=== PATIENT | female | born 1940 | race Caucasian/White ===

== ENCOUNTER → 2018-04-19 12:40 | Outpatient (CLI) | payer MEDICARE, OTHER, SELFPAY ==
--- NOTE | 2018-04-19 12:47 | BI_ITS ---
MAMMOGRAPHY - BILATERAL SCREENING REASON FOR EXAM: Female, 77 years old. Routine annual screening examination. PERTINENT HISTORY: Aunt with breast cancer. TECHNIQUE: Digital bilateral breast maicol (3D mammographic acquisition) in the CC and MLO projections. 2-D mediolateral oblique (MLO) and craniocaudad (CC) views of both breasts were obtained. CAD: Full Field Digital Mammography with Computer Added Detection was performed. COMPARISON: Comparison is made with prior study dated March 12, 2017 and January 10, 2016. FINDINGS: Breast Composition: There are scattered areas of fibroglandular density. There are no dominant masses or suspicious calcifications. A pacemaker battery pack is seen in the left axillary region. Stable 6.2 mm well-defined nodule in the axillary region of the right breast. This suggests a small lymph node. No other significant abnormalities are identified. There has been no significant change since the prior study. BI/SCREENING MAMM (CAD), BILAT IMPRESSION: Stable bilateral screening mammogram. Yearly follow-up mammogram recommended. (A) ASSESSMENT CATEGORY: BIRADS Category 2: Benign. A letter regarding these results will be sent to the patient by the facility within 30 days. Approximately 10% of breast cancers are not detected by mammography. A normal mammogram should not delay biopsy of a clinically suspicious abnormality. [id number] Electronically Signed: Deni Mancia MD at 15:02 EST Tel [phone], Service support ,
== END ==
PROVIDERS: Family Provider Internal Medicine; PCP Internal Medicine; Referring Provider Internal Medicine; Visit Provider Internal Medicine
DX: Z12.31 Encounter for screening mammogram for malignant neoplasm of breast (principal)
CPT/HCPCS: 77063; 77067

== ENCOUNTER → 2019-05-01 11:17 | Outpatient (CLI) | payer MEDICARE, OTHER, SELFPAY ==
--- NOTE | 2019-05-01 11:26 | BI_ITS ---
MAMMOGRAPHY - BILATERAL SCREENING REASON FOR EXAM: Female, 78 years old. Routine annual screening examination. PERTINENT HISTORY: Aunts with breast cancer. TECHNIQUE: Digital bilateral breast mukul (3D mammographic acquisition) in the CC and MLO projections. 2-D mediolateral oblique (MLO) and craniocaudad (CC) views of both breasts were obtained. CAD: Full Field Digital Mammography with Computer Added Detection was performed. COMPARISON: Comparison is made with prior study dated April 19, 2018 and March 12, 2017. FINDINGS: Breast Composition: There are scattered areas of fibroglandular density. There are no dominant masses or suspicious calcifications. A battery pack from a pacemaker device is seen in the left axillary region. Stable 6.2 mm well-defined nodule in the axillary region of the right breast suggestive of a small lymph node. No other significant abnormalities are identified. There has been no significant change since the prior study. BI/SCREEN MAMM (CAD) W/MUKUL BILAT IMPRESSION: Stable bilateral screening mammogram. Yearly follow-up mammogram recommended. (A) ASSESSMENT CATEGORY: BIRADS Category 2: Benign. A letter regarding these results will be sent to the patient by the facility within 30 days. Approximately 10% of breast cancers are not detected by mammography. A normal mammogram should not delay biopsy of a clinically suspicious abnormality. [id number] Electronically Signed: Deni Mancia, at 13:37 EST , Service support ,
== END ==
PROVIDERS: Family Provider Internal Medicine; PCP Internal Medicine; Referring Provider Obstetrics & Gynecology; Visit Provider Obstetrics & Gynecology
DX: Z12.31 Encounter for screening mammogram for malignant neoplasm of breast (principal)
CPT/HCPCS: 77063; 77067

== ENCOUNTER 2020-07-02 10:30 | Outpatient (RCR) | payer MEDICARE, OTHER, SELFPAY | END 2020-07-02 23:59 | LOC: IMMUN 10:30 | PROVIDERS: PCP Internal Medicine; Referring Provider Family Medicine; Visit Provider Family Medicine | DX: Z23 Encounter for immunization (principal) | CPT/HCPCS: 0011A; 0012A ==

== ENCOUNTER → 2021-03-24 15:27 | Outpatient (CLI) | payer MEDICARE, OTHER, SELFPAY ==
--- NOTE | 2021-03-24 15:31 | BI_ITS ---
MAMMOGRAPHY - BILATERAL SCREENING REASON FOR EXAM: Female, 80 years old. Routine annual screening examination. PERTINENT HISTORY: Aunts with breast cancer. TECHNIQUE: Digital bilateral breast mukul (3D mammographic acquisition) in the CC and MLO projections. 2-D mediolateral oblique (MLO) and craniocaudad (CC) views of both breasts were obtained. CAD: Full Field Digital Mammography with Computer Added Detection was performed. COMPARISON: Comparison is made with prior study dated 05/01/2019 and 04/19/2018. FINDINGS: Breast Composition: There are scattered areas of fibroglandular density. There are no dominant masses or suspicious calcifications. Stable 6.2 mm well-defined nodule in the axillary region of the right breast suggestive of a small lymph node. The battery pack of the pacemaker is seen in the left axillary region No other significant abnormalities are identified. There has been no significant change since the prior study. BI/SCRN MAMM (CAD)W/MUKUL BILAT IMPRESSION: Stable bilateral screening mammogram. Yearly follow-up mammogram recommended. (A) ASSESSMENT CATEGORY: BIRADS Category 2: Benign. A letter regarding these results will be sent to the patient by the facility within 30 days. Approximately 10% of breast cancers are not detected by mammography. A normal mammogram should not delay biopsy of a clinically suspicious abnormality. [id number] Electronically Signed: Deni Mancia MD at 8:15 EDT , Service support ,
== END ==
PROVIDERS: PCP Internal Medicine; Visit Provider Internal Medicine
DX: Z12.31 Encounter for screening mammogram for malignant neoplasm of breast (principal)
CPT/HCPCS: 77063; 77067

== ENCOUNTER → 2023-04-10 | Outpatient (CLI) | payer MEDICARE, OTHER, SELFPAY ==
--- NOTE | 2023-04-10 15:32 | BI_ITS ---
MAMMOGRAPHY - BILATERAL SCREENING REASON FOR EXAM: Female, 82 years old. Routine annual screening examination. PERTINENT HISTORY: Aunts with breast cancer. TECHNIQUE: Digital bilateral breast mukul (3D mammographic acquisition) in the CC and MLO projections. 2-D mediolateral oblique (MLO) and craniocaudad (CC) views of both breasts were obtained. CAD: Full Field Digital Mammography with Computer Added Detection was performed. COMPARISON: Comparison is made with prior study dated March 24, 2021 and May 01, 2019. FINDINGS: Breast Composition: There are scattered areas of fibroglandular density. There are no dominant masses or suspicious calcifications. Stable 6.2 mm well-defined nodule in the axillary region of the right breast suggestive of a small lymph node. Once again, the battery pack of a left-sided pacemaker is seen in the left axillary region. No other significant abnormalities are identified. There has been no significant change since the prior study. BI/SCRN MAMM (CAD)W/MUKUL BILAT IMPRESSION: Stable bilateral screening mammogram. Yearly follow-up mammogram recommended. (A) ASSESSMENT CATEGORY: BIRADS Category 2: Benign. A letter regarding these results will be sent to the patient by the facility within 30 days. Approximately 10% of breast cancers are not detected by mammography. A normal mammogram should not delay biopsy of a clinically suspicious abnormality. [id number] Electronically Signed: Deni Mancia MD at 14:03 EST ,
== END | disposition home or self-care (01) ==
LOC: OPBI 15:30
PROVIDERS: PCP Internal Medicine; Referring Provider Internal Medicine; Visit Provider Internal Medicine
DX: Z12.31 Encounter for screening mammogram for malignant neoplasm of breast (principal)
CPT/HCPCS: 77063; 77067

== ENCOUNTER 2025-02-05 14:43 | Inpatient (IN) | payer MEDICARE, OTHER, SELFPAY ==
[2025-02-05] VITALS (10 sets, daily range): BP systolic 81–146; BP diastolic 60–97; PULSE 74–94; RESP 16–18; TEMP 35.9–37.2; O2SAT 90–96; BMI 31.6; BMI 31.1
--- NOTE | 2025-02-05 15:24 | EKG12_ITS ---
Test Reason : SOB Blood Pressure : */* mmHG Vent. Rate : 92 BPM Atrial Rate : * BPM P-R Int : * ms QRS Dur : 90 ms QT Int : 388 ms P-R-T Axes : * 74 28 degrees QTcB Int : 479 ms Atrial fibrillation with occasional ventricular-paced complexes Nonspecific ST and T wave abnormality Abnormal ECG Confirmed by MANE MONTILLA, RAND ([id number]), deputy editor in chief RACHAEL GÓMEZ ([id number]) on 02/06/2025 10:46:57 AM Referred By: BRYCE Confirmed By: RAND GILLIAM MD
--- NOTE | 2025-02-05 15:27 | ED.VIS.DYS ---
HPI History of Present Illness Chief Complaint: Shortness of Breath Detail of Chief Complaint: Dyspnea with activity, orthopnea, swelling, and chest discomfort when supin Informant: patient Onset/Context/Timing Onset: Days (Approximately 2 to 3 days ago) Context: sudden and activity on onset Timing: Intermittent Quality: Positive for Dyspnea on exertion and Orthopnea (Patient had to raise her bed past 45 degrees last evening.); Negative for PND or Wheezing Current Severity: Gone Maximum Severity: Severe Worsened by: Exertion (Patient states she cannot go up entire flight of steps without having some mild chest discomfort and shortness of breath) and Lying flat; Not Worsened By Coughing (Patient reports a cough that is nonproductive.) Relieved by: Rest Associated Symptoms cough; Negative for rhinorrhea, post nasal drip, ear pain, fever, sore throat, subjective, chills, sweats, clear sputum, white sputum, yellow sputum or green sputum Chest Pain: Positive for Tightness Narrative Narrative: Patient is a pleasant 84-year-old female with history of atrial fibrillation on Eliquis, hypertension and high cholesterol. She is on no medication for her cholesterol. She was seen at [facility] urgent care and diagnosed with congestive heart failure. She was instructed to go to the emergency room yesterday. She presents today because of dyspnea, dyspnea with activity, orthopnea and swelling of her legs. The swelling started approximately 3 to 4 days ago. . Patient denies fever, chills night sweats. Patient denies upper respiratory tract infectious symptoms. Patient denies black or maroon-colored stool. Patient denies urologic symptoms. PE Risk Factors: Negative for Cancer, OCP + Smoking + > 35, Prior DVT or PE, Recent immobilization, Recent surgery or Recent travel Prior similar symptoms: No Recent Illness/Hospitalization: No [facility] Medical History (Updated 02/05/25 @ 17:[address] Mark Romano MD) CHF (congestive heart failure) Pacemaker Anticoagulant long-term use Atrial fibrillation Hypercholesterolemia Home Medications ?Medication ?Instructions ?Recorded ?Last Taken ?Type amlodipine 2.5 mg tablet 5 mg PO DAILY 11/25/13 11/25/13 History nebivolol 2.5 mg tablet (Bystolic) mg PO DAILY 11/25/13 Unknown History levetiracetam 250 mg tablet 250 mg PO BID #60 tabs 11/26/13 Unknown Rx Allergy/AdvReac Type Severity Reaction Status Date / Time No Known Allergies Allergy Verified 02/05/25 14:48 Social History Smoking Status: Never smoker ROS ROS ED Constitutional Constitutional ED: Denies chills, fever(s), sweats or weight loss Eyes Eyes: Denies blurry vision or change in vision ENT ENT ED: Denies ear pain or rhinorrhea Cardiovascular Cardiovascular: Reports chest pain and orthopnea; Denies palpitations, paroxysmal nocturnal dyspnea or racing heartbeat Respiratory/Chest Respiratory/Chest: Reports cough, dyspnea, dyspnea on exertion and orthopnea; Denies paroxysmal nocturnal dyspnea or sputum Gastrointestinal Gastrointestinal: Denies abdominal pain, diarrhea, nausea or vomiting Genitourinary Genitourinary ED: Denies dysuria, hematuria or urinary frequency Musculoskeletal Musculoskeletal: Denies arthralgias or myalgias Integumentary Denies rash Neurologic Neurologic: Denies weakness Endocrine Endocrinology: Denies cold intolerance or heat intolerance Hematologic/Lymphatic Hematologic/Lymphatic: Denies easy bleeding or easy bruising EXAM Physical Exam Const Vital Signs: 02/05/25 14:44 02/05/25 15:37 02/05/25 16:00 Temperature 97.8 F Temperature Source Oral Pulse Rate 80 88 79 Respiratory Rate 16 18 18 Blood Pressure 91/67 95/77 81/60 L Blood Pressure Mean 75 83 67 Pulse Ox 94 90 92 Oxygen Delivery Method Room Air Room Air Room Air 02/05/25 16:47 Temperature Temperature Source Pulse Rate 74 Respiratory Rate Blood Pressure 101/64 Blood Pressure Mean 76 Pulse Ox Oxygen Delivery Method Positive well nourished and well developed Constitutional Narrative: Patient is hypotensive. She does not have a history of hypotension. General Appearance ED: well developed, NAD and pallor HEENT Reports moist mucous membranes and dry mucous membranes atraumatic Mouth ED: Yes dry mucous membranes Mouth: dry mucous membranes Eyes PERRL and EOMs intact bilaterally General Eye ED: Negative for pale conjunctiva or scleral icterus Neck no lymphadenopathy, supple, no meningeal signs and no JVD Resp normal respiratory effort and No clear to auscultation bilaterally Auscultation: rales right and bilateral (More noticeable on the left.) base Cardio regular rhythm, S1 normal heart sound and S2 normal heart sound Rhythm: abnormal rhythm irregularly irregular GI non-tender, non-distended and no masses Auscultation: normoactive bowel sounds Back/Spine normal to inspection Extremity Negative for normal to inspection General Extremety ED: Yes edema General Extremity: edema Neuro oriented x3, CN's II-XII intact bilaterally and no sensory deficits noted Sensorium / Orientation: alert Speech: speech normal Psych mental status grossly normal Skin no wounds and skin turgor normal General Skin Exam: pallor; Negative for jaundice Lesions: no lesions Rashes: no rashes MDM MDM MDM Narrative Medical decision making narrative: Patient with dyspnea, dyspnea exertion orthopnea rales pedal edema concern she has new onset congestive heart failure. This may be due to longstanding history of hypertension x 40 years. This also be due to cardiac ischemia as she is reporting some discomfort when she was up a flight of stairs and the fact she cannot make it up the entire flight of stairs. Will obtain EKG serial troponins BNP. Chest x-ray to confirm suspicion that she is in heart failure. Electrolyte panel to assess renal function and specifically sodium potassium. History & Record Review Additional record(s) reviewed:: Prior inpatient record (Last available record at [facility] was November 2013. She was admitted for hypertension at that time.) Lab Data Attestation: I reviewed the patient's lab results. Lab results narrative: CBC is unremarkable. Basic metabolic panel is remarkable for CO2 of 18 with a normal anion gap. BUN and creatinine are 28 and 1.01. Estimated GFR 55. Glucose is slightly elevated 145. Lactate was normal. BNP was normal. First troponin is normal. Labs: Laboratory Results - last 24 hr 02/05/25 15:35 WBC 8.5 RBC 4.29 Hgb 12.2 Hct 38.1 MCV 88.8 MCH 28.4 MCHC 32.0 RDW Std Deviation 44.3 H RDW Coeff of William 13.6 Plt Count 276 MPV 9.7 Immature Gran % (Auto) 0.500 Neut % (Auto) 71.3 H Lymph % (Auto) 19.4 [place] % (Auto) 6.3 Eos % (Auto) 1.8 Baso % (Auto) 0.7 Absolute Neuts (auto) 6.0 Absolute Lymphs (auto) 1.64 Nucleated RBC % 0 Sodium 138 Potassium 4.4 Chloride 105 Carbon Dioxide 18.4 L Anion Gap 15 BUN 28 H Creatinine 1.02 Estim Creat Clear Calc 49.37 L Est GFR (MDRD) Non-Af 55 L BUN/Creatinine Ratio 27.4 H Glucose 145 H Lactic Acid 1.6 Calcium 9.4 Total Bilirubin 0.82 AST 43 H ALT 31 Alkaline Phosphatase 70 Troponin T High Sens 11 NT pro BNP II 1402 Total Protein 6.8 Albumin 4.1 Globulin 2.6 Albumin/Globulin Ratio 1.6 Radiography Diagnostic Testing: Clinical Impression(s) from Imaging Studies Chest X-Ray 02/05/25 15:50 IMPRESSION: Small right pleural effusion. Bilateral pulmonary vascular congestion Reading Location: [facility] EKG Initial EKG: Attestation: I personally reviewed and interpreted this EKG as follows: Interpretation: Atrial Fibrillation (Rate is 92. QRS duration 90 ms. QT duration 388 ms. Computer is detecting occasional paced beat. This was noted on the V1 rhythm strip. There is only 2 paced beats the rest of the beats were intrinsic beats. She states her battery was last replaced 7 years ago. The pacemaker was placed 15 yea) Management Discussion w/another healthcare provider: Hospitalist (Spoke with Dr. Chelsey Rich. Full admit PCU for new onset CHF and hypotension) Treatment and Re-Evaluation :: Patient did receive IV Lasix and she is fluid overloaded. With new onset CHF hypotension hospitalist has been paged for admission and further workup as an inpatient. Discharge Plan Dx/Rx/DC Orders Clinical Impression: New onset of congestive heart failure, Acute hypotension, Atrial fibrillation, Hypercholesterolemia, Pacemaker, Anticoagulant long-term use Disposition Disposition: Acute Care Hospital [facility]
--- NOTE | 2025-02-05 15:50 | RAD_ITS ---
PROCEDURE: CHEST PA AND LATERAL 02/05/2025 REASON FOR EXAM: BIBASILAR RALES, ORTHOPNEA, PEDAL EDEMA TECHNIQUE: Procedure Code: RADCXR Modality: DX Procedure: CHEST PA AND LATERAL COMPARISON: None FINDINGS: Hardware: Pacemaker overlying left chest wall with leads in appropriate position. Heart: Cardiomegaly Mediastinum: The mediastinal contour is unremarkable. Lungs bibasilar atelectasis:. Mild bilateral pulmonary vascular congestion. Small right pleural effusion. Bones: Degenerative changes of visualized spine. RAD/Chest PA and Lateral IMPRESSION: Small right pleural effusion. Bilateral pulmonary vascular congestion Reading Location: [id number]
[2025-02-05 16:05] LABS: Hematocrit 38.1 % (37-47); Hemoglobin 12.2 g/dL (12.0-15.0); Immature Granulocytes Count 0.040 X10^3/uL (0.0-0.0); Mean Corp Hgb Conc 32.0 g/dL (32-36); Mean Corpuscular Volume 88.8 fL (81-99); Mean Platelet Vol. 9.7 fl (6.2-12.0); NRBC Flagged by Analyzer 0 % (0-5); Platelet Count 276 K/mm3 (150-450); RBC Distribution Width CV 13.6 % (11.6-14.6); RBC Distribution Width SD 44.3 fl (35.1-43.9); Red Blood Count 4.29 M/mm3 (4.2-5.4); White Blood Count 8.5 K/mm3 (4.4-11.0)
[2025-02-05 16:14] LABS: AST(SGOT) 43 U/L (<=31); Alanine Aminotransfer ALT/SGPT 31 U/L (<=34); Albumin, Serum 4.1 g/dL (3.4-4.8); Alkaline Phosphatase 70 U/L (35-104); Anion Gap 15 (5-15); BUN 28 mg/dL (4-19); BUN/Creat Ratio 27.4 RATIO (10-20); Calcium,Total 9.4 mg/dL (7.6-11.0); Carbon Dioxide 18.4 mmol/L (21.0-32.0); Chloride 105 mmol/L (98-108); Estimated Creatinine Clearance 49.37 ml/min (50-250); Globulin 2.6 g/dL (2.2-4.2); Glucose 145 mg/dL (70-99); Potassium 4.4 mmol/L (3.3-5.1); Pro- Brain NATRIURETIC PEPTIDE 1402 pg/mL (<=1800); Troponin T High Sensitivity 11 ng/L (<=14)
[2025-02-05] MEDS: Furosemide 20 MG/2 ML VIAL IV (17:21)
[2025-02-05 17:55] LABS: Troponin T High Sens 2 HR 10 ng/L (<=14)
--- NOTE | 2025-02-05 18:24 | PCM.HP.STD ---
HPI - General General Date of Admission: 02/05/25 Date of Service: 02/05/25 Chief Complaint: SOB and leg swelling HPI Narrative CHRISTOPHER JAVIER, is a 84-year-old female history of A-fib on Eliquis, hypertension, pacemaker, asthma presented to [facility] ED 02/05/2025 due to concerns for congestive heart failure. Today she presented to the ED due to dyspnea, orthopnea, swelling of her legs for the past 3 to 4 days. In the ED temp 97.8, heart rate of 88, blood pressure 91/67, respirate 16 pulse ox 94% on room air. CBC with white count of 18.5 and hemoglobin 12.2, lactic normal, troponin 11, proBNP 1400 but chest x-ray did show small right pleural effusion and bilateral pulmonary vascular congestion. CMP with BUN of 28 and a creatinine of 1.02 and glucose of 145. Patient given a dose of Lasix and hospitalist contacted for admission for new onset heart failure. Patient evaluated with son-in-law at bedside. Patient reports over the past couple of months she has had increased shortness of breath, she was transition from amiodarone till diltiazem a couple of days ago due to concerns that amiodarone was causing her respiratory symptoms, since the switch patient has had further worsening of her breathing with orthopnea and increased swelling in lower extremities over the past 1 to 2 days and also has been coughing pretty consistently over the past few days without any production. No chest pain, no fevers, no bowel or bladder changes. Of note patient used to not have frequent A-fib however now has been in A-fib most of the time over the past 6 weeks which is not normal for her, she cannot tell when she is in A-fib however she has a pacemaker and that is how it was noted. [facility] Medical History (Updated 02/05/25 @ 20:[address] Chelsey Rich MD) Anticoagulant long-term use Atrial fibrillation CHF (congestive heart failure) Hypercholesterolemia Pacemaker Home Medications ?Medication ?Instructions ?Recorded ?Last Taken ?Type amlodipine 2.5 mg tablet 5 mg PO DAILY blood pressure 11/25/13 11/25/13 History levetiracetam 250 mg tablet 250 mg PO BID siezure #60 tabs 11/26/13 Unknown Rx apixaban 5 mg tablet (Eliquis) 5 mg PO BID afib 02/05/25 02/05/25 08:00 History 5 mg carvedilol 3.125 mg tablet 3.125 mg PO BID blood pressure 02/05/25 02/05/25 08:00 History 3.125 mg diltiazem HCl 240 mg 240 mg PO DAILY heart rate 02/05/25 02/05/25 08:00 History capsule,extended release 24 hr 240 mg fluticasone furoate 100 1 inh inhalation DAILY asthma 02/05/25 02/05/25 08:00 History mcg/actuation blister powder for 1 inh inhalation (Arnuity Ellipta) Allergy/AdvReac Type Severity Reaction Status Date / Time No Known Allergies Allergy Verified 02/05/25 14:48 Social History Smoking Status: Never smoker ROS ROS Narrative General: Denies fever/chills HENT: Denies headache, denies stuffy nose, denies sore throat EYES: Denies changes in vision Resp: Increased shortness of breath over the past couple of months, subacute worsening over the past few days, cough more persistent over the past couple of days Cardiac: Denies chest pain GI: Denies abdominal pain, denies changes in bowel, denies nausea/vomiting : Denies changes in urination Extremity: Increased swelling in lower extremities mostly over the last 1 to 2 days MSK: Denies weakness Neuro: Denies any numbness/tingling Heme: Denies any bleeding or bruising Skin: Denies rashes Psychiatric: No complaints voiced Vital Signs Vital Signs Vital Signs: 02/05/25 14:44 02/05/25 15:37 02/05/25 16:00 Temperature 97.8 F Temperature Source Oral Pulse Rate 80 88 79 Respiratory Rate 16 18 18 Respiratory Effort Respiratory Depth Respiratory Pattern Blood Pressure 91/67 95/77 81/60 L Blood Pressure Mean 75 83 67 Pulse Ox 94 90 92 Oxygen Delivery Method Room Air Room Air Room Air 02/05/25 16:47 02/05/25 17:43 02/05/25 17:44 Temperature 97.8 F Temperature Source Pulse Rate 74 79 Respiratory Rate 18 Respiratory Effort Short of Breath Respiratory Depth Normal Respiratory Pattern Normal Blood Pressure 101/64 109/82 H Blood Pressure Mean 76 91 Pulse Ox 94 Oxygen Delivery Method Room Air 02/05/25 18:00 Temperature Temperature Source Pulse Rate 88 Respiratory Rate 18 Respiratory Effort Respiratory Depth Respiratory Pattern Blood Pressure 117/78 Blood Pressure Mean 91 Pulse Ox 91 Oxygen Delivery Method Room Air Weight Weight: 91.444 kg Body Mass Index (BMI) 31.6 Physical Exam Narrative General: Alert, oriented, no apparent distress HEENT: Atraumatic, normocephalic Eyes: Anicteric, normal conjunctiva, extraocular movements grossly intact Neck: Supple Respiratory: Slightly diminished at the bases without any overt wheezes, rhonchi, crackles, normal respiratory effort Cardiovascular: Irregularly irregular GI: Soft, nontender, nondistended Extremities: 1+ bilateral lower extremity pitting edema Musculoskeletal: Moving all extremities Neuro: No overt focal neurological deficits Skin: No rashes appreciated Psych: Cooperative Results Lab / Micro Data 02/05/25 15:35 02/05/25 15:35 Labs: Laboratory Results - last 24 hr 02/05/25 15:35: WBC 8.5, RBC 4.29, Hgb 12.2, Hct 38.1, MCV 88.8, MCH 28.4, MCHC 32.0, RDW Std Deviation 44.3 H, RDW Coeff of William 13.6, Plt Count 276, MPV 9.7, Immature Gran % (Auto) 0.500, Neut % (Auto) 71.3 H, Lymph % (Auto) 19.4, [place] % (Auto) 6.3, Eos % (Auto) 1.8, Baso % (Auto) 0.7, Absolute Neuts (auto) 6.0, Absolute Lymphs (auto) 1.64, Nucleated RBC % 0, Sodium 138, Potassium 4.4, Chloride 105, Carbon Dioxide 18.4 L, Anion Gap 15, BUN 28 H, Creatinine 1.02, Estim Creat Clear Calc 49.37 L, Est GFR (MDRD) Non-Af 55 L, BUN/Creatinine Ratio 27.4 H, Glucose 145 H, Lactic Acid 1.6, Calcium 9.4, Total Bilirubin 0.82, AST 43 H, ALT 31, Alkaline Phosphatase 70, Troponin T High Sens 11, NT pro BNP II 1402, Total Protein 6.8, Albumin 4.1, Globulin 2.6, Albumin/Globulin Ratio 1.6 02/05/25 17:27: Troponin T Hi Sens 2 Hr 10 Imaging Radiology Impression Chest X-Ray 02/05/25 15:50 IMPRESSION: Small right pleural effusion. Bilateral pulmonary vascular congestion Reading Location: [id number] Assessment & Plan Assessment/Plan (1) New onset of congestive heart failure: PLAN: Plan # Suspect acute exacerbation heart failure new onset -Admit to telemetry -proBNP only 1400 however patient's symptoms and edema and chest x-ray are consistent with heart failure -CXR small right pleural effusion and bilateral pulmonary vascular congestion -Continue IV lasix - Echo ordered -Daily weights, I's and O's -Fluid restriction, heart healthy diet -Check TSH and mag # History of asthma -Continue home inhalers -I/S #Paroxysmal Atrial Fibrillation and history of pacemaker -Rate control: Coreg -Anticoagulation: Eliquis #Hypertension - Patient initially had low blood pressure on presentation, improved with systolic in 117 on my evaluation, hold home diltiazem, continue home Coreg with holding parameters #DVT ppx: Patient on full dose anticoagulation Chelsey Rich MD Charges/Coding Visit Charges Inpatient E&M: 72011 Init Hosp L2
--- OUTSIDE RECORDS SUMMARY | 2025-02-05 18:55 | XMS RPT_ITS | CCD ---
Author Organization [facility] CliniSyri Care Team Providers Care Sound Effects Technician Name Role Phone YASIR FOSTER Unavailable Unavailable TALAMPAS, SAGRARIO D Unavailable Unavailable YASIR FOSTER Unavailable Unavailable TALAMPAS, SAGRARIO Unavailable Unavailable TALAMPAS, SAGRARIO Unavailable Unavailable FLORENCE FOSTERNETH Unavailable Unavailable YASIR FOSTER Unavailable Unavailable TALAMPAS, SAGRARIO Unavailable Unavailable Sagrario Fong MD Primary Care Provider Fer Cabrales MD Unavailable Sagrario Fong MD Primary Care Provider Fer Cabrales MD Unavailable Sagrario Fong MD Primary Care Provider Fer Cabrales MD Unavailable Fer Cabrales MD Unavailable Sagrario Fong MD Primary Care Provider Deng OFFICE RECEPTIONIST.BILINGUAL LEGAL ASSISTANT, Vince Unavailable John OFFICE RECEPTIONIST.INGREDIENT HANDLER, Leslie Unavailable Deng WORKERS' COMPENSATION MEDIATOR, Vince Referring Unavailable Vince Vilchis NP Attending Unavailable Talampas, Sagrario D Primary Care Unavailable Vilchis OFFICE RECEPTIONIST.BILINGUAL LEGAL ASSISTANT, Vince Unavailable TALAMPAS, SAGRARIO D Primary Care Unavailable TALAMPAS, SAGRARIO D Primary Care Unavailable VAN HUERTAS Attending Unavailable TALAMPAS, SAGRARIO D Primary Care Unavailable TALAMPAS, SAGRARIO D Attending Unavailable TALAMPAS, SAGRARIO D Primary Care Unavailable WENDY LEMUS Attending Unavailable TALAMPAS, SAGRARIO D Primary Care Unavailable VINCE VILCHIS Referring Unavailable SEVEN BAUTISTA Attending Unavailable SEVEN BAUTISTA Referring Unavailable TALAMPAS, SAGRARIO D Primary Care Unavailable TALAMPAS, SAGRARIO D Primary Care Unavailable VAN HUERTAS Referring Unavailable WENDY LEMUS Attending Unavailable TALAMPAS, SAGRARIO D Primary Care Unavailable SELF Referring Unavailable TALAMPAS, SAGRARIO D Primary Care Unavailable DENG VINCE Attending Unavailable TALAMPAS, SAGRARIO D Referring Unavailable TALAMPAS, SAGRARIO D Primary Care Unavailable Allergies Allergy Classification Reported Allergen(s) Allergy Type Date of Onset Reaction(s) Facility (20 sources) Adhesive agent; Translations: [ADHESIVE] Propensity to adverse reactions to drug (disorder) 1 Rash [facility] Repository (20 sources) amLODIPine; Translations: [AMLODIPINE] Drug Allergy 7 Swelling [facility] Repository (20 sources) Latex; Translations: [LATEX] Propensity to adverse reactions to drug (disorder) 8 Rash [facility] Repository (20 sources) Seasonal allergy; Translations: [SEASONAL ALLERGIES] Propensity to adverse reactions (disorder) 1 Cough [facility] Repository (20 sources) Atenolol; Translations: [ATENOLOL] Drug Allergy 9 Other: See Comments, Intolerance [facility] Work Phone: (20 sources) atorvastatin; Translations: [ATORVASTATIN] Drug Allergy 9 Myalgia [facility] Work Phone: (20 sources) rosuvastatin; Translations: [ROSUVASTATIN] Drug Allergy 9 Myalgia [facility] Work Phone: Medications Current Medications Medication Drug Class(es) Dates Sig (Normalized) Sig (Original) amLODIPine 2.5 mg oral tablet (1 source) Dihydropyridine Calcium Channel Pradip Start: 4 take 5 mg by mouth once daily Amlodipine Active 5 MG PO DAILY November 24, 2013 11:00pm apixaban 5 mg oral tablet (15 sources) Factor Xa Inhibitor Start: 5 End: 5 take 1 tablet by mouth twice daily apixaban (ELIQUIS) 5 mg tab(s) Take 1 tablet by mouth two times a day. 60 tablet 11 12/10/2024 Active calcium carbonate 1250 mg oral tablet (20 sources) Start: 0 calcium carbonate(CALCIUM 500 500 MG (1,250 MG) TAB) Takes 3641-5878 mg once daily. 0 05/31/2009 Active Comment on above: Takes 3420-4523 mg o nce daily. carvedilol 3.125 mg oral tablet (20 sources) alpha-Adrenergic Pradip, beta-Adrenergic Pradip Start: 2 End: 4 take 1 tablet by mouth twice daily carvedilol (COREG) 3.125 mg tablet Indications: Essential hypertension , PSVT (paroxysmal supraventricular tachycardia) ([facility]) Take 1 tablet by mouth two times a day. 180 tablet 3 03/24/2024 Active Comment on above: Take 1 tablet by agustina th twice daily. Take 1 tablet by agustina th two times a day. cholecalciferol 0.025 mg oral capsule (20 sources) Vitamin D Start: 0 take 1 tablet by mouth once daily Cholecalciferol, Vitamin D3, 1,000 unit ORAL Cap Take one(1) tablet two(2) times daily. 02/21/2010 Active Comment on above: Take one(1) tablet t wo(2) times daily. 24 hr dilTIAZem hydrochloride 240 mg extended release oral capsule (1 source) Calcium Channel Pradip Start: 5 take 1 capsule by mouth once daily dilTIAZem CD (CARTIA XT) 240 mg 24 hr capsule Take 1 capsule by mouth once daily. 90 capsule 3 02/03/2025 Active erythromycin 0.005 mg/mg ophthalmic ointment (20 sources) Macrolide, Macrolide Antimicrobial Start: 4 erythromycin (ROMYCIN) 5 mg/gram (0.5 %) ophthalmic ointment Use in both eyes. 1 x daily 07/02/2023 Active Comment on above: Use in both eyes. 1 x daily FLAXSEED OIL (OMEGA 3 ORAL) (20 sources) FLAXSEED OIL (OM EGA 3 ORAL) Take by mouth once daily. Active FLAXSEED OIL (OM EGA 3 ORAL) Take by mouth once daily. 0 Active Comment on above: Take by mouth once d aily. 14 actuat fluticasone furoate 0.1 mg/actuat dry powder inhaler (20 sources) Corticosteroid Start: 03-20-20 End: 09-24-19 take 1 puff(s) by inhalation once daily fluticasone furoate (ARNUITY ELLIPTA) 100 mcg/actuation inhaler Indications: Mild persistent asthma without complication (HCC) , Chronic cough Inhale 1 puff as instructed once daily. 3 each 2 09/23/2024 Active Start: 09-14-2022 End: 03-23-2023 take 1 spray(s) nasal route once daily fluticasone (FLONASE ALLERGY RELIEF) 50 mcg/actuation nasal spray Indications: Post-nasal drip , Acute rhinitis Use 1 Wallace in each nostril once daily. 3 Each 3 03/23/2023 Active Comment on above: Use 1 Wallace in each nostril once daily. hydroCHLOROthiazide 12.5 mg oral capsule (20 sources) Thiazide Diuretic Start: 2020 End: 2021 take 1 capsule by mouth once daily as needed hydroCHLOROthiazide (HYDRODIURIL, ESIDRIX) 12.5 mg capsule Indications: Essential hypertension Take 1 capsule by mouth once daily as needed. 90 capsule 1 03/07/2022 Active Comment on above: Take 1 capsule by mo [facility] once daily as needed. lamoTRIgine 100 mg oral tablet (20 sources) Mood Stabilizer, Anti-epileptic Agent Start: 2020 End: 2023 take 1 tablet by mouth twice daily lamoTRIgine (LAMICTAL) 100 mg tablet Indications: Nonintractable epilepsy without status epilepticus, unspecified epilepsy type (HCC) Take 1 tablet by mouth two times a day. 180 tablet 3 03/24/2024 Active Comment on above: Take 1 tablet by agustina th twice daily. Take 1 tablet by agustina th two times a day. levETIRAcetam 250 mg oral tablet (1 source) Start: 2013 take 250 mg by mouth twice daily Levetiracetam Active 250 MG PO TWICE A DAY 60 November 25, 2013 11:00pm nebivolol 2.5 mg oral tablet (1 source) Start: 2013 take 1 mg by mouth once daily Nebivolol (Bystolic) 2.5 MG tablet Active MG PO DAILY November 24, 2013 11:00pm perflutren lipid microspheres 1.3 mL in NaCl (PF) 0.9% 10 mL injection (DEFINITY) (20 sources) Start: 2022 End: 2023 perflutren lipid microspheres 1.3 mL in NaCl (PF) 0.9% 10 mL injection (DEFINITY) rosuvastatin calcium 5 mg oral tablet (18 sources) HMG-CoA Reductase Inhibitor Start: 2023 End: 2024 take 1 tablet by mouth once daily at bedtime rosuvastatin (CRESTOR) 5 mg tablet Indications: Pure hypercholesterolemia Take 1 tablet by mouth daily at bedtime. As directed. Currently taking MWF. 30 tablet 09/23/2024 Active 125 ml sodium chloride 9 mg/ml prefilled syringe (20 sources) Start: 2022 End: 2023 sodium chloride 0.9 % (flush) 10 mL (BD POSIFLUSH) Completed/Discontinued Medications Medication Drug Class(es) Dates Sig (Normalized) Sig (Original) [id number] 200 actuat albuterol 0.09 mg/actuat metered dose inhaler (20 sources) beta2-Adrenergic Agonist Start: 04-04-2021 End: 02-18-2024 take 2 puff(s) by inhalation every four hours as needed for wheezing albuterol HFA (VENTOLIN HFA) 90 mcg/actuation inhaler Indications: Mild persistent asthma without complication Inhale 2 Puffs as instructed every 4 hours as needed for wheezing/shortnes s of breath. 24 g 3 07/27/2022 02/18/2024 Discontinued (Course of therapy completed) Comment on above: Inhale 2 Puffs as in structed every 4 hours as needed for wheezing/shortness of breath. amiodarone hydrochloride 200 mg oral tablet (2 sources) Antiarrhythmic Start: 01-22-2025 End: 01-17-2026 take 1 tablet by mouth once daily amiodarone (PACERONE) 200 mg tablet Indications: AF (paroxysmal atrial fibrillation) (HCC) Take 1 tablet by mouth once daily. 90 tablet 3 01/22/2025 02/03/2025 Discontinued aspirin 81 mg delayed release oral tablet (20 sources) Platelet Aggregation Inhibitor, Nonsteroidal Anti-inflammatory Drug Start: 09-05-2010 End: 09-01-2024 take 2 tablets by mouth once daily in the evening aspirin, enteric coated (ASPIRIN, ENTERIC COATED) 81 mg EC tablet Take by mouth as directed. Take two tablets once daily in the evening. 0 09/05/2010 09/01/2024 Discontinued Comment on above: Take by mouth as dir ected. Take two tablets once daily in the evening. Blood-Glucose Meter monitoring kit (20 sources) Start: 02-26-2017 End: 12-11-2022 Blood-Glucose Meter monitoring kit Indications: Prediabetes Glucose Meter of Choice - Kit - Dx: Test blood sugar(s) 1 to 2 time daily. Dx: R73.03 Insulin: No 1 Each 0 02/26/2017 12/11/2022 Discontinued (Course of therapy completed) Start: 02-26-2017 Blood-Glucose Meter monitoring kit Indications: Prediabetes Glucose Meter of Choice - Kit - Dx: Test blood sugar(s) 1 to 2 time daily. Dx: R73.03 Insulin: No 1 Each 0 02/26/2017 Active Comment on above: Glucose Meter of Cho ice - Kit - Dx: Test blood sugar(s) 1 to 2 time daily. Dx: R73.03 Insulin: No 14 actuat fluticasone furoate 0.1 mg/actuat / vilanterol 0.025 mg/actuat dry powder inhaler (20 sources) Corticosteroid, beta2-Adrenergic Agonist Start: 023 End: 024 fluticasone-vilanterol (BREO ELLIPTA) 100-25 mcg/dose inhaler Inhale 1 Inhalation as instructed once daily. 3 Each 2 09/06/2023 03/20/2024 Discontinued Comment on above: Inhale 1 Inhalation as instructed once daily. 120 actuat formoterol fumarate 0.005 mg/actuat / mometasone furoate 0.05 mg/actuat metered dose inhaler (14 sources) Corticosteroid, beta2-Adrenergic Agonist Start: 021 End: 023 take 2 puff(s) by inhalation twice daily as needed mometasone-formoterol (DULERA) 50-5 mcg/actuation HFA aerosol inhaler Indications: Mild persistent asthma without complication Inhale 2 Puffs as instructed twice daily as needed. 1 Each 3 07/27/2022 Active Comment on above: Inhale 2 Puffs as in structed twice daily as needed. lansoprazole 15 mg delayed release oral capsule (1 source) Proton Pump Inhibitor End: take 1 capsule by mouth once daily lansoprazole (PREVACID) 15 mg capsule Take 15 mg by mouth once daily. 0 08/30/2021 Discontinued (Other) Comment on above: Take 15 mg by mouth once daily. lifitegrast 50 mg/ml ophthalmic solution (3 sources) Lymphocyte Function-Associated Antigen-1 Antagonist Start: End: take 1 drop(s) into the eye(s) twice daily XIIDRA 5 % ophthalmic drops Use 1 Drop in both eyes two times a day. 07/02/2023 02/18/2024 Discontinued (Course of therapy completed) Comment on above: Use 1 Drop in both e yes two times a day. mometasone furoate 0.05 mg/actuat metered dose nasal spray (1 source) Corticosteroid Start: End: take 2 spray(s) by mouth once daily mometasone (NASONEX) 50 mcg/actuation nasal spray Use 2 Sprays in the nose once daily. Rinse mouth after use. For nasal draiange 17 g 5 09/05/2022 09/14/2022 Discontinued (Discontinued by Patient) Comment on above: Use 2 Sprays in the nose once daily. Rinse mouth after use. For nasal draiange montelukast 10 mg oral tablet (11 sources) Leukotriene Receptor Antagonist Start: End: take 1 tablet by mouth once daily at bedtime montelukast (SINGULAIR) 10 mg tablet Indications: Mild persistent asthma without complication , Post-nasal drainage Take 1 tablet by mouth daily at bedtime. 90 tablet 3 03/07/2022 06/29/2022 Discontinued (Side Effects) Comment on above: Take 1 tablet by agustina th daily at bedtime. ofloxacin 3 mg/ml ophthalmic solution (3 sources) Quinolone Antimicrobial Start: End: ofloxacin (OCUFLOX) 0.3 % ophthalmic solution Use in both eyes two times a day. 05/17/2023 02/18/2024 Discontinued (Course of therapy completed) Comment on above: Use in both eyes two times a day. oseltamivir 75 mg oral capsule (1 source) Neuraminidase Inhibitor Start: End: take 1 capsule by mouth twice daily oseltamivir (TAMIFLU) 75 mg capsule Take 1 capsule by mouth twice daily for 5 days. 10 capsule 0 05/16/2022 05/21/2022 Comment on above: Take 1 capsule by mo uth twice daily for 5 days. pantoprazole 40 mg delayed release oral tablet (20 sources) Proton Pump Inhibitor Start: End: 024 take 1 tablet by mouth twice daily pantoprazole DR (PROTONIX) 40 mg tablet Indications: Gastroesophageal reflux disease, unspecified whether esophagitis present Take 1 tablet by mouth two times a day. 180 tablet 1 09/24/2023 02/18/2024 Discontinued (Course of therapy completed) Start: 08-30-2021 End: 03-07-2022 take 1 tablet by mouth once daily pantoprazole DR (PROTONIX) 40 mg tablet Take 1 tablet by mouth once daily. 90 tablet 3 08/30/2021 03/07/2022 Discontinued Comment on above: Take 1 tablet by agustina th once daily. Take 40 mg by mouth once daily. Take 1 tablet by agustina th twice daily. pravastatin sodium 10 mg oral tablet (20 sources) HMG-CoA Reductase Inhibitor Start: 03-07-20 End: 02-18-20 24 take 1 tablet by mouth once daily at bedtime pravastatin (PRAVACHOL) 10 mg tablet Indications: Pure hypercholesterolemia Take 1 tablet by mouth daily at bedtime. 90 tablet 3 03/07/2022 02/18/2024 Discontinued (Course of therapy completed) Start: 08-16-2020 End: 03-07-2022 take 2 tablets by mouth once daily at bedtime pravastatin (PRAVACHOL) 10 mg tablet Indications: Pure hypercholesterolemia Take 2 tablets by mouth daily at bedtime. 90 tablet 3 08/16/2020 03/07/2022 Discontinued Comment on above: Take 2 tablets by mo uth daily at bedtime. Take 1 tablet by agustina th daily at bedtime. Problems Active Problems Problem Classification Problem Date Documented Date Episodic/Chronic Asthma (20 sources) Uncomplicated mild persistent asthma; Translations: [Mild persistent asthma, uncomplicated] Onset: 11-01-2020 11-01-2020 Chronic Cardiac dysrhythmias (20 sources) Sick sinus syndrome; Translations: [Sick sinus syndrome] Onset: 07-27-2014 07-27-2014 Chronic Conduction disorders (20 sources) Cardiac pacemaker in situ; Translations: [Presence of cardiac pacemaker] Onset: 03-05-2008 03-05-2008 Chronic Disorders of lipid metabolism (6 sources) Pure hypercholesterolemia; Translations: [Pure hypercholesterolemia, unspecified] Onset: 02-19-2024 Chronic Epilepsy; convulsions (20 sources) Epilepsy; Translations: [Epilepsy, unspecified, not intractable, without status epilepticus] Onset: 06-30-2018 06-30-2018 Chronic Esophageal disorders (20 sources) Gastroesophageal reflux disease; Translations: [Gastro-esophageal reflux disease without esophagitis] Onset: 12-02-2020 12-02-2020 Chronic Essential hypertension (20 sources) Essential (primary) hypertension; Translations: [Essential hypertension] Onset: 12-15-2014 12-15-2014 Chronic Immunizations and screening for infectious disease (10 sources) Patient encounter status; Translations: [Encounter for immunization] Episodic Nutritional deficiencies (2 sources) Vitamin D deficiency; Translations: [Vitamin D deficiency, unspecified] Onset: 09-23-2024 09-23-2024 Chronic Other lower respiratory disease (3 sources) Cough; Translations: [Cough] Episodic Other lower respiratory disease (4 sources) Dyspnea; Translations: [Shortness of breath] Episodic Other nutritional; endocrine; and metabolic disorders (20 sources) Obese class I; Translations: [Obesity, unspecified] Onset: 01-11-2017 01-11-2017 Chronic Other upper respiratory disease (5 sources) Allergic rhinitis; Translations: [Allergic rhinitis, unspecified] Chronic Other upper respiratory disease (2 sources) Hoarse; Translations: [Dysphonia] Episodic Other upper respiratory infections (7 sources) Nasal discharge; Translations: [Postnasal drip] Episodic Spondylosis; intervertebral disc disorders; other back problems (20 sources) Lumbar post-laminectomy syndrome; Translations: [Postlaminectomy syndrome, not elsewhere classified] Onset: 07-14-2004 03-30-2010 Chronic Unclassified (1 source) Unknown / UNK(Unknown) Onset: 07-16-2017 Unclassified (1 source) Other persistent atrial fibrillation; Translations: [Atrial fibrillation, persistent (HCC)] Onset: 01-20-2025 Unclassified (1 source) Chronic atrial fibrillation, unspecified; Translations: [Chronic atrial fibrillation (HCC)] Onset: 09-29-2024 Unclassified (1 source) PSVT (paroxysmal supraventricular tachycardia) (HCC); Translations: [PSVT (paroxysmal supraventricular tachycardia) (HCC)] Onset: 07-27-2014 Unclassified (1 source) Autogenerated Problem Onset: 01-27-2025 01-27-2025 Past or Other Problems Problem Classification Problem Date Documented Date Episodic/Chronic Diabetes mellitus without complication (7 sources) Prediabetes; Translations: [Prediabetes] Onset: 02-19-2024 Episodic Epilepsy; convulsions (20 sources) Seizure; Translations: [Unspecified convulsions] Onset: 02-18-2009 Resolved: 02-26-2017 11-25-2013 Episodic Other aftercare (1 source) Other jail (current) drug therapy; Translations: [Encounter for long-term current use of medication] Onset: 02-19-2024 Episodic Other diseases of veins and lymphatics (20 sources) Peripheral venous insufficiency; Translations: [Venous insufficiency (chronic) (peripheral)] Onset: 12-15-2014 12-15-2014 Episodic Other lower respiratory disease (3 sources) Chronic cough; Translations: [Chronic cough] Onset: 09-23-2024 03-24-2024 Episodic Other lower respiratory disease (1 source) Shortness of breath; Translations: [SOB (shortness of breath)] Onset: 09-29-2024 Episodic Other non-traumatic joint disorders (20 sources) Hip pain; Translations: [Pain in left hip] Onset: 10-03-2010 10-03-2010 Episodic Other non-traumatic joint disorders (20 sources) Pain in unspecified knee; Translations: [Pain in joint, lower leg] Onset: 05-11-2011 05-11-2011 Episodic Other screening for suspected conditions (not mental disorders or infectious disease) (4 sources) Blood chemistry abnormal; Translations: [Abnormal finding of blood chemistry, unspecified] Onset: 09-23-2024 09-23-2024 Episodic Screening and history of mental health and substance abuse codes (2 sources) Encounter for screening for depression; Translations: [Encounter for screening examination for other mental health and behavioral disorders] Onset: 09-23-2024 Episodic Spondylosis; intervertebral disc disorders; other back problems (20 sources) Spinal stenosis of lumbar region; Translations: [Spinal stenosis, lumbar region without neurogenic claudication] Onset: 02-25-2008 02-25-2008 Episodic Syncope (20 sources) Syncope; Translations: [Syncope and collapse] Onset: 01-02-2014 01-02-2014 Episodic Unclassified (1 source) Patient encounter status 09-23-2024 Results Test Name Value Interpretation Reference Range Facility [facility] BETZY CRUZ ([id number]) 1940 F Date Time Provider Department 01/22/25 VAN HUERTAS [facility] During your visit today, we recorded the following information about you: Laina Cantor RN 01/22/2025 1:02 PM Signed ----- Message from Arden Santiago RN sent at 01/22/2025 10:43 AM EDT ----- Regarding: DCC Please schedule patient for DCC. Timeframe: in the next few weeks, just starting amiodarone Date of last HANDP: September 2024 Three weeks uninterrupted anticoagulation: Yes, on eliquis KHARI needed: No Special instructions: None Arden Wilson RN January 22, 2025 10:44 AM Laina Cantor RN 01/22/2025 1:07 PM Signed Please call patient to schedule EKG and OPD within the next few weeks due to just starting Amiodarone so we can schedule the DCC to follow on the same day. DIMA Desai Jennifer, RN 01/26/2025 3:55 PM Signed Patient noted to be scheduled for OPD on 02/20/25. DCC scheduled to follow. Patient aware and all questions answered. Patient denies missing any doses of Eliquis in last 3 weeks. States stopped Amio today due to side effects. States she has informed Dr. Huertas's office Ivanna Banda RN Allergies As of Date: 01/22/2025 Noted Allergy Reaction LATEX 02/28/2008 2 - Rash Comments: itches CRESTOR (ROSUVASTATIN) 12/20/2018 17 - Myalgia Comments: severe muscles aches LIPITOR (ATORVASTATIN) 12/20/2018 17 - Myalgia Comments: severe muscle aches ADHESIVE 10/11/2010 2 - Rash Comments: redness AMLODIPINE 08/22/2016 7 - Swelling Comments: leg swelling ATENOLOL 06/11/2018 5 - Intolerance Comments: gained a lot of weight SEASONAL ALLERGIES 10/11/2010 3 - Cough Date Reviewed: 09/29/2024 Reviewed by: Wendy Lemus MD - Fully Assessed Reason for Visit: Schedule Surgery [1330] Cmt: [facility] Prescriptions as of 01/26/2025 - amiodarone (PACERONE) 200 mg tablet Take 1 tablet by mouth once daily. - apixaban (ELIQUIS) 5 mg tab(s) Take 1 tablet by mouth two times a day. - rosuvastatin (CRESTOR) 5 mg tablet Take 1 tablet by mouth daily at bedtime. As directed. Currently taking MWF. - fluticasone furoate (ARNUITY ELLIPTA) 100 mcg/actuation inhaler Inhale 1 puff as instructed once daily. - carvedilol (COREG) 3.125 mg tablet Take 1 tablet by mouth two times a day. - lamoTRIgine (LAMICTAL) 100 mg tablet Take 1 tablet by mouth two times a day. - erythromycin (ROMYCIN) 5 mg/gram (0.5 %) ophthalmic ointment Use in both eyes. 1 x daily - fluticasone (FLONASE ALLERGY RELIEF) 50 mcg/actuation nasal spray Use 1 Wallace in each nostril once daily. - hydroCHLOROthiazide (HYDRODIURIL, ESIDRIX) 12.5 mg capsule Take 1 capsule by mouth once daily as needed. - FLAXSEED OIL (OMEGA 3 ORAL) Take by mouth once daily. - Cholecalciferol, Vitamin D3, 1,000 unit ORAL Cap Take one(1) tablet two(2) times daily. - calcium carbonate(CALCIUM 500 500 MG (1,250 MG) TAB) Takes 4738-8116 mg once daily. Problem List As Of Date 01/22/2025 Noted Resolved POSTLAMINECT SYND-LUMBAR [M96.1] 07/14/2004 SPINAL STENOSIS-LUMBAR [M48.061] 02/25/2008 CARDIAC PACEMAKER IN SITU [Z95.0] 03/05/2008 Seizure (HCC) [R56.9] 02/18/2009 02/26/2017 Left hip pain [M25.552] 10/03/2010 Knee pain [M25.569] 05/11/2011 Syncope [R55] 01/02/2014 PSVT (paroxysmal supraventricular tachycardia) *07/27/2014 Chronic venous insufficiency [I87.2] 12/15/2014 Essential hypertension [I10] 12/15/2014 Obesity (BMI 30.0-34.9) [E66.811] 01/11/2017 Pacemaker [Z95.0] 11/29/2017 Epilepsy (HCC) [G40.909] Mild persistent asthma without complication [J4*11/01/2020 GERD (gastroesophageal reflux disease) [K21.9] 12/02/2020 Sick sinus syndrome (HCC) [I49.5] 12/11/2022 Encounter Status:Closed by IV[facility] Nurse Visit (FAMPWS) BETZY CRUZ ([id number]) 1940 F Date Time Provider Department 01/20/25 8:[address] NURSE VINNYWS During your visit today, we recorded the following information about you: RADHA ROGERS 01/20/2025 8:17 AM Signed Patient presents for EKG per Dr Huertas. Reporting increased HR and Shortness of Breath. Tolerated procedure well. Radha Rogers LPN Referring Provider: VAN HUERTAS [[id number]] Allergies As of Date: 01/20/2025 Noted Allergy Reaction LATEX 02/28/2008 2 - Rash Comments: itches CRESTOR (ROSUVASTATIN) 12/20/2018 17 - Myalgia Comments: severe muscles aches LIPITOR (ATORVASTATIN) 12/20/2018 17 - Myalgia Comments: severe muscle aches ADHESIVE 10/11/2010 2 - Rash Comments: redness AMLODIPINE 08/22/2016 7 - Swelling Comments: leg swelling ATENOLOL 06/11/2018 5 - Intolerance Comments: gained a lot of weight SEASONAL ALLERGIES 10/11/2010 3 - Cough Date Reviewed: 09/29/2024 Reviewed by: Wendy Lemus MD - Fully Assessed Reason for Visit: EKG [793] Visit Diagnosis:Atrial fibrillation, persistent (HCC) [I48.19] Order(s):ECG COMPLETE [ECG01] Order #: [id number] Prescriptions as of 01/20/2025 - apixaban (ELIQUIS) 5 mg tab(s) Take 1 tablet by mouth two times a day. - rosuvastatin (CRESTOR) 5 mg tablet Take 1 tablet by mouth daily at bedtime. As directed. Currently taking MWF. - fluticasone furoate (ARNUITY ELLIPTA) 100 mcg/actuation inhaler Inhale 1 puff as instructed once daily. - carvedilol (COREG) 3.125 mg tablet Take 1 tablet by mouth two times a day. - lamoTRIgine (LAMICTAL) 100 mg tablet Take 1 tablet by mouth two times a day. - erythromycin (ROMYCIN) 5 mg/gram (0.5 %) ophthalmic ointment Use in both eyes. 1 x daily - fluticasone (FLONASE ALLERGY RELIEF) 50 mcg/actuation nasal spray Use 1 Wallace in each nostril once daily. - hydroCHLOROthiazide (HYDRODIURIL, ESIDRIX) 12.5 mg capsule Take 1 capsule by mouth once daily as needed. - FLAXSEED OIL (OMEGA 3 ORAL) Take by mouth once daily. - Cholecalciferol, Vitamin D3, 1,000 unit ORAL Cap Take one(1) tablet two(2) times daily. - calcium carbonate(CALCIUM 500 500 MG (1,250 MG) TAB) Takes 7066-6081 mg once daily. 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.1] 07/14/2004 SPINAL STENOSIS-LUMBAR [M48.061] 02/25/2008 CARDIAC PACEMAKER IN SITU [Z95.0] 03/05/2008 Seizure (HCC) [R56.9] 02/18/2009 02/26/2017 Left hip pain [M25.552] 10/03/2010 Knee pain [M25.569] 05/11/2011 Syncope [R55] 01/02/2014 PSVT (paroxysmal supraventricular tachycardia) *07/27/2014 Chronic venous insufficiency [I87.2] 12/15/2014 Essential hypertension [I10] 12/15/2014 Obesity (BMI 30.0-34.9) [E66.811] 01/11/2017 Pacemaker [Z95.0] 11/29/2017 Epilepsy (HCC) [G40.909] Mild persistent asthma without complication [J4*11/01/2020 GERD (gastroesophageal reflux disease) [K21.9] 12/02/2020 Sick sinus syndrome (HCC) [I49.5] 12/11/2022 Encounter Status:Closed by RADHA ROGERS on 01/20/25 Normal [facility] ECG COMPLETEon 01-20-2025 ECG COMPLETE Ventricular Rate : 1 20 BPM QRS Duration : 90 ms Q-T Interval : 290 ms QTC Calculation(Bazett) : 409 ms Calculated R [place] : 63 degrees Calculated T [place] : -32 degrees ATRIAL FIBRILLATION WITH RAPID VENTRICULAR RESPONSE ABNORMAL QRS-T ANGLE, CONSIDER PRIMARY T WAVE ABNORMALITY ABNORMAL ECG Confirmed by MD VELIZ QARAB ([id number]) on 01/22/2025 12:56:20 PM NAME : BETZY CRUZ PID : [id number] : 1940 Gender : Female Race : ORD : [id number] Procedure Date : Jan 20 2025 08:10:52 Edit Date : Jan 22 2025 12:56:22 Diagnosis: ATRIAL FIBRILLATION WITH RAPID VENTRICULAR RESPONSE ABNORMAL QRS-T ANGLE, CONSIDER PRIMARY T WAVE ABNORMALITY ABNORMAL ECG Confirmed by MD VELIZ QARAB ([id number]) on 01/22/2025 12:56:20 PM Test Reason : Location : 136 : [place] Overread By : MD VELIZ QARAB Edited By : MD VELIZ QARAB Referred By : KIYA Acquired by : [id number], Bill [facility]2025 [facility] BETZY CRUZ ([id number]) 1940 F Date Time Provider Department 01/10/25 SAGRARIO FONG INTMWS During your visit today, we recorded the following information about you: Dasia Fenton LPN 01/10/2025 8:28 AM Signed Patient is calling office c/o pressure in chest and heart rate is going up to 120 and even 178. Patient is unable to get heart rate down. Patient stated that this has been going on for 1 week. Patient was advised to go to ER for further evaluation. JAKE Arrieta Naz M, APRN.INGREDIENT HANDLER 01/14/2025 2:29 PM Signed This is being addressed by cardiology (see phone note 01/11) Chasidy Qureshi APRN.INGREDIENT HANDLER Allergies As of Date: 01/10/2025 Noted Allergy Reaction LATEX 02/28/2008 2 - Rash Comments: itches CRESTOR (ROSUVASTATIN) 12/20/2018 17 - Myalgia Comments: severe muscles aches LIPITOR (ATORVASTATIN) 12/20/2018 17 - Myalgia Comments: severe muscle aches ADHESIVE 10/11/2010 2 - Rash Comments: redness AMLODIPINE 08/22/2016 7 - Swelling Comments: leg swelling ATENOLOL 06/11/2018 5 - Intolerance Comments: gained a lot of weight SEASONAL ALLERGIES 10/11/2010 3 - Cough Date Reviewed: 09/29/2024 Reviewed by: Wendy Lemus MD - Fully Assessed Prescriptions as of 01/14/2025 - apixaban (ELIQUIS) 5 mg tab(s) Take 1 tablet by mouth two times a day. - rosuvastatin (CRESTOR) 5 mg tablet Take 1 tablet by mouth daily at bedtime. As directed. Currently taking MWF. - fluticasone furoate (ARNUITY ELLIPTA) 100 mcg/actuation inhaler Inhale 1 puff as instructed once daily. - carvedilol (COREG) 3.125 mg tablet Take 1 tablet by mouth two times a day. - lamoTRIgine (LAMICTAL) 100 mg tablet Take 1 tablet by mouth two times a day. - erythromycin (ROMYCIN) 5 mg/gram (0.5 %) ophthalmic ointment Use in both eyes. 1 x daily - fluticasone (FLONASE ALLERGY RELIEF) 50 mcg/actuation nasal spray Use 1 Wallace in each nostril once daily. - hydroCHLOROthiazide (HYDRODIURIL, ESIDRIX) 12.5 mg capsule Take 1 capsule by mouth once daily as needed. - FLAXSEED OIL (OMEGA 3 ORAL) Take by mouth once daily. - Cholecalciferol, Vitamin D3, 1,000 unit ORAL Cap Take one(1) tablet two(2) times daily. - calcium carbonate(CALCIUM 500 500 MG (1,250 MG) TAB) Takes 1672-6942 mg once daily. Problem List As Of Date 01/10/2025 Noted Resolved POSTLAMINECT SYND-LUMBAR [M96.1] 07/14/2004 SPINAL STENOSIS-LUMBAR [M48.061] 02/25/2008 CARDIAC PACEMAKER IN SITU [Z95.0] 03/05/2008 Seizure (HCC) [R56.9] 02/18/2009 02/26/2017 Left hip pain [M25.552] 10/03/2010 Knee pain [M25.569] 05/11/2011 Syncope [R55] 01/02/2014 PSVT (paroxysmal supraventricular tachycardia) *07/27/2014 Chronic venous insufficiency [I87.2] 12/15/2014 Essential hypertension [I10] 12/15/2014 Obesity (BMI 30.0-34.9) [E66.811] 01/11/2017 Pacemaker [Z95.0] 11/29/2017 Epilepsy (HCC) [G40.909] Mild persistent asthma without complication [J4*11/01/2020 GERD (gastroesophageal reflux disease) [K21.9] 12/02/2020 Sick sinus syndrome (HCC) [I49.5] 12/11/2022 Encounter Status:Closed by CHASIDY QURESHI on 01/14/25 [facility] CNOVon 09-29-2024 CNOV Office Visit (PULMWS ) BETZY CRUZ ([id number]) 1940 F Date Time Provider Department 09/29/24 11:45 AM WENDY LEMUS PULMWS During your visit today, we recorded the following information about you: Pulse Blood pressure Weight 73/minute 132/81 89.8 kg Wendy Lemus MD 09/29/2024 12:37 PM Signed . [facility] [place] Note Patient name: Betzy Cruz PCP: Sagrario Fong MD CC: Shortness of breath HPI: Betzy Cruz 84 year old female never smoker with PMH significant for obesity, SSS s/p PPM, possible seizures, HTN, HLD, spinal stenosis, AF and asthma. Treatment of her asthma has been hindered by beta agonist induced arrhythmia. At [facility], she was pending ablation versus Watchman and inhaled therapy changed to ICS alone. Today she states she is not a candidate for watchman and has reluctantly started Eliquis. Change to inhaled corticosteroid alone has not made much difference in her tachycardia nor her shortness of breath. She continues to have mainly dyspnea with exertion especially climbing stairs. No wheezing or cough. It is unclear whether her persistent shortness of breath/dyspnea on exertion is related to her persistent atrial arrhythmia or her underlying asthma. She is concerned that the Arnuity is causing persistent episodes of tachycardia. ASTHMA CONTROL TEST Date: 09/29/2024 In the last 4 weeks, how much of the time did your asthma keep you from getting as much done at work or home that you wanted to do? Some of the time (3) In the last 4 weeks, how often have you had shortness of breath? More than once per day (1) In the last 4 weeks, how often did your asthma symptoms (wheezing, coughing, shortness of breath, chest tightness or pain) wake you up at night or earlier than usual? Once or twice (4) In the last 4 weeks, how often have you used your rescue inhaler or nebulizer medication (such as Albuterol, Proventil, Ventolin, Maxair, Xoponex, or Primatene Mist)? Once a week or less (4) In the last 4 weeks, how would you rate your asthma control? Poorly controlled (2) Total: less than 15 PAST MEDICAL HISTORY Diagnosis Date Asthma ([facility]) Atrial fibrillation ([facility]) Cardiac pacemaker in situ 03/05/2008 PM-Device Mfg Medtronic Model SEDR01 Sensia Serial Number [id number] Implant Date 07/18/2007 BLANK _ Lead1 Mfg Medtronic Model 5076 Serial Number [id number] Location right Implant Date 07/18/2007 BLANK _ Lead2 Mfg Medtronic Model 5076 Serial Number [id number] Location right Implant Date 07/18/2007 Epilepsy (HCC) Essential hypertension, benign well controlled Generalized osteoarthrosis, unspecified site Impaired glucose tolerance test Runs usually 100 Obesity Other and unspecified disc disorder of lumbar region Other and unspecified hyperlipidemia Spinal stenosis, lumbar region, without neurogenic claudication s/p L5-S1 sx '00 ALLERGIES Allergen Reactions Latex Rash itches Crestor [Rosuvastat* Myalgia severe muscles aches Lipitor [Atorvastat* Myalgia severe muscle aches Adhesive Rash redness Amlodipine Swelling leg swelling Atenolol Intolerance gained a lot of weight Seasonal Allergies Cough rosuvastatin (CRESTOR) 5 mg tablet Take 1 tablet by mouth daily at bedtime. As directed. Currently taking MWF. apixaban (ELIQUIS) 5 mg tab(s) Take 1 tablet by mouth two times a day. carvedilol (COREG) 3.125 mg tablet Take 1 tablet by mouth two times a day. lamoTRIgine (LAMICTAL) 100 mg tablet Take 1 tablet by mouth two times a day. erythromycin (ROMYCIN) 5 mg/gram (0.5 %) ophthalmic ointment Use in both eyes. 1 x daily fluticasone (FLONASE ALLERGY RELIEF) 50 mcg/actuation nasal spray Use 1 Wallace in each nostril once daily. hydroCHLOROthiazide (HYDRODIURIL, ESIDRIX) 12.5 mg capsule Take 1 capsule by mouth once daily as needed. FLAXSEED OIL (OMEGA 3 ORAL) Take by mouth once daily. calcium carbonate(CALCIUM 500 500 MG (1,250 MG) TAB) Takes 6503-5810 mg once daily. fluticasone furoate (ARNUITY ELLIPTA) 100 mcg/actuation inhaler Inhale 1 puff as instructed once daily. (Patient not taking: Reported on 09/29/2024) Cholecalciferol, Vitamin D3, 1,000 unit ORAL Cap Take one(1) tablet two(2) times daily. (Patient not taking: Reported on 09/29/2024) Social History Tobacco Use Smoking status: Never Smokeless tobacco: Never Tobacco comments: No household ETS exposure in entire lifetime. Vaping Use Vaping status: Never Used Substance Use Topics Alcohol use: No Drug use: No FAMILY HISTORY Problem Relation Age of Onset Hypertension Mother age 91 other (high cholesterol) Father other (black lung) Father Asthma Father Severe Asthma Sister Lung Cancer Brother Smoker. Diabetes Maternal Grandmother Diabetes Other cousins Hypertension Other brothers/ sisters other (high cholesterol) Ot (more content not included)... Normal [facility] CNOVon 09-23-2024 CNOV Office Visit (INTMWS ) BETZY CRUZ ([id number]) 1940 F Date Time Provider Department 09/23/24 9:00 AM VINCE VILCHIS INTMWS During your visit today, we recorded the following information about you: Pulse Blood pressure Weight 74/minute 115/72 88.5 kg Vince Vilchis APRN.BILINGUAL LEGAL ASSISTANT 09/23/2024 9:43 AM Signed SUBJECTIVE: DTaP,Tdap,Td Vaccine(1 - Tdap) Never done Advance Directive Discussion due on 05/21/2024 Depression Screening due on 09/23/2024 Anxiety Screening due on 09/23/2024 HPI Betzy Cruz is a 84 year old female. PMH significant for ACTIVE PROBLEM LIST Postlaminectomy Syndrome, Lumbar Region Spinal Stenosis, Lumbar Region, Without Neurogenic Claudication Cardiac Pacemaker in Situ Left Hip Pain Knee Pain Syncope Psvt (Paroxysmal Supraventricular Tachycardia) (Hcc) Chronic Venous Insufficiency Essential Hypertension Obesity (Bmi 30.0-34.9) Pacemaker Epilepsy (Hcc) Mild Persistent Asthma Without Complication (Hcc) Gerd (Gastroesophageal Reflux Disease) Sick Sinus Syndrome (Hcc) Presents for routine follow-up visit. She is in her usual state of health. Betzy is an 84-year-old female with a history of atrial fibrillation, hyperlipidemia, and asthma, presenting for a routine visit with complaints of fatigue and sleep disturbances. Fatigue: - Reports persistent fatigue, going to bed and waking up tired. - She thinks that fatigue has worsened since starting Eliquis. - no anemia. - Increased water intake due to concerns about dehydration. Sleep Disturbances: - Chronic difficulty falling and staying asleep; averages 5 hours of sleep per night. - Goes to bed before 22:00 due to 's schedule but wakes up around 04:30-05:00. - Has never been an 8-hour person. - Uses a humidifier and has the head of the bed raised. - Tested for sleep apnea several years ago with negative results. - Denies snoring. Atrial Fibrillation: - Taking Eliquis. Stopped fish oil. Cut out caffeine - decaf coffee now - Reports heart rate consistently around 90 bpm, with episodes reaching 140-160 bpm. - Pacemaker in place; recent checks have been conducted. - Denies recent seizures; last suspected seizure was in 2013. - Discussed with Dr. Huertas the possibility of discontinuing seizure medication. Hyperlipidemia: - Taking cholesterol medication (unspecified) at night on Sunday, Sunday, and Sunday. - No adverse effects from the medication. - Recent labs show slightly elevated cholesterol and A1c levels. - Discontinued fish oil as per reimbursement coordinator's recommendation. Asthma: - Using albuterol inhaler more frequently than Arnuity. - Arnuity used approximately 4 days per week. - Experiences morning cough and congestion, attributed to allergies and sinus drainage. - Uses Flonase for allergy symptoms. - Has dry eyes, managed with medication. Social History: - Has a living will and medical power of regulatory attorney with family members. - Stays home more often due to 's age (88 years old). - Denies depression or anxiety; does not feel the need for medication or counseling. Last seen by PCP in March 2024. 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 DDD-PPM 2007, generator change Dr Cabrales 11/29/2017. Last visit with Dr. Huertas 03/2024. Followed by pulmonology, Wendy Lemus MD and Ivanna Lemus PA-C. Note mild persistent asthma. Prescribed Breo ellipta. Continued on albuterol. HTN: Without report of headache, chest pain, palpitations, dyspnea, and peripheral edema. Last 14 Encounter BP Readings: Date: BP: 04/14/2024 152/84 03/24/2024 112/64 03/20/2024 106/70 02/18/2024 145/87 09/24/2023 123/77 09/06/2023 110/87 04/09/2023 156/90 03/23/2023 138/80 02/28/2023 148/86 12/11/2022 115/72 10/26/2022 122/78 09/14/2022 122/82 09/05/2022 132/80 07/27/2022 144/60 Hyperlipidemia. Ms. Cruz reports doing well on current therapy.Her most recent lipid panels are: Cholesterol, Total (mg/dL) Date Value 09/10/2024 236 02/19/2024 222 02/10/2021 167 07/20/2020 181 HDL Cholesterol (mg/dL) Date Value 09/10/2024 49 02/19/2024 44 02/10/2021 51 07/20/2020 48 LDL Cholesterol, Calculated (mg/dL) Date Value 09/10/2024 177 02/19/2024 161 02/10/2021 104 07/20/2020 120 Triglyceride (mg/dL) Date Value 09/10/2024 61 02/19/2024 84 02/10/2021 62 07/20/2020 66 Patient's last HgA1C was Hemoglobin A1C (%) Date Value 09/10/2024 5.9 02/19/2024 5.6 02/10/2021 5.8 07/20/2020 6.0 ) Review of Systems Constitutional: Negative. Respiratory: Negative. Cardiovascular: Negative. Objective BP 115/72 Pulse 74 Wt 88.5 kg (195 lb 1.7 oz) SpO2 97% BMI 30.56 kg/m? Physical Exam Vitals and nursing note reviewed. Constitutio (more content not included)... Normal [facility] CBC panel Auto (Bld)on 09-10 Erythrocyte distribution width (RBC) [Ratio] 13.1 % Normal 11.5-15.0 [facility] Comment on above: Order Comment: Specimen Type: BLOOD SPEC IMENOrdering Facility: [facility] Address: [address] [place] [address] Performed By: #### 5 8410-2 ####[facility] LABIA [id number] [address] STATES OF [facility] Hematocrit (Bld) [Volume fraction] 41.2 % Normal 36.0-46.0 [facility] Comment on above: Order Comment: Specimen Type: BLOOD SPEC IMENOrdering Facility: [facility] Address: [address] [place] [address] Performed By: #### 5 8410-2 ####[facility] [id number] [address] [place] Hemoglobin (Bld) [Mass/Vol] 13.5 g/dL Normal 11.5-15.5 [facility] Comment on above: Order Comment: Specimen Type: BLOOD SPEC IMENOrdering Facility: [facility] Address: [address] [place] [address] Performed By: #### 5 8410-2 ####[facility] LABCLIA [id number] [place] [address] [place] MCH (RBC) [Entitic mass] 28.4 pg Normal 26.0-34.0 [facility] Comment on above: Order Comment: Specimen Type: BLOOD SPEC IMENOrdering Facility: [facility] Address: [address] [place] [address] Performed By: #### 5 8410-2 ####[facility] [id number] [place] [address] [place] MCHC (RBC) [Mass/Vol] 32.8 g/dL Normal 30.5-36.0 [facility] Comment on above: Order Comment: Specimen Type: BLOOD SPEC IMENOrdering Facility: [facility] Address: [address] [place] [address] Performed By: #### 5 8410-2 ####[facility] [id number] [place] [address] [place] MCV (RBC) [Entitic vol] 86.7 fL Normal 80.0-100.0 [facility] Comment on above: Order Comment: Specimen Type: BLOOD SPEC IMENOrdering Facility: [facility] Address: [address] [place] [address] Performed By: #### 5 8410-2 ####[facility] [id number] [place] [address] [place] Nucleated RBC (Bld) [#/Vol] 10*3/uL Normal <0.01 [facility] Comment on above: Order Comment: Specimen Type: BLOOD SPEC IMENOrdering Facility: [facility] Address: [address] [place] [address] Performed By: #### 5 8410-2 ####[facility] [id number] [place] [address] [place] Platelet mean volume (Bld) [Entitic vol] 9.6 fL Normal 9.0-12.7 [facility] Comment on above: Order Comment: Specimen Type: BLOOD SPEC IMENOrdering Facility: [facility] Address: [address] [place] [address] Performed By: #### 5 8410-2 ####[facility] LABCLIA [id number] [address] [address] [place] Platelets (Bld) [#/Vol] 255 10*3/uL Normal 150-400 [facility] Comment on above: Order Comment: Specimen Type: BLOOD SPEC IMENOrdering Facility: [facility] Address: [address] [place] [address] Performed By: #### 5 8410-2 ####[facility] [id number] [place] [address] [place] RBC (Bld) [#/Vol] 4.75 10*6/uL Normal 3.90-5.20 [facility] Comment on above: Order Comment: Specimen Type: BLOOD SPEC IMENOrdering Facility: [facility] Address: [address] [place] [address] Performed By: #### 5 8410-2 ####[facility] [id number] [place] [address] [place] WBC (Bld) [#/Vol] 7.48 10*3/uL Normal 3.70-11.00 [facility] Comment on above: Order Comment: Specimen Type: BLOOD SPEC IMENOrdering Facility: [facility] Address: [address] [place] [address] Performed By: #### 5 8410-2 ####[facility] [id number] [place] [id number] [place] Comprehensive metabolic 2000 panelon 09-10-2024 Albumin [Mass/Vol] 4.2 g/dL Normal 3.9-4.9 [facility] Comment on above: Order Comment: Specimen Type: BLOOD SPEC IMENOrdering Facility: [facility] Address: [address] [place] [address] Performed By: #### 2 4323-8, 40144-6 ####[facility] [id number] [address] [place] [address] [place] ALP [Catalytic activity/Vol] 68 U/L Normal 34-123 [facility] Comment on above: Order Comment: Specimen Type: BLOOD SPEC IMENOrdering Facility: [facility] Address: [address] [place] [address] Performed By: #### 2 4323-8, 76686-8 ####[facility] LABCLIA [id number] [address] [place] [address] [place] ALT [Catalytic activity/Vol] 13 U/L Normal 7-38 [facility] Comment on above: Order Comment: Specimen Type: BLOOD SPEC IMENOrdering Facility: [facility] Address: [address] [place] [address] Performed By: #### 2 4323-8, 20877-2 ####[facility] [id number] [address], [facility] [place] Anion gap [Moles/Vol] 9 mmol/L Normal 8-15 [facility] Comment on above: Order Comment: Specimen Type: BLOOD SPEC IMENOrdering Facility: [facility] Address: [address] [place] [address] Performed By: #### 2 4323-8, 20845-9 ####[facility] [id number] [address], [place] [address] [place] AST [Catalytic activity/Vol] 22 U/L Normal 13-35 [facility] Comment on above: Order Comment: Specimen Type: BLOOD SPEC IMENOrdering Facility: [facility] Address: [address] [place], [place] [address] Performed By: #### 2 4323-8, 11060-2 ####[facility] LABCLIA [id number] [address] [place] [address] [place] Bilirubin [Mass/Vol] 0.5 mg/dL Normal 0.2-1.3 [facility] Comment on above: Order Comment: Specimen Type: BLOOD SPEC IMENOrdering Facility: [facility] Address: [address] [place] [id number] Performed By: #### 2 4323-8, 59908-3 ####[facility] LABCLIA [id number] [place] [id number] [place] Calcium [Mass/Vol] 9.6 mg/dL Normal 8.5-10.2 [facility] Comment on above: Order Comment: Specimen Type: BLOOD SPEC IMENOrdering Facility: [facility] Address: [address] [place], [place] [address] Performed By: #### 2 4323-8, 23929-4 ####[facility]CL[facility] [id number] [place] [id number] [place] Chloride [Moles/Vol] 103 mmol/L Normal 98-107 [facility] Comment on above: Order Comment: Specimen Type: BLOOD SPEC IMENOrdering Facility: [facility] Address: [address] [place] [id number] Performed By: #### 2 4323-8, 69926-6 ####[facility] LABCLIA [id number] [place] [address] [place] CO2 [Moles/Vol] 28 mmol/L Normal 22-30 [facility] Comment on above: Order Comment: Specimen Type: BLOOD SPEC IMENOrdering Facility: [facility] Address: [address] [place] [id number] Performed By: #### 2 4323-8, 35334-9 ####[facility] LABCL[facility] [id number] [place] [id number] [place] Creatinine [Mass/Vol] 0.80 mg/dL Normal 0.58-0.96 [facility] Comment on above: Order Comment: Specimen Type: BLOOD SPEC IMENOrdering Facility: [facility] Address: [address] [place] [id number] Performed By: #### 2 4323-8, 76279-8 ####[facility] LABCLIA [id number] [place] [address] [place] Creatinine and Glomerular filtration rate.predicted panel (S/P/Bld) 74 mL/min/1.73m??? Normal >=60 [facility] Comment on above: Order Comment: Specimen Type: BLOOD SPEC IMENOrdering Facility: [facility] Address: [address] [place] [address] Result Comment: Samaria mated Glomerular Filtration Rate (eGFR) is calculated using the 2020 CKD-EPI creatinine equation. This equation utilizes serum creatinine, sex, and age as parameters. The creatinine assay has traceable calibration to isotope dilution-mass spectrometry. Refer to KDIGO guidelines for clinical interpretation. In patients with unstable renal function, e.g. those with acute kidney injury, the eGFR may not accurately reflect actual GFR. Performed By: #### 2 4323-8, 02306-6 ####[facility] [id number] [place] [address] [place] Glucose [Mass/Vol] 95 mg/dL Normal 74-99 [facility] Comment on above: Order Comment: Specimen Type: BLOOD SPEC IMENOrdering Facility: [facility] Address: [address] [place] [address] Result Comment: The [place] Diabetes Association (ADA) provides guidance for cutoff values for fasting glucose and random glucose. The ADA defines fasting as no caloric intake for at least 8 hours. Fasting plasma glucose results between 100 to 125 mg/dL indicate increased risk for diabetes (prediabetes). Fasting plasma glucose results greater than or equal to 126 mg/dL meet the criteria for diagnosis of diabetes. In the absence of unequivocal hyperglycemia, results should be confirmed by repeat testing. In a patient with classic symptoms of hyperglycemia or hyperglycemic crisis, random plasma glucose results greater than or equal to 200 mg/dL meet the criteria for diagnosis of diabetes. Reference: Standards of Medical Care in Diabetes 2016, [place] Diabetes Association. Diabetes Care. 2016.39(Suppl 1). Performed By: #### 2 4323-8, 05145-7 ####[facility] LABCLIA [id number] [place] [id number] [place] Potassium [Moles/Vol] 4.3 mmol/L Normal 3.7-5.1 [facility] Comment on above: Order Comment: Specimen Type: BLOOD SPEC IMENOrdering Facility: [facility] Address: [address] [place] [address] Performed By: #### 2 4323-8, 77649-4 ####[facility] LABIA [id number] [place] [id number] [place] Protein [Mass/Vol] 7.1 g/dL Normal 6.3-8.0 [facility] Comment on above: Order Comment: Specimen Type: BLOOD SPEC IMENOrdering Facility: [facility] Address: [address] [place] [address] Performed By: #### 2 4323-8, 71128-1 ####[facility] LABIA [id number] [place] [id number] [place] Sodium [Moles/Vol] 140 mmol/L Normal 136-144 [facility] Comment on above: Order Comment: Specimen Type: BLOOD SPEC IMENOrdering Facility: [facility] Address: [address] [place] [address] Performed By: #### 2 4323-8, 38209-0 ####[facility] LABIA [id number] [place] [id number] [place] Urea nitrogen [Mass/Vol] 14 mg/dL Normal 7-21 [facility] Comment on above: Order Comment: Specimen Type: BLOOD SPEC IMENOrdering Facility: [facility] Address: [address] [place] [address] Performed By: #### 2 4323-8, 81065-1 ####[facility] LABIA [id number] [place] [id number] [place] HbA1c (Bld)on 09-10-2024 Average glucose Estimated from glycated hemoglobin (Bld) [Mass/Vol] 123 mg/dL Normal [facility] Comment on above: Order Comment: Specimen Type: BLOOD SPEC IMENOrdering Facility: [facility] Address: [address] [place] [address] Result Comment: eAG: (Estimated average glucose) is a calculated value from HgbA1c and is food service representative of the average blood glucose level in the last 2-3 month period. Performed By: #### 5 5454-3 ####[facility] LABCLIA [id number] [place] [address] [place] HbA1c (Bld) [Mass fraction] 5.9 % High 4.3-5.6 [facility] Comment on above: Order Comment: Specimen Type: BLOOD SPEC IMENOrdering Facility: [facility] Address: [address] [place] [address] Result Comment: [place] Diabetes Association guidelines indicate that patients with HgbA1c in the range 5.7-6.4% are at increased risk for development of diabetes, and intervention by lifestyle modification may be beneficial. HgbA1c greater or equal to 6.5% is considered diagnostic of diabetes. Performed By: #### 5 5454-3 ####[facility] LABCLIA [id number] [place] [address] [place] Lipid 1996 panelon 5 Cholesterol [Mass/Vol] 236 mg/dL High <200 [facility] Comment on above: Order Comment: Specimen Type: BLOOD SPEC IMENOrdering Facility: [facility] Address: [address] [place] [address] Result Comment: <200 mg/dL, Desirable 200-239 mg/dL, Borderline high >239 mg/dL, High Performed By: #### 2 4323-8, 52269-6 ####[facility] LABCLIA [id number] [place] [address] [place] Cholesterol in HDL [Mass/Vol] 49 mg/dL Normal >39 [facility] Comment on above: Order Comment: Specimen Type: BLOOD SPEC IMENOrdering Facility: [facility] Address: [address] [place] [address] Result Comment: 40-5 9 mg/dL, Acceptable >59 mg/dL, High: Negative risk factor for coronary heart disease <40 mg/dL, Low: Positive risk factor for coronary heart disease Performed By: #### 2 4323-8, 24978-7 ####[facility] LABCLIA [id number] [place] [address] [place] Cholesterol in LDL [Mass/Vol] 177 mg/dL High <100 [facility] Comment on above: Order Comment: Specimen Type: BLOOD SPEC IMENOrdering Facility: [facility] Address: [address] [place] [address] Result Comment: <100 mg/dL, Optimal 100-129 mg/dL, Near optimal/above optimal 130-159 mg/dL, Borderline high 160-189 mg/dL, High >189 mg/dL, Very high Secondary prevention optimal LDL Cholesterol levels are recommended to be <70 mg/dL LDL cholesterol is calculated using the Escalante-NIH equation. Performed By: #### 2 4323-8, 87326-4 ####[facility] LABIA [id number] [place] [address] [place] Cholesterol in LDL/Cholesterol in HDL [Mass ratio] 3.61 {ratio} High <2.54 [facility] Comment on above: Order Comment: Specimen Type: BLOOD SPEC IMENOrdering Facility: [facility] Address: [address] [place] [address] Result Comment: Refsugey backce: 1. National Cholesterol Education Program ATP III Guideline At-A-Glance Quick Desk Reference: National Heart, Lung, and Blood [place]. National Institutes of Health. 2001: NIH Publication No. 01-3305. 2. An International Atherosclerosis Society position paper: global recommendations for the management of dyslipidemia: executive summary, Atherosclerosis. 2014: 232(2):410-413. Performed By: #### 2 4323-8, 26962-2 ####[facility] LABIA [id number] [address] [address] [place] Cholesterol in VLDL [Mass/Vol] 12 mg/dL Normal <30 [facility] Comment on above: Order Comment: Specimen Type: BLOOD SPEC IMENOrdering Facility: [facility] Address: [address] [place] [address] Performed By: #### 2 4323-8, 69734-4 ####[facility] LABCLIA [id number] [place] [address] [place] Cholesterol non HDL [Mass/Vol] 187 mg/dL High <130 [facility] Comment on above: Order Comment: Specimen Type: BLOOD SPEC IMENOrdering Facility: [facility] Address: [address] [place] [address] Result Comment: <130 mg/dL, Optimal 130-159 mg/dL, Near optimal/above optimal 160-189 mg/dL, Borderline high 190-219 mg/dL, High >219 mg/dL, Very high Secondary prevention optimal non HDL Cholesterol levels are recommended to be <100 mg/dL Performed By: #### 2 4323-8, 73240-9 ####[facility] LABCLIA [id number] [place] [address] [place] Cholesterol.tot al/Cholesterol in HDL [Mass ratio] 4.82 {ratio} Normal <5.10 [facility] Comment on above: Order Comment: Specimen Type: BLOOD SPEC IMENOrdering Facility: [facility] Address: [address] [place] [address] Performed By: #### 2 4323-8, ####[facility] LABCLIA [id number] [place] [id number] [place] FASTING TIME 12 hrs Normal [facility] Comment on above: Order Comment: Specimen Type: BLOOD SPEC IMENOrdering Facility: [facility] Address: [address] [place] [address] Performed By: #### 2 4323-8, 65236-7 ####[facility] LABCLIA [id number] [place] [id number] [place] Triglyceride [Mass/Vol] 61 mg/dL Normal <150 [facility] Comment on above: Order Comment: Specimen Type: BLOOD SPEC IMENOrdering Facility: [facility] Address: [address] [place] [address] Result Comment: <150 mg/dL, Normal 150-199 mg/dL, Borderline high 200-499 mg/dL, High >499 mg/dL, Very high Performed By: #### 2 4323-8, 55632-0 ####[facility] LABCLIA [id number] [address] OF [facility] CNPNon 09-03-2024 CNPN Telephone (CHANDA) BETZY CRUZ ([id number]) 1940 F Date Time Provider Department 09/03/24 VAN HUERTAS During your visit today, we recorded the following information about you: Arden Wilson RN 09/03/2024 3:46 PM Signed Spoke to patient. Per Dr Huertas: Rec to stop ASA and start Eliquis 5 mg BID Called in script BB - can you touch base with her tomorrow to make sure she got the message. thanks dione Wilson RN Allergies As of Date: 09/03/2024 Noted Allergy Reaction LATEX 02/28/2008 2 - Rash Comments: itches CRESTOR (ROSUVASTATIN) 12/20/2018 17 - Myalgia Comments: severe muscles aches LIPITOR (ATORVASTATIN) 12/20/2018 17 - Myalgia Comments: severe muscle aches ADHESIVE 10/11/2010 2 - Rash Comments: redness AMLODIPINE 08/22/2016 7 - Swelling Comments: leg swelling ATENOLOL 06/11/2018 5 - Intolerance Comments: gained a lot of weight SEASONAL ALLERGIES 10/11/2010 3 - Cough Date Reviewed: 04/14/2024 Reviewed by: Dionicio Scott LPN - Fully Assessed Prescriptions as of 09/03/2024 - apixaban (ELIQUIS) 5 mg tab(s) Take 1 tablet by mouth two times a day. - rosuvastatin (CRESTOR) 5 mg tablet Take 1 tablet by mouth daily at bedtime. As directed - fluticasone furoate (ARNUITY ELLIPTA) 100 mcg/actuation inhaler Inhale 1 Puff as instructed once daily. - carvedilol (COREG) 3.125 mg tablet Take 1 tablet by mouth two times a day. - lamoTRIgine (LAMICTAL) 100 mg tablet Take 1 tablet by mouth two times a day. - erythromycin (ROMYCIN) 5 mg/gram (0.5 %) ophthalmic ointment Use in both eyes. 1 x daily - fluticasone (FLONASE ALLERGY RELIEF) 50 mcg/actuation nasal spray Use 1 Wallace in each nostril once daily. - hydroCHLOROthiazide (HYDRODIURIL, ESIDRIX) 12.5 mg capsule Take 1 capsule by mouth once daily as needed. - FLAXSEED OIL (OMEGA 3 ORAL) Take by mouth once daily. - Cholecalciferol, Vitamin D3, 1,000 unit ORAL Cap Take one(1) tablet two(2) times daily. - calcium carbonate(CALCIUM 500 500 MG (1,250 MG) TAB) Takes 3342-0070 mg once daily. 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] 07/14/2004 SPINAL STENOSIS-LUMBAR [M48.061] 02/25/2008 CARDIAC PACEMAKER IN SITU [Z95.0] 03/05/2008 Seizure (HCC) [R56.9] 02/18/2009 02/26/2017 Left hip pain [M25.552] 10/03/2010 Knee pain [M25.569] 05/11/2011 Syncope [R55] 01/02/2014 PSVT (paroxysmal supraventricular tachycardia) *07/27/2014 Chronic venous insufficiency [I87.2] 12/15/2014 Essential hypertension [I10] 12/15/2014 Obesity (BMI 30.0-34.9) [E66.811] 01/11/2017 Pacemaker [Z95.0] 11/29/2017 Epilepsy (HCC) [G40.909] Mild persistent asthma without complication [J4*11/01/2020 GERD (gastroesophageal reflux disease) [K21.9] 12/02/2020 Sick sinus syndrome (HCC) [I49.5] 12/11/2022 Encounter Status:Closed by ARDEN WILSON on 09/03/24 [facility] CNOVon 04-14-2024 CNOV Office Visit (CARDMM ) BETZY CRUZ ([id number]) 1940 F Date Time Provider Department 04/14/24 2:00 PM VAN HUERTAS During your visit today, we recorded the following information about you: Pulse Blood pressure Weight Height 74/minute 152/84 90.4 kg 1.702 m Van Huertas MD 04/14/2024 2:29 PM Signed EP STAFF NOTE: Please note: This note has been produced using speech recognition software and may contain errors related to that system including grammar, punctuation, spelling, gender and words and phrases that may be inappropriate Consultation requested by Sagrario Fong for an opinion regarding management of previously placed PPM I have reviewed the above information and examined the patient and confirm the above with the following additions/modifications. PE: Vitals: BP 152/84 Pulse 74 Ht 170.2 cm (5' 7) Wt 90.4 kg (199 lb 4.7 oz) SpO2 100% BMI 31.21 kg/m? General: Appears well nourished. In no acute distress. Lungs: Unlabored Heart: RRR Extremities: No peripheral edema bilaterally. DEVICE CHECK: DDD-PPM 2007, generator change 2017 remote : 49 triggered episodes of atrial high rates with EGMs showing a mix of AF and AFL. Longest lasting 6 hours. Total time 1.4%. Anticoagulants listed: aspirin. : PRESENTS FOR: Device check AND appt with Dr. Huertas PRESENTING EGM: /VS UNDERLYING RHYTHM: Sinus rhythm BATTERY STATUS: Estimated time remaining to NELSON is 10.1 years. COUNTERS SINCE 09/04/2022 ATRIAL ARRHYTHMIAS: There have been 49 atrial detections, available EGMs show AFL, longest episode lasting ~4 hours. AF burden 0.6%. No AC, ASA 81mg only. VENTRICULAR ARRHYTHMIAS: There were 9 ventricular detections, EGMs show short bursts of 1:1 tachycardia. Episode 29 from Dec 2022, shows V>A's, however after closer examination it appears there is under sensed AF and event is truly AF with RVR. LEAD MEASUREMENTS: RA capture and sensing are appropriate. RV sensing is stable, measuring 5.5mV today. RV auto capture started to report high readings in July 2021. Today, RV capture is stable measuring 1.25V @ 1.0ms. Pt was having frequent short R-R intervals previously, however since programming changes made in August, RV sensitivity was programmed to 2.0mV, the amount of short R-R intervals has significantly subsided with a total of 269 detections since August. The pacing outputs maintain safety margin. Review of the lead impedance trends are normal. IMPLANT SITE/ SYMPTOMS: The incision and pocket are pain-free (0/10), well healed and without signs of erosion or infection. No arm swelling, syncope, pre-syncope or device related pocket stimulation. OTHER DIAGNOSTICS: RA pacing 0.8%. Total V pacing <0.1% PROGRAMMING CHANGES MADE TODAY: RA sensitivity programmed back to 0.30mV d/t under sensed AF noted in EGMs. RV auto capture programmed off as it measures at 0.4ms, pulse width is programmed at 1.0ms. Home monitor alerts programmed appropriately. Time adjusted d/t Daylight Saving Time. FOLLOW UP: Pt to continue with every 3 month remote transmissions and annual in-clinic visits. Nicole Sands RN Updated Dr. Bautista of above issues as she appears to be following with him in [place]. Also inquired about transferring remote monitoring to their office. remote : DUAL CHAMBER PACEMAKER REMOTE TRANSMISSION * Normal Device Function * Events or Alerts since 11/12/23: 1 short NSVT detection, EGM show brief noise. 87 AF detections, EGMs suggest oversensing. AF burden 0.3%. Longest event per log book ~5 minutes. * Battery: OK, 9.58 yrs * Sensing, impedance and RA thresholds are stable/WNL * Programmed parameters reviewed * Presenting rhythm: /VS * Heart Rate Histograms reviewed RV pacing 0.7%. Today: DUAL CHAMBER PACEMAKER EVALUATION * Normal Device Function * Events or Alerts since 04/09/2023 1183 atrial detections, many of which are false AF detections d/t oversensing. * Battery: OK, 9.50 yrs * RV sensing and impedance are stable. RA capture is WNL. RV capture remains elevated, measuring 3.25V @ 1.0ms bipolar and 2.0V @ 1.0ms unipolar. 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 * Pacing and Detection Parameters were evaluated Tachycardia: AFL Since 04/09/2023: 1183 atrial detections, many of which are false AF detections d/t oversensing. 1 available EGM shows true AFL event lasting ~1 minute. AF burden graph shows ~4 days of the last year with possible true AF/AFL. Atrial Lead Undersensing RA sensing presents programmed in bipolar configuration, under sensing noted on live EGM resulting in unnecessary A pace/V pace RA sensing measuring <1mV in bipolar. Measuring ~3mV unipolar. Sensing configuration was changed to unipolar today with sensitivity decreased (more content not included)... Normal [facility] CN Office Visit (CARDMM ) BETZY CRUZ ([id number]) 1940 F Date Time Provider Department 04/14/24 1:30 PM [facility] During your visit today, we recorded the following information about you: Allergies As of Date: 04/14/2024 Noted Allergy Reaction LATEX 02/28/2008 2 - Rash Comments: itches CRESTOR (ROSUVASTATIN) 12/20/2018 17 - Myalgia Comments: severe muscles aches LIPITOR (ATORVASTATIN) 12/20/2018 17 - Myalgia Comments: severe muscle aches ADHESIVE 10/11/2010 2 - Rash Comments: redness AMLODIPINE 08/22/2016 7 - Swelling Comments: leg swelling ATENOLOL 06/11/2018 5 - Intolerance Comments: gained a lot of weight SEASONAL ALLERGIES 10/11/2010 3 - Cough Date Reviewed: 04/14/2024 Reviewed by: Dionicio Scott LPN - Fully Assessed Visit Diagnosis:Pacemaker reprogramming/check [Z45.018] Order(s):CARDIAC IMPLANTABLE DEVICE CHECK [[id number]] Order #: [id number] FUTURE CARDIAC IMPLANTABLE DEVICE CHECK [[id number]] Order #: [id number]. #:[id number] Prescriptions as of 04/15/2024 - rosuvastatin (CRESTOR) 5 mg tablet Take 1 tablet by mouth daily at bedtime. As directed - fluticasone furoate (ARNUITY ELLIPTA) 100 mcg/actuation inhaler Inhale 1 Puff as instructed once daily. - carvedilol (COREG) 3.125 mg tablet Take 1 tablet by mouth two times a day. - lamoTRIgine (LAMICTAL) 100 mg tablet Take 1 tablet by mouth two times a day. - erythromycin (ROMYCIN) 5 mg/gram (0.5 %) ophthalmic ointment Use in both eyes. 1 x daily - fluticasone (FLONASE ALLERGY RELIEF) 50 mcg/actuation nasal spray Use 1 Wallace in each nostril once daily. - hydroCHLOROthiazide (HYDRODIURIL, ESIDRIX) 12.5 mg capsule Take 1 capsule by mouth once daily as needed. - FLAXSEED OIL (OMEGA 3 ORAL) Take by mouth once daily. - aspirin, enteric coated (ASPIRIN, ENTERIC COATED) 81 mg EC tablet Take by mouth as directed. Take two tablets once daily in the evening. - Cholecalciferol, Vitamin D3, 1,000 unit ORAL Cap Take one(1) tablet two(2) times daily. - calcium carbonate(CALCIUM 500 500 MG (1,250 MG) TAB) Takes 8015-6861 mg once daily. 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] 07/14/2004 SPINAL STENOSIS-LUMBAR [M48.061] 02/25/2008 CARDIAC PACEMAKER IN SITU [Z95.0] 03/05/2008 Seizure (HCC) [R56.9] 02/18/2009 02/26/2017 Left hip pain [M25.552] 10/03/2010 Knee pain [M25.569] 05/11/2011 Syncope [R55] 01/02/2014 PSVT (paroxysmal supraventricular tachycardia) *07/27/2014 Chronic venous insufficiency [I87.2] 12/15/2014 Essential hypertension [I10] 12/15/2014 Obesity (BMI 30.0-34.9) [E66.811] 01/11/2017 Pacemaker [Z95.0] 11/29/2017 Epilepsy (HCC) [G40.909] Mild persistent asthma without complication [J4*11/01/2020 GERD (gastroesophageal reflux disease) [K21.9] 12/02/2020 Sick sinus syndrome (HCC) [I49.5] 12/11/2022 Encounter Status:Closed by MERY ALMEIDA on 04/15/24 [facility] CNOVon 03-24-2024 CNOV Office Visit (INTMWS ) BETZY CRUZ ([id number]) 1940 F Date Time Provider Department 03/24/24 9:40 AM SAGRARIO FONG INTMWS During your visit today, we recorded the following information about you: Temperature Pulse Respiration Blood pressure 96.6 degrees 85/minute 16/minute 112/64 Weight 91.3 kg Sagrario Fong MD 03/24/2024 10:30 AM Signed This note was created using NoteWriter. Subjective Betzy Cruz is a 83 year old female. Patient presents with: F/U 6 months SUBJECTIVE: Betzy Cruz is a 83 year old year old lady here today for 6 month follow up appointment for review of medical conditions. Betzy Cruz is an 83-year-old female, with a history of hypercholesterolemia, asthma, and HTN, presenting for follow-up. Betzy reports feeling well overall. She is currently taking omega-3 supplements and consuming foods rich in omega-3 fatty acids, such as salmon, to manage her cholesterol levels. She has a history of statin intolerance, experiencing severe myalgias with rosuvastatin and mild myalgias with pravastatin, even at reduced doses of three times per week. She denies current use of any statin medications and has discarded her previous rosuvastatin prescription. She is under the care of Dr. Huertas, who has recommended statin therapy. She expresses a preference to avoid additional medications if possible. She is also under the care of Dr. Lemus, who recently switched her from Breo to Arnuity for asthma management. She has not yet started Arnuity due to issues with mail delivery from [employer] and plans to request a local pharmacy fill. She is currently taking carvedilol, hydrochlorothiazide, and lamotrigine. She reports adequate supply of hydrochlorothiazide and prefers to delay refills for this medication. She denies any issues with her current medication regimen and reports well-controlled blood pressure. She denies any recent changes in her health status and has no new concerns to address. She plans to receive her flu and tetanus vaccinations at a local pharmacy. PAST MEDICAL HISTORY Diagnosis Date Asthma Atrial fibrillation (HCC) Cardiac pacemaker in situ 03/05/2008 PM-Device [facility] Medtronic Model [id number] Sensia Serial Number [id number] Implant Date 07/18/2007 BLANK _ Lead1 Mfg Medtronic Model 5076 Serial Number [id number] Location right Implant Date 07/18/2007 BLANK _ Lead2 Mfg Medtronic Model 5076 Serial Number [id number] Location right Implant Date 07/18/2007 Epilepsy (HCC) Essential hypertension, benign well controlled Generalized osteoarthrosis, unspecified site Impaired glucose tolerance test Runs usually 100 Obesity Other and unspecified disc disorder of lumbar region Other and unspecified hyperlipidemia Spinal stenosis, lumbar region, without neurogenic claudication s/p L5-S1 sx '00 Current Outpatient Medications Medication Sig erythromycin (ROMYCIN) 5 mg/gram (0.5 %) ophthalmic ointment Use in both eyes. 1 x daily carvedilol (COREG) 3.125 mg tablet Take 1 tablet by mouth two times a day. fluticasone (FLONASE ALLERGY RELIEF) 50 mcg/actuation nasal spray Use 1 Wallace in each nostril once daily. lamoTRIgine (LAMICTAL) 100 mg tablet Take 1 tablet by mouth two times a day. hydroCHLOROthiazide (HYDRODIURIL, ESIDRIX) 12.5 mg capsule Take 1 capsule by mouth once daily as needed. FLAXSEED OIL (OMEGA 3 ORAL) Take by mouth once daily. aspirin, enteric coated (ASPIRIN, ENTERIC COATED) 81 mg EC tablet Take by mouth as directed. Take two tablets once daily in the evening. Cholecalciferol, Vitamin D3, 1,000 unit ORAL Cap Take one(1) tablet two(2) times daily. calcium carbonate(CALCIUM 500 500 MG (1,250 MG) TAB) Takes 2129-3633 mg once daily. fluticasone furoate (ARNUITY ELLIPTA) 100 mcg/actuation inhaler Inhale 1 Puff as instructed once daily. (Patient not taking: Reported on 03/24/2024) No current facility-administered medications for this visit. Review of Systems Objective BP 112/64 Pulse 85 Temp (!) 35.9 ?C (96.6 ?F) Resp 16 Wt 91.3 kg (201 lb 4.5 oz) SpO2 97% BMI 31.52 kg/m? Physical Exam Constitutional: Appearance: Normal appearance. HENT: Head: Normocephalic. Eyes: Conjunctiva/sclera: Conjunctivae normal. Cardiovascular: Rate and Rhythm: Normal rate and regular rhythm. Heart sounds: Normal heart sounds. Pulmonary: Effort: Pulmonary effort is normal. Breath sounds: Normal breath sounds. Musculoskeletal: Right lower leg: No edema. Left lower leg: No edema. Skin: General: Skin is warm and dry. Neurological: General: No focal deficit present. Mental Status: She is alert and oriented to person, place, and time. Psychiatric: Attention and Perception: Attention and perception normal. Mood and Affect: Mood and affect normal. Speech: Speech normal. Behavior: Behavior normal. Thought Con (more content not included)... Normal [facility] CNOVon 03-20-2024 CNOV Office Visit (PULMWS ) BETZY CRUZ ([id number]) 1940 F Date Time Provider Department 03/20/24 1:15 PM WENDY LEMUS PULMWS During your visit today, we recorded the following information about you: Pulse Respiration Blood pressure Weight 72/minute 17/minute 106/70 92.3 kg Wendy Lemus MD 03/20/2024 1:51 PM Signed . 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 Current therapy with ICS/LABA with as needed albuterol, some issues with noncompliance due to beta agonist exacerbation of her atrial fibrillation. At last office visit she was changed from Dulera to Breo Ellipta. She continues to have issues with her atrial fibrillation. She can only tell when she is in atrial fibrillation if her symptoms last for 15 minutes or longer. She has stopped her inhalers in the past but notes increased shortness of breath and chest congestion if she stops using her Breo Ellipta. At her last office visit with cardiology, pacemaker interrogation showed multiple episodes of atrial fibrillation. She has declined anticoagulation therapy. She is considering possible ablation versus Watchman procedure and has an appointment with the lead welder later this month. From a respiratory standpoint she has dyspnea on exertion, chest tightness and congestion. Dyspnea with exertion is associated with tachycardia 140 to as high as 180 bpm. No audible wheezing. No significant cough with sputum production. DATA: ASTHMA CONTROL TEST Date: 03/20/2024 In the last 4 weeks, how much of the time did your asthma keep you from getting as much done at work or home that you wanted to do? A little of the time (4) In the last 4 weeks, how often have you had shortness of breath? More than once per day (1) In the last 4 weeks, how often did your asthma symptoms (wheezing, coughing, shortness of breath, chest tightness or pain) wake you up at night or earlier than usual? Once or twice (4) In the last 4 weeks, how often have you used your rescue inhaler or nebulizer medication (such as Albuterol, Proventil, Ventolin, Maxair, Xoponex, or Primatene Mist)? A few times per week (3) In the last 4 weeks, how would you rate your asthma control? Somewhat controlled (3) Total: 15 PAST MEDICAL HISTORY Diagnosis Date Asthma Atrial fibrillation (HCC) Cardiac pacemaker in situ 03/05/2008 PM-Device Mfg Medtronic Model SEDR01 Sensia Serial Number [id number] Implant Date 07/18/2007 BLANK _ Lead1 Mfg Medtronic Model 5076 Serial Number [id number] Location right Implant Date 07/18/2007 BLANK _ Lead2 Mfg Medtronic Model 5076 Serial Number [id number] Location right Implant Date 07/18/2007 Epilepsy (HCC) Essential hypertension, benign well controlled Generalized osteoarthrosis, unspecified site Impaired glucose tolerance test Runs usually 100 Obesity Other and unspecified disc disorder of lumbar region Other and unspecified hyperlipidemia Spinal stenosis, lumbar region, without neurogenic claudication s/p L5-S1 sx '00 ALLERGIES Allergen Reactions Latex Rash itches Crestor [Rosuvastat* Myalgia severe muscles aches Lipitor [Atorvastat* Myalgia severe muscle aches Adhesive Rash redness Amlodipine Swelling leg swelling Atenolol Intolerance gained a lot of weight Seasonal Allergies Cough erythromycin (ROMYCIN) 5 mg/gram (0.5 %) ophthalmic ointment Use in both eyes. 1 x daily carvedilol (COREG) 3.125 mg tablet Take 1 tablet by mouth two times a day. fluticasone (FLONASE ALLERGY RELIEF) 50 mcg/actuation nasal spray Use 1 Wallace in each nostril once daily. lamoTRIgine (LAMICTAL) 100 mg tablet Take 1 tablet by mouth two times a day. hydroCHLOROthiazide (HYDRODIURIL, ESIDRIX) 12.5 mg capsule Take 1 capsule by mouth once daily as needed. FLAXSEED OIL (OMEGA 3 ORAL) Take by mouth once daily. aspirin, enteric coated (ASPIRIN, ENTERIC COATED) 81 mg EC tablet Take by mouth as directed. Take two tablets once daily in the evening. Cholecalciferol, Vitamin D3, 1,000 unit ORAL Cap Take one(1) tablet two(2) times daily. calcium carbonate(CALCIUM 500 500 MG (1,250 MG) TAB) Takes 6682-8776 mg once daily. fluticasone furoate (ARNUITY ELLIPTA) 100 mcg/actuation inhaler Inhale 1 Puff as instructed once daily. Social History Tobacco Use Smoking status: Never Smokeless tobacco: Never Tobacco comments: No household ETS exposure in entire lifetime. Vaping Use Vaping status: Never Used Substance Use Topics Alcohol use: No Drug use: No PMH, Social history, family history (more content not included)... Normal [facility] CBC W Auto Differential pane l (Bld)on 02-19-2024 Basophils (Bld) [#/Vol] 0.07 10*3/uL Normal <0.11 [facility] Comment on above: Order Comment: Specimen Type: BLOOD SPEC IMENOrdering Facility: [facility] Address: [address] [place] [address] Performed By: #### 5 7021-8 ####[facility] [id number] [place] [address] [place] Basophils/100 WBC (Bld) 1.1 % Normal [facility] Comment on above: Order Comment: Specimen Type: BLOOD SPEC IMENOrdering Facility: [facility] Address: [address] [place] [address] Performed By: #### 5 7021-8 ####[facility] LABCLIA [id number] [place] [address] [place] Differential cell count method Nom (Bld) Auto Normal [facility] Comment on above: Order Comment: Specimen Type: BLOOD SPEC IMENOrdering Facility: [facility] Address: [address] [place] [address] Performed By: #### 5 7021-8 ####[facility] LABCLIA [id number] [place] [address] [place] Eosinophils (Bld) [#/Vol] 0.17 10*3/uL Normal <0.46 [facility] Comment on above: Order Comment: Specimen Type: BLOOD SPEC IMENOrdering Facility: [facility] Address: [address] [place] [address] Performed By: #### 5 7021-8 ####[facility] LABCLIA [id number] [place] [address] [place] Eosinophils/100 WBC (Bld) 2.7 % Normal [facility] Comment on above: Order Comment: Specimen Type: BLOOD SPEC IMENOrdering Facility: [facility] Address: [address] [place] [address] Performed By: #### 5 7021-8 ####[facility] LABCLIA [id number] [place] [address] [place] Erythrocyte distribution width (RBC) [Ratio] 12.9 % Normal 11.5-15.0 [facility] Comment on above: Order Comment: Specimen Type: BLOOD SPEC IMENOrdering Facility: [facility] Address: [address] [place] [address] Performed By: #### 5 7021-8 ####[facility] LABCLIA [id number] [place] [address] [place] Hematocrit (Bld) [Volume fraction] 42.0 % Normal 36.0-46.0 [facility] Comment on above: Order Comment: Specimen Type: BLOOD SPEC IMENOrdering Facility: [facility] Address: [address] [place] [address] Performed By: #### 5 7021-8 ####[facility] LABCLIA [id number] [place] [address] [place] Hemoglobin (Bld) [Mass/Vol] 13.6 g/dL Normal 11.5-15.5 [facility] Comment on above: Order Comment: Specimen Type: BLOOD SPEC IMENOrdering Facility: [facility] Address: [address] [place] [address] Performed By: #### 5 7021-8 ####[facility]CLIA [id number] [place] [address] [place] Immature granulocytes (Bld) [#/Vol] 0.03 10*3/uL Normal <0.10 [facility] Comment on above: Order Comment: Specimen Type: BLOOD SPEC IMENOrdering Facility: [facility] Address: [address] [place] [address] Performed By: #### 5 7021-8 ####[facility]CLIA [id number] [place] [address] [place] Immature granulocytes/10 0 WBC (Bld) 0.5 % Normal [facility] Comment on above: Order Comment: Specimen Type: BLOOD SPEC IMENOrdering Facility: [facility] Address: [address] [place] [address] Performed By: #### 5 7021-8 ####[facility] [id number] [place] [address] [place] Lymphocytes (Bld) [#/Vol] 1.74 10*3/uL Normal 1.00-4.00 [facility] Comment on above: Order Comment: Specimen Type: BLOOD SPEC IMENOrdering Facility: [facility] Address: [address] [place] [address] Performed By: #### 5 7021-8 ####[facility]CLIA [id number] [place] [address] [place] Lymphocytes/100 WBC (Bld) 27.3 % Normal [facility] Comment on above: Order Comment: Specimen Type: BLOOD SPEC IMENOrdering Facility: [facility] Address: [address] [place] [address] Performed By: #### 5 7021-8 ####[facility] LABCLIA [id number] [place] [address] [place] MCH (RBC) [Entitic mass] 28.8 pg Normal 26.0-34.0 [facility] Comment on above: Order Comment: Specimen Type: BLOOD SPEC IMENOrdering Facility: [facility] Address: [address] [place] [address] Performed By: #### 5 7021-8 ####[facility] [id number] [place] [address] [place] MCHC (RBC) [Mass/Vol] 32.4 g/dL Normal 30.5-36.0 [facility] Comment on above: Order Comment: Specimen Type: BLOOD SPEC IMENOrdering Facility: [facility] Address: [address] [place] [address] Performed By: #### 5 7021-8 ####[facility] [id number] [place] [address] [place] MCV (RBC) [Entitic vol] 88.8 fL Normal 80.0-100.0 [facility] Comment on above: Order Comment: Specimen Type: BLOOD SPEC IMENOrdering Facility: [facility] Address: [address] [place] [address] Performed By: #### 5 7021-8 ####[facility] [id number] [place] [address] [place] Monocytes (Bld) [#/Vol] 0.55 10*3/uL Normal <0.87 [facility] Comment on above: Order Comment: Specimen Type: BLOOD SPEC IMENOrdering Facility: [facility] Address: [address] [place] [address] Performed By: #### 5 7021-8 ####[facility] LABCLIA [id number] [place] [address] [place] Monocytes/100 WBC (Bld) 8.6 % Normal [facility] Comment on above: Order Comment: Specimen Type: BLOOD SPEC IMENOrdering Facility: [facility] Address: [address] [place] [address] Performed By: #### 5 7021-8 ####[facility] LABCLIA [id number] [place] [address] [place] Neutrophils (Bld) [#/Vol] 3.81 10*3/uL Normal 1.45-7.50 [facility] Comment on above: Order Comment: Specimen Type: BLOOD SPEC IMENOrdering Facility: [facility] Address: [address] [place] [address] Performed By: #### 5 7021-8 ####[facility] LABCLIA [id number] [place] [address] [place] Neutrophils/100 WBC (Bld) 59.8 % Normal [facility] Comment on above: Order Comment: Specimen Type: BLOOD SPEC IMENOrdering Facility: [facility] Address: [address] [place] [address] Performed By: #### 5 7021-8 ####[facility] LABCLIA [id number] [place] [address] [place] Nucleated RBC (Bld) [#/Vol] 10*3/uL Normal <0.01 [facility] Comment on above: Order Comment: Specimen Type: BLOOD SPEC IMENOrdering Facility: [facility] Address: [address] [place] [address] Performed By: #### 5 7021-8 ####[facility] LABCLIA [id number] [place] [address] [place] Nucleated RBC/100 WBC (Bld) [Ratio] 0.0 /100 WBC Normal [facility] Comment on above: Order Comment: Specimen Type: BLOOD SPEC IMENOrdering Facility: [facility] Address: [address] [place] [address] Performed By: #### 5 7021-8 ####[facility] LABCLIA [id number] [place] [address] [place] Platelet mean volume (Bld) [Entitic vol] 10.0 fL Normal 9.0-12.7 [facility] Comment on above: Order Comment: Specimen Type: BLOOD SPEC IMENOrdering Facility: [facility] Address: [address] [place] [address] Performed By: #### 5 7021-8 ####[facility] [id number] [place] [address] [place] Platelets (Bld) [#/Vol] 246 10*3/uL Normal 150-400 [facility] Comment on above: Order Comment: Specimen Type: BLOOD SPEC IMENOrdering Facility: [facility] Address: [address] [place] [address] Performed By: #### 5 7021-8 ####[facility] [id number] [place] [address] [place] RBC (Bld) [#/Vol] 4.73 10*6/uL Normal 3.90-5.20 [facility] Comment on above: Order Comment: Specimen Type: BLOOD SPEC IMENOrdering Facility: [facility] Address: [address] [place] [address] Performed By: #### 5 7021-8 ####[facility] [id number] [place] [address] [place] WBC (Bld) [#/Vol] 6.37 10*3/uL Normal 3.70-11.00 [facility] Comment on above: Order Comment: Specimen Type: BLOOD SPEC IMENOrdering Facility: [facility] Address: [address] [place] [address] Performed By: #### 5 7021-8 ####[facility] [id number] [place] [address] [place] Comprehensive metabolic 2000 panelon 02-19-2024 Albumin [Mass/Vol] 4.2 g/dL Normal 3.9-4.9 [facility] Comment on above: Order Comment: Specimen Type: BLOOD SPEC IMENOrdering Facility: [facility] Address: [address] [place] [address] Performed By: #### 2 4323-8, 06051-8, 3016-3, 96345-1 ####[facility] LABCLIA [id number] [place] [address] [place] ALP [Catalytic activity/Vol] 73 U/L Normal 34-123 [facility] Comment on above: Order Comment: Specimen Type: BLOOD SPEC IMENOrdering Facility: [facility] Address: [address] [place] [address] Performed By: #### 2 4323-8, 14633-6, 6-3, 59764-4 ####[facility] [id number] [place] [address] [place] ALT [Catalytic activity/Vol] 14 U/L Normal 7-38 [facility] Comment on above: Order Comment: Specimen Type: BLOOD SPEC IMENOrdering Facility: [facility] Address: [address] [place] [address] Performed By: #### 2 4323-8, 02756-1, 3016-3, 79685-9 ####[facility] [id number] [place] [address] [place] Anion gap [Moles/Vol] 11 mmol/L Normal 8-15 [facility] Comment on above: Order Comment: Specimen Type: BLOOD SPEC IMENOrdering Facility: [facility] Address: [address] [place] [address] Performed By: #### 2 4323-8, 22015-6, 3016-3, 84286-7 ####[facility] LABCLIA [id number] [place] [address] [place] AST [Catalytic activity/Vol] 21 U/L Normal 13-35 [facility] Comment on above: Order Comment: Specimen Type: BLOOD SPEC IMENOrdering Facility: [facility] Address: [address] [place] [address] Performed By: #### 2 4323-8, 25779-8, 3016-3, 67288-8 ####[facility] LABCLIA [id number] [place] [address] [place] Bilirubin [Mass/Vol] 0.5 mg/dL Normal 0.2-1.3 [facility] Comment on above: Order Comment: Specimen Type: BLOOD SPEC IMENOrdering Facility: [facility] Address: [address] [place] [address] Performed By: #### 2 4323-8, 16693-4, 6-3, 61757-7 ####[facility]CL[facility] [id number] [place] [address] [place] Calcium [Mass/Vol] 9.7 mg/dL Normal 8.5-10.2 [facility] Comment on above: Order Comment: Specimen Type: BLOOD SPEC IMENOrdering Facility: [facility] Address: [address] [place] [address] Performed By: #### 2 4323-8, 79360-0, 6-3, 71799-9 ####[facility]CLIA [id number] [place] [address] [place] Chloride [Moles/Vol] 103 mmol/L Normal 98-107 [facility] Comment on above: Order Comment: Specimen Type: BLOOD SPEC IMENOrdering Facility: [facility] Address: [address] [place] [address] Performed By: #### 2 4323-8, 80220-5, 6-3, 90338-9 ####[facility]CL[facility] [id number] [place] [address] [place] CO2 [Moles/Vol] 27 mmol/L Normal 22-30 [facility] Comment on above: Order Comment: Specimen Type: BLOOD SPEC IMENOrdering Facility: [facility] Address: [address] [place] [address] Performed By: #### 2 4323-8, 22631-4, 6-3, 98396-9 ####[facility]CL[facility] [id number] [place] [address] [place] Creatinine [Mass/Vol] 0.85 mg/dL Normal 0.58-0.96 [facility] Comment on above: Order Comment: Specimen Type: BLOOD SPEC IMENOrdering Facility: [facility] Address: [address] [place] [address] Performed By: #### 2 4323-8, 17910-2, 3015-3, 26356-1 ####[facility]CL[facility] [id number] [place] [address] [place] Creatinine and Glomerular filtration rate.predicted panel (S/P/Bld) 69 mL/min/1.73m??? Normal >=60 [facility] Comment on above: Order Comment: Specimen Type: BLOOD SPEC IMENOrdering Facility: [facility] Address: [address] [place] [address] Result Comment: Samaria mated Glomerular Filtration Rate (eGFR) is calculated using the 2020 CKD-EPI creatinine equation. This equation utilizes serum creatinine, sex, and age as parameters. The creatinine assay has traceable calibration to isotope dilution-mass spectrometry. Refer to KDIGO guidelines for clinical interpretation. In patients with unstable renal function, e.g. those with acute kidney injury, the eGFR may not accurately reflect actual GFR. Performed By: #### 2 4323-8, 84048-4, 3015-3, 58205-3 ####[facility] LABCL[facility] [id number] [place] [id number] [place] Glucose [Mass/Vol] 109 mg/dL High 74-99 [facility] Comment on above: Order Comment: Specimen Type: BLOOD SPEC IMENOrdering Facility: [facility] Address: [address] [place], [place] [address] Result Comment: The [place] Diabetes Association (ADA) provides guidance for cutoff values for fasting glucose and random glucose. The ADA defines fasting as no caloric intake for at least 8 hours. Fasting plasma glucose results between 100 to 125 mg/dL indicate increased risk for diabetes (prediabetes). Fasting plasma glucose results greater than or equal to 126 mg/dL meet the criteria for diagnosis of diabetes. In the absence of unequivocal hyperglycemia, results should be confirmed by repeat testing. In a patient with classic symptoms of hyperglycemia or hyperglycemic crisis, random plasma glucose results greater than or equal to 200 mg/dL meet the criteria for diagnosis of diabetes. Reference: Standards of Medical Care in Diabetes 2016, [place] Diabetes Association. Diabetes Care. 2016.39(Suppl 1). Performed By: #### 2 4323-8, 23794-3, 6-3, 52840-0 ####[facility]CL[facility] [id number] [place] [address] [place] Potassium [Moles/Vol] 4.6 mmol/L Normal 3.7-5.1 [facility] Comment on above: Order Comment: Specimen Type: BLOOD SPEC IMENOrdering Facility: [facility] Address: [address] [place] [address] Performed By: #### 2 4323-8, , 6-3, 09665-7 ####[facility]CL[facility] [id number] [place] [id number] [place] Protein [Mass/Vol] 7.1 g/dL Normal 6.3-8.0 [facility] Comment on above: Order Comment: Specimen Type: BLOOD SPEC IMENOrdering Facility: [facility] Address: [address] [place], [place] [address] Performed By: #### 2 4323-8, 14541-8, 6-3, 88486-3 ####[facility]CL[facility] [id number] [place] [id number] [place] Sodium [Moles/Vol] 141 mmol/L Normal 136-144 [facility] Comment on above: Order Comment: Specimen Type: BLOOD SPEC IMENOrdering Facility: [facility] Address: [address] [place] [address] Performed By: #### 2 4323-8, 02723-7, 3016-3, 18921-9 ####[facility]CL[facility] [id number] [place] [address] [place] Urea nitrogen [Mass/Vol] 22 mg/dL High 7-21 [facility] Comment on above: Order Comment: Specimen Type: BLOOD SPEC IMENOrdering Facility: [facility] Address: [address] [place] [address] Performed By: #### 2 4323-8, 03217-6, 3016-3, 92140-6 ####[facility]CL[facility] [id number] [place] [address] [place] HbA1c (Bld)on 02-19-2024 Average glucose Estimated from glycated hemoglobin (Bld) [Mass/Vol] 114 mg/dL Normal [facility] Comment on above: Order Comment: Specimen Type: BLOOD SPEC IMENOrdering Facility: [facility] Address: [address] [place] [address] Result Comment: eAG: (Estimated average glucose) is a calculated value from HgbA1c and is food service representative of the average blood glucose level in the last 2-3 month period. Performed By: #### 5 5454-3 ####[facility] [id number] [place] [address] [place] HbA1c (Bld) [Mass fraction] 5.6 % Normal 4.3-5.6 [facility] Comment on above: Order Comment: Specimen Type: BLOOD SPEC IMENOrdering Facility: [facility] Address: [address] [place] [address] Result Comment: [place] Diabetes Association guidelines indicate that patients with HgbA1c in the range 5.7-6.4% are at increased risk for development of diabetes, and intervention by lifestyle modification may be beneficial. HgbA1c greater or equal to 6.5% is considered diagnostic of diabetes. Performed By: #### 5 5454-3 ####[facility]CL[facility] [id number] [place] [address] [place] Lipid 1996 panelon 4 Cholesterol [Mass/Vol] 222 mg/dL High <200 [facility] Comment on above: Order Comment: Specimen Type: BLOOD SPEC IMENOrdering Facility: [facility] Address: [address] [place] [address] Result Comment: <200 mg/dL, Desirable 200-239 mg/dL, Borderline high >239 mg/dL, High Performed By: #### 2 4323-8, 74902-7, 3015-3, 60268-1 ####[facility]CL[facility] [id number] [place] [address] [place] Cholesterol in HDL [Mass/Vol] 44 mg/dL Normal >39 [facility] Comment on above: Order Comment: Specimen Type: BLOOD SPEC IMENOrdering Facility: [facility] Address: [address] [place] [address] Result Comment: 40-5 9 mg/dL, Acceptable >59 mg/dL, High: Negative risk factor for coronary heart disease <40 mg/dL, Low: Positive risk factor for coronary heart disease Performed By: #### 2 4323-8, 67338-2, 3015-3, 60482-0 ####[facility]CL[facility] [id number] [address] [place] Cholesterol in LDL [Mass/Vol] 161 mg/dL High <100 [facility] Comment on above: Order Comment: Specimen Type: BLOOD SPEC IMENOrdering Facility: [facility] Address: [address] [place] [address] Result Comment: <100 mg/dL, Optimal 100-129 mg/dL, Near optimal/above optimal 130-159 mg/dL, Borderline high 160-189 mg/dL, High >189 mg/dL, Very high Secondary prevention optimal LDL Cholesterol levels are recommended to be < 70 mg/dL Performed By: #### 2 4323-8, 38492-2, 6-3, 66735-5 ####[facility] [id number] [address] [address] [place] Cholesterol in LDL/Cholesterol in HDL [Mass ratio] 3.66 {ratio} High <2.54 [facility] Comment on above: Order Comment: Specimen Type: BLOOD SPEC IMENOrdering Facility: [facility] Address: [address] [place] [address] Result Comment: Refe rence: 1. National Cholesterol Education Program ATP III Guideline At-A-Glance Quick Desk Reference: National Heart, Lung, and Blood [place]. National Institutes of Health. 2001: NIH Publication No. 01-3305. 2. An International Atherosclerosis Society position paper: global recommendations for the management of dyslipidemia: executive summary, Atherosclerosis. 2014: 232(2):410-413. Performed By: #### 2 4323-8, 44670-5, 3015-3, 71419-8 ####[facility]IA [id number] [place] [address] [place] Cholesterol in VLDL [Mass/Vol] 17 mg/dL Normal <30 [facility] Comment on above: Order Comment: Specimen Type: BLOOD SPEC IMENOrdering Facility: [facility] Address: [address] [place] [address] Performed By: #### 2 4323-8, 50042-5, 6-3, 76097-4 ####[facility] LABCLIA [id number] [place] [id number] [place] Cholesterol non HDL [Mass/Vol] 178 mg/dL High <130 [facility] Comment on above: Order Comment: Specimen Type: BLOOD SPEC IMENOrdering Facility: [facility] Address: [address] [place] [address] Result Comment: <130 mg/dL, Optimal 130-159 mg/dL, Near optimal/above optimal 160-189 mg/dL, Borderline high 190-219 mg/dL, High >219 mg/dL, Very high Secondary prevention optimal non HDL Cholesterol levels are recommended to be <100 mg/dL Performed By: #### 2 4323-8, 53981-9, 3015-3, 60849-2 ####[facility]CL[facility] [id number] [address] [address] [place] Cholesterol.tot al/Cholesterol in HDL [Mass ratio] 5.05 {ratio} Normal <5.10 [facility] Comment on above: Order Comment: Specimen Type: BLOOD SPEC IMENOrdering Facility: [facility] Address: [address] [place] [address] Performed By: #### 2 4323-8, , 3015-07, 78331-5 ####[facility]CL[facility] [id number] [place] [address] [place] FASTING TIME 12 hrs Normal [facility] Comment on above: Order Comment: Specimen Type: BLOOD SPEC IMENOrdering Facility: [facility] Address: [address] [place] [address] Performed By: #### 2 4323-8, , 3015-07, 08592-0 ####[facility]CLIA [id number] [address] [address] [place] Triglyceride [Mass/Vol] 84 mg/dL Normal <150 [facility] Comment on above: Order Comment: Specimen Type: BLOOD SPEC IMENOrdering Facility: [facility] Address: [address] [place] [address] Result Comment: <150 mg/dL, Normal 150-199 mg/dL, Borderline high 200-499 mg/dL, High >499 mg/dL, Very high Performed By: #### 2 4323-8, , 3, 99394-6 ####[facility] [id number] [address] [address] [place] Magnesium SerPl-mCncon 02-18 Magnesium [Mass/Vol] 2.0 mg/dL Normal 1.7-2.3 [facility] Comment on above: Order Comment: Specimen Type: BLOOD SPEC IMENOrdering Facility: [facility] Address: [address] [place] [address] Performed By: #### 2 4323-8, 14338-1, 3016-3, 88633-0 ####[facility]CL[facility] [id number] [place] [id number] [place] TSH SerPl-aCncon 02-19-2024 TSH Qn 2.200 m[IU]/L Normal 0.270-4.200 [facility] Comment on above: Order Comment: Specimen Type: BLOOD SPEC IMENOrdering Facility: [facility] Address: [address] [place] [address] Performed By: #### 2 4323-8, 76238-0, 3016-3, 24660-0 ####[facility] [id number] [address] [place] CNOVon 02-18-2024 CNOV Office Visit (CAWSTR ) BETZY CRUZ ([id number]) 1940 F Date Time Provider Department 02/18/24 2:40 PM SEVEN BAUTISTA CAWSTR During your visit today, we recorded the following information about you: Pulse Blood pressure Weight Height 80/minute 145/87 91.2 kg 1.702 m Seven Bautista MD 02/18/2024 3:02 PM Signed Seven Bautista MD Interventional Cardiology [address] [place] [phone] Chief Complaint Patient presents with: Recheck: Has pacemaker, heart rate 180 at times? HISTORY OF PRESENT ILLNESS: Ms. Cruz is a 83 year old female seen my office today prior history of hypertensive heart disease with sick sinus syndrome and atrial fibrillation required pacemaker insertion she is asymptomatic doing well from a cardiac point of view denies chest pain or shortness of breath angina no signs or symptoms of congestive heart failure Recent interrogation of her device shows 646 episodes of rapid heart rate likely atrial fibrillation Extensive discussion regarding anticoagulation with Ananya patient would like not to be started at this time she is entertaining the idea of ablation versus Watchman procedure with lead welder patient has an appointment Cardiac Risk Factors age (male over 45, female over 55), hyperlipidemia, hypertension PAST MEDICAL HISTORY Diagnosis Date Asthma Atrial fibrillation (HCC) Cardiac pacemaker in situ 03/05/2008 PM-Device Mfg Medtronic Model SEDR01 [place] Serial Number [id number] Implant Date 07/18/2007 BLANK _ Lead1 Mfg Medtronic Model 5076 Serial Number [id number] Location right Implant Date 07/18/2007 BLANK _ Lead2 Mfg Medtronic Model 5076 Serial Number [id number] Location right Implant Date 07/18/2007 Epilepsy (HCC) Essential hypertension, benign well controlled Generalized osteoarthrosis, unspecified site Impaired glucose tolerance test Runs usually 100 Obesity Other and unspecified disc disorder of lumbar region Other and unspecified hyperlipidemia Spinal stenosis, lumbar region, without neurogenic claudication s/p L5-S1 sx '00 PAST SURGICAL HISTORY Procedure Laterality Date ARTHRP ACETBLR/PROX FEM PROSTC AGRFT/ALGRFT 2008 Hip replacement, total left NEUROPLASTY AND/TRANSPOS MEDIAN NRV CARPAL TUNNE Right 02/21/2019 Right [facility] PACEMAKER 2009 PAST SURGICAL HISTORY OF lumbar surgery x 3 PAST SURGICAL HISTORY OF 11/2017 Battery replacement - pacemaker FAMILY HISTORY Problem Relation Age of Onset Hypertension Mother age 91 other (high cholesterol) Father other (black lung) Father Asthma Father Severe Asthma Sister Lung Cancer Brother Smoker. Diabetes Maternal Grandmother Diabetes Other cousins Hypertension Other brothers/ sisters other (high cholesterol) Other brothers Social History Tobacco Use Smoking status: Never Smokeless tobacco: Never Tobacco comments: No household ETS exposure in entire lifetime. Substance Use Topics Alcohol use: No Drug use: No ALLERGIES Allergen Reactions Latex Rash itches Crestor [Rosuvastat* Myalgia severe muscles aches Lipitor [Atorvastat* Myalgia severe muscle aches Adhesive Rash redness Amlodipine Swelling leg swelling Atenolol Intolerance gained a lot of weight Seasonal Allergies Cough Medications: Current Outpatient Medications Medication Sig Dispense Refill erythromycin (ROMYCIN) 5 mg/gram (0.5 %) ophthalmic ointment Use in both eyes. 1 x daily fluticasone-vilanterol (BREO ELLIPTA) 100-25 mcg/dose inhaler Inhale 1 Inhalation as instructed once daily. 3 Each 2 carvedilol (COREG) 3.125 mg tablet Take 1 tablet by mouth two times a day. 180 tablet 3 fluticasone (FLONASE ALLERGY RELIEF) 50 mcg/actuation nasal spray Use 1 Wallace in each nostril once daily. 3 Each 3 lamoTRIgine (LAMICTAL) 100 mg tablet Take 1 tablet by mouth two times a day. 180 tablet 3 hydroCHLOROthiazide (HYDRODIURIL, ESIDRIX) 12.5 mg capsule Take 1 capsule by mouth once daily as needed. 90 capsule 1 FLAXSEED OIL (OMEGA 3 ORAL) Take by mouth once daily. aspirin, enteric coated (ASPIRIN, ENTERIC COATED) 81 mg EC tablet Take by mouth as directed. Take two tablets once daily in the evening. 0 Cholecalciferol, Vitamin D3, 1,000 unit ORAL Cap Take one(1) tablet two(2) times daily. calcium carbonate(CALCIUM 500 500 MG (1,250 MG) TAB) Takes 7873-4256 mg once daily. 0 No current facility-administered medications for this visit. Review of Systems Constitutional: Negative for chills, diaphoresis, fever, malaise/fatigue and weight loss. HENT: Negative for congestion, ear discharge, ear pain, hearing loss, nosebleeds, sinus pain, sore throat and tinnitus. Eyes: Negative for blurred vision, double vision, photophobia, pain, discharge and redness. Respiratory: Negative for cough, hemoptysis, sputum production, shortness (more content not included)... Normal [facility] No Panel Informationon 08-20 BLANK _ [facility] Implant Date 07/18/2007 [facility] Model 5076 CapSureFix [facility] PACEMAKER REMOTE CHECKon AV Delay Adaptive Paced Minimum (ms) 200 ms [facility] AV Delay Adaptive Sensed Minimum (ms) 200 ms [facility] AV Delay Adaptive Status DISABLED [facility] Battery Voltage (volts) 3.00 V [facility] [place] RA Pacing Amplitude (volts) 1.5 V [facility] [place] RA Pacing Polarity BI [facility] [place] RA Pacing Pulse Width (ms) 0.4 ms [facility] [place] RA Sensing Amplitude (mvolts) 0.3 mV [facility] [place] RA Sensing Blanking Period (ms) 150 ms [facility] [place] RA Sensing Polarity BI [facility] [place] RA Sensing Refractory Period (ms) Auto [facility] [place] RV Pacing Amplitude (volts) 4 V [facility] [place] RV Pacing Polarity BI [facility] [place] RV Pacing Pulse Width (ms) 1 ms [facility] [place] RV Sensing Amplitude (mvolts) 2 mV [facility] [place] RV Sensing Blanking Period (ms) 200 ms [facility] [place] RV Sensing Polarity BI [facility] Hysteresis Rate (bpm) DISABLED [facility] Implant Date 11/29/2017 [facility] Lead1 Mfg GLENDY [facility] Lead2 Mfg MDDrea [facility] Location RA [facility] Location RV [facility] Lower Rate (bpm) 50 {beats}/min [facility] Max Sensor Rate (bmp) 110 {beats}/min [facility] Model W1DR01 [place] XT [address] OROZCO [facility] PM-Device Mfg GLENDY [facility] PM-Percent Pacing (A) 1.25 % [facility] PM-Percent Pacing (V) 0.7 % [facility] PM-PMT Intervention ENABLED [facility] PM-PVC Intervention ENABLED [facility] PM-Rate Modulation Acceleration Reaction 30 s [facility] PM-Rate Modulation ADL Rate (bpm) 95 {beats}/min [facility] PM-Rate Modulation Deceleration Exercise [facility] PM-Rate Modulation [place] 3 [facility] PM-Rate Modulation Threshold Low [facility] RA Bipolar Impedance ohms 361 ohm [facility] RA Unipolar Impedance ohms 323 ohm [facility] RV Bipolar Impedance ohms 342 ohm [facility] RV Unipolar Impedance 323 ohm [facility] Serial Number [id number] [facility] Serial Number [id number] [facility] Serial Number [id number] [facility] Thresh RA Capture Amplitude (volts) 0.5 V [facility] Thresh RA Capture Duration (ms) 0.4 ms [facility] Thresh RA Sensing Amplitude (mvolts) 2.5 mV [facility] Thresh RV Capture Amplitude (volts) 2.375 V [facility] Thresh RV Capture Duration (ms) 0.4 ms [facility] Thresh RV Sensing Amplitude (mvolts) 4.75 mV [facility] Tracking Rate (bpm) 110 {beats}/min [facility] No Panel Informationon 06-21 BLANK _ [facility] Implant Date 07/18/2007 [facility] Model 5076 CapSureFix [facility] PACEMAKER REMOTE CHECKon AV Delay Adaptive Paced Minimum (ms) 200 ms [facility] AV Delay Adaptive Sensed Minimum (ms) 200 ms [facility] AV Delay Adaptive Status DISABLED [facility] Battery Voltage (volts) 3.00 V [facility] [place] RA Pacing Amplitude (volts) 1.5 V [facility] [place] RA Pacing Polarity BI [facility] [place] RA Pacing Pulse Width (ms) 0.4 ms [facility] [place] RA Sensing Amplitude (mvolts) 0.3 mV [facility] [place] RA Sensing Blanking Period (ms) 150 ms [facility] [place] RA Sensing Polarity BI [facility] [place] RA Sensing Refractory Period (ms) Auto [facility] [place] RV Pacing Amplitude (volts) 4 V [facility] [place] RV Pacing Polarity BI [facility] [place] RV Pacing Pulse Width (ms) 1 ms [facility] [place] RV Sensing Amplitude (mvolts) 2 mV [facility] [place] RV Sensing Blanking Period (ms) 200 ms [facility] [place] RV Sensing Polarity BI [facility] Hysteresis Rate (bpm) DISABLED [facility] Implant Date 11/29/2017 [facility] Lead1 Gloria PIKE [facility] Lead2 Gloria PIKE [facility] Location RA [facility] Location RV [facility] Lower Rate (bpm) 50 {beats}/min [facility] Max Sensor Rate (bmp) 110 {beats}/min [facility] Model W1DR[address] [place] XT [address] OROZCO [facility] PM-Device Gloria PIKE [facility] PM-Percent Pacing (A) 1.32 % [facility] PM-Percent Pacing (V) 0.9 % [facility] PM-PMT Intervention ENABLED [facility] PM-PVC Intervention ENABLED [facility] PM-Rate Modulation Acceleration Reaction 30 s [facility] PM-Rate Modulation ADL Rate (bpm) 95 {beats}/min [facility] PM-Rate Modulation Deceleration Exercise [facility] PM-Rate Modulation [place] 3 [facility] PM-Rate Modulation Threshold Low [facility] RA Bipolar Impedance ohms 361 ohm [facility] RA Unipolar Impedance ohms 342 ohm [facility] RV Bipolar Impedance ohms 342 ohm [facility] RV Unipolar Impedance 342 ohm [facility] Serial Number [id number] [facility] Serial Number [id number] [facility] Serial Number [id number] [facility] Thresh RA Capture Amplitude (volts) 0.5 V [facility] Thresh RA Capture Duration (ms) 0.4 ms [facility] Thresh RA Sensing Amplitude (mvolts) 2.375 mV [facility] Thresh RV Capture Amplitude (volts) 2.375 V [facility] Thresh RV Capture Duration (ms) 0.4 ms [facility] Thresh RV Sensing Amplitude (mvolts) 5.625 mV [facility] Tracking Rate (bpm) 110 {beats}/min [facility] No Panel Informationon 04-09 BLANK _ [facility] Implant Date 07/18/2007 [facility] Model 5076 CapSureFix [facility] BLANK _ [facility] Implant Date 07/18/2007 [facility] Model 5076 CapSureFix [facility] PACEMAKER CLINIC CHECKon AV Delay Adaptive Paced Minimum (ms) 200 ms [facility] AV Delay Adaptive Sensed Minimum (ms) 200 ms [facility] AV Delay Adaptive Status DISABLED [facility] Battery Voltage (volts) 3.01 V [facility] [place] RA Pacing Amplitude (volts) 1.5 V [facility] [place] RA Pacing Polarity BI [facility] [place] RA Pacing Pulse Width (ms) 0.4 ms [facility] [place] RA Sensing Amplitude (mvolts) 0.3 mV [facility] [place] RA Sensing Blanking Period (ms) 150 ms [facility] [place] RA Sensing Polarity BI [facility] [place] RA Sensing Refractory Period (ms) Auto [facility] [place] RV Pacing Amplitude (volts) 4 V [facility] [place] RV Pacing Polarity BI [facility] [place] RV Pacing Pulse Width (ms) 1 ms [facility] [place] RV Sensing Amplitude (mvolts) 2 mV [facility] [place] RV Sensing Blanking Period (ms) 200 ms [facility] [place] RV Sensing Polarity BI [facility] Hysteresis Rate (bpm) DISABLED [facility] Implant Date 11/29/2017 [facility] Lead1 Mfg MDT [facility] Lead2 Mfg MDT [facility] Location RA [facility] Location RV [facility] Lower Rate (bpm) 50 {beats}/min [facility] Max Sensor Rate (bmp) 110 {beats}/min [facility] Model [id number] [place] XT [address] ERNESTO [facility] PM-Device Mfg MDT [facility] PM-Percent Pacing (A) 0.84 % [facility] PM-Percent Pacing (V) 0.08 % [facility] PM-PMT Intervention ENABLED [facility] PM-PVC Intervention ENABLED [facility] PM-Rate Modulation Acceleration Reaction 30 s [facility] PM-Rate Modulation ADL Rate (bpm) 95 {beats}/min [facility] PM-Rate Modulation Deceleration Exercise [facility] PM-Rate Modulation [place] 3 [facility] PM-Rate Modulation Threshold Low [facility] RA Bipolar Impedance ohms 399 ohm [facility] RA Unipolar Impedance ohms 361 ohm [facility] RV Bipolar Impedance ohms 399 ohm [facility] RV Unipolar Impedance 361 ohm [facility] Serial Number [id number] [facility] Serial Number [id number] [facility] Serial Number [id number] [facility] Thresh RA Capture Amplitude (volts) 0.5 V [facility] Thresh RA Capture Duration (ms) 0.4 ms [facility] Thresh RA Sensing Amplitude (mvolts) 2.875 mV [facility] Thresh RV Capture Amplitude (volts) 2.375 V [facility] Thresh RV Capture Duration (ms) 0.4 ms [facility] Thresh RV Sensing Amplitude (mvolts) 6.25 mV [facility] Tracking Rate (bpm) 110 {beats}/min [facility] AV Delay Adaptive Paced Minimum (ms) 200 ms [facility] AV Delay Adaptive Sensed Minimum (ms) 200 ms [facility] AV Delay Adaptive Status DISABLED [facility] Battery Voltage (volts) 3.01 V [facility] [place] RA Pacing Amplitude (volts) 1.5 V [facility] [place] RA Pacing Polarity BI [facility] [place] RA Pacing Pulse Width (ms) 0.4 ms [facility] [place] RA Sensing Amplitude (mvolts) 0.3 mV [facility] [place] RA Sensing Blanking Period (ms) 150 ms [facility] [place] RA Sensing Polarity BI [facility] [place] RA Sensing Refractory Period (ms) Auto [facility] [place] RV Pacing Amplitude (volts) 4 V [facility] [place] RV Pacing Polarity BI [facility] [place] RV Pacing Pulse Width (ms) 1 ms [facility] [place] RV Sensing Amplitude (mvolts) 2 mV [facility] [place] RV Sensing Blanking Period (ms) 200 ms [facility] [place] RV Sensing Polarity BI [facility] Hysteresis Rate (bpm) DISABLED [facility] Implant Date 11/29/2017 [facility] Lead1 Mfg MDT [facility] Lead2 Mfg MDT [facility] Location RA [facility] Location RV [facility] Lower Rate (bpm) 50 {beats}/min [facility] Max Sensor Rate (bmp) 110 {beats}/min [facility] Model W1DR01 [place] XT [address] ERNESTO [facility] Pacemaker Dependent? NO [facility] PM-Device Ashelyg MDT [facility] PM-Percent Pacing (A) 0.84 % [facility] PM-Percent Pacing (V) 0.08 % [facility] PM-PMT Intervention ENABLED [facility] PM-PVC Intervention ENABLED [facility] PM-Rate Modulation Acceleration Reaction 30 s [facility] PM-Rate Modulation ADL Rate (bpm) 95 {beats}/min [facility] PM-Rate Modulation Deceleration Exercise [facility] PM-Rate Modulation [place] 3 [facility] PM-Rate Modulation Threshold Low [facility] RA Bipolar Impedance ohms 399 ohm [facility] RA Unipolar Impedance ohms 361 ohm [facility] Rhythm Sinus rhythm [facility] RV Bipolar Impedance ohms 399 ohm [facility] RV Unipolar Impedance 361 ohm [facility] Serial Number [id number] [facility] Serial Number [id number] [facility] Serial Number [id number] [facility] Thresh RA Capture Amplitude (volts) 0.5 V [facility] Thresh RA Capture Duration (ms) 0.4 ms [facility] Thresh RA Sensing Amplitude (mvolts) 2.875 mV [facility] Thresh RV Capture Amplitude (volts) 2.375 V [facility] Thresh RV Capture Duration (ms) 0.4 ms [facility] Thresh RV Sensing Amplitude (mvolts) 6.25 mV [facility] Tracking Rate (bpm) 110 {beats}/min [facility] NITRIC OXIDE, EXHALEDon 10- [facility] No Panel Informationon 11-16 BLANK _ [facility] Implant Date 07/18/2007 [facility] Model 5076 CapSureFix [facility] PACEMAKER REMOTE CHECKon AV Delay Adaptive Paced Minimum (ms) 200 ms [facility] AV Delay Adaptive Sensed Minimum (ms) 200 ms [facility] AV Delay Adaptive Status DISABLED [facility] Battery Voltage (volts) 3.01 V [facility] [place] RA Pacing Amplitude (volts) 1.5 V [facility] [place] RA Pacing Polarity BI [facility] [place] RA Pacing Pulse Width (ms) 0.4 ms [facility] [place] RA Sensing Amplitude (mvolts) 0.9 mV [facility] [place] RA Sensing Blanking Period (ms) 150 ms [facility] [place] RA Sensing Polarity BI [facility] [place] RA Sensing Refractory Period (ms) Auto [facility] [place] RV Pacing Amplitude (volts) 4 V [facility] [place] RV Pacing Polarity BI [facility] [place] RV Pacing Pulse Width (ms) 1 ms [facility] [place] RV Sensing Amplitude (mvolts) 2 mV [facility] [place] RV Sensing Blanking Period (ms) 200 ms [facility] [place] RV Sensing Polarity BI [facility] Hysteresis Rate (bpm) DISABLED [facility] Implant Date 11/29/2017 [facility] Lead1 Mfg MDT [facility] Lead2 Mfg MDT [facility] Location RA [facility] Location RV [facility] Lower Rate (bpm) 50 {beats}/min [facility] Max Sensor Rate (bmp) 110 {beats}/min [facility] Model W1DR01 [place] XT [address] OROZCO [facility] PM-Device Mfg MDDrea [facility] PM-Percent Pacing (A) 0.74 % [facility] PM-Percent Pacing (V) 0.07 % [facility] PM-PMT Intervention ENABLED [facility] PM-PVC Intervention ENABLED [facility] PM-Rate Modulation Acceleration Reaction 30 s [facility] PM-Rate Modulation ADL Rate (bpm) 95 {beats}/min [facility] PM-Rate Modulation Deceleration Exercise [facility] PM-Rate Modulation [place] 3 [facility] PM-Rate Modulation Threshold Low [facility] RA Bipolar Impedance ohms 361 ohm [facility] RA Unipolar Impedance ohms 342 ohm [facility] RV Bipolar Impedance ohms 323 ohm [facility] RV Unipolar Impedance 323 ohm [facility] Serial Number [id number] [facility] Serial Number [id number] [facility] Serial Number [id number] [facility] Thresh RA Capture Amplitude (volts) 0.5 V [facility] Thresh RA Capture Duration (ms) 0.4 ms [facility] Thresh RA Sensing Amplitude (mvolts) 2.5 mV [facility] Thresh RV Capture Amplitude (volts) 2.375 V [facility] Thresh RV Capture Duration (ms) 0.4 ms [facility] Thresh RV Sensing Amplitude (mvolts) 5.75 mV [facility] Tracking Rate (bpm) 110 {beats}/min [facility] Eosinophils Auto (Bld) [#/Vo l]on 09-14-2022 Eosinophils (Bld) [#/Vol] 0.13 10*3/uL <0.46 k/uL [facility] No Panel Informationon 08-15 BLANK _ [facility] Implant Date 07/18/2007 [facility] Model 5076 CapSureFix [facility] PACEMAKER REMOTE CHECKon AV Delay Adaptive Paced Minimum (ms) 200 ms [facility] AV Delay Adaptive Sensed Minimum (ms) 200 ms [facility] AV Delay Adaptive Status DISABLED [facility] Battery Voltage (volts) 3.01 V [facility] [place] RA Pacing Amplitude (volts) 1.5 V [facility] [place] RA Pacing Polarity BI [facility] El[place] RA Pacing Pulse Width (ms) 0.4 ms [facility] [place] RA Sensing Amplitude (mvolts) 0.6 mV [facility] [place] RA Sensing Blanking Period (ms) 150 ms [facility] [place] RA Sensing Polarity BI [facility] [place] RA Sensing Refractory Period (ms) Auto [facility] [place] RV Pacing Amplitude (volts) 4.75 V [facility] [place] RV Pacing Polarity BI [facility] [place] RV Pacing Pulse Width (ms) 0.4 ms [facility] [place] RV Sensing Amplitude (mvolts) 0.9 mV [facility] [place] RV Sensing Blanking Period (ms) 200 ms [facility] [place] RV Sensing Polarity BI [facility] Hysteresis Rate (bpm) DISABLED [facility] Implant Date 11/29/2017 [facility] Lead1 Gloria PIKE [facility] Lead2 Gloria PIKE [facility] Location RA [facility] Location RV [facility] Lower Rate (bpm) 50 {beats}/min [facility] Max Sensor Rate (bmp) 110 {beats}/min [facility] Model W1DR01 [place] XT DR OROZCO [facility] PM-Device Gloria PIKE [facility] PM-Percent Pacing (A) 0.53 % [facility] PM-Percent Pacing (V) 0.07 % [facility] PM-PMT Intervention ENABLED [facility] PM-PVC Intervention ENABLED [facility] PM-Rate Modulation Acceleration Reaction 30 s [facility] PM-Rate Modulation ADL Rate (bpm) 95 {beats}/min [facility] PM-Rate Modulation Deceleration Exercise [facility] PM-Rate Modulation [place] 3 [facility] PM-Rate Modulation Threshold Low [facility] RA Bipolar Impedance ohms 361 ohm [facility] RA Unipolar Impedance ohms 323 ohm [facility] RV Bipolar Impedance ohms 323 ohm [facility] RV Unipolar Impedance 304 ohm [facility] Serial Number [id number] [facility] Serial Number [id number] [facility] Serial Number [id number] [facility] Thresh RA Capture Amplitude (volts) 0.5 V [facility] Thresh RA Capture Duration (ms) 0.4 ms [facility] Thresh RA Sensing Amplitude (mvolts) 2.25 mV [facility] Thresh RV Capture Amplitude (volts) 2.5 V [facility] Thresh RV Capture Duration (ms) 0.4 ms [facility] Thresh RV Sensing Amplitude (mvolts) 5.625 mV [facility] Tracking Rate (bpm) 110 {beats}/min [facility] XR CHEST 2V FRONTAL/LATon [facility] NITRIC OXIDE, EXHALEDon 02-0 [facility] No Panel Informationon 05-18 BLANK _ [facility] Implant Date 07/18/2007 [facility] Model 5076 CapSureFix [facility] PACEMAKER REMOTE CHECKon AV Delay Adaptive Paced Minimum (ms) 200 ms [facility] AV Delay Adaptive Sensed Minimum (ms) 200 ms [facility] AV Delay Adaptive Status DISABLED [facility] Battery Voltage (volts) 3.02 V [facility] [place] RA Pacing Amplitude (volts) 1.5 V [facility] [place] RA Pacing Polarity BI [facility] [place] RA Pacing Pulse Width (ms) 0.4 ms [facility] [place] RA Sensing Amplitude (mvolts) 0.6 mV [facility] [place] RA Sensing Blanking Period (ms) 150 ms [facility] [place] RA Sensing Polarity BI [facility] [place] RA Sensing Refractory Period (ms) Auto [facility] [place] RV Pacing Amplitude (volts) 5 V [facility] [place] RV Pacing Polarity BI [facility] [place] RV Pacing Pulse Width (ms) 1 ms [facility] [place] RV Sensing Amplitude (mvolts) 0.9 mV [facility] [place] RV Sensing Blanking Period (ms) 200 ms [facility] [place] RV Sensing Polarity BI [facility] Hysteresis Rate (bpm) DISABLED [facility] Implant Date 11/29/2017 [facility] Lead1 Mfg MDT [facility] Lead2 Mfg MDT [facility] Location RA [facility] Location RV [facility] Lower Rate (bpm) 50 {beats}/min [facility] Max Sensor Rate (bmp) 110 {beats}/min [facility] Model W1DR01 [place] XT DR MRI [facility] PM-Device Mfg MDT [facility] PM-Percent Pacing (A) 0.57 % [facility] PM-Percent Pacing (V) 0.09 % [facility] PM-PMT Intervention ENABLED [facility] PM-PVC Intervention ENABLED [facility] PM-Rate Modulation Acceleration Reaction 30 s [facility] PM-Rate Modulation ADL Rate (bpm) 95 {beats}/min [facility] PM-Rate Modulation Deceleration Exercise [facility] PM-Rate Modulation [place] 3 [facility] PM-Rate Modulation Threshold Low [facility] B[facility] Imped[facility] ohms 380 ohm [facility] Unipolar Impedance oh[facility] 342 ohm [facility] RV Bipolar Impedance ohms 342 ohm [facility] RV Unipolar Impedance 342 ohm [facility] Serial Number [id number] [facility] Serial Number [id number] [facility] Serial Number [id number] [facility] Thresh RA Capture Amplitude (volts) 0.375 V [facility] Thresh RA Capture Duration (ms) 0.4 ms [facility] Thresh RA Sensing Amplitude (mvolts) 2.75 mV [facility] Thresh RV Capture Amplitude (volts) 2.375 V [facility] Thresh RV Capture Duration (ms) 0.4 ms [facility] Thresh RV Sensing Amplitude (mvolts) 5.875 mV [facility] Tracking Rate (bpm) 110 {beats}/min [facility] Influenza virus A and B RNA and SARS-CoV-2 (COVID-19) N gene panel LENIN+probe (Resp)on 05-16-2022 FLUAV RNA LENIN+probe Ql (Unsp spec) Negative Negative for Influenza A by RT-PCR [facility] FLUBV RNA LENIN+probe Ql (Unsp spec) Negative Negative for Influenza B by RT-PCR [facility] SARS-CoV-2 (COVID-19) RNA LENIN+probe Ql (Resp) SARS-CoV-2 (Agent of COVID-19) Detected by RT-PCR or equivalent method. Abnormal Not Detected [facility] No Panel Informationon 02-12 BLANK _ [facility] Implant Date 07/18/2007 [facility] Model 5076 [facility]SureFix [facility] PACEMAKER REMOTE CHECKon AV Delay Adaptive Paced Minimum (ms) 200 ms [facility] AV Delay Adaptive Sensed Minimum (ms) 200 ms [facility] AV Delay Adaptive Status DISABLED [facility] Battery Voltage (volts) 3.02 V [facility] [place] RA Pacing Amplitude (volts) 1.5 V [facility] [place] RA Pacing Polarity BI [facility] [place] RA Pacing Pulse Width (ms) 0.4 ms [facility] [place] RA Sensing Amplitude (mvolts) 0.6 mV [facility] [place] RA Sensing Blanking Period (ms) 150 ms [facility] [place] RA Sensing Polarity BI [facility] [place] RA Sensing Refractory Period (ms) Auto [facility] [place] RV Pacing Amplitude (volts) 4.5 V [facility] [place] RV Pacing Polarity BI [facility] [place] RV Pacing Pulse Width (ms) 0.4 ms [facility] [place] RV Sensing Amplitude (mvolts) 0.9 mV [facility] [place] RV Sensing Blanking Period (ms) 200 ms [facility] [place] RV Sensing Polarity BI [facility] Hysteresis Rate (bpm) DISABLED [facility] Implant Date 11/29/2017 [facility] Lead1 Gloria PIKE [facility] Lead2 Gloria PIKE [facility] Location RA [facility] Location RV [facility] Lower Rate (bpm) 50 {beats}/min [facility] Max Sensor Rate (bmp) 110 {beats}/min [facility] Model [id number] [place] XT DR OROZCO [facility] PM-Device Gloria PIKE [facility] PM-Percent Pacing (A) 1.28 % [facility] PM-Percent Pacing (V) 0.06 % [facility] PM-PMT Intervention ENABLED [facility] PM-PVC Intervention ENABLED [facility] PM-Rate Modulation Acceleration Reaction 30 s [facility] PM-Rate Modulation ADL Rate (bpm) 95 {beats}/min [facility] PM-Rate Modulation Deceleration Exercise [facility] PM-Rate Modulation [place] 3 [facility] PM-Rate Modulation Threshold Low [facility] RA Bipolar Impedance ohms 361 ohm [facility] RA Unipolar Impedance ohms 323 ohm [facility] RV Bipolar Impedance ohms 342 ohm [facility] RV Unipolar Impedance 323 ohm [facility] Serial Number [id number] [facility] Serial Number [id number] [facility] Serial Number [id number] [facility] Thresh RA Capture Amplitude (volts) 0.375 V [facility] Thresh RA Capture Duration (ms) 0.4 ms [facility] Thresh RA Sensing Amplitude (mvolts) 2.25 mV [facility] Thresh RV Capture Amplitude (volts) 1.875 V [facility] Thresh RV Capture Duration (ms) 0.4 ms [facility] Thresh RV Sensing Amplitude (mvolts) 5 mV [facility] Tracking Rate (bpm) 110 {beats}/min [facility] HISTORY PHYSICALon HISTORY PHYSICAL HNO ID: [id number] Author: Uriah Reyna Service: Orthopaedic Surgery Author Type: Physician Type: HANDP Filed: 02/21/2019 8:15 AM Note Text: Uriah Reyna MD Department of Orthopaedics Orthopaedics [address] [facility] [address] Dept: [phone] Dept ? ? February 17, 2019 ? ? CHIEF COMPLAINT: New Patient (Right CTS) ? HPI: Ms. Betzy Cruz is a 78 year old female who presents wit numbness in her hands, right worse than left. Not too painful but the worsening numbness and tingling are quite a problem for her. She tried a brace for a bit without any relief. Numbness at night, during driving, water aerobics, etc. RHD. ? ASSESSMENT: G56.03 Bilateral carpal tunnel syndrome (primary encounter diagnosis) ? PLAN: We reviewed the potential benefit of nerve testing from a diagnostic and prognostic value. She wishes to defer testing. The risks, benefits, alternatives and potential complications were discussed of both operative and non-operative options and she wishes to pursue surgery. ? FOLLOW UP INSTRUCTIONS: Schedule for a local, right hand. ? Ms. Betzy Cruz was advised as to contrast therapies and/or to take analgesics/anti-inflammatories as needed and all contraindications were reviewed. ? OBJECTIVE: Ms. Betzy Cruz is a pleasant 78 year old in no apparent distress. Gen:Ht 5' 6 (1.68m) Wt 197 lb (89.4kg) BMI 31.81 kg/(m2). ? nl development, non obese, no deformities ENT: Normocephalic, normal hearing, moist mucosa CV: Pulses:Radial= 2+ and symmetric, capillary refill < 2 secs, no peripheral edema/varicosities Skin: no rash, bruising or lesions. Good turgor. HEART: Regular, paced rate Lungs: CTA B/L Psych: cooperative and appropriate, alert and oriented x 3, good mood and affect. Musculoskeletal: Cervical spine has supple range of motion and no tenderness to palpation, Spurling's sign negative. Shoulders and elbows have full range of motion. Neg Tinel's over the cubital tunnel, no subluxation of ulnar nerve at the elbow with flexion. neg Tinel's over Guyon's canal. Inspection reveals minimal thenar atrophy. diminished sensation to light touch in the radial 3 digits. Sensation intact in the ulnar 2 digits with out intrinsic atrophy/weakness. Positive Tinel's at the wrist, positive carpal tunnel compression testing on the right greater than left. No locking or catching of the digits. No tenderness to palpation or masses noted in the forearm or hand. ? IMAGING: deferred ? ? Supporting Subjective Information Below: ? Past Medical History: PAST?MEDICAL?HISTORY PAST MEDICAL HISTORY Diagnosis Date - Asthma ? - Atrial fibrillation (HCC) ? - Cardiac pacemaker in situ 03/05/2008 ? PM-Device Mfg Medtronic Model SEDR01 [employer] Serial Number [id number] Implant Date 07/18/2007 BLANK _ Lead1 Mfg Medtronic Model 5076 Serial Number [id number] Location right Implant Date 07/18/2007 BLANK _ Lead2 Mfg Medtronic Model 5076 Serial Number [id number] Location right Implant Date 07/18/2007 - Epilepsy (HCC) ? - Essential hypertension, benign ? ? well controlled - Generalized osteoarthrosis, unspecified site ? - Impaired glucose tolerance test ? ? Runs usually 100 - Obesity ? - Other and unspecified disc disorder of lumbar region ? - Other and unspecified hyperlipidemia ? - Spinal stenosis, lumbar region, without neurogenic claudication ? ? s/p L5-S1 sx '00 ? Past Surgical History: PAST?SURGICAL?HISTORY PAST SURGICAL HISTORY Procedure Laterality Date - PACEMAKER ? 2009 - PAST SURGICAL HISTORY OF ? ? ? lumbar surgery x 3 - PAST SURGICAL HISTORY OF ? 11/2017 ? Battery replacement - pacemaker - TOTAL HIP REPLACEMENT ? 2007 ? Hip replacement, total left ? Family History: FAMILY?HISTORY FAMILY HISTORY Problem Relation Age of Onset - Hypertension Mother ? ? age 91 - other (high cholesterol) Father ? - other (black lung) Father ? - Diabetes Maternal Grandmother ? - Diabetes Other ? ? cousins - Hypertension Other ? ? brothers/ sisters - other (high cholesterol) Other ? ? brothers ? 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 Social Needs Financial resource strain: Not on file Food insecurity: Worry: Not on file Inability: Not on file Transportation needs: Medical: Not on file Non-medical: Not on file Tobacco Use Smoking status: Never Smoker Smokeless tobacco: Never Used Substance and Sexual Activity Alcohol use: No Drug use: No Sexual activity: Yes Partners: Male Lifestyle Physical activity: Days per week: Not on file Minutes per session: Not on file Stress: Not on file Relationships Social connections: Talks on phone: Not on file Gets together: Not on file Attends judaism service: Not on file Active member of club or organization: Not on file Attends meetings of clubs or organizations: Not on file Relationship status: Not on file Intimate partner violence: Fear of current or ex partner: Not on file Emotionally abused: Not on file Physically abused: Not on file Forced sexual activity: Not on file Other Topics Concerns: Not on file Social History Narrative Not on file Medications: CURRENT?MEDICATIONS No current facility-administered medications for this visit. No current outpatient medications on file. Facility-Administered Medications Ordered in Other Visits: lidocaine-EPINEPHrine 2 %-1:100,000 20 mL injection 20 mL INTRADERMAL As Directed ? Allergies: Latex; Crestor [Rosuvastatin]; Lipitor [Atorvastatin]; Adhesive; Amlodipine; Atenolol; Seasonal Allergies ? ? ROS: General (negative for fatigue, malaise, weight loss/gain) HEENT (negative for headache, earache, recent vision changes, sinus pain, sore throat) Respiratory (no recent shortness of breath, hemoptysis) CV (negative for chest tightness, palpitations) Musculoskeletal (see HPI) Psych (no depression, anxiety) ? ? REFERRING PHYSICIAN: Ms. Betzy Cruz was referred to tx for consultation by the following physician. This consultation note will be sent to the following physician by either mail or electronic medical record. ? Sagrario Fong MD [address] [facility] [address] ? Sagrario Fong MD [address] [facility] [id number] ? This note was partially generated using [employer] voice recognition system, and there may be some incorrect words, spellings, and punctuation that were not noted in checking the note before saving. ? ? Uriah Reyna MD [facility] NURSING PROGon 02-21-2019 NURSING PROG HNO ID: [id number] Author: Sabrina WillisRn) DIMA Herbert Service: Nursing Author Type: Registered Nurse Type: Nursing Progress Note Filed: 02/21/2019 9:48 AM Note Text: Nursing Progress Note Patient Name: Betzy Cruz Patient Location: [facility] 0913 Pt received in ASCU on cart from OR. VSS. Snack given. This note was completed by: Sabrina Herbert RN 0945 Homegoing instructions given. Pt verbalizes understanding. [facility] NURSING PROG HNO ID: [id number] Author: Khushi WillisRn) DIMA Delgado Service: Nursing Author Type: Registered Nurse Type: Nursing Progress Note Filed: 02/21/2019 8:39 AM Note Text: 0826 dr reyna at bedside preop nerve block done by dr reyna [facility] executive director on nsr Continuous pulse ox on Skin prep done by dr reyna 0802 Right hand nerve block done by dr reyna 0894 Procedure completed [facility] OPERATIVE NOon 02-21-2019 OPERATIVE NO HNO ID: [id number] Author: Uriah Reyna Service: Orthopaedic Surgery Author Type: Physician Type: Operative Report Filed: 02/21/2019 9:03 AM Note Text: OPERATIVE/PROCEDURE REPORT LOG ID: [id number] Surgery/Procedure Date: 02/21/2019 Incision/Procedure Start Time: 8:55 AM Incision Close/Procedure End Time: Surgeon(s)/Proceduralist(s) and Technician Trainee(s): Surgeon(s) and Role: * Uriah Reyna - Primary Physician Technician Trainee: Alice Mora (Pa) Registered Nurse Hemmer Chainstitch: Nellie Murray) DIMA Hsu Procedure(s): OPERATION: Right carpal tunnel release, open. ? ANESTHESIA: local. ? PREOPERATIVE DIAGNOSIS: Right carpal tunnel syndrome. ? POSTOPERATIVE DIAGNOSIS: Right carpal tunnel syndrome. ? OPERATIVE INDICATIONS: This is a pleasant 78 year old female who had worsening, numbness, and tingling. She deferred nerve testing after discussing. She exhausted conservative management and in the office, we discussed the risks, benefits, alternatives, and potential complications involving carpal tunnel release and he wished to pursue surgical intervention. ? OPERATIVE FINDINGS: Consistent with postoperative diagnosis. ? OPERATIVE PROCEDURE: On February 21, 2019, the patient was clearly identified in the preoperative area and marked accordingly on the Right palm by myself. In the preop area, Local anesthetic was provided at the palm and wrist with 1% lidocaine with 1:100,000 epinephrine for total of 20 mL. She was taken to the operative suite and placed in the supine position with an armboard on the Right. All other bony landmarks were appropriately padded in standard fashion. The arm was then sterilely prepped and draped in standard fashion. An appropriate time-out was conducted and all in the room were in agreement, signed consent form was on the chart. A longitudinal incision was made with in line with the third web space from 1 cm distal of the wrist crease to Mckinney's cardinal line. I used Barby Rakes to retract the soft tissues. Bipolar electrocautery was used for hemostasis. I bluntly dissected down with Littler scissors to distal edge of the transverse carpal ligament until a flash of fat was noted. I directly divided distal edge of the transverse carpal ligament with a #15 blade. Attention was then focused on the proximal portion and I used Littler scissors to bluntly dissect off the volar surface of the transverse carpal ligament. A carpal tunnel and median nerve protection guide was slid directly under the ligament for dilation and a second time for appropriate positioning, this was passed freely without any resistance. Subsequently, I selected a mini meniscotome [employer] [place] [employer] blade and slid this in the protective guide, completely dividing the transverse carpal ligament. Barby rakes were used to view up the wound to visualize for complete release and a [place] elevator was used to palpate for complete release. hemostasis was observed. The wound was copiously irrigated with normal saline and I closed with 3-0 nylons in horizontal mattress fashion for a total of 3. Xeroform gauze, sterile 4 x 4 gauze, Webril padding, and a Bias roll was used for final bandage. There were no complications during the procedure. The patient was safely transferred to the Postanesthetic Care Unit in stable condition. ? I performed the entire procedure. SIGNATURE: Uriah Reyna MD PATIENT NAME: Betzy Cruz DATE: February 21, 2019 TIME: 9:02 AM PAGER/CONTACT #: [facility] PT EDon 02-21-2019 PT ED HNO ID: [id number] Author: Sabrina (Dima) DIMA Herbert Service: Nursing Author Type: Registered Nurse Type: Patient Education Filed: 02/21/2019 9:47 AM Note Text: POST OP LEARNING RESPONSE INSTRUCTION PROVIDED TO: Patient and family member METHOD OF INSTRUCTION: Individual instruction Written instruction - handouts Verbal instruction PATIENT / FAMILY RESPONSE: Information received as demonstrated by interest and questions FOLLOW-UP PLAN: Patient instructed to call with any further issues SUPPLEMENTAL MATERIAL: Post op discharge instructions REFERRAL (RECOMMENDATION): None Electronically Signed By: Sabrina Herbert RN In Department: [facility] SURGERY [facility] HOSPon 02-17-2019 HOSP Patient:Neel Cruz or MRN: Height:5' 6(1.676 m) Weight:197 lb (89.359 kg) Outpatient Medications as of 02/21/19: pindolol (VISKEN) 5 mg tablet pravastatin (PRAVACHOL) 20 mg tablet lamoTRIgine (LAMICTAL) 100 mg tablet albuterol HFA (VENTOLIN HFA) 90 mcg/actuation inhaler Blood-Glucose Meter monitoring kit blood sugar diagnostic (BLOOD GLUCOSE TEST) test strip Lancets lancets FLAXSEED OIL (OMEGA 3 ORAL) aspirin, enteric coated (ECOTRIN LOW STRENGTH) 81 mg ORAL EC tablet Cholecalciferol, Vitamin D3, 1,000 unit ORAL Cap Hydrochlorothiazide 12.5 mg ORAL capsule multivitamins(MULTIPLE VITAMINS TAB) calcium carbonate(CALCIUM 500 500 MG (1,250 MG) TAB) Admission/Clinic Administered Medications as of 02/21/19: lidocaine-EPINEPHrine 2 %-1:100,000 20 mL injection Problem List: Postlaminectomy syndrome, lumbar region [M96.1] Spinal stenosis, lumbar region, without neurogenic claudication [M48.061] Cardiac pacemaker in situ [Z95.0] Left hip pain [M25.552] Knee pain [M25.569] Syncope [R55] PSVT (paroxysmal supraventricular tachycardia) (HCC) [I47.1] Chronic venous insufficiency [I87.2] Essential hypertension [I10] Obesity (BMI 30.0-34.9) [E66.9] Pacemaker [Z95.0] Epilepsy (HCC) [G40.909] Allergies: Latex Crestor [Rosuvastatin] Lipitor [Atorvastatin] Adhesive Amlodipine Atenolol Seasonal Allergies Date Verified: 02/21/19 Lab Values No results within the last 30 days for the following basenames: K,HCT Progress Notes ([facility]): Allyn Albright Ma 02/17/2019 10:31 AM Signed Surgical request completed for right carpal tunnel release on 02/21/2019 under local anesthesia. Post op appointments have been scheduled and mailed to patient. Jolynn Howard [facility] 02/17/2019 1:14 PM Signed Noted in [place]. Allyn Albright Ma 02/17/2019 4:11 PM Signed Surgery has been scheduled as requested. Progress Notes ([facility]): Tiffany Carter Ma 02/21/2019 8:14 AM Signed Patient presents with: New Patient: Right CTS AMB ROOMING INTAKE FLOWSHEET DATA Risk Screening Do you have concerns about personal safety or safety in the home?: No Pain Pain Level: 0 Pain Location: (Bilateral hands) Description: Tingling, Numbness Duration Amount of Time: 6 Duration Units: Months Frequency: Continuous Intervention: (brace) Patient states she is having numbness in all of her fingers on her right hand and thumb and index fingers on her left hand. Seen at [facility] 2 months ago and given a brace a to wear at bedtime but does not help. Has no elevators inspector strength. Her hands go numb with driving. States she started noticing numbness in her fingers after lifting dumb alcantar in her water aerobic classes. Patient is right hand dominant. Patient is retired from [employer]. No EMG/NCV testing done. Referred by Dr. Fong. Is leaving on vacation on 03/09 and would like surgery done before leaving. Uriah Reyna MD 02/21/2019 8:14 AM Signed Uriah Reyna MD Department of Orthopaedics Orthopaedics [address] [facility] [address] Dept: [phone] Dept February 17, 2019 CHIEF COMPLAINT: New Patient (Right CTS) HPI: Ms. Betzy Cruz is a 78 year old female who presents wit numbness in her hands, right worse than left. Not too painful but the worsening numbness and tingling are quite a problem for her. She tried a brace for a bit without any relief. Numbness at night, during driving, water aerobics, etc. RHD. ASSESSMENT: G56.03 Bilateral carpal tunnel syndrome (primary encounter diagnosis) PLAN: We reviewed the potential benefit of nerve testing from a diagnostic and prognostic value. She wishes to defer testing. The risks, benefits, alternatives and potential complications were discussed of both operative and non-operative options and she wishes to pursue surgery. FOLLOW UP INSTRUCTIONS: Schedule for a local, right hand. Ms. Betzy Cruz was advised as to contrast therapies and/or to take analgesics/anti-inflammatories as needed and all contraindications were reviewed. OBJECTIVE: Ms. Betzy Cruz is a pleasant 78 year old in no apparent distress. Gen:Ht 5' 6 (1.68m) Wt 197 lb (89.4kg) BMI 31.81 kg/(m2). nl development, non obese, no deformities ENT: Normocephalic, normal hearing, moist mucosa CV: Pulses:Radial= 2+ and symmetric, capillary refill < 2 secs, no peripheral edema/varicosities Skin: no rash, bruising or lesions. Good turgor. HEART: Regular, paced rate Lungs: CTA B/L Psych: cooperative and appropriate, alert and oriented x 3, good mood and affect. Musculoskeletal: Cervical spine has supple range of motion and no tenderness to palpation, Spurling's sign negative. Shoulders and elbows have full range of motion. Neg Tinel's over the cubital tunnel, no subluxation of ulnar nerve at the elbow with flexion. neg Tinel's over Guyon's canal. Inspection reveals minimal thenar atrophy. diminished sensation to light touch in the radial 3 digits. Sensation intact in the ulnar 2 digits with out intrinsic atrophy/weakness. Positive Tinel's at the wrist, positive carpal tunnel compression testing on the right greater than left. No locking or catching of the digits. No tenderness to palpation or masses noted in the forearm or hand. IMAGING: deferred Supporting Subjective Information Below: Past Medical History: PAST MEDICAL HISTORY Diagnosis Date - Asthma - Atrial fibrillation (HCC) - Cardiac pacemaker in situ 03/05/2008 PM-Device Mfg Medtronic Model SEDR01 [employer]ensia Serial Number [id number] Implant Date 07/18/2007 BLANK _ Lead1 Mfg Medtronic Model 5076 Serial Number [id number] Location right Implant Date 07/18/2007 BLANK _ Lead2 Mfg Medtronic Model 5076 Serial Number [id number] Location right Implant Date 07/18/2007 - Epilepsy ([facility]) - Essential hypertension, benign well controlled - Generalized osteoarthrosis, unspecified site - Impaired glucose tolerance test Runs usually 100 - Obesity - Other and unspecified disc disorder of lumbar region - Other and unspecified hyperlipidemia - Spinal stenosis, lumbar region, without neurogenic claudication s/p L5-S1 sx '00 Past Surgical History: PAST SURGICAL HISTORY Procedure Laterality Date - PACEMAKER 2008 - PAST SURGICAL HISTORY OF lumbar surgery x 3 - PAST SURGICAL HISTORY OF 11/2017 Battery replacement - pacemaker - TOTAL HIP REPLACEMENT 2007 Hip replacement, total left Family History: FAMILY HISTORY Problem Relation Age of Onset - Hypertension Mother age 91 - other (high cholesterol) Father - other (black lung) Father - Diabetes Maternal Grandmother - Diabetes Other cousins - Hypertension Other brothers/ sisters - other (high cholesterol) Other brothers Social History:Social History Socioeconomic History Marital status: Spouse name: Not on file Number of children: Not on file Years of education: Not on file Highest education level: Not on file Occupational History 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 Employer: [employer] Social Needs Financial resource strain: Not on file Food insecurity: Worry: Not on file Inability: Not on file Transportation needs: Medical: Not on file Non-medical: Not on file Tobacco Use Smoking status: Never Smoker Smokeless tobacco: Never Used Substance and Sexual Activity Alcohol use: No Drug use: No Sexual activity: Yes Partners: Male Lifestyle Physical activity: Days per week: Not on file Minutes per session: Not on file Stress: Not on file Relationships Social connections: Talks on phone: Not on file Gets together: Not on file Attends judaism service: Not on file Active member of club or organization: Not on file Attends meetings of clubs or organizations: Not on file Relationship status: Not on file Intimate partner violence: Fear of current or ex partner: Not on file Emotionally abused: Not on file Physically abused: Not on file Forced sexual activity: Not on file Other Topics Concerns: Not on file Social History Narrative Not on file Medications: No current facility-administered medications for this visit. No current outpatient medications on file. Facility-Administered Medications Ordered in Other Visits: lidocaine-EPINEPHrine 2 %-1:100,000 20 mL injection 20 mL INTRADERMAL As Directed Allergies: Latex; Crestor [Rosuvastatin]; Lipitor [Atorvastatin]; Adhesive; Amlodipine; Atenolol; Seasonal Allergies ROS: General (negative for fatigue, malaise, weight loss/gain) HEENT (negative for headache, earache, recent vision changes, sinus pain, sore throat) Respiratory (no recent shortness of breath, hemoptysis) CV (negative for chest tightness, palpitations) Musculoskeletal (see HPI) Psych (no depression, anxiety) REFERRING PHYSICIAN: Ms. Betzy Cruz was referred to me for consultation by the following physician. This consultation note will be sent to the following physician by either mail or electronic medical record. Sagrario Fong MD [address] [facility] [address] Sagrario Fong MD [address] [facility] [id number] This note was partially generated using [employer] voice recognition system, and there may be some incorrect words, spellings, and punctuation that were not noted in checking the note before saving. Uriah Reyna [facility] CNOV Office Visit (AGCARDWST) JEFF CRUZ ([id number]) 1940 FDate Time Provider Department07/16/17 1:30 PM YASIR FOSTER AGCARDWST During your visit today, we recorded the following information about you: Pulse Blood pressure Weight Height 68/minute 154/96 93.7 kg 1.702 Mikel Foster MD 07/16/2017 4:58 PM SignedPERTINENT CARDIAC HISTORYSick sinus syndrome - PPM 2009PAF - rare, declines warfarinHTNVenous insufficiencySyncope - remoteADHERENCE TO GUIDELINESACE-I or ARB for HF with prior LVEFANDlt;40 (NQF 0081) - N/AASA or Plavix for ASHD (NQF 0067) - N/ABeta pradip for ASHD with prior CT or prior LVEFANDlt;40 (NQF 0070) - N/ABeta pradip for HF with prior LVEFANDlt;40 (NQF 0083) - N/AACE-I or ARB for ASHD with DM or prior LVEFANDlt;40 (NQF 0066) - N/AStatin therapy for ASHD or FHL or DM - N/ABMI documented and plan if ANDgt;25 (NQF 0421) - lifestyle recommendation formTobacco use screening and referral (NQF 0028) - lifestyle recommendation formRecommendation for whole food, plant based diet - lifestyle recommendation formCLINICAL IMPRESSION/PLAN:Betzy Cruz is doing well. She's had minimal atrial arrhythmia. I can findno documentation of episodes of atrial fibrillation lasting longer than 1minute and they are very rare. She has declined warfarin.She will be referred for device clinic in [place] in December. I've asked her tocontinue her current medication.She is advised to let me know if she has exertional symptoms. Her current chestpain syndrome appears to be nonischemic.She reports blood pressures at home in the 120/80 range. She may benefit fromthe addition of an SIIAH inhibitor in the future, if her blood pressures runhigher.I will see her in 6 months or as needed.Written and verbal health teaching given to patient, patient verbalizesunderstanding and agrees with treatment plan.This note was generated using [employer] voice recognition system, and there may besome incorrect words, spellings, and punctuation that were not noted inchecking the note before saving.DIAGNOSIS FOR VISIT:Sick sinus syndromePAFHISTORY OF PRESENT ILLNESSBetzy Cruz is a 77-year-old woman with history of multiple cardiac issues,as noted above, who is seen for follow-up. She was previously a patient of .She reports that she has had intermittent episodes of sharp chest painradiating into the left side of her neck and down the left arm. These arenonexertional. These can last for several minutes. They seem to be relieved byrange of motion. She notes no exertional chest tightness or shortness ofbreath. Her exercise tolerance has been stable. She is exercising regularly anddoing water aerobics.She's had minimal edema. She denies syncope. She's had no palpitations, TIAs,amaurosis or claudication.She will be due pacemaker check next month. She has not yet been referred forclinic follow-up.ALLERGIES:ALLERGIESAller gen Reactions- Latex Rash itches- Adhesive Rash redness- Amlodipine Swelling leg swelling- Seasonal Allergies CoughCURRENT OUTPATIENT MEDICATIONS:nebivolol (BYSTOLIC) 2.5 mg tablet Take 1 tablet by mouth twice daily.lamoTRIgine (LAMICTAL) 100 mg tablet Take 1 tablet by mouth twice daily.aspirin, enteric coated (ECOTRIN LOW STRENGTH) 81 mg ORAL EC tablet Take bymouth as directed. Take two tablets once daily in the evening.Hydrochlorothiazide 12.5 mg ORAL capsule as necessaryBlood-Glucose Meter monitoring kit Glucose Meter of Choice - Kit - Dx: Testblood sugar(s) 1 to 2 time daily. Dx: R73.03 Insulin: Noblood sugar diagnostic (BLOOD GLUCOSE TEST) test strip Test blood sugar(s) 1 to2 time daily. Dx: R73.03 Insulin: No Insulin: NoLancets lancets Test blood sugar(s) 1 to 2 time daily. Dx: R73.03 Insulin:NoFLAXSEED OIL (OMEGA 3 ORAL) Take by mouth once daily.Cholecalciferol, Vitamin D3, 1,000 unit ORAL Cap Take one(1) tablet two(2)times daily.multivitamins(MULTIPLE VITAMINS TAB) Take one(1) tablet daily.calcium carbonate(CALCIUM 500 500 MG (1,250 MG) TAB) Takes 9315-3449 mg oncedaily.PAST MEDICAL HISTORYDiagnosis Date- Asthma- Atrial fibrillation (HCC)- Cardiac pacemaker in situ 03/05/2008 PM-Device Mfg Medtronic Model SEDR01 Sensia Serial Number [id number] Date 07/18/2007 BLANK _ Lead1 Mfg Medtronic Model 5076 SerialNumber [id number] Location right Implant Date 07/18/2007 BLANK _ Lead2 MfgMedtronic Model 5076 Serial Number [id number] Location right Implant Date07/18/2007- Epilepsy (HCC)- Essential hypertension, benign well controlled- Generalized osteoarthrosis, unspecified site- Impaired glucose tolerance test Runs usually 100- Obesity- Other and unspecified disc disorder of lumbar region- Other and unspecified hyperlipidemia- Spinal stenosis, lumbar region, without neurogenic claudication s/p L5-S1 sx '00PAST SURGICAL HISTORYProcedure Laterality Date- PAST SURGICAL HISTORY OF lumbar surgery x 2- TOTAL HIP REPLACEMENT 2007 Hip replacement, total leftFAMILY HISTORYProblem Relation Age of Onset- Diabetes Maternal Grandmother- Diabetes Other cousins- Hypertension Mother age 91- Hypertension Other brothers/ sisters- high cholesterol[Other] [OTHER] Father- high cholesterol[Other] [OTHER] Other brothers- black lung [Other] [OTHER] FatherSocial History Marital status: Spouse name: Years of education: Number of children:Occupational HistoryOccupation Employer 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 Cardiac: As noted above. GI: No melena.: No dysuria. Musculoskeletal: No myalgias.PHYSICAL EXAMINATION: S/he is alert and in no distress.VITAL SIGNS: BP 154/96 Pulse 68 Ht 5' 7ANDquot; (1.70m) Wt 206 lb 9.6 oz(93.7kg) BMI 32.35 kg/(m2).SHEENT: Skin is warm and dry. No xanthelasmas appreciated. Pharynx isbenign. There is no oral cyanosis. Neck: supple. No adenopathy or thyroidenlargement. Chest: Clear to percussion and auscultation. Trachea is midline. Air entry is equal. There is no chest wall tenderness. Cardiac: Regularrhythm. S1 and S2 are normal. PMI is nondisplaced. There is a soft systolicejection murmur. No click is heard. Carotids are brisk without bruits. JVPis less than 10 cm. Abdomen: Soft and nontender. There are no pulsatilemasses or bruits. No liver enlargement. Bowel sounds are active.Extremities: Trace edema. Pulses are intact and symmetrical. No clubbing orcyanosis. No femoral bruits. Neurologic: Grossly normal motor and sensory.S/he is alert and oriented x4.Prior records were reviewed in detail.Recent labs were reviewed. Renal function is normal. TSH was 1.5.Recent remote pacemaker check shows no recent episodes of atrial fibrillation.Prior checks have shown rare episodes of atrial fibrillation, consistentlylasting less than a minute.Stress test showed no evidence of ischemia. LV function is normal.Prior echocardiogram shows normal ejection fraction. There is no significantvalvular disease. These images were reviewed personally.Prior carotid Doppler examination showed no significant stenosis.EKG shows sinus rhythm. There is a septal Q waveElectronically Signed:Yasir Foster MDCopper Springs Hospitaluary 2017 2:13 [facility]:Stewart Aguilar MD 07/16/2017 2:14 PM SignedLIFESTYLE CHANGEA healthy lifestyle is the most important component of your overall treatmentplan. Please give serious thought to the following areas and commit to makinglong term changes.EAT A WHOLE FOOD, PLANT BASED DIETThe nutrition your body gets is more important than the medicine you take.What matters most is the overall way you eat. We encourage you to minimize theuse of animal products (which include dairy and all meats except fatty fish)and use whole, unprocessed plant foods to provide your protein, vitamins andother nutrients. We have a lot of information to share with you on this topic. We also hold Shared Medical Appointments, where you can come visit with in the company of other patients and spend over an hour talking aboutthe challenges of changing the way you eat. This is not a ANDquot;dietANDquot;.It is a way of life that you will keep with you.EXERCISE REGULARLYIt is not important to spend hours in the gym, lifting weights and perspiringheavily. A total of 2-3 hours per week of aerobic (causing you to bemoderately short of breath) exercise is sufficient to improve your health.Talk to us before you begin a new exercise program, if you have heart diseaseor experience shortness of breath or chest pain.REDUCE STRESSChronic emotional and physical stress leads to disease. Ways of reducingstress include meditation, visualization, prayer, yoga and other forms ofrelaxation therapy. Consistency is the christina. Find a technique that works foryou and do it every day.CULTIVATE RELATIONSHIPSLoneliness and isolation have a major negative impact on health. Seek outothers who can love, care for and nurture you. Avoid hurtful relationships.MAINTAIN IDEAL BODY WEIGHTThe best way to do this is to do all the things above. Our bodies naturallyfind the right weight if we keep moving and feed ourselves the right food. Ifyour BMI is greater than 25, we strongly recommend a referral to a weightmanagement program. Please speak to us or your family physician aboutavailable programs.AVOID NICOTINE IN ALL FORMSThis includes all tobacco products, whether chewed, smoked, vaped, or rubbed onthe skin. Smoking cessation programs, which can make use of tobaccosubstitutes, medications to suppress cravings and behavior management, areavailable. Please contact your family physician about programs in your area.Referring Provider: SAGRARIO FONG [[id number]]Allergies As of Date: 07/16/2017 Noted Allergy ReactionLATEX 02/28/2008 2 - Rash Comments: itchesADHESIVE 10/11/2010 2 - Rash Comments: rednessAMLODIPINE 08/22/2016 7 - Swelling Comments: leg swellingSEASONAL ALLERGIES 10/11/2010 3 - CoughDate Reviewed: 07/16/2017Reviewed by: Brandt Murray) DIMA Arnold - Fully AssessedReason for Visit: Follow Up [171] Cmt: 6 monthPrimary Visit Diagnosis:Sick sinus syndrome (HCC) [I49.5] Other Visit Diagnosis:Hypertension, essential [I10]Order(s):CONSULT TO DEVICE CLINIC () [0773234] Order #: [id number]: 1Prescriptions as of 07/16/2017 Sig: NEBIVOLOL 2.5 MG TABLET Take 1 tablet by mouth twice * LAMOTRIGINE 100 MG TABLET Take 1 tablet by mouth twice * ASPIRIN 81 MG TABLET,DELAYED * Take by mouth as directed. T* HYDROCHLOROTHIAZIDE 12.5 MG C* as necessary BLOOD-GLUCOSE METER KIT Glucose Meter of Choice - Kit* BLOOD SUGAR DIAGNOSTIC STRIPS Test blood sugar(s) 1 to 2 t* LANCETS Test blood sugar(s) 1 to 2 t* OMEGA 3 ORAL Take by mouth once daily. CHOLECALCIFEROL (VITAMIN D3) * Take one(1) tablet two(2) saritha* MULTIPLE VITAMINS TABLET Take one(1) tablet daily. 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 Seizure (HCC) [R56.9] INVALID FOR*02/26/2017 More... Left hip pain [M25.552] INVALID FOR* Knee pain [M25.569] INVALID FOR* Syncope [R55] INVALID FOR* PSVT (paroxysmal supraventricular tachycardia) *INVALID FOR* Chronic venous insufficiency [I87.2] INVALID FOR* Essential hypertension [I10] INVALID FOR* Obesity (BMI 30.0-34.9) [E66.9] INVALID FOR* Other instructions from your clinician: LIFESTYLE CHANGE A healthy lifestyle is the most important component of your overall treatment plan. 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 EAT A WHOLE FOOD, PLANT BASED DIET The nutrition your body gets is more important than the medicine you take. What matters most is the overall way you eat. We encourage you to minimize the use of animal products (which include dairy and all meats except fatty fish) and use whole, unprocessed plant foods to provide your protein, vitamins and other nutrients. We have a lot of information to share with you on this topic. We also hold Shared Medical Appointments, where you can come visit with Dr. Foster in the company of other patients and spend over an hour talking about the challenges of changing the way you eat. This is not a diet. It is a way of life that you will keep with you. EXERCISE REGULARLY It is not important to spend hours in the gym, lifting weights and perspiring heavily. A total of 2-3 hours per week of aerobic (causing you to be moderately short of breath) exercise is sufficient to improve your health. Talk to us before you begin a new exercise program, if you have heart disease or experience shortness of breath or chest pain. REDUCE STRESS Chronic emotional and physical stress leads to disease. Ways of reducing stress include meditation, visualization, prayer, yoga and other forms of relaxation therapy. Consistency is the christina. Find a technique that works for you and do it every day. CULTIVATE RELATIONSHIPS Loneliness and isolation have a major negative impact on health. Seek out others who can love, care for and nurture you. Avoid hurtful relationships. MAINTAIN IDEAL BODY WEIGHT The best way to do this is to do all the things above. Our bodies naturally find the right weight if we keep moving and feed ourselves the right food. If your BMI is greater than 25, we strongly recommend a referral to a weight management program. Please speak to us or your family physician about available programs. AVOID NICOTINE IN ALL FORMS This includes all tobacco products, whether chewed, smoked, vaped, or rubbed on the skin. Smoking cessation programs, which can make use of tobacco substitutes, medications to suppress cravings and behavior management, are available. Please contact your family physician about programs in your area.Classic SmartForms filed during this visit:Extended VitalsEncounter Number: [id number] Status:Closed by YASIR FOSTER MD on 07/16/17 [facility] PROGRESSon 07-16-2017 PROGRESS HNO ID: [id number] thor: Yasir Tompkins: (none)Author Type: PhysicianType: Progress NotesFiled: 07/16/2017 4:58 PMNote Text:PERTINENT CARDIAC HISTORYSick sinus syndrome - PPM 2010PAF - rare, declines warfarinHTNVenous insufficiencySyncope - remoteADHERENCE TO GUIDELINESACE-I or ARB for HF with prior LVEF<40 (NQF 0081) - N/AASA or Plavix for ASHD (NQF 0067) - N/ABeta pradip for ASHD with prior CT or prior LVEF<40 (NQF 0070) - N/ABeta pradip for HF with prior LVEF<40 (NQF 0083) - N/AACE-I or ARB for ASHD with DM or prior LVEF<40 (NQF 0066) - N/AStatin therapy for ASHD or FHL or DM - N/ABMI documented and plan if >25 (NQF 0421) - lifestyle recommendation formTobacco use screening and referral (NQF 0028) - lifestyle recommendationformRecommendation for whole food, plant based diet - lifestyle recommendationformCLINICAL IMPRESSION/PLAN:Betzy Cruz is doing well. She's had minimal atrial arrhythmia. I canfind no documentation of episodes of atrial fibrillation lasting longerthan 1 minute and they are very rare. She has declined warfarin.She will be referred for device clinic in [place] in December. I've asked herto continue her current medication.She is advised to let me know if she has exertional symptoms. Her currentchest pain syndrome appears to be nonischemic.She reports blood pressures at home in the 120/80 range. She may benefitfrom the addition of an ISIAH inhibitor in the future, if her bloodpressures run higher.I will see her in 6 months or as needed.Written and verbal health teaching given to patient, patient verbalizesunderstanding and agrees with treatment plan.This note was generated using [employer] voice recognition system, and theremay be some incorrect words, spellings, and punctuation that were notnoted in checking the note before saving.DIAGNOSIS FOR VISIT:Sick sinus syndromePAFHISTORY OF PRESENT ILLNESSBetzy Cruz is a 77-year-old woman with history of multiple cardiacissues, as noted above, who is seen for follow-up. She was previously apatient of Dr. Stevens.She reports that she has had intermittent episodes of sharp chest painradiating into the left side of her neck and down the left arm. These arenonexertional. These can last for several minutes. They seem to berelieved by range of motion. She notes no exertional chest tightness orshortness of breath. Her exercise tolerance has been stable. She isexercising regularly and doing water aerobics.She's had minimal edema. She denies syncope. She's had no palpitations,TIAs, amaurosis or claudication.She will be due pacemaker check next month. She has not yet been referredfor clinic follow-up.ALLERGIES:ALLERGIESAller gen Reactions- Latex Rash itches- Adhesive Rash redness- Amlodipine Swelling leg swelling- Seasonal Allergies CoughCURRENT OUTPATIENT MEDICATIONS:nebivolol (BYSTOLIC) 2.5 mg tablet Take 1 tablet by mouth twice daily.lamoTRIgine (LAMICTAL) 100 mg tablet Take 1 tablet by mouth twice daily.aspirin, enteric coated (ECOTRIN LOW STRENGTH) 81 mg ORAL EC tablet Takeby mouth as directed. Take two tablets once daily in the evening.Hydrochlorothiazide 12.5 mg ORAL capsule as necessaryBlood-Glucose Meter monitoring kit Glucose Meter of Choice - Kit - Dx:Test blood sugar(s) 1 to 2 time daily. Dx: R73.03 Insulin: Noblood sugar diagnostic (BLOOD GLUCOSE TEST) test strip Test blood sugar(s)1 to 2 time daily. Dx: R73.03 Insulin: No Insulin: NoLancets lancets Test blood sugar(s) 1 to 2 time daily. Dx: R73.03Insulin: NoFLAXSEED OIL (OMEGA 3 ORAL) Take by mouth once daily.Cholecalciferol, Vitamin D3, 1,000 unit ORAL Cap Take one(1) tablet two(2)times daily.multivitamins(MULTIPLE VITAMINS TAB) Take one(1) tablet daily.calcium carbonate(CALCIUM 500 500 MG (1,250 MG) TAB) Takes 8646-6211 mgonce daily.PAST MEDICAL HISTORYDiagnosis Date- Asthma- Atrial fibrillation (HCC)- Cardiac pacemaker in situ 03/05/2008 PM-Device g Medtronic Model SEDR01 Sensia Serial Number [id number] Date 07/18/2007 BLANK _ Lead1 Mfg Medtronic Model 5076 SerialNumber [id number] Location right Implant Date 07/18/2007 BLANK _ Jpei3Bcp Medtronic Model 5076 Serial Number [id number] Location right ImplantDate 07/18/2007- Epilepsy (HCC)- Essential hypertension, benign well controlled- Generalized osteoarthrosis, unspecified site- Impaired glucose tolerance test Runs usually 100- Obesity- Other and unspecified disc disorder of lumbar region- Other and unspecified hyperlipidemia- Spinal stenosis, lumbar region, without neurogenic claudication s/p L5-S1 sx '00PAST SURGICAL HISTORYProcedure Laterality Date- PAST SURGICAL HISTORY OF lumbar surgery x 2- TOTAL HIP REPLACEMENT 2007 Hip replacement, total leftFAMILY HISTORYProblem Relation Age of Onset- Diabetes Maternal Grandmother- Diabetes Other cousins- Hypertension Mother age 91- Hypertension Other brothers/ sisters- high cholesterol[Other] [OTHER] Father- high cholesterol[Other] [OTHER] Other brothers- black lung [Other] [OTHER] FatherSocial History Marital status: Spouse name: Years of education: Number of children:Occupational HistoryOccupation Employer Comment[employer]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 Respiratory: No productive cough. Cardiac: As noted above. GI: Nomelena. : No dysuria. Musculoskeletal: No myalgias.PHYSICAL EXAMINATION: S/he is alert and in no distress.VITAL SIGNS: BP 154/96 Pulse 68 Ht 5' 7 (1.70m) Wt 206 lb 9.6 oz(93.7kg) BMI 32.35 kg/(m2).SHEENT: Skin is warm and dry. No xanthelasmas appreciated. Pharynx isbenign. There is no oral cyanosis. Neck: supple. No adenopathy orthyroid enlargement. Chest: Clear to percussion and auscultation.Trachea is midline. Air entry is equal. There is no chest walltenderness. Cardiac: Regular rhythm. S1 and S2 are normal. PMI isnondisplaced. There is a soft systolic ejection murmur. No click isheard. Carotids are brisk without bruits. JVP is less than 10 cm.Abdomen: Soft and nontender. There are no pulsatile masses or bruits. Noliver enlargement. Bowel sounds are active. Extremities: Trace edema.Pulses are intact and symmetrical. No clubbing or cyanosis. No femoralbruits. Neurologic: Grossly normal motor and sensory. S/he is alert andoriented x4.Prior records were reviewed in detail.Recent labs were reviewed. Renal function is normal. TSH was 1.5.Recent remote pacemaker check shows no recent episodes of atrialfibrillation. Prior checks have shown rare episodes of atrialfibrillation, consistently lasting less than a minute.Stress test showed no evidence of ischemia. LV function is normal.Prior echocardiogram shows normal ejection fraction. There is nosignificant valvular disease. These images were reviewed personally.Prior carotid Doppler examination showed no significant stenosis.EKG shows sinus rhythm. There is a septal Q waveElectronically Signed:Yasir Foster MDFebruary 2017 2:13 PMCC:Sagrario Fong MD [facility] Vital Signs Date Time Vital Sign Value Performing Clinician Marniei natan 09-29-2024 11:36-0400 Diastolic blood pressure 81 mm[Hg] Wendy Lemus MD Work Phone: [facility] 09-29-2024 11:36-0400 Systolic blood pressure 132 mm[Hg] Wendy Lemus MD Work Phone: [facility] 09-29-2024 11:33-0400 Body mass index (BMI) [Ratio] 31.01 kg/m2 Wendy Lemus MD Work Phone: [facility] 09-29-2024 11:33-0400 Body weight 89.81 kg Wendy Lemus MD Work Phone: [facility] 09-29-2024 11:33-0400 Heart rate 73 /min Wendy Lemus MD Work Phone: [facility] 09-29-2024 11:33-0400 SaO2% (BldA) [Mass fraction] 98 % Wendy Lemus MD Work Phone: [facility] 09-23-2024 08:47-0400 Diastolic blood pressure 72 mm[Hg] Vince Vilchis APRN.BILINGUAL LEGAL ASSISTANT Work Phone: [facility] 09-23-2024 08:47-0400 Systolic blood pressure 115 mm[Hg] Vince Vilchis OFFICE RECEPTIONIST.BILINGUAL LEGAL ASSISTANT Work Phone: [facility] 09-23-2024 08:45-0400 Body mass index (BMI) [Ratio] 30.56 kg/m2 Vince Vilchis OFFICE RECEPTIONIST.BILINGUAL LEGAL ASSISTANT Work Phone: [facility] 09-23-2024 08:45-0400 Body weight 88.5 kg Vincestone Toscanos OFFICE RECEPTIONIST.BILINGUAL LEGAL ASSISTANT Work Phone: [facility] 09-23-2024 08:45-0400 Heart rate 74 /min Vincestone Toscanos OFFICE RECEPTIONIST.BILINGUAL LEGAL ASSISTANT Work Phone: [facility] 09-23-2024 08:45-0400 SaO2% (BldA) [Mass fraction] 97 % Vince Vilchis OFFICE RECEPTIONIST.BILINGUAL LEGAL ASSISTANT Work Phone: [facility] 04-14-2024 13:55-0500 Body height 170.2 cm Van Huertas MD Work Phone: [facility] 04-14-2024 13:55-0500 Body mass index (BMI) [Ratio] 31.21 kg/m2 Van Huertas MD Work Phone: [facility] 04-14-2024 13:55-0500 Body weight 90.4 kg Van Huertas MD Work Phone: [facility] 04-14-2024 13:55-0500 Diastolic blood pressure 84 mm[Hg] Van Huertas MD Work Phone: [facility] 04-14-2024 13:55-0500 Heart rate 74 /min Van Huertas MD Work Phone: [facility] 04-14-2024 13:55-0500 SaO2% (BldA) [Mass fraction] 100 % Van Huertas MD Work Phone: [facility] 04-14-2024 13:55-0500 Systolic blood pressure 152 mm[Hg] Van Huertas MD Work Phone: [facility] 03-24-2024 09:57-0500 Body mass index (BMI) [Ratio] 31.52 kg/m2 Sagrario Fong MD Work Phone: [facility] 03-24-2024 09:57-0500 Body temperature 96.6 [degF] Sagrario Fong MD Work Phone: [facility] 03-24-2024 09:57-0500 Body weight 91.3 kg Sagrario Fong MD Work Phone: [facility] 03-24-2024 09:57-0500 Diastolic blood pressure 64 mm[Hg] Sagrario Fong MD Work Phone: [facility] 03-24-2024 09:57-0500 Heart rate 85 /min Sagrario Fong MD Work Phone: [facility] 03-24-2024 09:57-0500 Respiratory rate 16 /min Sagrario Fong MD Work Phone: [facility] 03-24-2024 09:57-0500 SaO2% (BldA) [Mass fraction] 97 % Sagrario Fong MD Work Phone: [facility] 03-24-2024 09:57-0500 Systolic blood pressure 112 mm[Hg] Sagrario Fong MD Work Phone: [facility] 03-20-2024 12:53-0400 Body mass index (BMI) [Ratio] 31.87 kg/m2 Wendy Lemus MD Work Phone: [facility] 03-20-2024 12:53-0400 Body weight 92.3 kg Wendy Lemus MD Work Phone: [facility] 03-20-2024 12:53-0400 Diastolic blood pressure 70 mm[Hg] Wendy Lemus MD Work Phone: [facility] 03-20-2024 12:53-0400 Heart rate 72 /min Wendy Lemus MD Work Phone: [facility] 03-20-2024 12:53-0400 Respiratory rate 17 /min Wendy Lemus MD Work Phone: [facility] 03-20-2024 12:53-0400 SaO2% (BldA) [Mass fraction] 94 % Wendy Lemus MD Work Phone: [facility] 03-20-2024 12:53-0400 Systolic blood pressure 106 mm[Hg] Wendy Lemus MD Work Phone: [facility] 02-18-2024 14:29-0400 Body height 170.2 cm Seven Bautista MD Work Phone: [facility] 02-18-2024 14:29-0400 Body mass index (BMI) [Ratio] 31.48 kg/m2 Seven Bautista MD Work Phone: [facility] 02-18-2024 14:29-0400 Body weight 91.17 kg Seven Bautista MD Work Phone: [facility] 02-18-2024 14:29-0400 Diastolic blood pressure 87 mm[Hg] Seven Bautista MD Work Phone: [facility] 02-18-2024 14:29-0400 Heart rate 80 /min Seven Bautista MD Work Phone: [facility] 02-18-2024 14:29-0400 SaO2% (BldA) [Mass fraction] 98 % Seven Bautista MD Work Phone: [facility] 02-18-2024 14:29-0400 Systolic blood pressure 145 mm[Hg] Seven Bautista MD Work Phone: [facility] 09-24-2023 08:53-0400 Diastolic blood pressure 77 mm[Hg] Vince Vilchis OFFICE RECEPTIONIST.BILINGUAL LEGAL ASSISTANT Work Phone: [facility] 09-24-2023 08:53-0400 Heart rate 69 /min Vince Vilchis OFFICE RECEPTIONIST.BILINGUAL LEGAL ASSISTANT Work Phone: [facility] 09-24-2023 08:53-0400 Systolic blood pressure 123 mm[Hg] Vince Vilchis OFFICE RECEPTIONIST.BILINGUAL LEGAL ASSISTANT Work Phone: [facility] 09-24-2023 08:51-0400 Body mass index (BMI) [Ratio] 31.01 kg/m2 Vince Vilchis OFFICE RECEPTIONIST.BILINGUAL LEGAL ASSISTANT Work Phone: [facility] 09-24-2023 08:51-0400 Body weight 89.81 kg Vince Vilchis OFFICE RECEPTIONIST.BILINGUAL LEGAL ASSISTANT Work Phone: [facility] 09-24-2023 08:51-0400 Respiratory rate 16 /min Vince Vilchis OFFICE RECEPTIONIST.BILINGUAL LEGAL ASSISTANT Work Phone: [facility] 09-06-2023 09:55-0400 Body temperature 98.01 [degF] Wendy Lemus MD Work Phone: [facility] 09-06-2023 09:55-0400 Diastolic blood pressure 87 mm[Hg] Wendy Lemus MD Work Phone: [facility] 09-06-2023 09:55-0400 Heart rate 78 /min Wendy Lemus MD Work Phone: [facility] 09-06-2023 09:55-0400 SaO2% (BldA) [Mass fraction] 98 % Wendy Lemus MD Work Phone: [facility] 09-06-2023 09:55-0400 Systolic blood pressure 110 mm[Hg] Wendy Lemus MD Work Phone: [facility] 04-09-2023 14:38-0500 Body height 170.2 cm Van Huertas MD Work Phone: [facility] 04-09-2023 14:38-0500 Body weight 92.2 kg Van Huertas MD Work Phone: [facility] 04-09-2023 14:38-0500 Diastolic blood pressure 90 mm[Hg] Van Huertas MD Work Phone: [facility] 04-09-2023 14:38-0500 Heart rate 69 /min Van Huertas MD Work Phone: [facility] 04-09-2023 14:38-0500 SaO2% (BldA) [Mass fraction] 97 % Van Huertas MD Work Phone: [facility] 04-09-2023 14:38-0500 Systolic blood pressure 156 mm[Hg] Van Huertas MD Work Phone: [facility] 03-23-2023 17:35-0400 Diastolic blood pressure 80 mm[Hg] Sagrario Fong MD Work Phone: [facility] 03-23-2023 17:35-0400 Systolic blood pressure 138 mm[Hg] Sagrario Fong MD Work Phone: [facility] 03-23-2023 16:35-0400 Body temperature 98.01 [degF] Sagrario Fong MD Work Phone: [facility] 03-23-2023 16:35-0400 Body weight 89.81 kg Sagrario Fong MD Work Phone: [facility] 03-23-2023 16:35-0400 Heart rate 80 /min Sagrario Fong MD Work Phone: [facility] 03-23-2023 16:35-0400 Respiratory rate 18 /min Sagrario Fong MD Work Phone: [facility] 03-23-2023 16:35-0400 SaO2% (BldA) [Mass fraction] 98 % Sagrario Fong MD Work Phone: [facility] 02-28-2023 10:04-0400 Body weight 92.53 kg Ivanna Maame PA-C Work Phone: [facility] 02-28-2023 10:04-0400 Diastolic blood pressure 86 mm[Hg] Ivanna Maame PA-C Work Phone: [facility] 02-28-2023 10:04-0400 Heart rate 73 /min Ivanna Maame PA-C Work Phone: [facility] 02-28-2023 10:04-0400 Respiratory rate 16 /min Ivanna Maame PA-C Work Phone: [facility] 02-28-2023 10:04-0400 SaO2% (BldA) [Mass fraction] 98 % Ivanna Maame PA-C Work Phone: [facility] 02-28-2023 10:04-0400 Systolic blood pressure 148 mm[Hg] Ivanna Maame PA-C Work Phone: [facility] 12-11-2022 09:02-0400 Body height 170.2 cm Seven Bautista MD Work Phone: [facility] 12-11-2022 09:02-0400 Body weight 91.79 kg Seven Bautista MD Work Phone: [facility] 12-11-2022 09:02-0400 Diastolic blood pressure 72 mm[Hg] Seven Bautista MD Work Phone: [facility] 12-11-2022 09:02-0400 Heart rate 72 /min Seven Bautista MD Work Phone: [facility] 12-11-2022 09:02-0400 SaO2% (BldA) [Mass fraction] 98 % Seven Bautista MD Work Phone: [facility] 12-11-2022 09:02-0400 Systolic blood pressure 115 mm[Hg] Seven Bautista MD Work Phone: [facility] 10-26-2022 09:50-0400 Body weight 90.27 kg Ivanna Maame PA-C Work Phone: [facility] 10-26-2022 09:50-0400 Diastolic blood pressure 78 mm[Hg] Ivanna Maame PA-C Work Phone: [facility] 10-26-2022 09:50-0400 Heart rate 67 /min Ivanna Maame PA-C Work Phone: [facility] 10-26-2022 09:50-0400 Respiratory rate 16 /min Ivanna Maame PA-C Work Phone: [facility] 10-26-2022 09:50-0400 SaO2% (BldA) [Mass fraction] 100 % Ivanna Maame PA-C Work Phone: [facility] 10-26-2022 09:50-0400 Systolic blood pressure 122 mm[Hg] Ivanna Maame PA-C Work Phone: [facility] 09-14-2022 12:54-0400 Body weight 91.17 kg Ivanna Maame PA-C Work Phone: [facility] 09-14-2022 12:54-0400 Diastolic blood pressure 82 mm[Hg] Ivanna Maame PA-C Work Phone: [facility] 09-14-2022 12:54-0400 Heart rate 59 /min Ivanna Maame PA-C Work Phone: [facility] 09-14-2022 12:54-0400 Respiratory rate 16 /min Ivanna Maame PA-C Work Phone: [facility] 09-14-2022 12:54-0400 SaO2% (BldA) [Mass fraction] 100 % Ivanna Maame PA-C Work Phone: [facility] 09-14-2022 12:54-0400 Systolic blood pressure 122 mm[Hg] Ivanna Maame PA-C Work Phone: [facility] 07-27-2022 08:16-0500 Body weight 91.17 kg Ivanna Maame PA-C Work Phone: [facility] 07-27-2022 08:16-0500 Diastolic blood pressure 60 mm[Hg] Ivanna Maame PA-C Work Phone: [facility] 07-27-2022 08:16-0500 Heart rate 76 /min Ivanna Maame PA-C Work Phone: [facility] 07-27-2022 08:16-0500 Respiratory rate 16 /min Ivanna Maame PA-C Work Phone: [facility] 07-27-2022 08:16-0500 SaO2% (BldA) [Mass fraction] 99 % Ivanna Maame PA-C Work Phone: [facility] 07-27-2022 08:16-0500 Systolic blood pressure 144 mm[Hg] Ivanna Maame PA-C Work Phone: [facility] 06-29-2022 08:33-0500 Body weight 89.81 kg Wendy Lemus MD Work Phone: [facility] 06-29-2022 08:33-0500 Diastolic blood pressure 81 mm[Hg] Wendy Lemus MD Work Phone: [facility] 06-29-2022 08:33-0500 Heart rate 71 /min Wendy Lemus MD Work Phone: [facility] 06-29-2022 08:33-0500 Respiratory rate 12 /min Wendy Lemus MD Work Phone: [facility] 06-29-2022 08:33-0500 SaO2% (BldA) [Mass fraction] 100 % Wendy Lemus MD Work Phone: [facility] 06-29-2022 08:33-0500 Systolic blood pressure 167 mm[Hg] Wendy Lemus MD Work Phone: [facility] 05-16-2022 09:59-0500 Body temperature 98.1 [degF] Lesvia Athy PA-C Work Phone: [facility] 05-16-2022 09:59-0500 Body weight 89.81 kg Lesvia Athy PA-C Work Phone: [facility] 05-16-2022 09:59-0500 Diastolic blood pressure 86 mm[Hg] Lesvia Athy PA-C Work Phone: [facility] 05-16-2022 09:59-0500 Heart rate 76 /min Lesvia Athy PA-C Work Phone: [facility] 05-16-2022 09:59-0500 Respiratory rate 18 /min Lesvia Martinez PA-C Work Phone: [facility] 05-16-2022 09:59-0500 SaO2% (BldA) [Mass fraction] 96 % Lesvia Amaroy PA-C Work Phone: [facility] 05-16-2022 09:59-0500 Systolic blood pressure 148 mm[Hg] Lesvia Martinez PA-C Work Phone: [facility] 03-07-2022 14:48-0400 Body weight 89.81 kg Sagrario Fong MD Work Phone: [facility] 03-07-2022 14:48-0400 Diastolic blood pressure 72 mm[Hg] Sagrario Fong MD Work Phone: [facility] 03-07-2022 14:48-0400 Heart rate 69 /min Sagrario Fogn MD Work Phone: [facility] 03-07-2022 14:48-0400 SaO2% (BldA) [Mass fraction] 98 % Sagrario Fong MD Work Phone: [facility] 03-07-2022 14:48-0400 Systolic blood pressure 118 mm[Hg] Sagrario Fong MD Work Phone: [facility] 08-30-2021 11:18-0400 Body weight 89.36 kg Sagrario Fong MD Work Phone: [facility] 08-30-2021 11:18-0400 Diastolic blood pressure 78 mm[Hg] Sagrario Fong MD Work Phone: [facility] 08-30-2021 11:18-0400 Heart rate 80 /min Sagrario Fong MD Work Phone: [facility] 08-30-2021 11:18-0400 Systolic blood pressure 138 mm[Hg] Sagrario Fong MD Work Phone: [facility] Encounters Encounter Date Encounter Type Care Provider Facility Start: 02-03-2025 End: 02-03-2025 Orders Only Van Huertas MD Work Phone: Cardiology Start: 01-22-2025 End: 01-26-2025 Orders Only Van Huertas MD Work Phone: Cardiology Comment on above: AF (paroxysmal atria l fibrillation) (HCC) (Primary Dx) Refill Request Schedule Surgery (EP S-DCC) Start: 01-20-2025 End: 01-20-2025 Nursing evaluation of patient and report Mi Nurse Work Phone: Family [facility] Comment on above: Atrial fibrillation, persistent (HCC) Start: 01-20-2025 End: 01-20-2025 ambulatory SAGRARIO FONG Facility:[facility] Start: 01-14-2025 End: 01-14-2025 Orders Only Van Huertas MD Work Phone: Cardiology Comment on above: Atrial fibrillation, persistent (HCC) (Primary Dx) Start: 01-11-2025 End: 01-12-2025 ambulatory Van Huertas MD Work Phone: Cardiology Comment on above: High heart rate Start: 01-10-2025 End: 01-14-2025 Telephone encounter Sagrario Fong MD Work Phone: [facility] [place] Start: 12-10-2024 End: 12-10-2024 Refill Van Huertas MD Work Phone: Cardiology Comment on above: Refill Request (Expr ess Scripts) Start: 10-02-2024 ambulatory Vince Vilchis WORKERS' COMPENSATION MEDIATOR Facilit y:[facility] Start: 09-29-2024 End: 09-29-2024 Patient encounter procedure Wenyd Lemus MD Work Phone: Pulmonary Medicine Comment on above: SOB (shortness of br eath) (Primary Dx); Mild intermittent asthma without complication (HCC); Chronic atrial fibrillation (HCC) Start: 09-29-2024 End: 09-29-2024 ambulatory WENDY LEMUS Facility:[facility] Start: 09-23-2024 End: 09-23-2024 Office outpatient visit 25 minutes Vince Vilchis APRDebBILINGUAL LEGAL ASSISTANT Work Phone: [facility] [place] Comment on above: Essential hypertensi on (Primary Dx); Pure hypercholesterolemia; Mild persistent asthma without complication (HCC); Chronic cough; Screening for depression; Encounter for screening examination for other mental health and behavioral disorders; Sick sinus syndrome (HCC); Nonintractable epilepsy without status epilepticus, unspecified epilepsy type (HCC); Gastroesophageal reflux disease, unspecified whether esophagitis present; Cardiac pacemaker in situ; Encounter for screening mammogram for malignant neoplasm of breast; Abnormal finding of blood chemistry, unspecified; Vitamin D deficiency, unspecified Start: 09-23-2024 End: 09-23-2024 ambulatory SELF Facility:[facility] Start: 09-16-2024 End: 09-16-2024 ambulatory Allyn Kuhn MA [facility] Start: 09-16-2024 End: 09-16-2024 Patient encounter procedure Allyn Kuhn MA [facility] Comment on above: Population Health Na vigation Outreach ([place]/Workbench/ACO ) Start: 09-10-2024 End: 09-10-2024 ambulatory SAGRARIO D TALAMPAS Facility:[facility] Start: 09-03-2024 End: 09-03-2024 Telephone encounter Van Huertas MD Work Phone: Cardiology Start: 09-01-2024 End: 09-01-2024 Orders Only Van Huertas MD Work Phone: Cardiology Start: 04-14-2024 End: 04-14-2024 ambulatory SAGRARIO D TALAMPAS Facility:[facility] Start: 04-14-2024 End: 04-14-2024 Patient encounter procedure Van Huertas MD Work Phone: Cardiology Comment on above: Paroxysmal atrial fi brillation (HCC) (Primary Dx) Pacemaker reprogramm ing/check Start: 03-24-2024 End: 03-24-2024 ambulatory SAGRARIO D TALAMPAS Facility:[facility] Start: 03-24-2024 End: 03-24-2024 Office outpatient visit 25 minutes Sagrario Fong MD Work Phone: [facility] [place] Comment on above: Essential hypertensi on (Primary Dx); Pure hypercholesterolemia; IFG (impaired fasting glucose); PSVT (paroxysmal supraventricular tachycardia) (HCC); Nonintractable epilepsy without status epilepticus, unspecified epilepsy type (HCC); Mild persistent asthma without complication; Chronic cough; Encounter for immunization Start: 03-20-2024 End: 03-20-2024 [facility] Facility:[facility] Start: 03-20-2024 End: 03-20-2024 Patient encounter procedure Wendy Lemus MD Work Phone: Pulmonary Medicine Comment on above: Mild persistent asth ma without complication (Primary Dx); Paroxysmal atrial fibrillation (HCC) Start: 02-19-2024 End: 02-19-2024 [facility] Facility:[facility] Start: 02-18-2024 End: 02-18-2024 ambulatory SEVEN BAUTISTA Facility:[facility] Start: 02-18-2024 End: 02-18-2024 Patient encounter procedure Seven Bautista MD Work Phone: Cardiology Comment on above: Essential hypertensi on; PSVT (paroxysmal supraventricular tachycardia) (HCC); Allergic rhinitis, unspecified seasonality, unspecified trigger; Cough Start: 09-24-2023 End: 09-24-2023 Patient encounter procedure Vince Vilchis APRJOCELINE Work Phone: [facility] [place] Comment on above: Encounter for immuni zation (Primary Dx); Gastroesophageal reflux disease, unspecified whether esophagitis present; Essential hypertension; PSVT (paroxysmal supraventricular tachycardia) (HCC); Nonintractable epilepsy without status epilepticus, unspecified epilepsy type (HCC); Hoarseness; Pure hypercholesterolemia; IFG (impaired fasting glucose); Cardiac pacemaker in situ Start: 09-06-2023 End: 09-06-2023 Patient encounter procedure Wendy Lemus MD Work Phone: Pulmonary Medicine Comment on above: Mild persistent asth ma without complication (Primary Dx); Paroxysmal atrial fibrillation (HCC) Start: 08-13-2023 Follow-up encounter Van morales MD Work Phone: [facility] Start: 08-13-2023 Pacemaker Remote F/U Van Barros MD Work Phone: [facility] Start: 06-21-2023 Follow-up encounter Van morales MD Work Phone: [facility] Start: 06-21-2023 Pacemaker Remote F/U Van Barros MD Work Phone: [facility] Start: 04-10-2023 End: 04-10-2023 ambulatory [facility] Work Phone: Start: 04-10-2023 End: 04-10-2023 Patient encounter procedure [facility] Work Phone: Start: 04-09-2023 Follow-up encounter Van morales MD Work Phone: [facility] Start: 04-09-2023 End: 04-09-2023 Patient encounter procedure Van Huertas MD Work Phone: [facility] Comment on above: Atypical atrial flut ter (HCC) (Primary Dx) Start: 03-23-2023 End: 03-23-2023 Office outpatient visit 25 minutes Sagrario Fong MD Work Phone: [facility] [place] Comment on above: Essential hypertensi on (Primary Dx); PSVT (paroxysmal supraventricular tachycardia); Allergic rhinitis, unspecified seasonality, unspecified trigger; Cough; Post-nasal drip; Nonintractable epilepsy without status epilepticus, unspecified epilepsy type (HCC); Acute rhinitis; Breast cancer screening by mammogram; Encounter for immunization Start: 02-28-2023 End: 02-28-2023 Office outpatient visit 25 minutes Ivanna Isabel PA-C Work Phone: Pulmonary Medicine Comment on above: Mild persistent asth ma without complication (Primary Dx); Gastroesophageal reflux disease, unspecified whether esophagitis present; Allergic rhinitis, unspecified seasonality, unspecified trigger; Post-nasal drip; Sick sinus syndrome (HCC) Start: 02-28-2023 End: 02-28-2023 ambulatory [facility] Work Phone: PULM LAB [facility] Comment on above: Spirometry Start: 02-28-2023 End: 02-28-2023 Patient encounter procedure [facility] Work Phone: [facility] Start: 12-11-2022 End: 12-11-2022 Patient encounter procedure Seven Bautista MD Work Phone: Cardiology Comment on above: Sick sinus syndrome (HCC) (Primary Dx); Cardiac pacemaker in situ; PSVT (paroxysmal supraventricular tachycardia) (HCC); Essential hypertension Start: 11-10-2022 Follow-up encounter Van morales MD Work Phone: [facility] Start: 11-10-2022 Pacemaker Remote F/U Van Barros MD Work Phone: [facility] Start: 10-26-2022 End: 10-26-2022 Patient encounter procedure Ivanna Isabel PA-C Work Phone: Pulmonary Medicine Comment on above: Mild persistent asth ma without complication (Primary Dx); Sick sinus syndrome (HCC); Gastroesophageal reflux disease, unspecified whether esophagitis present Start: 09-14-2022 End: 09-14-2022 Patient encounter procedure Ivanna Isabel PA-C Work Phone: [facility] Medicine Comment on above: Mild persistent asth ma without complication (Primary Dx); Post-nasal drip; Allergic rhinitis, unspecified seasonality, unspecified trigger Start: 08-29-2022 Refill Sagrario burns MD Work Phone: [facility] [place] Comment on above: Refill Request Start: 08-24-2022 Orders Only Van haro MD Work Phone: Cardiology Comment on above: Pacemaker (Primary D x); Sick sinus syndrome (HCC) Start: 08-23-2022 Telephone encounter Van morales MD Work Phone: Cardiology Comment on above: Patient Update Start: 08-15-2022 Telephone encounter Vince Broo ks OFFICE RECEPTIONIST.BILINGUAL LEGAL ASSISTANT Work Phone: [facility] [place] Comment on above: Orders (Lab) Start: 08-10-2022 Follow-up encounter Van morales MD Work Phone: [facility] Start: 08-10-2022 Pacemaker Remote F/U Van Barros MD Work Phone: [facility] Start: 08-02-2022 Telephone encounter Ivanna Isabel PA-C Work Phone: Pulmonary Medicine Comment on above: Medication Problem Start: 07-27-2022 End: 07-27-2022 Patient encounter procedure Ivanna Isabel PA-C Work Phone: Pulmonary Medicine Comment on above: Mild persistent asth ma without complication (Primary Dx); SOB (shortness of breath); Post-nasal drip; Sick sinus syndrome (HCC) Start: 07-10-2022 End: 07-10-2022 Subsequent hospital visit by physician Kath[facility] [place] Lau Work Phone: Radiology Comment on above: SOB (shortness of br eath) [R06.02] Start: 06-29-2022 End: 06-29-2022 ambulatory [facility] Work Phone: [facility] Comment on above: Spirometry Start: 06-29-2022 End: 06-29-2022 Patient encounter procedure [facility] Work Phone: [facility] Comment on above: SOB (shortness of br eath) (Primary Dx); Mild persistent asthma without complication; Sick sinus syndrome (HCC) Start: 06-22-2022 Orders Only Wendy Lemus MD Work Phone: [facility] [place] Comment on above: Asthma, unspecified asthma severity, unspecified whether complicated, unspecified whether persistent (Primary Dx) Start: 06-12-2022 Refill Vince Vilchis APRN.BILINGUAL LEGAL ASSISTANT Work Phone: [facility] [place] Comment on above: Refill Request Start: 05-16-2022 End: 05-16-2022 Patient encounter procedure Lesvia Martinez PA-C Work Phone: [facility] Comment on above: Viral URI with cough (Primary Dx) Start: 05-11-2022 Follow-up encounter Van morales MD Work Phone: [facility] Start: 05-11-2022 Pacemaker Remote F/U Van Barros MD Work Phone: [facility] Start: 03-07-2022 End: 03-07-2022 Office outpatient visit 25 minutes Sagrario Fong MD Work Phone: [facility] [place] Comment on above: Essential hypertensi on (Primary Dx); Prediabetes; Pure hypercholesterolemia; Mild persistent asthma without complication; Gastroesophageal reflux disease, unspecified whether esophagitis present; Hoarseness; Post-nasal drainage; Encounter for screening mammogram for breast cancer; Encounter for immunization; Nonintractable epilepsy without status epilepticus, unspecified epilepsy type ([facility]) Start: 02-09-2022 Follow-up encounter Van morales MD Work Phone: [facility] Start: 02-09-2022 Pacemaker Remote F/U Van Barros MD Work Phone: [facility] Start: 08-30-2021 End: 08-30-2021 Office outpatient visit 25 minutes Sagrario Fong MD Work Phone: [facility] [place] Comment on above: Essential hypertensi on (Primary Dx); Prediabetes; Pure hypercholesterolemia; IFG (impaired fasting glucose); Mild persistent asthma without complication; PSVT (paroxysmal supraventricular tachycardia) (HCC) Start: 08-18-2021 Telephone encounter Sagrario roberts MD Work Phone: [facility] [place] Comment on above: Insurance Authorizat ion Start: 01-17-2018 Ambulatory YASIR FOSTER Facility :[facility] Start: 07-16-2017 End: 07-16-2017 Ambulatory YASIR FOSTER [facility] Procedures Date Procedure Procedure Detail Performing Clinician Start: 09-23-2024 Adult depression scr eening assessment Vince Vilchis OFFICE RECEPTIONIST.BILINGUAL LEGAL ASSISTANT Work Phone: Start: 04-14-2024 Prgrmg dev eval impl antable subq lead dfb system [facility] [place] Provider Start: 09-24-2023 Adult depression scr eening assessment Seven Bautista MD Work Phone: Start: 08-13-2023 PACEMAKER REMOTE CHECK Van Huertas MD Work Phone: Start: 06-21-2023 PACEMAKER REMOTE CHECK Van Huertas MD Work Phone: Start: 04-10-2023 Screening mammography Start: 04-09-2023 PACEMAKER CLINIC CHECK Van Huertas MD Work Phone: Start: 04-09-2023 PACEMAKER CLINIC CHECK Van Huertas MD Work Phone: Start: 03-23-2023 INFLUENZA VACCINE, P RSV FREE, AGE 65+ YR, HIGH DOSE, QUADRIVALENT (FLUZONE HIGH-DOSE) Sagraroi Fong MD Work Phone: Start: 03-23-2023 [employer] COVI D-19 VACCINE (2022- [place]) AGE 12+ YR Sagrario Fong MD Work Phone: Start: 02-28-2023 Nitric oxide gas determination Ivanna Isabel PA-C Work Phone: Start: 11-10-2022 PACEMAKER REMOTE CHECK Van Huertas MD Work Phone: Start: 08-10-2022 PACEMAKER REMOTE CHECK Van Huertas MD Work Phone: Start: 07-10-2022 Radiologic exam ches t 2 views Wendy Lemus MD Work Phone: Start: 06-29-2022 Nitric oxide gas determination Wendy Lemus MD Work Phone: Start: 05-16-2022 COVID WITH FLUA+B, ROUTINE Lesvia R Juan PAJosephC Work Phone: Start: 05-11-2022 PACEMAKER REMOTE CHECK Van Huertas MD Work Phone: Start: 03-07-2022 INFLUENZA SEASONAL QUADRIVALENT HIGH DOSE AGE 65+ Sagrario Fong MD Work Phone: Start: 02-09-2022 PACEMAKER REMOTE CHECK Van Huertas MD Work Phone: Start: 02-22-2021 Adult depression scr eening assessment Sagrario Fong MD Work Phone: Plan of Treatment Date Care Activity Detail Author Start: 09-11-2027 Diabetes Screening Diabetes Screening [facility] Start: 02-18-2027 Diabetes Screening Diabetes Screening [facility] Start: 09-18-2026 Diabetes Screening Diabetes Screening [facility] Start: 02-26-2026 Diabetes Screening Diabetes Screening [facility] Start: 09-23-2025 Anxiety Screening Anxiety Screening [facility] Start: 09-23-2025 Depression Screening Depression Screening [facility] Start: 08-18-2025 DIABETES SCREEN DIABETES SCREEN [facility] Start: 04-13-2025 End: 04-13-2025 Patient encounter procedure 04/13/2025 12:00 PM EST Office Visit Cardiology [address] [place] [id number] Van Huertas MD [address] [place], [place] [id number] annual follow up Cardiology Comment on above: annual follow up Start: 03-26-2025 End: 06-25-2025 25-hydroxyvitamin D3 [Mass/volume] in Serum or Plasma VITAMIN D 25 HYDROXY Lab Routine Essential hypertension Pure hypercholesterolemia Gastroesophageal reflux disease, unspecified whether esophagitis present Vitamin D deficiency, unspecified Expected: 03/26/2025 (Approximate), Expires: 06/25/2025 [facility] Comment on above: Expected: 03/26/2025 (Approximate), Expi res: 06/25/2025 Start: 03-26-2025 End: 06-25-2025 CBC W Auto Differential panel - Blood COMPLETE BLOOD COUNT AND DIFFERENTIAL Lab Routine Essential hypertension Pure hypercholesterolemia Mild persistent asthma without complication (HCC) Nonintractable epilepsy without status epilepticus, unspecified epilepsy type (HCC) Gastroesophageal reflux disease, unspecified whether esophagitis present Expected: 03/26/2025 (Approximate), Expires: 06/25/2025 [facility] Comment on above: Expected: 03/26/2025 (Approximate), Expi res: 06/25/2025 Start: 03-26-2025 End: 06-25-2025 Comprehensive metabolic 2000 panel - Serum or Plasma COMPREHENSIVE METABOLIC PANEL Lab Routine Essential hypertension Pure hypercholesterolemia Mild persistent asthma without complication (HCC) Nonintractable epilepsy without status epilepticus, unspecified epilepsy type (HCC) Gastroesophageal reflux disease, unspecified whether esophagitis present Expected: 03/26/2025 (Approximate), Expires: 06/25/2025 [facility] Comment on above: Expected: 03/26/2025 (Approximate), Expi res: 06/25/2025 Start: 03-26-2025 End: 06-25-2025 Hemoglobin A1c in Blood HEMOGLOBIN A1C Lab Routine Essential hypertension Pure hypercholesterolemia Abnormal finding of blood chemistry, unspecified Expected: 03/26/2025 (Approximate), Expires: 06/25/2025 [facility] Comment on above: Expected: 03/26/2025 (Approximate), Expi res: 06/25/2025 Start: 03-26-2025 End: 06-25-2025 lamoTRIgine [Mass/volume] in Serum or Plasma LAMOTRIGINE Lab Routine Nonintractable epilepsy without status epilepticus, unspecified epilepsy type (HCC) Expected: 03/26/2025 (Approximate), Expires: 06/25/2025 [facility] Comment on above: Expected: 03/26/2025 (Approximate), Expi res: 06/25/2025 Start: 03-26-2025 End: 06-25-2025 Lipid 1996 panel - Serum or Plasma LIPID PANEL, FASTING Lab Routine Essential hypertension Pure hypercholesterolemia Expected: 03/26/2025 (Approximate), Expires: 06/25/2025 [facility] Comment on above: Expected: 03/26/2025 (Approximate), Expi res: 06/25/2025 Start: 03-26-2025 End: 06-25-2025 Thyrotropin [Units/volume] in Serum or Plasma THYROID STIMULATING HORMONE Lab Routine Essential hypertension Pure hypercholesterolemia Expected: 03/26/2025 (Approximate), Expires: 06/25/2025 [facility] Comment on above: Expected: 03/26/2025 (Approximate), Expi res: 06/25/2025 Start: 03-24-2025 End: 03-24-2025 Patient encounter procedure 03/24/2025 10:40 AM EST Office Visit Internal Medicine [place] [address] [place], [place] [id number] Sagrario Fong MD [address] [place], [place] [id number] 6 month follow up Internal Medicine [place] Comment on above: 6 month follow up Start: 02-20-2025 End: 02-20-2025 ambulatory 02/20/2025 12:15 PM EDT Procedure Cardiology [address] [place] [address] [facility] Cardiology Comment on above: [facility] Start: 02-20-2025 End: 02-20-2025 Admission to same day surgery center 02/20/2025 8:05 AM EDT - 02/20/2025 9:05 AM EDT Surgery HOSP EP Lab [address] [place] [address] Van Huertas MD [address] [place] [address] [facility] Comment on above: [facility] Start: 02-20-2025 End: 02-20-2025 Cardioversion elective arrhythmia external [facility] Persistent atrial fibrillation (HCC) 02/20/2025 8:05 AM EDT [facility] Start: 02-20-2025 Subsequent hospital visit by physician 02/20/2025 8:05 AM EDT Hospital Encounter HOSP EP Lab [address] [place] [address] Van Huertas MD [address] [place] [address] Persistent atrial fibrillation (HCC) [I48.19] HOSP EP Lab Comment on above: Persistent atrial fibrillation (HCC) [I4 8.19] Start: 02-20-2025 End: 02-20-2025 Patient encounter procedure Cardiology Comment on above: D[facility] interview Start: 02-16-2025 End: 02-16-2025 Patient encounter procedure Cardiology Comment on above: 1 year follow up Start: 02-09-2025 DIABETES SCREEN DIABETES SCREEN [facility] Start: 01-19-2025 Influenza vaccination Influenza Vaccine (#1) [facility] Start: 10-08-2024 Covid-19 Vaccine () Covid-19 Vaccine () [facility] Start: 09-29-2024 End: 09-29-2024 Patient encounter procedure 09/29/2024 11:45 AM EDT Office Visit Pulmonary Medicine [address] [place] [address] Wendy Lemus MD [address] [place] [address] 6 mo follow up Pulmonary Medicine Comment on above: 6 mo follow up Start: 09-23-2024 Anxiety Screening Anxiety Screening [facility] Start: 09-23-2024 Depression Screening Depression Screening [facility] Start: 09-23-2024 End: 09-23-2024 Patient encounter procedure 09/23/2024 9:00 AM EDT Office Visit Internal Medicine [place] [address] [place] [address] Vince Vilchis APRN.BILINGUAL LEGAL ASSISTANT [address] [place] [address] 6 month follow up Internal Medicine [place] Comment on above: 6 month follow up Start: 08-22-2024 End: 11-21-2024 CBC panel - Blood by Automated count COMPLETE BLOOD COUNT Lab Routine Essential hypertension Expected: 08/22/2024 (Approximate), Expires: 11/21/2024 [facility] Comment on above: Expected: 08/22/2024 (Approximate), Expi res: 11/21/2024 Start: 08-22-2024 End: 11-21-2024 Comprehensive metabolic 2000 panel - Serum or Plasma COMPREHENSIVE METABOLIC PANEL Lab Routine Essential hypertension IFG (impaired fasting glucose) Expected: 08/22/2024 (Approximate), Expires: 11/21/2024 [facility] Comment on above: Expected: 08/22/2024 (Approximate), Expi res: 11/21/2024 Start: 08-22-2024 End: 11-21-2024 Hemoglobin A1c in Blood HEMOGLOBIN A1C Lab Routine IFG (impaired fasting glucose) Expected: 08/22/2024 (Approximate), Expires: 11/21/2024 [facility] Work Phone: Comment on above: Expected: 08/22/2024 (Approximate), Expi res: 11/21/2024 Start: 08-22-2024 End: 11-21-2024 Lipid 1996 panel - Serum or Plasma LIPID PANEL BASIC Lab Routine Essential hypertension Pure hypercholesterolemia Expected: 08/22/2024 (Approximate), Expires: 11/21/2024 [facility] Comment on above: Expected: 08/22/2024 (Approximate), Expi res: 11/21/2024 Start: 08-15-2024 DIABETES SCREEN DIABETES SCREEN [facility] Start: 05-21-2024 Advance Directive Discussion Advance Directive Discussion [facility] Start: 04-23-2024 Influenza vaccination Influenza Vaccine (#1) [facility] Comment on above: Postponed from 01/20/2024 (Declined at t his time) Start: 04-14-2024 End: 04-14-2024 Patient encounter procedure Cardiology Comment on above: device check annual Start: 04-09-2024 PACER OR ICD CHECK (AL,SD) PACER OR ICD CHECK (AL,SD) Cardiology Routine Atypical atrial flutter (HCC) Expected: 04/09/2024 (Approximate) [facility] Work Phone: Comment on above: Expected: 04/09/2024 (Approximate) Start: 03-24-2024 End: 03-24-2024 Patient encounter procedure 03/24/2024 9:40 AM EST Office Visit Internal Medicine [place] [address] [place], [place] [id number] Sagrario Fong MD [address] [place], [place] [id number] 6 month follow up Internal Medicine [place] Comment on above: 6 month follow up Start: 03-23-2024 Annual PCP Team Chronic Disease Visit Annual PCP Team Chronic Disease Visit [facility] Start: 03-23-2024 RSV Vaccine (1 - 1-dose 60+ series) RSV Vaccine (1 - 1-dose 60+ series) [facility] Comment on above: Postponed from 2002 (Declined at t his time) Start: 03-23-2024 Urine microalbumin profile DTaP,Tdap,Td Vaccine (1 - Tdap) [facility] Comment on above: Postponed from 1961 (Declined at t his time) Start: 03-20-2024 End: 03-20-2024 Patient encounter procedure 03/20/2024 1:15 PM EDT Office Visit Pulmonary Medicine [address] [place], [place] [id number] Wendy Lemus MD [address] [place], [place] [id number] 6 mo f/up Pulmonary Medicine Comment on above: 6 mo f/up Start: 03-17-2024 End: 09-15-2024 CBC W Auto Differential panel - Blood COMPLETE BLOOD COUNT AND DIFFERENTIAL Lab Routine Gastroesophageal reflux disease, unspecified whether esophagitis present Essential hypertension PSVT (paroxysmal supraventricular tachycardia) (HCC) Expected: 03/17/2024 (Approximate), Expires: 09/15/2024 [facility] Comment on above: Expected: 03/17/2024 (Approximate), Expi res: 09/15/2024 Start: 03-17-2024 End: 09-15-2024 Comprehensive metabolic 2000 panel - Serum or Plasma COMPREHENSIVE METABOLIC PANEL Lab Routine Gastroesophageal reflux disease, unspecified whether esophagitis present Essential hypertension PSVT (paroxysmal supraventricular tachycardia) (HCC) Expected: 03/17/2024 (Approximate), Expires: 09/15/2024 [facility] Comment on above: Expected: 03/17/2024 (Approximate), Expi res: 09/15/2024 Start: 03-17-2024 End: 09-15-2024 Hemoglobin A1c in Blood HEMOGLOBIN A1C Lab Routine IFG (impaired fasting glucose) Expected: 03/17/2024 (Approximate), Expires: 09/15/2024 [facility] Comment on above: Expected: 03/17/2024 (Approximate), Expi res: 09/15/2024 Start: 03-17-2024 End: 09-15-2024 Lipid 1996 panel - Serum or Plasma LIPID PANEL BASIC Lab Routine Pure hypercholesterolemia Expected: 03/17/2024 (Approximate), Expires: 09/15/2024 [facility] Comment on above: Expected: 03/17/2024 (Approximate), Expi res: 09/15/2024 Start: 03-17-2024 End: 09-15-2024 Thyrotropin [Units/volume] in Serum or Plasma THYROID STIMULATING HORMONE Lab Routine PSVT (paroxysmal supraventricular tachycardia) (HCC) Expected: 03/17/2024 (Approximate), Expires: 09/15/2024 [facility] Comment on above: Expected: 03/17/2024 (Approximate), Expi res: 09/15/2024 Start: 02-18-2024 End: 02-18-2024 Patient encounter procedure 02/18/2024 2:40 PM EDT Office Visit Cardiology [address] [place] [id number] Seven Bautista MD [address] [facility], [address] [place] [address] High heart rates Cardiology Comment on above: High heart rates Start: 01-20-2024 Covid-19 Vaccine () Covid-19 Vaccine () [facility] Start: 01-20-2024 Influenza vaccination Influenza Vaccine (#1) [facility] Start: 12-12-2023 BP CONTROLLED (<130/80) BP CONTROLLED (<130/80) [facility] Start: 10-27-2023 BP CONTROLLED (<130/80) BP CONTROLLED (<130/80) [facility] Start: 09-06-2023 BP CONTROLLED (<130/80) BP CONTROLLED (<130/80) [facility] Start: 07-22-2023 Covid-19 Vaccine () Covid-19 Vaccine () [facility] Start: 05-21-2023 Advance Directive Discussion Advance Directive Discussion [facility] Start: 05-21-2023 Behavioral Health Screening Behavioral Health Screening [facility] Start: 05-21-2023 Depression Assessment Depression Assessment [facility] Start: 03-07-2023 ANNUAL PCP TEAM CHRONIC DISEASE VISIT ANNUAL PCP TEAM CHRONIC DISEASE VISIT [facility] Start: 03-07-2023 BP CONTROLLED (<130/80) BP CONTROLLED (<130/80) [facility] Start: 03-07-2023 Urine microalbumin profile [facility] Comment on above: Postponed from 1961 (Declined at t his time) Start: 02-02-2023 COVID-19 VACCINE (5 - Booster for Moderna series) COVID-19 VACCINE (5 - Booster for Moderna series) [facility] Comment on above: Postponed from 12/15/2021 (Declined at t his time) Start: 02-02-2023 COVID-19 VACCINE (5 - Moderna series) COVID-19 VACCINE (5 - Moderna series) [facility] Comment on above: Postponed from 12/15/2021 (Declined at t his time) Start: 01-19-2023 Covid-19 Vaccine ( season) Covid-19 Vaccine ( season) [facility] Start: 01-19-2023 Influenza vaccination [facility] Start: 09-14-2022 End: 11-14-2022 ALGN [facility] Work Phone: Comment on above: Expected: 09/14/2022, Expires: 3 Start: 09-14-2022 End: 11-14-2022 IgE [Units/volume] in Serum or Plasma [facility] Work Phone: Comment on above: Expected: 09/14/2022, Expires: 3 Start: 08-30-2022 ANNUAL PCP TEAM CHRONIC DISEASE VISIT ANNUAL PCP TEAM CHRONIC DISEASE VISIT [facility] Start: 08-17-2022 End: 10-17-2022 CBC W Auto Differential panel - Blood CBC + DIFF Lab Routine Essential hypertension Gastroesophageal reflux disease, unspecified whether esophagitis present Expected: 08/17/2022, Expires: 10/17/2022 [facility] Work Phone: Comment on above: Expected: 08/17/2022, Expires: 3 Start: 08-17-2022 End: 10-17-2022 Comprehensive metabolic 2000 panel - Serum or Plasma COMP METABOLIC PANEL Lab Routine Essential hypertension Gastroesophageal reflux disease, unspecified whether esophagitis present Expected: 08/17/2022, Expires: 10/17/2022 [facility] Work Phone: Comment on above: Expected: 08/17/2022, Expires: 3 Start: 08-17-2022 End: 10-17-2022 Hemoglobin A1c in Blood HGB A1C Lab Routine Elevated glucose Expected: 08/17/2022, Expires: 10/17/2022 [facility] Work Phone: Comment on above: Expected: 08/17/2022, Expires: 3 Start: 08-17-2022 End: 10-17-2022 Lipid 1996 panel - Serum or Plasma LIPID PANEL BASIC Lab Routine Essential hypertension Expected: 08/17/2022, Expires: 10/17/2022 [facility] Work Phone: Comment on above: Expected: 08/17/2022, Expires: 3 Start: 06-29-2022 End: 06-29-2023 Echocardiography ECHO Cardiology Routine SOB (shortness of breath) Expected: 06/29/2022, Expires: 06/29/2023 [facility] Work Phone: Comment on above: Expected: 06/29/2022, Expires: 4 Start: 06-29-2022 End: 07-29-2023 Radiologic exam chest 2 views XR CHEST 2V FRONTAL/LAT Radiology Routine SOB (shortness of breath) Expected: 06/29/2022, Expires: 07/29/2023 [facility] Work Phone: Comment on above: Expected: 06/29/2022, Expires: 4 Start: 05-21-2022 ADVANCE DIRECTIVE DISCUSSION ADVANCE DIRECTIVE DISCUSSION [facility] Start: 05-21-2022 DEPRESSION ASSESSMENT DEPRESSION ASSESSMENT [facility] Start: 03-01-2022 End: 05-01-2022 CBC panel - Blood by Automated count CBC Lab Routine Essential hypertension Expected: 03/01/2022 (Approximate), Expires: 05/01/2022 [facility] Work Phone: Comment on above: Expected: 03/01/2022 (Approximate), Expi res: 05/01/2022 Start: 03-01-2022 End: 05-01-2022 Comprehensive metabolic 2000 panel - Serum or Plasma COMP METABOLIC PANEL Lab Routine Essential hypertension IFG (impaired fasting glucose) Expected: 03/01/2022 (Approximate), Expires: 05/01/2022 [facility] Work Phone: Comment on above: Expected: 03/01/2022 (Approximate), Expi res: 05/01/2022 Start: 03-01-2022 End: 05-01-2022 Hemoglobin A1c in Blood HGB A1C Lab Routine IFG (impaired fasting glucose) Expected: 03/01/2022 (Approximate), Expires: 05/01/2022 [facility] Work Phone: Comment on above: Expected: 03/01/2022 (Approximate), Expi res: 05/01/2022 Start: 03-01-2022 End: 05-01-2022 Lipid 1996 panel - Serum or Plasma LIPID PANEL BASIC Lab Routine Pure hypercholesterolemia Expected: 03/01/2022 (Approximate), Expires: 05/01/2022 [facility] Work Phone: Comment on above: Expected: 03/01/2022 (Approximate), Expi res: 05/01/2022 Start: 02-22-2022 Adult depression screening assessment DEPRESSION SCREENING [facility] Start: 02-22-2022 ANNUAL PCP TEAM CHRONIC DISEASE VISIT ANNUAL PCP TEAM CHRONIC DISEASE VISIT [facility] Start: 02-22-2022 Urine microalbumin profile DTAP,TDAP,TD (1 - Tdap) [facility] Comment on above: Postponed from 1961 (Declined at t his time) Start: 01-19-2022 Influenza vaccination INFLUENZA (#1) [facility] Start: 12-15-2021 COVID-19 VACCINE (5 - Booster for Moderna series) COVID-19 VACCINE (5 - Booster for Moderna series) [facility] Start: 07-28-2021 COVID-19 VACCINE (4 - Booster for Moderna series) COVID-19 VACCINE (4 - Booster for Moderna series) [facility] Start: 05-21-2021 ADVANCE DIRECTIVE DISCUSSION ADVANCE DIRECTIVE DISCUSSION [facility] Start: 05-21-2021 DEPRESSION ASSESSMENT DEPRESSION ASSESSMENT [facility] Start: 02-18-2002 Medicare Annual Wellness Visit Medicare Annual Wellness Visit [facility] Start: 1959 Urine microalbumin profile DTaP,Tdap,Td Vaccine (1 - Tdap) [facility] Start: 1960 BP CONTROLLED (<130/80) BP CONTROLLED (<130/80) [facility] CARDIAC IMPLANTABLE DEVICE CHECK CARDIAC IMPLANTABLE DEVICE CHECK PACEART Routine Pacemaker reprogramming/check 04/14/2024 2:03 PM EST [facility] End: 08-25-2023 ECG COMPLETE ECG COMPLETE ECG Routine Pacemaker Sick sinus syndrome (HCC) 1 Occurrences starting 08/24/2022 until 08/25/2023 [facility] Work Phone: Comment on above: 1 Occurrences starting 08/24/2022 until 08/25/2023 End: 01-14-2026 ECG COMPLETE ECG COMPLETE ECG Routine Atrial fibrillation, persistent (HCC) 1 Occurrences starting 01/14/2025 until 01/14/2026 [facility] Work Phone: Comment on above: 1 Occurrences starting 01/14/2025 until 01/14/2026 End: 01-22-2026 ECG COMPLETE ECG COMPLETE ECG Routine AF (paroxysmal atrial fibrillation) (HCC) 1 Occurrences starting 01/22/2025 until 01/22/2026 [facility] Work Phone: Comment on above: 1 Occurrences starting 01/22/2025 until 01/22/2026 End: 04-06-2023 DONA SCREENING W MUKUL DONA SCREENING W MUKUL Radiology Routine Encounter for screening mammogram for breast cancer 1 Occurrences starting 03/07/2022 until 04/06/2023 [facility] Work Phone: Comment on above: 1 Occurrences starting 03/07/2022 until 04/06/2023 End: 04-21-2024 DONA SCREENING W MUKUL DONA SCREENING W MUKUL Radiology Routine Breast cancer screening by mammogram 1 Occurrences starting 03/23/2023 until 04/21/2024 [facility] Work Phone: Comment on above: 1 Occurrences starting 03/23/2023 until 04/21/2024 End: 10-23-2025 MG Breast Screening DONA SCREENING Radiology Routine Encounter for screening mammogram for malignant neoplasm of breast 1 Occurrences starting 09/23/2024 until 10/23/2025 [facility] Work Phone: Comment on above: 1 Occurrences starting 09/23/2024 until 10/23/2025 End: 07-22-2023 NITRIC OXIDE, EXHALED NITRIC OXIDE, EXHALED PFT Routine Asthma, unspecified asthma severity, unspecified whether complicated, unspecified whether persistent 1 Occurrences starting 06/23/2022 until 07/22/2023 [facility] Work Phone: Comment on above: 1 Occurrences starting 06/23/2022 until 07/22/2023 End: 11-25-2023 NITRIC OXIDE, EXHALED NITRIC OXIDE, EXHALED PFT Routine Mild persistent asthma without complication 1 Occurrences starting 10/26/2022 until 11/25/2023 [facility] Work Phone: Comment on above: 1 Occurrences starting 10/26/2022 until 11/25/2023 PFIZER-BIONTECH COVI D-19 VACCINE (2022- SEASON) AGE 12+ YR PFIZER-BIONTECH COVID-19 VACCINE ( SEASON) AGE 12+ YR Immunization/Injection Routine Encounter for immunization 1 Occurrences starting 09/24/2023 [facility] Work Phone: Comment on above: 1 Occurrences starting 09/24/2023 End: 07-22-2023 SPIROMETRY - BASELINE AND POST DILATOR SPIROMETRY - BASELINE AND POST DILATOR PFT Routine Asthma, unspecified asthma severity, unspecified whether complicated, unspecified whether persistent 1 Occurrences starting 06/23/2022 until 07/22/2023 [facility] Work Phone: Comment on above: 1 Occurrences starting 06/23/2022 until 07/22/2023 [facility] Immunizations Immunization Date Immunization Notes Care Provider Fa [facility] 04-10-2024 influenza, high dose seasonal, preservative-free Van Huertas MD Work Phone: [facility] 04-10-2024 influenza virus vacc ine, unspecified formulation Van Huertas MD Work Phone: [facility] 03-23-2023 COVID-19 vaccine, ag e 12+ yr, season ([employer]) Van Huertas MD Work Phone: [facility] 03-23-2023 influenza (HD-IIV4) vaccine, age 65+ yr, high dose, quadrivalent, PF (FLUZONE HIGH-DOSE) Van Huertas MD Work Phone: [facility] 03-23-2023 influenza virus vacc ine, unspecified formulation Seven Bautista MD Work Phone: [facility] 03-07-2022 influenza, high-dose , quadrivalent vaccine (FLUZONE HIGH DOSE QUADRIVALENT) Sagrario Fong MD Work Phone: [facility] 03-07-2022 influenza virus vacc ine, unspecified formulation Pulm Wstr Work Phone: [facility] 03-30-2021 COVID-19 vaccine, fu ll dose (MODERNA) Sagrario Fong MD Work Phone: [facility] Work Phone: 02-22-2021 influenza, high-dose , quadrivalent vaccine (FLUZONE HIGH DOSE QUADRIVALENT) Sagrario Fong MD Work Phone: [facility] 07-30-2020 COVID-19 vaccine, fu ll dose (MODERNA) Sagrario Fong MD Work Phone: [facility] 07-02-2020 COVID-19 vaccine, fu ll dose (MODERNA) Sagrario Fong MD Work Phone: [facility] 05-05-2020 zoster vaccine recombinant Sagrario Fong MD Work Phone: [facility] 03-05-2020 influenza, high-dose , quadrivalent vaccine (FLUZONE HIGH DOSE QUADRIVALENT) Sagrario Fong MD Work Phone: [facility] 02-23-2020 pneumococcal conjuga te vaccine, 13 valent Sagrario Fong MD Work Phone: [facility] Work Phone: 02-23-2020 zoster vaccine recombinant Sagrario Fong MD Work Phone: [facility] Work Phone: 04-04-2019 influenza, high dose seasonal, preservative-free Sagrario Fong MD Work Phone: [facility] 12-20-2018 pneumococcal polysaccharide vaccine, 23 valent Sagrario Fong MD Work Phone: [facility] 03-08-2018 influenza, high dose seasonal, preservative-free Sagrario Fong MD Work Phone: [facility] 08-22-2016 pneumococcal conjuga te vaccine, 13 valent Sagrario Fong MD Work Phone: [facility] 02-08-2016 influenza, high dose seasonal, preservative-free Sagrario Fong MD Work Phone: [facility] 02-19-2009 influenza virus vacc ine, whole virus Xr Mob Work Phone: [facility] 03-05-2008 influenza virus vacc ine, unspecified formulation Sagrario Fong MD Work Phone: [facility] 03-29-2007 influenza virus vacc ine, whole virus Xr Mob Work Phone: [facility] Payers Date Payer Category Payer Self-pay [id number] 2005 Private Health Insurance [employer] PPO [id number] 2005-Present [phone] [address] [place] [address] PPO [id number] 2005 Private Health Insurance [id number] 2005 Unknown [id number] 2005 Private Health Insurance [id number] 2002 Medicare MEDICARE MEDICAR E A AND B [id number] 2002-Present [phone] [address] [address] [place] [address] Medicare [id number] 2002 Medicare [id number] 2002 Medicare [id number] Medicare [id number] Unknown [id number] Social History Date Type Detail Facility Start: 11-01-2020 End: 03-07-2022 Tobacco smoking status NHIS Never smoked tobacco [facility] Work Phone: Start: 04-04-2021 End: 09-29-2024 Alcohol intake Current non-drinker of alcohol (finding) [facility] Start: 01-29-2020 End: 03-02-2022 History SDOH Alcohol Binge 1 [facility] Start: 01-29-2020 End: 08-25-2021 History SDOH Social Connections Phone 5 [facility] Start: 01-29-2020 End: 08-25-2021 History SDOH Social Connections Get Together 4 [facility] Start: 01-29-2020 End: 08-25-2021 History SDOH Social Connections [employer] 3 [facility] Start: 01-29-2020 End: 03-02-2022 History SDOH Transport Med 2 [facility] Start: 01-29-2020 Education 15 [facility] Start: 11-01-2020 End: 03-07-2022 Tobacco Comment No household ETS exposure in entire lifetime. [facility] Start: 1940 Sex Assigned At Not on file [facility] Start: 08-25-2021 History SDOH Alcohol Std Drinks 98 [facility] Start: 08-20-2021 End: 08-30-2021 Exposure to SARS-CoV-2 (event) Not sure [facility] Start: 11-01-2020 End: 03-07-2022 Tobacco use and exposure Smokeless tobacco non-user [facility] Work Phone: Start: 08-25-2021 End: 10-26-2022 History of Social function [facility] Start: 08-25-2021 End: 10-26-2022 Social connection and isolation panel [facility] Do you belong to any clubs or organizations such as temple groups, unions, fraternal or athletic groups, or school groups? Yes [facility] Are you now , , , , never or living with a partner? [facility] How often to you hav e a drink containing alcohol? Never [facility] Start: 04-21-[address] inks containing alcohol do you have on a typical day? Patient refused [facility] Do you feel stress - tense, restless, nervous, or anxious, or unable to sleep at night because your mind is troubled all the time - these days [OSQ] Only a little [facility] (I/We) worried whechar er (my/our) food would run out before (I/we) got money to buy more. Never true [facility] In the past 12 month s, was there a time when you were not able to pay the mortgage or rent on time? No [facility] Do you feel stress - tense, restless, nervous, or anxious, or unable to sleep at night because your mind is troubled all the time - these days [OSQ] To some extent [facility] Start: 11-26-2013 [facility] Start: 11-26-2013 None [facility] Start: 11-26-2013 Non-smoker [facility] Start: 1940 Sex Assigned At Female W [facility] Medical Equipment Procedure Code Equipment Code Equipment Origin al Text Equipment Identifier Dates Start: 02-26-2017 End: 12-11-2022 Comment on above: Test blood sugar(s) 1 to 2 time daily. Dx: R73.03 Insulin: No Insulin: No Test blood sugar(s) 1 to 2 time daily. Dx: R73.03 Insulin: No [id number] Capsure[employer] Novus [id number][facility] Start: 07-18-2007 [id number] [employer] Novus [id number][facility] Start: 07-18-2007 [id number] Kami Xt [id number]_[facility] Start: 11-29-2017 Goals Date Patient Goal Desired Activity /State Personal health goal Personal health goal Functional Status Date Assessment Result Facility 12-15-2014 Are you deaf, or do you have serious difficulty hearing No 12/15/2014 10:56 AM Kay Garcia RN No [facility] 12-15-2014 Are you blind, or do you have serious difficulty seeing, even when wearing glasses No 12/15/2014 10:56 AM Kay Garcia RN No [facility] 12-15-2014 Do you have serious difficulty walking or climbing stairs No 12/15/2014 10:56 AM Kay Garcia RN No [facility] 12-15-2014 Do you have difficul ty dressing or bathing No 12/15/2014 10:56 AM Kay Garcia RN No [facility] 12-15-2014 Because of a physica l, mental, or emotional condition, do you have difficulty doing errands alone such as visiting a physician's office or shopping No 12/15/2014 10:56 AM EDT Kay Grijalva RN No [facility] Mental Status Date Assessment Result Facility 12-15-2014 Because of a physica l, mental, or emotional condition, do you have serious difficulty concentrating, remembering, or making decisions No 12/15/2014 10:56 AM EDT Kay Grijalva RN No [facility] Clinical Notes 02-18-2009 to 01-26-2025 Telephone Encounter - Ivanna Banda RN - 01/26/2025 3:52 PM EDTTelephone Encounter - Ivanna Banda RN - 01/26/2025 3:52 PM EDTRADHA ROGERS - 01/20/2025 8:16 AM EDTPatient Instructions Note Date & Type Note Facility 01-26-2025 Telephone encounter Note Patient noted to be scheduled for OPD on 02/20/25. DCC scheduled to follow. Patient aware and all questions answered. Patient denies missing any doses of Eliquis in last 3 weeks. States stopped Amio today due to side effects. States she has informed Dr. Huertas's office Ivanna Banda RN [facility] 01-26-2025 Miscellaneous Notes Patient noted to be scheduled for OPD on 02/20/25. DCC scheduled to follow. Patient aware and all questions answered. Patient denies missing any doses of Eliquis in last 3 weeks. States stopped Amio today due to side effects. States she has informed Dr. Huertas's office Ivanna Banda RN Please call patient to schedule EKG and OPD within the next few weeks due to just starting Amiodarone so we can schedule the DCC to follow on the same day. Laina Cantor RN ----- Message from Arden Santiago RN sent at 01/22/2025 10:43 AM EDT ----- Regarding: DCC Please schedule patient for DCC. Timeframe: in the next few weeks, just starting amiodarone Date of last H&P: September 2024 Three weeks uninterrupted anticoagulation: Yes, on eliquis KHARI needed: No Special instructions: None Arden Wilson RN January 22, 2025 10:44 AM documented in this encounter [facility] 01-22-2025 Telephone encounter Note Please call patient to schedule EKG and OPD within the next few weeks due to just starting Amiodarone so we can schedule the DCC to follow on the same day. Laina Cantor RN [facility] 01-22-2025 Telephone encounter Note ----- Message from Arden Santiago RN sent at 01/22/2025 10:43 AM EDT ----- Regarding: DCC Please schedule patient for DCC. Timeframe: in the next few weeks, just starting amiodarone Date of last H&P: September 2024 Three weeks uninterrupted anticoagulation: Yes, on eliquis KHARI needed: No Special instructions: None Arden Wilson RN January 22, 2025 10:44 AM [facility] 01-20-2025 Note HNO ID: [id number] Author: ?, ?, ? Service: ? Author Type: Licensed Nurse Type: Progress Notes Filed: 01/20/2025 08:17 Note Text: Patient presents for EKG per Dr Huertas. Reporting increased HR and Shortness of Breath. Tolerated procedure well. Radha Rogers LPN [facility] 01-20-2025 History of Present illness Narrative Patient presents for EKG per Dr Huertas. Reporting increased HR and Shortness of Breath. Tolerated procedure well. Radha Rogers LPN documented in this encounter [facility] 01-14-2025 Telephone encounter Note This is being addressed by cardiology (see phone note 01/11) Chasidy Qureshi APRN.INGREDIENT HANDLER [facility] Work Phone: 01-14-2025 Miscellaneous Notes This is being addressed by cardiology (see phone note 01/11) Chasidy Qureshi APRN.INGREDIENT HANDLER Patient is calling office c/o pressure in chest and heart rate is going up to 120 and even 178. Patient is unable to get heart rate down. Patient stated that this has been going on for 1 week. Patient was advised to go to ER for further evaluation. Dasia Fenton LPN documented in this encounter [facility] 01-10-2025 Telephone encounter Note Patient is calling office c/o pressure in chest and heart rate is going up to 120 and even 178. Patient is unable to get heart rate down. Patient stated that this has been going on for 1 week. Patient was advised to go to ER for further evaluation. Dasia Fenton LPN [facility] 12-10-2024 Telephone encounter Note Call from pharmacy requesting refill. Requested Prescriptions Pending Prescriptions Disp Refills apixaban (ELIQUIS) 5 mg tab(s) 60 tablet 11 Sig: Take 1 tablet by mouth two times a day. Patient last seen 04/14/24 By: Dr. Kiya Maguire [facility] 12-10-2024 Miscellaneous Notes Call from pharmacy requesting refill. Requested Prescriptions Pending Prescriptions Disp Refills apixaban (ELIQUIS) 5 mg tab(s) 60 tablet 11 Sig: Take 1 tablet by mouth two times a day. Patient last seen 04/14/24 By: Dr. Kiya Maguire documented in this encounter [facility] 09-29-2024 Instructions eWndy Lemus MD - 09/29/2024 11:59 AM EDT Hold Arnuity for two weeks then report back on SOB and tachycardia to determine next steps documented in this encounter [facility] 09-29-2024 History of Present illness Narrative Images from the original note were not included. . [facility] Note Patient name: Betzy Cruz PCP: Sagrario Fong MD CC: Shortness of breath HPI: Betzy Cruz 84 year old female never smoker with PMH significant for obesity, SSS s/p PPM, possible seizures, HTN, HLD, spinal stenosis, AF and asthma. Treatment of her asthma has been hindered by beta agonist induced arrhythmia. At [facility], she was pending ablation versus Watchman and inhaled therapy changed to ICS alone. Today she states she is not a candidate for watchman and has reluctantly started Eliquis. Change to inhaled corticosteroid alone has not made much difference in her tachycardia nor her shortness of breath. She continues to have mainly dyspnea with exertion especially climbing stairs. No wheezing or cough. It is unclear whether her persistent shortness of breath/dyspnea on exertion is related to her persistent atrial arrhythmia or her underlying asthma. She is concerned that the Arnuity is causing persistent episodes of tachycardia. ASTHMA CONTROL TEST Date: 09/29/2024 In the last 4 weeks, how much of the time did your asthma keep you from getting as much done at work or home that you wanted to do? Some of the time (3) In the last 4 weeks, how often have you had shortness of breath? More than once per day (1) In the last 4 weeks, how often did your asthma symptoms (wheezing, coughing, shortness of breath, chest tightness or pain) wake you up at night or earlier than usual? Once or twice (4) In the last 4 weeks, how often have you used your rescue inhaler or nebulizer medication (such as Albuterol, Proventil, Ventolin, Maxair, Xoponex, or Primatene Mist)? Once a week or less (4) In the last 4 weeks, how would you rate your asthma control? Poorly controlled (2) Total: less than 15 PAST MEDICAL HISTORY Diagnosis Date Asthma (HCC) Atrial fibrillation (HCC) Cardiac pacemaker in situ 03/05/2008 PM-Device Mfg Medtronic Model SEDR01 Sensia Serial Number [id number] Implant Date 07/18/2007 BLANK _ Lead1 Mfg Medtronic Model 5076 Serial Number [id number] Location right Implant Date 07/18/2007 BLANK _ Lead2 Mfg Medtronic Model 5076 Serial Number [id number] Location right Implant Date 07/18/2007 Epilepsy (HCC) Essential hypertension, benign well controlled Generalized osteoarthrosis, unspecified site Impaired glucose tolerance test Runs usually 100 Obesity Other and unspecified disc disorder of lumbar region Other and unspecified hyperlipidemia Spinal stenosis, lumbar region, without neurogenic claudication s/p L5-S1 sx '00 ALLERGIES Allergen Reactions Latex Rash itches Crestor [Rosuvastat* Myalgia severe muscles aches Lipitor [Atorvastat* Myalgia severe muscle aches Adhesive Rash redness Amlodipine Swelling leg swelling Atenolol Intolerance gained a lot of weight Seasonal Allergies Cough rosuvastatin (CRESTOR) 5 mg tablet Take 1 tablet by mouth daily at bedtime. As directed. Currently taking MWF. apixaban (ELIQUIS) 5 mg tab(s) Take 1 tablet by mouth two times a day. carvedilol (COREG) 3.125 mg tablet Take 1 tablet by mouth two times a day. lamoTRIgine (LAMICTAL) 100 mg tablet Take 1 tablet by mouth two times a day. erythromycin (ROMYCIN) 5 mg/gram (0.5 %) ophthalmic ointment Use in both eyes. 1 x daily fluticasone (FLONASE ALLERGY RELIEF) 50 mcg/actuation nasal spray Use 1 Wallace in each nostril once daily. hydroCHLOROthiazide (HYDRODIURIL, ESIDRIX) 12.5 mg capsule Take 1 capsule by mouth once daily as needed. FLAXSEED OIL (OMEGA 3 ORAL) Take by mouth once daily. calcium carbonate(CALCIUM 500 500 MG (1,250 MG) TAB) Takes 4327-4508 mg once daily. fluticasone furoate (ARNUITY ELLIPTA) 100 mcg/actuation inhaler Inhale 1 puff as instructed once daily. (Patient not taking: Reported on 09/29/2024) Cholecalciferol, Vitamin D3, 1,000 unit ORAL Cap Take one(1) tablet two(2) times daily. (Patient not taking: Reported on 09/29/2024) Social History Tobacco Use Smoking status: Never Smokeless tobacco: Never Tobacco comments: No household ETS exposure in entire lifetime. Vaping Use Vaping status: Never Used Substance Use Topics Alcohol use: No Drug use: No FAMILY HISTORY Problem Relation Age of Onset Hypertension Mother age 91 other (high cholesterol) Father other (black lung) Father Asthma Father Severe Asthma Sister Lung Cancer Brother Smoker. Diabetes Maternal Grandmother Diabetes Other cousins Hypertension Other brothers/ sisters other (high cholesterol) Other brothers PAST SURGICAL HISTORY Procedure Laterality Date ARTHRP ACETBLR/PROX FEM PROSTC AGRFT/ALGRFT 2008 Hip replacement, total left NEUROPLASTY &/TRANSPOS MEDIAN NRV CARPAL TUNNE Right 02/21/2019 Right CTR PACEMAKER 2009 PAST SURGICAL HISTORY OF lumbar surgery x 3 PAST SURGICAL HISTORY OF 11/2017 Battery replacement - pacemaker PMH, Social history, family history and surgical history reviewed and updated in EMR REVIEW OF SYSTEMS: CONSTITUTIONAL: No fevers, chills, nightsweats, unintended weight loss HEENT: Current nasal congestion/sinus symptoms, allergy problems. Throat clearing CARDIOVASCULAR: No chest pain, orthopnea. Edema. PULM: See HPI GI: No GERD PSY: No concerns regarding depression, anxiety INTEGUMENTARY: Mild easy bruising PHYSICAL EXAMINATION: BP 132/81 Pulse 73 Wt 198 lb (89.8kg) SpO2 98% General Appearance: Elderly female, NAD. Skin: Skin color, texture, turgor normal, no suspicious rashes or lesions. Oropharynx: No oral lesions or cobblestoning. Neck: No masses or adenopathy or JVD. Lungs: Not labored, normal to percussion, no wheezes or crackles. Heart: Regular rate and rhythm, no murmurs. Extremities: Edema, no clubbing. Assessment/Plan: 1. Shortness of breath -Symptomatology less consistent with persistent asthma as the etiology for her persistent shortness of breath. Likely more attributable to her obesity and her chronic paroxysmal atrial fibrillation 2. Mild intermittent asthma, uncomplicated -See #1 -See #3 -Holding Arnuity. If she notices a difference in her tachycardia off inhaled corticosteroid, she will need updated spirometry and exhaled nitric oxide level 3. Chronic atrial fibrillation, paroxysmal - Due to patient's concerns regarding inhaled corticosteroid aggravating her tachycardia, she will hold her Arnuity for 2 weeks and report back on her symptom symptoms. Wendy Lemus MD [facility] documented in this encounter [facility] 09-29-2024 Note HNO ID: [id number] Author: WENDY LEMUS MD Service: ? Author Type: Physician Type: Progress Notes Filed: 09/29/2024 12:37 Note Text: . [facility] Patient name: Betzy Cruz PCP: Sagrario Fong MD CC: Shortness of breath HPI: Betzy Cruz 84 year old female never smoker with PMH significant for obesity, SSS s/p PPM, possible seizures, HTN, HLD, spinal stenosis, AF and asthma. Treatment of her asthma has been hindered by beta agonist induced arrhythmia. At [facility], she was pending ablation versus Watchman and inhaled therapy changed to ICS alone. Today she states she is not a candidate for watchman and has reluctantly started Eliquis. Change to inhaled corticosteroid alone has not made much difference in her tachycardia nor her shortness of breath. She continues to have mainly dyspnea with exertion especially climbing stairs. No wheezing or cough. It is unclear whether her persistent shortness of breath/dyspnea on exertion is related to her persistent atrial arrhythmia or her underlying asthma. She is concerned that the Arnuity is causing persistent episodes of tachycardia. ASTHMA CONTROL TEST Date: 09/29/2024 In the last 4 weeks, how much of the time did your asthma keep you from getting as much done at work or home that you wanted to do? Some of the time (3) In the last 4 weeks, how often have you had shortness of breath? More than once per day (1) In the last 4 weeks, how often did your asthma symptoms (wheezing, coughing, shortness of breath, chest tightness or pain) wake you up at night or earlier than usual? Once or twice (4) In the last 4 weeks, how often have you used your rescue inhaler or nebulizer medication (such as Albuterol, Proventil, Ventolin, Maxair, Xoponex, or Primatene Mist)? Once a week or less (4) In the last 4 weeks, how would you rate your asthma control? Poorly controlled (2) Total: less than 15 PAST MEDICAL HISTORY Diagnosis Date Asthma (HCC) Atrial fibrillation (HCC) Cardiac pacemaker in situ 03/05/2008 PM-Device [employer] Medtronic Model SEDR01 Sensia Serial Number [id number] Implant Date 07/18/2007 BLANK _ Lead1 Mfg Medtronic Model 5076 Serial Number [id number] Location right Implant Date 07/18/2007 BLANK _ Lead2 Mfg Medtronic Model 5076 Serial Number [id number] Location right Implant Date 07/18/2007 Epilepsy (HCC) Essential hypertension, benign well controlled Generalized osteoarthrosis, unspecified site Impaired glucose tolerance test Runs usually 100 Obesity Other and unspecified disc disorder of lumbar region Other and unspecified hyperlipidemia Spinal stenosis, lumbar region, without neurogenic claudication s/p L5-S1 sx '00 ALLERGIES Allergen Reactions Latex Rash itches Crestor [Rosuvastat* Myalgia severe muscles aches Lipitor [Atorvastat* Myalgia severe muscle aches Adhesive Rash redness Amlodipine Swelling leg swelling Atenolol Intolerance gained a lot of weight Seasonal Allergies Cough rosuvastatin (CRESTOR) 5 mg tablet Take 1 tablet by mouth daily at bedtime. As directed. Currently taking MWF. apixaban (ELIQUIS) 5 mg tab(s) Take 1 tablet by mouth two times a day. carvedilol (COREG) 3.125 mg tablet Take 1 tablet by mouth two times a day. lamoTRIgine (LAMICTAL) 100 mg tablet Take 1 tablet by mouth two times a day. erythromycin (ROMYCIN) 5 mg/gram (0.5 %) ophthalmic ointment Use in both eyes. 1 x daily fluticasone (FLONASE ALLERGY RELIEF) 50 mcg/actuation nasal spray Use 1 Wallace in each nostril once daily. hydroCHLOROthiazide (HYDRODIURIL, ESIDRIX) 12.5 mg capsule Take 1 capsule by mouth once daily as needed. FLAXSEED OIL (OMEGA 3 ORAL) Take by mouth once daily. calcium carbonate(CALCIUM 500 500 MG (1,250 MG) TAB) Takes 7274-4207 mg once daily. fluticasone furoate (ARNUITY ELLIPTA) 100 mcg/actuation inhaler Inhale 1 puff as instructed once daily. (Patient not taking: Reported on 09/29/2024) Cholecalciferol, Vitamin D3, 1,000 unit ORAL Cap Take one(1) tablet two(2) times daily. (Patient not taking: Reported on 09/29/2024) Social History Tobacco Use Smoking status: Never Smokeless tobacco: Never Tobacco comments: No household ETS exposure in entire lifetime. Vaping Use Vaping status: Never Used Substance Use Topics Alcohol use: No Drug use: No FAMILY HISTORY Problem Relation Age of Onset Hypertension Mother age 91 other (high cholesterol) Father other (black lung) Father Asthma Father Severe Asthma Sister Lung Cancer Brother Smoker. Diabetes Maternal Grandmother Diabetes Other cousins Hypertension Other brothers/ sisters other (high cholesterol) Other brothers PAST SURGICAL HISTORY Procedure Laterality Date ARTHRP ACETBLR/PROX FEM PROSTC AGRFT/ALGRFT 2007 Hip replacement, total left NEUROPLASTY AND/TRANSPOS MEDIAN NRV CARPAL TUNNE Right 02/21/2019 Right CTR PACEMAKER 2009 PAST SURGICAL (more content not included)... [facility] 09-23-2024 Instructions Vince Vilchis APRN.BILINGUAL LEGAL ASSISTANT - 09/23/2024 9:36 AM EDT Take your cholesterol medication 4 days per week (instead of 3 days) as a trial to help lower your cholesterol; if you feel any discomfort or unusual aches, please revert to your previous schedule. Use your maintenance inhaler (Arnuity) every day as directed to keep your asthma under control; continue to use your albuterol inhaler when you experience cough, wheezing, or shortness of breath. If you decide you d like further evaluation regarding your your history of epilepsy and need for continued treatment, consider scheduling an appointment with Dr. Nino, our local neurologist. documented in this encounter [facility] 09-23-2024 History of Present illness Narrative SUBJECTIVE: DTaP,Tdap,Td Vaccine(1 - Tdap) Never done Advance Directive Discussion due on 05/21/2024 Depression Screening due on 09/23/2024 Anxiety Screening due on 09/23/2024 HPI Betzy Cruz is a 84 year old female. PMH significant for ACTIVE PROBLEM LIST Postlaminectomy Syndrome, Lumbar Region Spinal Stenosis, Lumbar Region, Without Neurogenic Claudication Cardiac Pacemaker in Situ Left Hip Pain Knee Pain Syncope Psvt (Paroxysmal Supraventricular Tachycardia) (Hcc) Chronic Venous Insufficiency Essential Hypertension Obesity (Bmi 30.0-34.9) Pacemaker Epilepsy (Hcc) Mild Persistent Asthma Without Complication (Hcc) Gerd (Gastroesophageal Reflux Disease) Sick Sinus Syndrome (Hcc) Presents for routine follow-up visit. She is in her usual state of health. Betzy is an 84-year-old female with a history of atrial fibrillation, hyperlipidemia, and asthma, presenting for a routine visit with complaints of fatigue and sleep disturbances. Fatigue: - Reports persistent fatigue, going to bed and waking up tired. - She thinks that fatigue has worsened since starting Eliquis. - no anemia. - Increased water intake due to concerns about dehydration. Sleep Disturbances: - Chronic difficulty falling and staying asleep; averages 5 hours of sleep per night. - Goes to bed before 22:00 due to 's schedule but wakes up around 04:30-05:00. - Has never been an 8-hour person. - Uses a humidifier and has the head of the bed raised. - Tested for sleep apnea several years ago with negative results. - Denies snoring. Atrial Fibrillation: - Taking Eliquis. Stopped fish oil. Cut out caffeine - decaf coffee now - Reports heart rate consistently around 90 bpm, with episodes reaching 140-160 bpm. - Pacemaker in place; recent checks have been conducted. - Denies recent seizures; last suspected seizure was in 2013. - Discussed with Dr. Huertas the possibility of discontinuing seizure medication. Hyperlipidemia: - Taking cholesterol medication (unspecified) at night on Sunday, Sunday, and Sunday. - No adverse effects from the medication. - Recent labs show slightly elevated cholesterol and A1c levels. - Discontinued fish oil as per reimbursement coordinator's recommendation. Asthma: - Using albuterol inhaler more frequently than Arnuity. - Arnuity used approximately 4 days per week. - Experiences morning cough and congestion, attributed to allergies and sinus drainage. - Uses Flonase for allergy symptoms. - Has dry eyes, managed with medication. Social History: - Has a living will and medical power of regulatory attorney with family members. - Stays home more often due to 's age (88 years old). - Denies depression or anxiety; does not feel the need for medication or counseling. Last seen by PCP in March 2024. 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 DDD-PPM 2007, generator change Dr Cabrales 11/29/2017. Last visit with Dr. Huertas 03/2024. Followed by pulmonology, Wendy Lemus MD and Ivanna Lemus PA-C. Note mild persistent asthma. Prescribed Breo ellipta. Continued on albuterol. HTN: Without report of headache, chest pain, palpitations, dyspnea, and peripheral edema. Last 14 Encounter BP Readings: Date: BP: 04/14/2024 152/84 03/24/2024 112/64 03/20/2024 106/70 02/18/2024 145/87 09/24/2023 123/77 09/06/2023 110/87 04/09/2023 156/90 03/23/2023 138/80 02/28/2023 148/86 12/11/2022 115/72 10/26/2022 122/78 09/14/2022 122/82 09/05/2022 132/80 07/27/2022 144/60 Hyperlipidemia. Ms. Cruz reports doing well on current therapy.Her most recent lipid panels are: Cholesterol, Total (mg/dL) Date Value 09/10/2024 236 02/19/2024 222 02/10/2021 167 07/20/2020 181 HDL Cholesterol (mg/dL) Date Value 09/10/2024 49 02/19/2024 44 02/10/2021 51 07/20/2020 48 LDL Cholesterol, Calculated (mg/dL) Date Value 09/10/2024 177 02/19/2024 161 02/10/2021 104 07/20/2020 120 Triglyceride (mg/dL) Date Value 09/10/2024 61 02/19/2024 84 02/10/2021 62 07/20/2020 66 Patient's last HgA1C was Hemoglobin A1C (%) Date Value 09/10/2024 5.9 02/19/2024 5.6 02/10/2021 5.8 07/20/2020 6.0 ) Review of Systems Constitutional: Negative. Respiratory: Negative. Cardiovascular: Negative. Objective BP 115/72 Pulse 74 Wt 88.5 kg (195 lb 1.7 oz) SpO2 97% BMI 30.56 kg/m Physical Exam Vitals and nursing note reviewed. Constitutional: Appearance: Normal appearance. HENT: Head: Normocephalic and atraumatic. Eyes: Conjunctiva/sclera: Conjunctivae normal. Neck: Thyroid: No thyromegaly. Vascular: Normal carotid pulses. No JVD. Cardiovascular: Rate and Rhythm: Normal rate and regular rhythm. Pulses: Carotid pulses are 2+ on the right side and 2+ on the left side. Radial pulses are 2+ on the right side and 2+ on the left side. Heart sounds: Normal heart sounds. Pulmonary: Effort: Pulmonary effort is normal. Breath sounds: Normal breath sounds. Abdominal: General: Bowel sounds are normal. Palpations: Abdomen is soft. Musculoskeletal: Right lower leg: No edema. Left lower leg: No edema. Skin: General: Skin is warm and dry. Neurological: General: No focal deficit present. Mental Status: She is alert and oriented to person, place, and time. ALLERGIES Allergen Reactions Latex Rash itches Crestor [Rosuvastat* Myalgia severe muscles aches Lipitor [Atorvastat* Myalgia severe muscle aches Adhesive Rash redness Amlodipine Swelling leg swelling Atenolol Intolerance gained a lot of weight Seasonal Allergies Cough Medication apixaban (ELIQUIS) 5 mg tab(s) Take 1 tablet by mouth two times a day. carvedilol (COREG) 3.125 mg tablet Take 1 tablet by mouth two times a day. lamoTRIgine (LAMICTAL) 100 mg tablet Take 1 tablet by mouth two times a day. erythromycin (ROMYCIN) 5 mg/gram (0.5 %) ophthalmic ointment Use in both eyes. 1 x daily fluticasone (FLONASE ALLERGY RELIEF) 50 mcg/actuation nasal spray Use 1 Wallace in each nostril once daily. hydroCHLOROthiazide (HYDRODIURIL, ESIDRIX) 12.5 mg capsule Take 1 capsule by mouth once daily as needed. FLAXSEED OIL (OMEGA 3 ORAL) Take by mouth once daily. Cholecalciferol, Vitamin D3, 1,000 unit ORAL Cap Take one(1) tablet two(2) times daily. calcium carbonate(CALCIUM 500 500 MG (1,250 MG) TAB) Takes 2070-9032 mg once daily. rosuvastatin (CRESTOR) 5 mg tablet Take 1 tablet by mouth daily at bedtime. As directed. Currently taking MWF. fluticasone furoate (ARNUITY ELLIPTA) 100 mcg/actuation inhaler Inhale 1 puff as instructed once daily. PAST MEDICAL HISTORY Diagnosis Date Asthma (HCC) Atrial fibrillation (HCC) Cardiac pacemaker in situ 03/05/2008 PM-Device [facility] [id number] Sensia Serial Number [id number] Implant Date 07/18/2007 BLANK _ Lead1 Mfg Medtronic Model 5076 Serial Number [id number] Location right Implant Date 07/18/2007 BLANK _ Lead2 Mfg Medtronic Model 5076 Serial Number [id number] Location right Implant Date 07/18/2007 Epilepsy (HCC) Essential hypertension, benign well controlled Generalized osteoarthrosis, unspecified site Impaired glucose tolerance test Runs usually 100 Obesity Other and unspecified disc disorder of lumbar region Other and unspecified hyperlipidemia Spinal stenosis, lumbar region, without neurogenic claudication s/p L5-S1 sx '00 Social History Tobacco Use Smoking status: Never Smokeless tobacco: Never Tobacco comments: No household ETS exposure in entire lifetime. Vaping Use Vaping status: Never Used Substance Use Topics Alcohol use: No Drug use: No Latest Ref Rng 02/19/2024 09/10/2024 WBC 3.70 - 11.00 k/uL 6.37 7.48 RBC 3.90 - 5.20 m/uL 4.73 4.75 Hemoglobin 11.5 - 15.5 g/dL 13.6 13.5 Hematocrit 36.0 - 46.0 % 42.0 41.2 MCV 80.0 - 100.0 fL 88.8 86.7 MCH 26.0 - 34.0 pg 28.8 28.4 MCHC 30.5 - 36.0 g/dL 32.4 32.8 RDW-CV 11.5 - 15.0 % 12.9 13.1 Platelet Count 150 - 400 k/uL 246 255 MPV 9.0 - 12.7 fL 10.0 9.6 Neut% % 59.8 Abs Neut (ANC) 1.45 - 7.50 k/uL 3.81 Lymph% % 27.3 Abs Lymph 1.00 - 4.00 k/uL 1.74 Garland% % 8.6 Abs Garland <0.87 k/uL 0.55 Eosin% % 2.7 Abs Eosin <0.46 k/uL 0.17 Baso% % 1.1 Abs Baso <0.11 k/uL 0.07 Immature Gran % % 0.5 IMMATURE GRANS (ABS) <0.10 k/uL 0.03 NRBC /100 WBC 0.0 Absolute nRBC <0.01 k/uL <0.01 <0.01 DTYPE Auto Protein, Total 6.3 - 8.0 g/dL 7.1 7.1 Albumin 3.9 - 4.9 g/dL 4.2 4.2 Calcium 8.5 - 10.2 mg/dL 9.7 9.6 Bilirubin, Total 0.2 - 1.3 mg/dL 0.5 0.5 Alkaline Phosphatase 34 - 123 U/L 73 68 AST 13 - 35 U/L 21 22 ALT 7 - 38 U/L 14 13 Glucose 74 - 99 mg/dL 109 (H) 95 BUN 7 - 21 mg/dL 22 (H) 14 Creatinine 0.58 - 0.96 mg/dL 0.85 0.80 Sodium 136 - 144 mmol/L 141 140 Potassium 3.7 - 5.1 mmol/L 4.6 4.3 Chloride 98 - 107 mmol/L 103 103 CO2 22 - 30 mmol/L 27 28 Anion Gap 8 - 15 mmol/L 11 9 eGFR >=60 mL/min/1.73m 69 74 Cholesterol, Total <200 mg/dL 222 (H) 236 (H) Triglyceride <150 mg/dL 84 61 HDL Cholesterol >39 mg/dL 44 49 Non HDL Cholesterol <130 mg/dL 178 (H) 187 (H) Fasting Time hrs 12 12 VLDL Cholesterol <30 mg/dL 17 12 TC:HDL Ratio <5.10 5.05 4.82 LDL Cholesterol, Calculated <100 mg/dL 161 (H) 177 (H) LDL:HDL Ratio <2.54 3.66 (H) 3.61 (H) Hemoglobin A1C 4.3 - 5.6 % 5.6 5.9 (H) Estimated Average Glucose mg/dL 114 123 Magnesium 1.7 - 2.3 mg/dL 2.0 TSH 0.270 - 4.200 mIU/L 2.200 1. Essential hypertension (I10) - Blood pressure readings are lower than usual; first reading was 99 mmHg. - Continue current management. 2. Pure hypercholesterolemia (E78.00) - Cholesterol levels slightly elevated. - Currently taking cholesterol medication at night on Sunday, Sunday, and Sunday. - Advised to increase frequency to four days a week. - Patient to notify if a refill is needed. 3. Mild persistent asthma without complication (HCC) (J45.30) 4. Chronic cough (R05.3) - Using Arnuity maintenance inhaler approximately four days a week and albuterol rescue inhaler more frequently. - Educated on the importance of using Arnuity daily to maintain asthma control and using albuterol for acute symptoms. - Discussed potential contribution of allergies to chronic cough; advised consistent use of Flonase during allergy season. 5. Screening for depression (Z13.31) 6. Encounter for screening examination for other mental health and behavioral disorders (Z13.39) - No signs of depression or anxiety; patient denies need for medication or counseling. 7. Sick sinus syndrome (HCC) (I49.5) 8. Cardiac pacemaker in situ (Z95.0) - Heart rate consistently around 90 bpm, with episodes reaching 140-160 bpm. - No changes to current management. 9. Nonintractable epilepsy without status epilepticus, unspecified epilepsy type (HCC) (G40.909) - Last suspected seizure episode in 2013. - Discussed potential referral to Dr. Nino, neurologist, for further evaluation and consideration of medication discontinuation. - Patient to consider referral. 10. Gastroesophageal reflux disease, unspecified whether esophagitis present (K21.9) 6 mo follow up Sagrario Fong MD with labs Vince Vilchis APRN.CNS Medical Decision Making: Problems: Moderate: 2+ stable chronic illnesses Data: Unique test(s) ordered: 3+ Risk: Moderate: Drug management Medical Decision Making Level: 4 - Moderate documented in this encounter [facility] 09-23-2024 Note HNO ID: [id number] Author: VINCE VILCHIS APRN.BILINGUAL LEGAL ASSISTANT Service: ? Author Type: Nurse Specialist Type: Progress Notes Filed: 09/23/2024 09:43 Note Text: SUBJECTIVE: DTaP,Tdap,Td Vaccine(1 - Tdap) Never done Advance Directive Discussion due on 05/21/2024 Depression Screening due on 09/23/2024 Anxiety Screening due on 09/23/2024 HPI Betzy Cruz is a 84 year old female. PMH significant for ACTIVE PROBLEM LIST Postlaminectomy Syndrome, Lumbar Region Spinal Stenosis, Lumbar Region, Without Neurogenic Claudication Cardiac Pacemaker in Situ Left Hip Pain Knee Pain Syncope Psvt (Paroxysmal Supraventricular Tachycardia) (Hcc) Chronic Venous Insufficiency Essential Hypertension Obesity (Bmi 30.0-34.9) Pacemaker Epilepsy (Hcc) Mild Persistent Asthma Without Complication (Hcc) Gerd (Gastroesophageal Reflux Disease) Sick Sinus Syndrome (Hcc) Presents for routine follow-up visit. She is in her usual state of health. Betzy is an 84-year-old female with a history of atrial fibrillation, hyperlipidemia, and asthma, presenting for a routine visit with complaints of fatigue and sleep disturbances. Fatigue: - Reports persistent fatigue, going to bed and waking up tired. - She thinks that fatigue has worsened since starting Eliquis. - no anemia. - Increased water intake due to concerns about dehydration. Sleep Disturbances: - Chronic difficulty falling and staying asleep; averages 5 hours of sleep per night. - Goes to bed before 22:00 due to 's schedule but wakes up around 04:30-05:00. - Has never been an 8-hour person. - Uses a humidifier and has the head of the bed raised. - Tested for sleep apnea several years ago with negative results. - Denies snoring. Atrial Fibrillation: - Taking Eliquis. Stopped fish oil. Cut out caffeine - decaf coffee now - Reports heart rate consistently around 90 bpm, with episodes reaching 140-160 bpm. - Pacemaker in place; recent checks have been conducted. - Denies recent seizures; last suspected seizure was in 2013. - Discussed with Dr. Huertas the possibility of discontinuing seizure medication. Hyperlipidemia: - Taking cholesterol medication (unspecified) at night on Sunday, Sunday, and Sunday. - No adverse effects from the medication. - Recent labs show slightly elevated cholesterol and A1c levels. - Discontinued fish oil as per reimbursement coordinator's recommendation. Asthma: - Using albuterol inhaler more frequently than Arnuity. - Arnuity used approximately 4 days per week. - Experiences morning cough and congestion, attributed to allergies and sinus drainage. - Uses Flonase for allergy symptoms. - Has dry eyes, managed with medication. Social History: - Has a living will and medical power of regulatory attorney with family members. - Stays home more often due to 's age (88 years old). - Denies depression or anxiety; does not feel the need for medication or counseling. Last seen by PCP in March 2024. 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 DDD-PPM 2007, generator change Dr Cabrales 11/29/2017. Last visit with Dr. Huertas 03/2024. Followed by pulmonology, Wendy Lemus MD and Ivanna Lemus PA-C. Note mild persistent asthma. Prescribed Breo ellipta. Continued on albuterol. HTN: Without report of headache, chest pain, palpitations, dyspnea, and peripheral edema. Last 14 Encounter BP Readings: Date: BP: 04/14/2024 152/84 03/24/2024 112/64 03/20/2024 106/70 02/18/2024 145/87 09/24/2023 123/77 09/06/2023 110/87 04/09/2023 156/90 03/23/2023 138/80 02/28/2023 148/86 12/11/2022 115/72 10/26/2022 122/78 09/14/2022 122/82 09/05/2022 132/80 07/27/2022 144/60 Hyperlipidemia. Ms. Cruz reports doing well on current therapy.Her most recent lipid panels are: Cholesterol, Total (mg/dL) Date Value 09/10/2024 236 02/19/2024 222 02/10/2021 167 07/20/2020 181 HDL Cholesterol (mg/dL) Date Value 09/10/2024 49 02/19/2024 44 02/10/2021 51 07/20/2020 48 LDL Cholesterol, Calculated (mg/dL) Date Value 09/10/2024 177 02/19/2024 161 02/10/2021 104 07/20/2020 120 Triglyceride (mg/dL) Date Value 09/10/2024 61 02/19/2024 84 02/10/2021 62 07/20/2020 66 Patient's last HgA1C was Hemoglobin A1C (%) Date Value 09/10/2024 5.9 02/19/2024 5.6 02/10/2021 5.8 07/20/2020 6.0 ) Review of Systems Constitutional: Negative. Respiratory: Negative. Cardiovascular: Negative. Objective BP 115/72 Pulse 74 Wt 88.5 kg (195 lb 1.7 oz) SpO2 97% BMI 30.56 kg/m? Physical Exam Vitals and nursing note reviewed. Constitutional: Appearance: Normal appearance. HENT: Head: Normocephalic and atraumatic. Eyes: Conjunctiva/sclera: Conjunctivae normal. Neck: Thyroid: No thyromegaly. Vascular: Normal carotid pulses. No JVD. Cardiovascular: Rate (more content not included)... [facility] 09-16-2024 Note HNO ID: [id number] Author: ALLYN KUHN MA Service: ? Author Type: Electrical Apprentice Type: Progress Notes Filed: 09/16/2024 15:05 Note Text: POPULATION HEALTH NAVIGATION OUTREACH Action/FYI Contacted patient to schedule HCC care gaps and health maintenance. Updated upcoming follow up to include HCC gap closure. 1st attempt: Left message with my direct number 2nd attempt: My Chart message sent Topic Due (Y or N) Comments Annual Wellness Exam Yes PCP Follow up No Colorectal Cancer Screening No A1C No HTN/Controlling BP No HCC Yes Updated appointment notes Yes Reason for Outreach Care Gap/HCC or Scheduling Wellness Visits Care Gaps due: Medicare Annual Wellness Visit Patient Contacted: Unable or unnecessary to reach patient: Left message MyChart message sent HCC related Updated appointment notes Navigation Signature: Allyn Kuhn MA September 16, 2024 3:04 PM [facility] 09-16-2024 History of Present illness Narrative POPULATION HEALTH NAVIGATION OUTREACH Action/FYI Contacted patient to schedule HCC care gaps and health maintenance. Updated upcoming follow up to include HCC gap closure. 1st attempt: Left message with my direct number 2nd attempt: My Chart message sent Topic Due (Y or N) Comments Annual Wellness Exam Yes PCP Follow up No Colorectal Cancer Screening No A1C No HTN/Controlling BP No HCC Yes Updated appointment notes Yes Reason for Outreach Care Gap/HCC or Scheduling Wellness Visits Care Gaps due: Medicare Annual Wellness Visit Patient Contacted: Unable or unnecessary to reach patient: Left message Terrajoulehart message sent HCC related Updated appointment notes Navigation Signature: Allyn Kuhn MA September 16, 2024 3:04 PM documented in this encounter [facility] 09-16-2024 Note Patient Outreach (NE TNAV) BETZY CRUZ ([id number]) 1940 F Date Time Provider Department 09/16/24 ALLYN KUHNV During your visit today, we recorded the following information about you: Allyn Kuhn MA 09/16/2024 3:05 PM Signed POPULATION HEALTH NAVIGATION OUTREACH Action/FYI Contacted patient to schedule HCC care gaps and health maintenance. Updated upcoming follow up to include HCC gap closure. 1st attempt: Left message with my direct number 2nd attempt: My Chart message sent Topic Due (Y or N) Comments Annual Wellness Exam Yes PCP Follow up No Colorectal Cancer Screening No A1C No HTN/Controlling BP No HCC Yes Updated appointment notes Yes Reason for Outreach Care Gap/HCC or Scheduling Wellness Visits Care Gaps due: Medicare Annual Wellness Visit Patient Contacted: Unable or unnecessary to reach patient: Left message MyChart message sent HCC related Updated appointment notes Navigation Signature: Allyn Kuhn MA September 16, 2024 3:04 PM Allergies As of Date: 09/16/2024 Noted Allergy Reaction LATEX 02/28/2008 2 - Rash Comments: itches CRESTOR (ROSUVASTATIN) 12/20/2018 17 - Myalgia Comments: severe muscles aches LIPITOR (ATORVASTATIN) 12/20/2018 17 - Myalgia Comments: severe muscle aches ADHESIVE 10/11/2010 2 - Rash Comments: redness AMLODIPINE 08/22/2016 7 - Swelling Comments: leg swelling ATENOLOL 06/11/2018 5 - Intolerance Comments: gained a lot of weight SEASONAL ALLERGIES 10/11/2010 3 - Cough Date Reviewed: 04/14/2024 Reviewed by: Dionicio Scott LPN - Fully Assessed Reason for Visit: Population Health Navigation Outreach [3910] Cmt: Dejon/Workbench/ACO Prescriptions as of 09/16/2024 - apixaban (ELIQUIS) 5 mg tab(s) Take 1 tablet by mouth two times a day. - rosuvastatin (CRESTOR) 5 mg tablet Take 1 tablet by mouth daily at bedtime. As directed - fluticasone furoate (ARNUITY ELLIPTA) 100 mcg/actuation inhaler Inhale 1 Puff as instructed once daily. - carvedilol (COREG) 3.125 mg tablet Take 1 tablet by mouth two times a day. - lamoTRIgine (LAMICTAL) 100 mg tablet Take 1 tablet by mouth two times a day. - erythromycin (ROMYCIN) 5 mg/gram (0.5 %) ophthalmic ointment Use in both eyes. 1 x daily - fluticasone (FLONASE ALLERGY RELIEF) 50 mcg/actuation nasal spray Use 1 Wallace in each nostril once daily. - hydroCHLOROthiazide (HYDRODIURIL, ESIDRIX) 12.5 mg capsule Take 1 capsule by mouth once daily as needed. - FLAXSEED OIL (OMEGA 3 ORAL) Take by mouth once daily. - Cholecalciferol, Vitamin D3, 1,000 unit ORAL Cap Take one(1) tablet two(2) times daily. - calcium carbonate(CALCIUM 500 500 MG (1,250 MG) TAB) Takes 7941-3988 mg once daily. 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] 07/14/2004 SPINAL STENOSIS-LUMBAR [M48.061] 02/25/2008 CARDIAC PACEMAKER IN SITU [Z95.0] 03/05/2008 Seizure (HCC) [R56.9] 02/18/2009 02/26/2017 Left hip pain [M25.552] 10/03/2010 Knee pain [M25.569] 05/11/2011 Syncope [R55] 01/02/2014 PSVT (paroxysmal supraventricular tachycardia) *07/27/2014 Chronic venous insufficiency [I87.2] 12/15/2014 Essential hypertension [I10] 12/15/2014 Obesity (BMI 30.0-34.9) [E66.811] 01/11/2017 Pacemaker [Z95.0] 11/29/2017 Epilepsy (HCC) [G40.909] Mild persistent asthma without complication [J4*11/01/2020 GERD (gastroesophageal reflux disease) [K21.9] 12/02/2020 Sick sinus syndrome (HCC) [I49.5] 12/11/2022 Encounter Status:Closed by ALLYN KUHN on 09/16/24 [facility] 09-03-2024 Telephone encounter Note Spoke to patient. Per Dr Huertas: Rec to stop ASA and start Eliquis 5 mg BID Called in script BB - can you touch base with her tomorrow to make sure she got the message. thanks dione Wilson RN [facility] 09-03-2024 Miscellaneous Notes Spoke to patient. Per Dr Huertas: Rec to stop ASA and start Eliquis 5 mg BID Called in script BB - can you touch base with her tomorrow to make sure she got the message. thanks dione Wilson RN documented in this encounter [facility] 04-14-2024 Note HNO ID: [id number] Author: VAN HUERTAS MD Service: ? Author Type: Physician Type: Progress Notes Filed: 04/14/2024 14:29 Note Text: EP STAFF NOTE: Please note: This note has been produced using speech recognition software and may contain errors related to that system including grammar, punctuation, spelling, gender and words and phrases that may be inappropriate Consultation requested by Sagrario Fong for an opinion regarding management of previously placed PPM I have reviewed the above information and examined the patient and confirm the above with the following additions/modifications. PE: Vitals: BP 152/84 Pulse 74 Ht 170.2 cm (5' 7) Wt 90.4 kg (199 lb 4.7 oz) SpO2 100% BMI 31.21 kg/m? General: Appears well nourished. In no acute distress. Lungs: Unlabored Heart: RRR Extremities: No peripheral edema bilaterally. DEVICE CHECK: DDD-PPM 2007, generator change 2018 remote : 49 triggered episodes of atrial high rates with EGMs showing a mix of AF and AFL. Longest lasting 6 hours. Total time 1.4%. Anticoagulants listed: aspirin. : PRESENTS FOR: Device check AND appt with Dr. Huertas PRESENTING EGM: /VS UNDERLYING RHYTHM: Sinus rhythm BATTERY STATUS: Estimated time remaining to NELSON is 10.1 years. COUNTERS SINCE 09/04/2022 ATRIAL ARRHYTHMIAS: There have been 49 atrial detections, available EGMs show AFL, longest episode lasting ~4 hours. AF burden 0.6%. No AC, ASA 81mg only. VENTRICULAR ARRHYTHMIAS: There were 9 ventricular detections, EGMs show short bursts of 1:1 tachycardia. Episode 29 from Dec 2022, shows V>A's, however after closer examination it appears there is under sensed AF and event is truly AF with RVR. LEAD MEASUREMENTS: RA capture and sensing are appropriate. RV sensing is stable, measuring 5.5mV today. RV auto capture started to report high readings in July 2021. Today, RV capture is stable measuring 1.25V @ 1.0ms. Pt was having frequent short R-R intervals previously, however since programming changes made in August, RV sensitivity was programmed to 2.0mV, the amount of short R-R intervals has significantly subsided with a total of 269 detections since August. The pacing outputs maintain safety margin. Review of the lead impedance trends are normal. IMPLANT SITE/ SYMPTOMS: The incision and pocket are pain-free (0/10), well healed and without signs of erosion or infection. No arm swelling, syncope, pre-syncope or device related pocket stimulation. OTHER DIAGNOSTICS: RA pacing 0.8%. Total V pacing <0.1% PROGRAMMING CHANGES MADE TODAY: RA sensitivity programmed back to 0.30mV d/t under sensed AF noted in EGMs. RV auto capture programmed off as it measures at 0.4ms, pulse width is programmed at 1.0ms. Home monitor alerts programmed appropriately. Time adjusted d/t Daylight Saving Time. FOLLOW UP: Pt to continue with every 3 month remote transmissions and annual in-clinic visits. Nicole Sands RN Updated Dr. Bautista of above issues as she appears to be following with him in [place]. Also inquired about transferring remote monitoring to their office. remote : DUAL CHAMBER PACEMAKER REMOTE TRANSMISSION * Normal Device Function * Events or Alerts since 11/12/23: 1 short NSVT detection, EGM show brief noise. 87 AF detections, EGMs suggest oversensing. AF burden 0.3%. Longest event per log book ~5 minutes. * Battery: OK, 9.58 yrs * Sensing, impedance and RA thresholds are stable/WNL * Programmed parameters reviewed * Presenting rhythm: /VS * Heart Rate Histograms reviewed RV pacing 0.7%. Today: DUAL CHAMBER PACEMAKER EVALUATION * Normal Device Function * Events or Alerts since 04/09/2023 1183 atrial detections, many of which are false AF detections d/t oversensing. * Battery: OK, 9.50 yrs * RV sensing and impedance are stable. RA capture is WNL. RV capture remains elevated, measuring 3.25V @ 1.0ms bipolar and 2.0V @ 1.0ms unipolar. 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 * Pacing and Detection Parameters were evaluated Tachycardia: AFL Since 04/09/2023: 1183 atrial detections, many of which are false AF detections d/t oversensing. 1 available EGM shows true AFL event lasting ~1 minute. AF burden graph shows ~4 days of the last year with possible true AF/AFL. Atrial Lead Undersensing RA sensing presents programmed in bipolar configuration, under sensing noted on live EGM resulting in unnecessary A pace/V pace RA sensing measuring <1mV in bipolar. Measuring ~3mV unipolar. Sensing configuration was changed to unipolar today with sensitivity decreased to 0.6mV. Partial plus was programmed on today. These changes should help eliminate the excessive AF detections. RV Lead Oversensing: Non-physiologic On 01/04 there was 1 short NSVT detection with EGM showing RV lead noise. * Measured value: 5.8mV * Prog (more content not included)... [facility] 04-14-2024 History of Present illness Narrative Images from the original note were not included. EP STAFF NOTE: Please note: This note has been produced using speech recognition software and may contain errors related to that system including grammar, punctuation, spelling, gender and words and phrases that may be inappropriate Consultation requested by Sagrario Fong for an opinion regarding management of previously placed PPM I have reviewed the above information and examined the patient and confirm the above with the following additions/modifications. PE: Vitals: BP 152/84 Pulse 74 Ht 170.2 cm (5' 7) Wt 90.4 kg (199 lb 4.7 oz) SpO2 100% BMI 31.21 kg/m General: Appears well nourished. In no acute distress. Lungs: Unlabored Heart: RRR Extremities: No peripheral edema bilaterally. DEVICE CHECK: DDD-PPM 2007, generator change 2018 remote : 49 triggered episodes of atrial high rates with EGMs showing a mix of AF and AFL. Longest lasting 6 hours. Total time 1.4%. Anticoagulants listed: aspirin. : PRESENTS FOR: Device check & appt with Dr. Huertas PRESENTING EGM: /VS UNDERLYING RHYTHM: Sinus rhythm BATTERY STATUS: Estimated time remaining to NELSON is 10.1 years. COUNTERS SINCE 09/04/2022 ATRIAL ARRHYTHMIAS: There have been 49 atrial detections, available EGMs show AFL, longest episode lasting ~4 hours. AF burden 0.6%. No AC, ASA 81mg only. VENTRICULAR ARRHYTHMIAS: There were 9 ventricular detections, EGMs show short bursts of 1:1 tachycardia. Episode 29 from Dec 2022, shows V>A's, however after closer examination it appears there is under sensed AF and event is truly AF with RVR. LEAD MEASUREMENTS: RA capture and sensing are appropriate. RV sensing is stable, measuring 5.5mV today. RV auto capture started to report high readings in July 2021. Today, RV capture is stable measuring 1.25V @ 1.0ms. Pt was having frequent short R-R intervals previously, however since programming changes made in August, RV sensitivity was programmed to 2.0mV, the amount of short R-R intervals has significantly subsided with a total of 269 detections since August. The pacing outputs maintain safety margin. Review of the lead impedance trends are normal. IMPLANT SITE/ SYMPTOMS: The incision and pocket are pain-free (0/10), well healed and without signs of erosion or infection. No arm swelling, syncope, pre-syncope or device related pocket stimulation. OTHER DIAGNOSTICS: RA pacing 0.8%. Total V pacing <0.1% PROGRAMMING CHANGES MADE TODAY: RA sensitivity programmed back to 0.30mV d/t under sensed AF noted in EGMs. RV auto capture programmed off as it measures at 0.4ms, pulse width is programmed at 1.0ms. Home monitor alerts programmed appropriately. Time adjusted d/t Daylight Saving Time. FOLLOW UP: Pt to continue with every 3 month remote transmissions and annual in-clinic visits. Nicole Sands RN Updated Dr. Bautista of above issues as she appears to be following with him in [place]. Also inquired about transferring remote monitoring to their office. remote : DUAL CHAMBER PACEMAKER REMOTE TRANSMISSION * Normal Device Function * Events or Alerts since 11/12/23: 1 short NSVT detection, EGM show brief noise. 87 AF detections, EGMs suggest oversensing. AF burden 0.3%. Longest event per log book ~5 minutes. * Battery: OK, 9.58 yrs * Sensing, impedance and RA thresholds are stable/WNL * Programmed parameters reviewed * Presenting rhythm: /VS * Heart Rate Histograms reviewed RV pacing 0.7%. Today: DUAL CHAMBER PACEMAKER EVALUATION * Normal Device Function * Events or Alerts since 04/09/2023 1183 atrial detections, many of which are false AF detections d/t oversensing. * Battery: OK, 9.50 yrs * RV sensing and impedance are stable. RA capture is WNL. RV capture remains elevated, measuring 3.25V @ 1.0ms bipolar and 2.0V @ 1.0ms unipolar. 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 * Pacing and Detection Parameters were evaluated Tachycardia: AFL Since 04/09/2023: 1183 atrial detections, many of which are false AF detections d/t oversensing. 1 available EGM shows true AFL event lasting ~1 minute. AF burden graph shows ~4 days of the last year with possible true AF/AFL. Atrial Lead Undersensing RA sensing presents programmed in bipolar configuration, under sensing noted on live EGM resulting in unnecessary A pace/V pace RA sensing measuring <1mV in bipolar. Measuring ~3mV unipolar. Sensing configuration was changed to unipolar today with sensitivity decreased to 0.6mV. Partial plus was programmed on today. These changes should help eliminate the excessive AF detections. RV Lead Oversensing: Non-physiologic On 01/04 there was 1 short NSVT detection with EGM showing RV lead noise. * Measured value: 5.8mV * Programmed sensitivity settinmV Device Reprogrammed Device reprogrammed, changes are listed below: * RA sensing programmed unipolar. * RA sensitivity programmed 0.6mV * RV pace polarity programmed unipolar * Partial + programmed on PROBLEM LIST: Former Keron / Elodia patient sick sinus syndrome s/p PPM 2007, generator change [address] Cabrales paroxysmal atrial fibrillation asthma RV capture was elevated at 2.375 V at 0.4 ms this is seems to be elevated and stable. hyperlipidemia hypertension Low burden of AFL - with controlled V rate. CHADS VASc - HTN, AGe 2, female - 4 IMPRESSION / PLAN: 83 y/o with a previously placed PPM. Presented to establish longitudinal PPM care -2022 Paces very little. AFL / AT events -2022. Asymptomatic. CHADS VASc 4. Reviewed ACC recs to start AC at initial visit 2022. She wanted to defer. R/B reviewed. Agree to start if events recurrent. Enabled unscheduled notification for any future events > 30 min. Presents for follow up. Device check notable for 1183 atrial detections in the past year - many of which are false AF detections d/t oversensing. 1 available EGM shows true AFL event lasting ~1 minute . Atrial Lead Undersensing - RA sensing presents programmed in bipolar configuration, under sensing noted on live EGM resulting in unnecessary A pace/V pace (may be resulting in provoked AF) RA sensing measuring <1mV in bipolar. Measuring ~3mV unipolar. Sensing configuration was changed to unipolar today with sensitivity decreased to 0.6mV. These changes should help eliminate the excessive AF detections and eliminate unnecessary RA pacing that could trigger AF. RV capture elevated but stable. Not dependent. Better unipolar - switched to unipolar today. Scheduled Remotes q 3 months - unscheduled remotes for AF events > 30 min - if seen - she is amenable to start AC with Eliquis. Annual EP follow up with device check. This note was created with electronic dictation and errors in syntax and meaning may have occurred. Van Huertas MD Pager: [phone] Office: [phone] I personally examined the patient and repeated the christina components of the exam and cardiac history, past medical and surgical history, social and family history. The assessment and plan were formulated and discussed with the patient and family. I spent over 25 minutes (face time) and greater than 50% of this time was spent counseling and/or coordinating the care of the patient with regard the diagnosis and medical regimen Referring Physician: Sagrario Fong [id number] [place] [address] Seven Bautista MD documented in this encounter [facility] 03-24-2024 Note HNO ID: [id number] Author: SAGRARIO FONG MD Service: ? Author Type: Physician Type: Progress Notes Filed: 03/24/2024 10:30 Note Text: This note was created using SuperTruperriter. Subjective Betzy Cruz is a 83 year old female. Patient presents with: F/U 6 months SUBJECTIVE: Betzy Cruz is a 83 year old year old lady here today for 6 month follow up appointment for review of medical conditions. Betzy Cruz is an 83-year-old female, with a history of hypercholesterolemia, asthma, and HTN, presenting for follow-up. Betzy reports feeling well overall. She is currently taking omega-3 supplements and consuming foods rich in omega-3 fatty acids, such as salmon, to manage her cholesterol levels. She has a history of statin intolerance, experiencing severe myalgias with rosuvastatin and mild myalgias with pravastatin, even at reduced doses of three times per week. She denies current use of any statin medications and has discarded her previous rosuvastatin prescription. She is under the care of Dr. Huertas, who has recommended statin therapy. She expresses a preference to avoid additional medications if possible. She is also under the care of Dr. Lemus, who recently switched her from Breo to Arnuity for asthma management. She has not yet started Arnuity due to issues with mail delivery from [facility] and plans to request a local pharmacy fill. She is currently taking carvedilol, hydrochlorothiazide, and lamotrigine. She reports adequate supply of hydrochlorothiazide and prefers to delay refills for this medication. She denies any issues with her current medication regimen and reports well-controlled blood pressure. She denies any recent changes in her health status and has no new concerns to address. She plans to receive her flu and tetanus vaccinations at a local pharmacy. PAST MEDICAL HISTORY Diagnosis Date Asthma Atrial fibrillation (HCC) Cardiac pacemaker in situ 03/05/2008 PM-Device [facility] [place] SEDR01 Sensia Serial Number [id number] Implant Date 07/18/2007 BLANK _ Lead1 Mfg Medtronic Model 5076 Serial Number [id number] Location right Implant Date 07/18/2007 BLANK _ Lead2 Mfg Medtronic Model 5076 Serial Number [id number] Location right Implant Date 07/18/2007 Epilepsy (HCC) Essential hypertension, benign well controlled Generalized osteoarthrosis, unspecified site Impaired glucose tolerance test Runs usually 100 Obesity Other and unspecified disc disorder of lumbar region Other and unspecified hyperlipidemia Spinal stenosis, lumbar region, without neurogenic claudication s/p L5-S1 sx '00 Current Outpatient Medications Medication Sig erythromycin (ROMYCIN) 5 mg/gram (0.5 %) ophthalmic ointment Use in both eyes. 1 x daily carvedilol (COREG) 3.125 mg tablet Take 1 tablet by mouth two times a day. fluticasone (FLONASE ALLERGY RELIEF) 50 mcg/actuation nasal spray Use 1 Wallace in each nostril once daily. lamoTRIgine (LAMICTAL) 100 mg tablet Take 1 tablet by mouth two times a day. hydroCHLOROthiazide (HYDRODIURIL, ESIDRIX) 12.5 mg capsule Take 1 capsule by mouth once daily as needed. FLAXSEED OIL (OMEGA 3 ORAL) Take by mouth once daily. aspirin, enteric coated (ASPIRIN, ENTERIC COATED) 81 mg EC tablet Take by mouth as directed. Take two tablets once daily in the evening. Cholecalciferol, Vitamin D3, 1,000 unit ORAL Cap Take one(1) tablet two(2) times daily. calcium carbonate(CALCIUM 500 500 MG (1,250 MG) TAB) Takes 8840-6946 mg once daily. fluticasone furoate (ARNUITY ELLIPTA) 100 mcg/actuation inhaler Inhale 1 Puff as instructed once daily. (Patient not taking: Reported on 03/24/2024) No current facility-administered medications for this visit. Review of Systems Objective BP 112/64 Pulse 85 Temp (!) 35.9 ?C (96.6 ?F) Resp 16 Wt 91.3 kg (201 lb 4.5 oz) SpO2 97% BMI 31.52 kg/m? Physical Exam Constitutional: Appearance: Normal appearance. HENT: Head: Normocephalic. Eyes: Conjunctiva/sclera: Conjunctivae normal. Cardiovascular: Rate and Rhythm: Normal rate and regular rhythm. Heart sounds: Normal heart sounds. Pulmonary: Effort: Pulmonary effort is normal. Breath sounds: Normal breath sounds. Musculoskeletal: Right lower leg: No edema. Left lower leg: No edema. Skin: General: Skin is warm and dry. Neurological: General: No focal deficit present. Mental Status: She is alert and oriented to person, place, and time. Psychiatric: Attention and Perception: Attention and perception normal. Mood and Affect: Mood and affect normal. Speech: Speech normal. Behavior: Behavior normal. Thought Content: Thought content normal. Judgment: Judgment normal. Latest Ref Rng 02/26/2023 09/19/2023 02/19/2024 WBC 3.70 - 11.00 k/uL 5.73 5.59 6.37 RBC 3.90 - 5.20 m/uL 4.56 4.68 4.73 Hemoglobin 11.5 - 15.5 g/dL 13.3 13.4 13.6 Hematocrit 36.0 - 46.0 % 41.6 41.7 42.0 MCV 80.0 - 100.0 fL 91.2 89.1 88.8 (more content not included)... [facility] 03-24-2024 History of Present illness Narrative This note was created using SuperTruperriter. Subjective Betzy Cruz is a 83 year old female. Patient presents with: F/U 6 months SUBJECTIVE: Betzy Cruz is a 83 year old year old lady here today for 6 month follow up appointment for review of medical conditions. Betzy Cruz is an 83-year-old female, with a history of hypercholesterolemia, asthma, and HTN, presenting for follow-up. Betzy reports feeling well overall. She is currently taking omega-3 supplements and consuming foods rich in omega-3 fatty acids, such as salmon, to manage her cholesterol levels. She has a history of statin intolerance, experiencing severe myalgias with rosuvastatin and mild myalgias with pravastatin, even at reduced doses of three times per week. She denies current use of any statin medications and has discarded her previous rosuvastatin prescription. She is under the care of Dr. Huertas, who has recommended statin therapy. She expresses a preference to avoid additional medications if possible. She is also under the care of Dr. Lemus, who recently switched her from Breo to Arnuity for asthma management. She has not yet started Arnuity due to issues with mail delivery from [facility] and plans to request a local pharmacy fill. She is currently taking carvedilol, hydrochlorothiazide, and lamotrigine. She reports adequate supply of hydrochlorothiazide and prefers to delay refills for this medication. She denies any issues with her current medication regimen and reports well-controlled blood pressure. She denies any recent changes in her health status and has no new concerns to address. She plans to receive her flu and tetanus vaccinations at a local pharmacy. PAST MEDICAL HISTORY Diagnosis Date Asthma Atrial fibrillation (HCC) Cardiac pacemaker in situ 03/05/2008 PM-Device [facility] Med[place] Model SEDR01 Sensia Serial Number [id number] Implant Date 07/18/2007 BLANK _ Lead1 Mfg Medtronic Model 5076 Serial Number [id number] Location right Implant Date 07/18/2007 BLANK _ Lead2 Mfg Medtronic Model 5076 Serial Number [id number] Location right Implant Date 07/18/2007 Epilepsy (HCC) Essential hypertension, benign well controlled Generalized osteoarthrosis, unspecified site Impaired glucose tolerance test Runs usually 100 Obesity Other and unspecified disc disorder of lumbar region Other and unspecified hyperlipidemia Spinal stenosis, lumbar region, without neurogenic claudication s/p L5-S1 sx '00 Current Outpatient Medications Medication Sig erythromycin (ROMYCIN) 5 mg/gram (0.5 %) ophthalmic ointment Use in both eyes. 1 x daily carvedilol (COREG) 3.125 mg tablet Take 1 tablet by mouth two times a day. fluticasone (FLONASE ALLERGY RELIEF) 50 mcg/actuation nasal spray Use 1 Wallace in each nostril once daily. lamoTRIgine (LAMICTAL) 100 mg tablet Take 1 tablet by mouth two times a day. hydroCHLOROthiazide (HYDRODIURIL, ESIDRIX) 12.5 mg capsule Take 1 capsule by mouth once daily as needed. FLAXSEED OIL (OMEGA 3 ORAL) Take by mouth once daily. aspirin, enteric coated (ASPIRIN, ENTERIC COATED) 81 mg EC tablet Take by mouth as directed. Take two tablets once daily in the evening. Cholecalciferol, Vitamin D3, 1,000 unit ORAL Cap Take one(1) tablet two(2) times daily. calcium carbonate(CALCIUM 500 500 MG (1,250 MG) TAB) Takes 1470-8517 mg once daily. fluticasone furoate (ARNUITY ELLIPTA) 100 mcg/actuation inhaler Inhale 1 Puff as instructed once daily. (Patient not taking: Reported on 03/24/2024) No current facility-administered medications for this visit. Review of Systems Objective BP 112/64 Pulse 85 Temp (!) 35.9 C (96.6 F) Resp 16 Wt 91.3 kg (201 lb 4.5 oz) SpO2 97% BMI 31.52 kg/m Physical Exam Constitutional: Appearance: Normal appearance. HENT: Head: Normocephalic. Eyes: Conjunctiva/sclera: Conjunctivae normal. Cardiovascular: Rate and Rhythm: Normal rate and regular rhythm. Heart sounds: Normal heart sounds. Pulmonary: Effort: Pulmonary effort is normal. Breath sounds: Normal breath sounds. Musculoskeletal: Right lower leg: No edema. Left lower leg: No edema. Skin: General: Skin is warm and dry. Neurological: General: No focal deficit present. Mental Status: She is alert and oriented to person, place, and time. Psychiatric: Attention and Perception: Attention and perception normal. Mood and Affect: Mood and affect normal. Speech: Speech normal. Behavior: Behavior normal. Thought Content: Thought content normal. Judgment: Judgment normal. Latest Ref Rng 02/26/2023 09/19/2023 02/19/2024 WBC 3.70 - 11.00 k/uL 5.73 5.59 6.37 RBC 3.90 - 5.20 m/uL 4.56 4.68 4.73 Hemoglobin 11.5 - 15.5 g/dL 13.3 13.4 13.6 Hematocrit 36.0 - 46.0 % 41.6 41.7 42.0 MCV 80.0 - 100.0 fL 91.2 89.1 88.8 MCH 26.0 - 34.0 pg 29.2 28.6 28.8 MCHC 30.5 - 36.0 g/dL 32.0 32.1 32.4 RDW-CV 11.5 - 15.0 % 12.8 13.0 12.9 Platelet Count 150 - 400 k/uL 242 248 246 MPV 9.0 - 12.7 fL 9.6 9.8 10.0 Neut% % 59.8 Abs Neut (ANC) 1.45 - 7.50 k/uL 3.81 Lymph% % 27.3 Abs Lymph 1.00 - 4.00 k/uL 1.74 Garland% % 8.6 Abs Garland <0.87 k/uL 0.55 Eosin% % 2.7 Abs Eosin <0.46 k/uL 0.17 Baso% % 1.1 Abs Baso <0.11 k/uL 0.07 Immature Gran % % 0.5 IMMATURE GRANS (ABS) <0.10 k/uL 0.03 NRBC /100 WBC 0.0 Absolute nRBC <0.01 k/uL <0.01 <0.01 <0.01 DTYPE Auto Protein, Total 6.3 - 8.0 g/dL 6.4 6.7 7.1 Albumin 3.9 - 4.9 g/dL 4.0 4.2 4.2 Calcium 8.5 - 10.2 mg/dL 9.4 9.6 9.7 Bilirubin, Total 0.2 - 1.3 mg/dL 0.3 0.4 0.5 Alkaline Phosphatase 34 - 123 U/L 63 71 73 AST 13 - 35 U/L 21 20 21 ALT 7 - 38 U/L 14 10 14 Glucose 74 - 99 mg/dL 105 (H) 98 109 (H) BUN 7 - 21 mg/dL 17 14 22 (H) Creatinine 0.58 - 0.96 mg/dL 0.85 0.79 0.85 Sodium 136 - 144 mmol/L 141 141 141 Potassium 3.7 - 5.1 mmol/L 4.8 4.7 4.6 Chloride 98 - 107 mmol/L 107 (H) 106 (H) 103 CO2 22 - 30 mmol/L 25 26 27 Anion Gap 8 - 15 mmol/L 9 9 11 eGFR >=60 mL/min/1.73m 69 75 69 Cholesterol, Total <200 mg/dL 221 (H) 196 222 (H) Triglyceride <150 mg/dL 51 68 84 HDL Cholesterol >39 mg/dL 48 49 44 Non HDL Cholesterol <130 mg/dL 173 (H) 147 (H) 178 (H) Fasting Time hrs 12 14 12 VLDL Cholesterol <30 mg/dL 10 14 17 TC:HDL Ratio <5.10 4.60 4.00 5.05 LDL Cholesterol <100 mg/dL 163 (H) 133 (H) 161 (H) LDL:HDL Ratio <2.54 3.40 (H) 2.71 (H) 3.66 (H) Hemoglobin A1C 4.3 - 5.6 % 5.7 (H) 5.6 5.6 Estimated Average Glucose mg/dL 117 114 114 Magnesium 1.7 - 2.3 mg/dL 1.9 2.1 2.0 TSH 0.270 - 4.200 mIU/L 2.200 Legend: (H) High Assessment and Plan # Essential hypertension (I10) # PSVT (paroxysmal supraventricular tachycardia) (HCC) (I47.10) - Blood pressure well-controlled on current regimen. - Refilled Carvedilol prescription; continue current dosage. - Continue HCTZ three times a week; patient has sufficient supply. # Pure hypercholesterolemia (E78.00) - LDL levels fluctuating between 130-160 mg/dL. - Previous statin therapy (rosuvastatin) discontinued due to severe myalgia. - Initiated rosuvastatin 5 mg once weekly; instructed to split tablet and take half a pill once a week for four weeks. - Will reassess LDL levels after 4-8 weeks; consider increasing frequency to twice weekly if tolerated. - Prescription for rosuvastatin 5 mg sent to [facility]. - Advised to continue omega-3 supplementation and dietary intake of fish and flaxseed to increase HDL levels. # IFG (impaired fasting glucose) (R73.01) - Fasting glucose at 109 mg/dL; Hemoglobin A1c remains within normal range. - No current evidence of diabetes mellitus. - Continue monitoring glucose levels. # Nonintractable epilepsy without status epilepticus, unspecified epilepsy type (HCC) (G40.909) - Refilled Lamotrigine prescription; continue current dosage. # Mild persistent asthma without complication (J45.30) # Chronic cough (R05.3) - Transitioning from Brio to Arnuity Ellipta as per Dr. Lemus's recommendation. - Prescription for Arnuity Ellipta sent to [facility] in [facility]. - Notified Dr. Lemus of the change in pharmacy. # Encounter for immunization (Z23) - Patient plans to receive influenza and tetanus vaccinations at [facility] pharmacy. - Advised that tetanus vaccination is due and fully covered at the pharmacy. Labs ordered for next appointment, Sagrario Fong MD documented in this encounter [facility] 03-20-2024 History of Present illness Narrative Images from the original note were not included. . 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 Current therapy with ICS/LABA with as needed albuterol, some issues with noncompliance due to beta agonist exacerbation of her atrial fibrillation. At last office visit she was changed from Dulera to Breo Ellipta. She continues to have issues with her atrial fibrillation. She can only tell when she is in atrial fibrillation if her symptoms last for 15 minutes or longer. She has stopped her inhalers in the past but notes increased shortness of breath and chest congestion if she stops using her Breo Ellipta. At her last office visit with cardiology, pacemaker interrogation showed multiple episodes of atrial fibrillation. She has declined anticoagulation therapy. She is considering possible ablation versus Watchman procedure and has an appointment with the lead welder later this month. From a respiratory standpoint she has dyspnea on exertion, chest tightness and congestion. Dyspnea with exertion is associated with tachycardia 140 to as high as 180 bpm. No audible wheezing. No significant cough with sputum production. DATA: ASTHMA CONTROL TEST Date: 03/20/2024 In the last 4 weeks, how much of the time did your asthma keep you from getting as much done at work or home that you wanted to do? A little of the time (4) In the last 4 weeks, how often have you had shortness of breath? More than once per day (1) In the last 4 weeks, how often did your asthma symptoms (wheezing, coughing, shortness of breath, chest tightness or pain) wake you up at night or earlier than usual? Once or twice (4) In the last 4 weeks, how often have you used your rescue inhaler or nebulizer medication (such as Albuterol, Proventil, Ventolin, Maxair, Xoponex, or Primatene Mist)? A few times per week (3) In the last 4 weeks, how would you rate your asthma control? Somewhat controlled (3) Total: 15 PAST MEDICAL HISTORY Diagnosis Date Asthma Atrial fibrillation (HCC) Cardiac pacemaker in situ 03/05/2008 PM-Device g Medtronic Model SEDR01 Sensia Serial Number [id number] Implant Date 07/18/2007 BLANK _ Lead1 Mfg Medtronic Model 5076 Serial Number [id number] Location right Implant Date 07/18/2007 BLANK _ Lead2 Mfg Medtronic Model 5076 Serial Number [id number] Location right Implant Date 07/18/2007 Epilepsy (HCC) Essential hypertension, benign well controlled Generalized osteoarthrosis, unspecified site Impaired glucose tolerance test Runs usually 100 Obesity Other and unspecified disc disorder of lumbar region Other and unspecified hyperlipidemia Spinal stenosis, lumbar region, without neurogenic claudication s/p L5-S1 sx '00 ALLERGIES Allergen Reactions Latex Rash itches Crestor [Rosuvastat* Myalgia severe muscles aches Lipitor [Atorvastat* Myalgia severe muscle aches Adhesive Rash redness Amlodipine Swelling leg swelling Atenolol Intolerance gained a lot of weight Seasonal Allergies Cough erythromycin (ROMYCIN) 5 mg/gram (0.5 %) ophthalmic ointment Use in both eyes. 1 x daily carvedilol (COREG) 3.125 mg tablet Take 1 tablet by mouth two times a day. fluticasone (FLONASE ALLERGY RELIEF) 50 mcg/actuation nasal spray Use 1 Wallace in each nostril once daily. lamoTRIgine (LAMICTAL) 100 mg tablet Take 1 tablet by mouth two times a day. hydroCHLOROthiazide (HYDRODIURIL, ESIDRIX) 12.5 mg capsule Take 1 capsule by mouth once daily as needed. FLAXSEED OIL (OMEGA 3 ORAL) Take by mouth once daily. aspirin, enteric coated (ASPIRIN, ENTERIC COATED) 81 mg EC tablet Take by mouth as directed. Take two tablets once daily in the evening. Cholecalciferol, Vitamin D3, 1,000 unit ORAL Cap Take one(1) tablet two(2) times daily. calcium carbonate(CALCIUM 500 500 MG (1,250 MG) TAB) Takes 6835-8558 mg once daily. fluticasone furoate (ARNUITY ELLIPTA) 100 mcg/actuation inhaler Inhale 1 Puff as instructed once daily. Social History Tobacco Use Smoking status: Never Smokeless tobacco: Never Tobacco comments: No household ETS exposure in entire lifetime. Vaping Use Vaping status: Never Used Substance Use Topics Alcohol use: No Drug use: No PMH, Social history, family history and surgical history reviewed and updated in EMR REVIEW OF SYSTEMS: CONSTITUTIONAL: No fevers, chills, nightsweats, unintended weight loss HEENT: Some nasal congestion/sinus symptoms, allergy problems. EYES: Dry eyes with tearing CARDIOVASCULAR: See HPI. PULM: See HPI GI: Reflux NEURO: No new balance problems, peripheral weakness/paresthesias or numbness of concern. PHYSICAL EXAMINATION: BP 106/70 Pulse 72 Resp 17 Wt 203 lb 7.8 oz (92.3kg) SpO2 94% General Appearance: Elderly female, NAD. Skin: Skin color, texture, turgor normal, no suspicious rashes or lesions. Oropharynx: No oral lesions or thrush. Neck: No JVD, no masses, no adenopathy. Lungs: Not labored, normal to percussion, no wheezes or crackles. Heart: Regular rate and rhythm, systolic murmur left upper sternal border. Extremities: No significant edema or clubbing. Assessment/Plan: 1. Mild persistent asthma, uncomplicated -LABA may be contributing to her underlying atrial fibrillation frequency -Change inhaled therapy to ICS alone with as needed albuterol 2. Paroxysmal atrial fibrillation -See #1 -Pending evaluation by lead welder Wendy Lemus MD [facility] documented in this encounter [facility] 03-20-2024 Note HNO ID: [id number] Author: WENDY LEMUS MD Service: ? Author Type: Physician Type: Progress Notes Filed: 03/20/2024 13:51 Note Text: . 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 Current therapy with ICS/LABA with as needed albuterol, some issues with noncompliance due to beta agonist exacerbation of her atrial fibrillation. At last office visit she was changed from Dulera to Breo Ellipta. She continues to have issues with her atrial fibrillation. She can only tell when she is in atrial fibrillation if her symptoms last for 15 minutes or longer. She has stopped her inhalers in the past but notes increased shortness of breath and chest congestion if she stops using her Breo Ellipta. At her last office visit with cardiology, pacemaker interrogation showed multiple episodes of atrial fibrillation. She has declined anticoagulation therapy. She is considering possible ablation versus Watchman procedure and has an appointment with the lead welder later this month. From a respiratory standpoint she has dyspnea on exertion, chest tightness and congestion. Dyspnea with exertion is associated with tachycardia 140 to as high as 180 bpm. No audible wheezing. No significant cough with sputum production. DATA: ASTHMA CONTROL TEST Date: 03/20/2024 In the last 4 weeks, how much of the time did your asthma keep you from getting as much done at work or home that you wanted to do? A little of the time (4) In the last 4 weeks, how often have you had shortness of breath? More than once per day (1) In the last 4 weeks, how often did your asthma symptoms (wheezing, coughing, shortness of breath, chest tightness or pain) wake you up at night or earlier than usual? Once or twice (4) In the last 4 weeks, how often have you used your rescue inhaler or nebulizer medication (such as Albuterol, Proventil, Ventolin, Maxair, Xoponex, or Primatene Mist)? A few times per week (3) In the last 4 weeks, how would you rate your asthma control? Somewhat controlled (3) Total: 15 PAST MEDICAL HISTORY Diagnosis Date Asthma Atrial fibrillation (HCC) Cardiac pacemaker in situ 03/05/2008 PM-Device Mfg Medtronic Model SEDR01 [employer]ens[employer] Serial Number [id number] Implant Date 07/18/2007 BLANK _ Lead1 Mfg Medtronic Model 5076 Serial Number [id number] Location right Implant Date 07/18/2007 BLANK _ Lead2 Mfg Medtronic Model 5076 Serial Number [id number] Location right Implant Date 07/18/2007 Epilepsy (HCC) Essential hypertension, benign well controlled Generalized osteoarthrosis, unspecified site Impaired glucose tolerance test Runs usually 100 Obesity Other and unspecified disc disorder of lumbar region Other and unspecified hyperlipidemia Spinal stenosis, lumbar region, without neurogenic claudication s/p L5-S1 sx '00 ALLERGIES Allergen Reactions Latex Rash itches Crestor [Rosuvastat* Myalgia severe muscles aches Lipitor [Atorvastat* Myalgia severe muscle aches Adhesive Rash redness Amlodipine Swelling leg swelling Atenolol Intolerance gained a lot of weight Seasonal Allergies Cough erythromycin (ROMYCIN) 5 mg/gram (0.5 %) ophthalmic ointment Use in both eyes. 1 x daily carvedilol (COREG) 3.125 mg tablet Take 1 tablet by mouth two times a day. fluticasone (FLONASE ALLERGY RELIEF) 50 mcg/actuation nasal spray Use 1 Wallace in each nostril once daily. lamoTRIgine (LAMICTAL) 100 mg tablet Take 1 tablet by mouth two times a day. hydroCHLOROthiazide (HYDRODIURIL, ESIDRIX) 12.5 mg capsule Take 1 capsule by mouth once daily as needed. FLAXSEED OIL (OMEGA 3 ORAL) Take by mouth once daily. aspirin, enteric coated (ASPIRIN, ENTERIC COATED) 81 mg EC tablet Take by mouth as directed. Take two tablets once daily in the evening. Cholecalciferol, Vitamin D3, 1,000 unit ORAL Cap Take one(1) tablet two(2) times daily. calcium carbonate(CALCIUM 500 500 MG (1,250 MG) TAB) Takes 1282-2224 mg once daily. fluticasone furoate (ARNUITY ELLIPTA) 100 mcg/actuation inhaler Inhale 1 Puff as instructed once daily. Social History Tobacco Use Smoking status: Never Smokeless tobacco: Never Tobacco comments: No household ETS exposure in entire lifetime. Vaping Use Vaping status: Never Used Substance Use Topics Alcohol use: No Drug use: No PMH, Social history, family history and surgical history reviewed and updated in EMR REVIEW OF SYSTEMS: CONSTITUTIONAL: No fevers, chills, nightsweats, unintended weight loss HEENT: Some nasal congestion/sinus symptoms, allergy problems. EYES: Dry eyes with tearing CARDIOVASCULAR: See HPI. PULM: See HP (more content not included)... [facility] 02-18-2024 Note HNO ID: [id number] Author: SEVEN BAUTISTA MD Service: ? Author Type: Physician Type: Progress Notes Filed: 02/18/2024 15:02 Note Text: Seven Bautista MD Interventional Cardiology [address] [place] [address] [phone] Chief Complaint Patient presents with: Recheck: Has pacemaker, heart rate 180 at times? HISTORY OF PRESENT ILLNESS: Ms. Cruz is a 83 year old female seen my office today prior history of hypertensive heart disease with sick sinus syndrome and atrial fibrillation required pacemaker insertion she is asymptomatic doing well from a cardiac point of view denies chest pain or shortness of breath angina no signs or symptoms of congestive heart failure Recent interrogation of her device shows 646 episodes of rapid heart rate likely atrial fibrillation Extensive discussion regarding anticoagulation with Ananya patient would like not to be started at this time she is entertaining the idea of ablation versus Watchman procedure with lead welder patient has an appointment Cardiac Risk Factors age (male over 45, female over 55), hyperlipidemia, hypertension PAST MEDICAL HISTORY Diagnosis Date Asthma Atrial fibrillation (HCC) Cardiac pacemaker in situ 03/05/2008 PM-Device Mfg Medtronic Model SEDR01 [employer] Serial Number [id number] Implant Date 07/18/2007 BLANK _ Lead1 Mfg Medtronic Model 5076 Serial Number [id number] Location right Implant Date 07/18/2007 BLANK _ Lead2 Mfg Medtronic Model 5076 Serial Number [id number] Location right Implant Date 07/18/2007 Epilepsy (HCC) Essential hypertension, benign well controlled Generalized osteoarthrosis, unspecified site Impaired glucose tolerance test Runs usually 100 Obesity Other and unspecified disc disorder of lumbar region Other and unspecified hyperlipidemia Spinal stenosis, lumbar region, without neurogenic claudication s/p L5-S1 sx '00 PAST SURGICAL HISTORY Procedure Laterality Date ARTHRP ACETBLR/PROX FEM PROSTC AGRFT/ALGRFT 2007 Hip replacement, total left NEUROPLASTY AND/TRANSPOS MEDIAN NRV CARPAL TUNNE Right 02/21/2019 Right [facility] PACEMAKER 2009 PAST SURGICAL HISTORY OF lumbar surgery x 3 PAST SURGICAL HISTORY OF 11/2017 Battery replacement - pacemaker FAMILY HISTORY Problem Relation Age of Onset Hypertension Mother age 91 other (high cholesterol) Father other (black lung) Father Asthma Father Severe Asthma Sister Lung Cancer Brother Smoker. Diabetes Maternal Grandmother Diabetes Other cousins Hypertension Other brothers/ sisters other (high cholesterol) Other brothers Social History Tobacco Use Smoking status: Never Smokeless tobacco: Never Tobacco comments: No household ETS exposure in entire lifetime. Substance Use Topics Alcohol use: No Drug use: No ALLERGIES Allergen Reactions Latex Rash itches Crestor [Rosuvastat* Myalgia severe muscles aches Lipitor [Atorvastat* Myalgia severe muscle aches Adhesive Rash redness Amlodipine Swelling leg swelling Atenolol Intolerance gained a lot of weight Seasonal Allergies Cough Medications: Current Outpatient Medications Medication Sig Dispense Refill erythromycin (ROMYCIN) 5 mg/gram (0.5 %) ophthalmic ointment Use in both eyes. 1 x daily fluticasone-vilanterol (BREO ELLIPTA) 100-25 mcg/dose inhaler Inhale 1 Inhalation as instructed once daily. 3 Each 2 carvedilol (COREG) 3.125 mg tablet Take 1 tablet by mouth two times a day. 180 tablet 3 fluticasone (FLONASE ALLERGY RELIEF) 50 mcg/actuation nasal spray Use 1 Wallace in each nostril once daily. 3 Each 3 lamoTRIgine (LAMICTAL) 100 mg tablet Take 1 tablet by mouth two times a day. 180 tablet 3 hydroCHLOROthiazide (HYDRODIURIL, ESIDRIX) 12.5 mg capsule Take 1 capsule by mouth once daily as needed. 90 capsule 1 FLAXSEED OIL (OMEGA 3 ORAL) Take by mouth once daily. aspirin, enteric coated (ASPIRIN, ENTERIC COATED) 81 mg EC tablet Take by mouth as directed. Take two tablets once daily in the evening. 0 Cholecalciferol, Vitamin D3, 1,000 unit ORAL Cap Take one(1) tablet two(2) times daily. calcium carbonate(CALCIUM 500 500 MG (1,250 MG) TAB) Takes 3650-4611 mg once daily. 0 No current facility-administered medications for this visit. Review of Systems Constitutional: Negative for chills, diaphoresis, fever, malaise/fatigue and weight loss. HENT: Negative for congestion, ear discharge, ear pain, hearing loss, nosebleeds, sinus pain, sore throat and tinnitus. Eyes: Negative for blurred vision, double vision, photophobia, pain, discharge and redness. Respiratory: Negative for cough, hemoptysis, sputum production, shortness of breath, wheezing and stridor. Cardiovascular: Negative for chest pain, palpitations, orthopnea, claudication, leg swelling and PND. Gastrointestinal: Negative for abdominal pain, blood in stool, constipation, diarrhea, heartburn, melena, nausea and vomiting. G (more content not included)... [facility] 02-18-2024 History of Present illness Narrative Images from the original note were not included. Seven Bautista MD Interventional Cardiology [address] [address] [phone] Chief Complaint Patient presents with: Recheck: Has pacemaker, heart rate 180 at times? HISTORY OF PRESENT ILLNESS: Ms. Cruz is a 83 year old female seen my office today prior history of hypertensive heart disease with sick sinus syndrome and atrial fibrillation required pacemaker insertion she is asymptomatic doing well from a cardiac point of view denies chest pain or shortness of breath angina no signs or symptoms of congestive heart failure Recent interrogation of her device shows 646 episodes of rapid heart rate likely atrial fibrillation Extensive discussion regarding anticoagulation with Ananya patient would like not to be started at this time she is entertaining the idea of ablation versus Watchman procedure with lead welder patient has an appointment Cardiac Risk Factors age (male over 45, female over 55), hyperlipidemia, hypertension PAST MEDICAL HISTORY Diagnosis Date Asthma Atrial fibrillation (HCC) Cardiac pacemaker in situ 03/05/2008 PM-Device Mfg Medtronic Model SEDR01 [employer] Serial Number [id number] Implant Date 07/18/2007 BLANK _ Lead1 Mfg Medtronic Model 5076 Serial Number [id number] Location right Implant Date 07/18/2007 BLANK _ Lead2 Mfg Medtronic Model 5076 Serial Number [id number] Location right Implant Date 07/18/2007 Epilepsy (HCC) Essential hypertension, benign well controlled Generalized osteoarthrosis, unspecified site Impaired glucose tolerance test Runs usually 100 Obesity Other and unspecified disc disorder of lumbar region Other and unspecified hyperlipidemia Spinal stenosis, lumbar region, without neurogenic claudication s/p L5-S1 sx '00 PAST SURGICAL HISTORY Procedure Laterality Date ARTHRP ACETBLR/PROX FEM PROSTC AGRFT/ALGRFT 2008 Hip replacement, total left NEUROPLASTY &/TRANSPOS MEDIAN NRV CARPAL TUNNE Right 02/21/2019 Right [facility] PACEMAKER 2009 PAST SURGICAL HISTORY OF lumbar surgery x 3 PAST SURGICAL HISTORY OF 11/2017 Battery replacement - pacemaker FAMILY HISTORY Problem Relation Age of Onset Hypertension Mother age 91 other (high cholesterol) Father other (black lung) Father Asthma Father Severe Asthma Sister Lung Cancer Brother Smoker. Diabetes Maternal Grandmother Diabetes Other cousins Hypertension Other brothers/ sisters other (high cholesterol) Other brothers Social History Tobacco Use Smoking status: Never Smokeless tobacco: Never Tobacco comments: No household ETS exposure in entire lifetime. Substance Use Topics Alcohol use: No Drug use: No ALLERGIES Allergen Reactions Latex Rash itches Crestor [Rosuvastat* Myalgia severe muscles aches Lipitor [Atorvastat* Myalgia severe muscle aches Adhesive Rash redness Amlodipine Swelling leg swelling Atenolol Intolerance gained a lot of weight Seasonal Allergies Cough Medications: Current Outpatient Medications Medication Sig Dispense Refill erythromycin (ROMYCIN) 5 mg/gram (0.5 %) ophthalmic ointment Use in both eyes. 1 x daily fluticasone-vilanterol (BREO ELLIPTA) 100-25 mcg/dose inhaler Inhale 1 Inhalation as instructed once daily. 3 Each 2 carvedilol (COREG) 3.125 mg tablet Take 1 tablet by mouth two times a day. 180 tablet 3 fluticasone (FLONASE ALLERGY RELIEF) 50 mcg/actuation nasal spray Use 1 Wallace in each nostril once daily. 3 Each 3 lamoTRIgine (LAMICTAL) 100 mg tablet Take 1 tablet by mouth two times a day. 180 tablet 3 hydroCHLOROthiazide (HYDRODIURIL, ESIDRIX) 12.5 mg capsule Take 1 capsule by mouth once daily as needed. 90 capsule 1 FLAXSEED OIL (OMEGA 3 ORAL) Take by mouth once daily. aspirin, enteric coated (ASPIRIN, ENTERIC COATED) 81 mg EC tablet Take by mouth as directed. Take two tablets once daily in the evening. 0 Cholecalciferol, Vitamin D3, 1,000 unit ORAL Cap Take one(1) tablet two(2) times daily. calcium carbonate(CALCIUM 500 500 MG (1,250 MG) TAB) Takes 5117-6651 mg once daily. 0 No current facility-administered medications for this visit. Review of Systems Constitutional: Negative for chills, diaphoresis, fever, malaise/fatigue and weight loss. HENT: Negative for congestion, ear discharge, ear pain, hearing loss, nosebleeds, sinus pain, sore throat and tinnitus. Eyes: Negative for blurred vision, double vision, photophobia, pain, discharge and redness. Respiratory: Negative for cough, hemoptysis, sputum production, shortness of breath, wheezing and stridor. Cardiovascular: Negative for chest pain, palpitations, orthopnea, claudication, leg swelling and PND. Gastrointestinal: Negative for abdominal pain, blood in stool, constipation, diarrhea, heartburn, melena, nausea and vomiting. Genitourinary: Negative for dysuria, flank pain, frequency, hematuria and urgency. Musculoskeletal: Negative for back pain, falls, joint pain, myalgias and neck pain. Skin: Negative for itching and rash. Neurological: Negative for dizziness, tingling, tremors, sensory change, speech change, focal weakness, seizures, loss of consciousness, weakness and headaches. Endo/Heme/Allergies: Negative for environmental allergies and polydipsia. Does not bruise/bleed easily. Psychiatric/Behavioral: Negative for depression, hallucinations, memory loss, substance abuse and suicidal ideas. The patient is not nervous/anxious and does not have insomnia. Physical Examination: Vitals:BP 145/87 Pulse 80 Ht 5' 7 (1.70m) Wt 201 lb (91.2kg) SpO2 98% BMI 31.47 kg/(m^2). BP w/Orthostatic Vitals Date and Time Orthostatic BP Orthostatic Pulse BP Pulse BP Position BP Site BP Cuff Size 02/18/24 1429 -- -- 145/87 80 -- Right Arm -- Last 2 Encounter Wt Readings: Date: Wt: 02/18/2024 91.2 kg (201 lb) 09/24/2023 89.8 kg (198 lb) Physical Exam Constitutional: General: She is not in acute distress. Appearance: She is not diaphoretic. HENT: Head: Normocephalic and atraumatic. Right Ear: External ear normal. Left Ear: External ear normal. Nose: Nose normal. Mouth/Throat: Pharynx: Oropharynx is clear. Eyes: General: Right eye: No discharge. Left eye: No discharge. Conjunctiva/sclera: Conjunctivae normal. Pupils: Pupils are equal, round, and reactive to light. Cardiovascular: Rate and Rhythm: Normal rate and regular rhythm. Heart sounds: Normal heart sounds, S1 normal and S2 normal. No murmur heard. No friction rub. No gallop. No S3 or S4 sounds. Pulmonary: Effort: Pulmonary effort is normal. No respiratory distress. Breath sounds: Normal breath sounds. No wheezing or rales. Chest: Chest wall: No tenderness. Abdominal: General: Abdomen is flat. Musculoskeletal: General: Normal range of motion. Cervical back: Normal range of motion and neck supple. Skin: General: Skin is warm and dry. Neurological: Mental Status: She is alert and oriented to person, place, and time. Psychiatric: Mood and Affect: Mood normal. Thought Content: Thought content normal. Judgment: Judgment normal. Pertinent Labs: CBC: Hemoglobin (g/dL) Date Value 09/19/2023 13.4 02/10/2021 13.1 Hematocrit (%) Date Value 09/19/2023 41.7 02/10/2021 41.3 WBC (k/uL) Date Value 09/19/2023 5.59 02/10/2021 4.91 Platelet Count (k/uL) Date Value 09/19/2023 248 02/10/2021 234 BMP: Glucose (mg/dL) Date Value 09/19/2023 98 02/10/2021 95 Potassium (mmol/L) Date Value 09/19/2023 4.7 02/10/2021 4.6 Sodium (mmol/L) Date Value 09/19/2023 141 02/10/2021 141 Chloride (mmol/L) Date Value 09/19/2023 106 02/10/2021 105 CO2 (mmol/L) Date Value 09/19/2023 26 02/10/2021 27 Creatinine (mg/dL) Date Value 09/19/2023 0.79 02/10/2021 0.87 BUN (mg/dL) Date Value 09/19/2023 14 02/10/2021 14 Anion Gap (mmol/L) Date Value 09/19/2023 9 02/10/2021 9 Calcium (mg/dL) Date Value 02/10/2021 9.8 Calcium, Total (mg/dL) Date Value 09/19/2023 9.6 INR: Lipid Profile: Cholesterol, Total Date Value Ref Range Status 09/19/2023 196 <200 mg/dL Final Comment: <200 mg/dL, Desirable 200-239 mg/dL, Borderline high >239 mg/dL, High HDL Cholesterol Date Value Ref Range Status 09/19/2023 49 >39 mg/dL Final Comment: 40-59 mg/dL, Acceptable >59 mg/dL, High: Negative risk factor for coronary heart disease <40 mg/dL, Low: Positive risk factor for coronary heart disease LDL Cholesterol Date Value Ref Range Status 09/19/2023 133 (H) <100 mg/dL Final Comment: <100 mg/dL, Optimal 100-129 mg/dL, Near optimal/above optimal 130-159 mg/dL, Borderline high 160-189 mg/dL, High >189 mg/dL, Very high Secondary prevention optimal LDL Cholesterol levels are recommended to be < 70 mg/dL Triglyceride Date Value Ref Range Status 09/19/2023 68 <150 mg/dL Final Comment: <150 mg/dL, Normal 150-199 mg/dL, Borderline high 200-499 mg/dL, High >499 mg/dL, Very high Hemoglobin A1C: No results found for: HGBA1C TSH: No results found for: TSHREFL Prior Cardiac Testing none Assessment and Plan: 83 years old female patient with sick sinus syndrome status pacemaker insertion ASSESSMENT/PLAN: 1. Essential hypertension - ICD9: 401.9, ICD10: I10 - Controlled - Continue current medications - Recommend home blood pressure monitoring, to bring results to next visit - Encouraged sodium restriction, DASH or Mediterranean diet - Recommend regular aerobic exercise 2. 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 Allergic rhinitis, unspecified seasonality, unspecified trigger - ICD9: 477.9, ICD10: J30.9 Per primary physician Seven Bautista MD Follow up planning: One year Electronically signed by Seven Bautista MD on February 18, 2024, 2:58 PM The above note was partially created using a dictation recognition software. A reasonable attempt has been made to correct any errors. documented in this encounter [facility] 09-24-2023 Instructions Vince Vilchis APRN.BILINGUAL LEGAL ASSISTANT - 09/24/2023 9:31 AM EDT Consider increasing pravastatin from 2 times a week to 3 times per week Continue to limit caffeinated beverages and avoid excess animal products in your diet as you have been. Your cholesterol looks better but not yet at target. Consider taking Eliquis / discuss the Watchman procedure with your reimbursement coordinator documented in this encounter [facility] 09-24-2023 History of Present illness Narrative SUBJECTIVE: Advance Directive Discussion due on 05/21/2023 Behavioral Health Screening Never done Covid-19 Vaccine( season) due on 07/22/2023 BRYCE Cruz is a 82 year old female. PMH significant for ACTIVE PROBLEM LIST Postlaminectomy Syndrome, Lumbar Region Spinal Stenosis, Lumbar Region, Without Neurogenic Claudication Cardiac Pacemaker in Situ Left Hip Pain Knee Pain Syncope Psvt (Paroxysmal Supraventricular Tachycardia) (Hcc) Chronic Venous Insufficiency Essential Hypertension Obesity (Bmi 30.0-34.9) Pacemaker Epilepsy (Hcc) Mild Persistent Asthma Without Complication Gerd (Gastroesophageal Reflux Disease) Sick Sinus Syndrome (Hcc) Presents for routine follow-up visit. She is in her usual state of health. Last seen by PCP in March 2023. Pravastatin at 10 mg 2 times per week, did not increase to 3 times per week as advised. Has made dietary changes, less animal products. Has decreased coffee intake as well. Epilepsy: No recent reported; remote Rhinitis/PND: unchanged, not currently using loratadine or nasal steroid. States she uses Sinex as needed. 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 Device surgery Dr Cabrales 11/29/2017. She reports she has not started Eliquis as recommended. She is interested in the Watchman procedure. Not sure if she is a candidate. Followed by pulmonology, Wendy Lemus MD and Ivanna Lemus PA-C. Note mild persistent asthma. Prescribed Breo ellipta. Continued on albuterol. HTN: Without report of headache, chest pain, palpitations, dyspnea, and peripheral edema. Last 3 Encounter BP Readings: Date: BP: 09/24/2023 123/77 09/06/2023 110/87 04/09/2023 156/90 Hyperlipidemia. Ms. Cruz reports doing well on current therapy.Her most recent lipid panels are: Cholesterol, Total (mg/dL) Date Value 09/19/2023 196 02/26/2023 221 02/10/2021 167 07/20/2020 181 HDL Cholesterol (mg/dL) Date Value 09/19/2023 49 02/26/2023 48 02/10/2021 51 07/20/2020 48 LDL Cholesterol (mg/dL) Date Value 09/19/2023 133 02/26/2023 163 02/10/2021 104 07/20/2020 120 Triglyceride (mg/dL) Date Value 09/19/2023 68 02/26/2023 51 02/10/2021 62 07/20/2020 66 Patient's last HgA1C was Hemoglobin A1C (%) Date Value 09/19/2023 5.6 02/26/2023 5.7 02/10/2021 5.8 07/20/2020 6.0 ) Review of Systems Constitutional: Negative. Respiratory: Negative. Cardiovascular: Negative. Objective BP 123/77 Pulse 69 Resp 16 Wt 89.8 kg (198 lb) BMI 31.01 kg/m Physical Exam Vitals and nursing note reviewed. Constitutional: Appearance: Normal appearance. HENT: Head: Normocephalic and atraumatic. Eyes: Conjunctiva/sclera: Conjunctivae normal. Neck: Thyroid: No thyromegaly. Vascular: Normal carotid pulses. No JVD. Cardiovascular: Rate and Rhythm: Normal rate and regular rhythm. Pulses: Carotid pulses are 2+ on the right side and 2+ on the left side. Radial pulses are 2+ on the right side and 2+ on the left side. Heart sounds: Normal heart sounds. Pulmonary: Effort: Pulmonary effort is normal. Breath sounds: Normal breath sounds. Abdominal: General: Bowel sounds are normal. Palpations: Abdomen is soft. Musculoskeletal: Right lower leg: No edema. Left lower leg: No edema. Skin: General: Skin is warm and dry. Neurological: General: No focal deficit present. Mental Status: She is alert and oriented to person, place, and time. ALLERGIES Allergen Reactions Latex Rash itches Crestor [Rosuvastat* Myalgia severe muscles aches Lipitor [Atorvastat* Myalgia severe muscle aches Adhesive Rash redness Amlodipine Swelling leg swelling Atenolol Intolerance gained a lot of weight Seasonal Allergies Cough Medication ofloxacin (OCUFLOX) 0.3 % ophthalmic solution^Use in both eyes two times a day.^Disp: ^Rfl: XIIDRA 5 % ophthalmic drops^Use 1 Drop in both eyes two times a day.^Disp: ^Rfl: erythromycin (ROMYCIN) 5 mg/gram (0.5 %) ophthalmic ointment^Use in both eyes. 1 x daily^Disp: ^Rfl: fluticasone-vilanterol (BREO ELLIPTA) 100-25 mcg/dose inhaler^Inhale 1 Inhalation as instructed once daily.^Disp: 3 Each^Rfl: 2 carvedilol (COREG) 3.125 mg tablet^Take 1 tablet by mouth two times a day.^Disp: 180 tablet^Rfl: 3 fluticasone (FLONASE ALLERGY RELIEF) 50 mcg/actuation nasal spray^Use 1 Wallace in each nostril once daily.^Disp: 3 Each^Rfl: 3 lamoTRIgine (LAMICTAL) 100 mg tablet^Take 1 tablet by mouth two times a day.^Disp: 180 tablet^Rfl: [address] (PROTONIX) 40 mg tablet^Take 1 tablet by mouth twice daily.^Disp: 180 tablet^Rfl: 1 albuterol HFA (VENTOLIN HFA) 90 mcg/actuation inhaler^Inhale 2 Puffs as instructed every 4 hours as needed for wheezing/shortness of breath.^Disp: 24 g^Rfl: 3 hydroCHLOROthiazide (HYDRODIURIL, ESIDRIX) 12.5 mg capsule^Take 1 capsule by mouth once daily as needed.^Disp: 90 capsule^Rfl: 1 pravastatin (PRAVACHOL) 10 mg tablet^Take 1 tablet by mouth daily at bedtime.^Disp: 90 tablet^Rfl: 3 (Patient taking differently: Take 10 mg by mouth daily at bedtime. Patient is taking this medication 3 times per week.) FLAXSEED OIL (OMEGA 3 ORAL)^Take by mouth once daily.^Disp: ^Rfl: aspirin, enteric coated (ASPIRIN, ENTERIC COATED) 81 mg EC tablet^Take by mouth as directed. Take two tablets once daily in the evening.^Disp: ^Rfl: 0 Cholecalciferol, Vitamin D3, 1,000 unit ORAL Cap^Take one(1) tablet two(2) times daily.^Disp: ^Rfl: calcium carbonate(CALCIUM 500 500 MG (1,250 MG) TAB)^Takes 4992-3569 mg once daily. ^Disp: ^Rfl: 0 fluticasone-vilanterol (BREO ELLIPTA) 100-25 mcg/dose inhaler^Inhale 1 Inhalation as instructed once daily.^Disp: 1 Each^Rfl: 11 (Patient not taking: Reported on 09/24/2023) PAST MEDICAL HISTORY Diagnosis Date Asthma Atrial fibrillation (HCC) Cardiac pacemaker in situ 03/05/2008 PM-Device Mfg [employer] Model SEDR01 [employer]ensia Serial Number [id number] Implant Date 07/18/2007 BLANK _ Lead1 Mfg Medtronic Model 5076 Serial Number [id number] Location right Implant Date 07/18/2007 BLANK _ Lead2 Mfg Medtronic Model 5076 Serial Number [id number] Location right Implant Date 07/18/2007 Epilepsy (HCC) Essential hypertension, benign well controlled Generalized osteoarthrosis, unspecified site Impaired glucose tolerance test Runs usually 100 Obesity Other and unspecified disc disorder of lumbar region Other and unspecified hyperlipidemia Spinal stenosis, lumbar region, without neurogenic claudication s/p L5-S1 sx '00 Social History Tobacco Use Smoking status: Never Smokeless tobacco: Never Tobacco comments: No household ETS exposure in entire lifetime. Substance Use Topics Alcohol use: No Drug use: No Latest Ref Rng 02/26/2023 09/19/2023 Protein, Total 6.3 - 8.0 g/dL 6.4 6.7 Albumin 3.9 - 4.9 g/dL 4.0 4.2 Calcium 8.5 - 10.2 mg/dL 9.4 9.6 Bilirubin, Total 0.2 - 1.3 mg/dL 0.3 0.4 Alkaline Phosphatase 34 - 123 U/L 63 71 AST 13 - 35 U/L 21 20 ALT 7 - 38 U/L 14 10 Glucose 74 - 99 mg/dL 105 (H) 98 BUN 7 - 21 mg/dL 17 14 Creatinine 0.58 - 0.96 mg/dL 0.85 0.79 Sodium 136 - 144 mmol/L 141 141 Potassium 3.7 - 5.1 mmol/L 4.8 4.7 Chloride 97 - 105 mmol/L 107 (H) 106 (H) CO2 22 - 30 mmol/L 25 26 Anion Gap 9 - 18 mmol/L 9 9 eGFR >=60 mL/min/1.73m 69 75 WBC 3.70 - 11.00 k/uL 5.73 5.59 RBC 3.90 - 5.20 m/uL 4.56 4.68 Hemoglobin 11.5 - 15.5 g/dL 13.3 13.4 Hematocrit 36.0 - 46.0 % 41.6 41.7 MCV 80.0 - 100.0 fL 91.2 89.1 MCH 26.0 - 34.0 pg 29.2 28.6 MCHC 30.5 - 36.0 g/dL 32.0 32.1 RDW-CV 11.5 - 15.0 % 12.8 13.0 Platelet Count 150 - 400 k/uL 242 248 MPV 9.0 - 12.7 fL 9.6 9.8 Absolute nRBC <0.01 k/uL <0.01 <0.01 Cholesterol, Total <200 mg/dL 221 (H) 196 Triglyceride <150 mg/dL 51 68 HDL Cholesterol >39 mg/dL 48 49 Non HDL Cholesterol <130 mg/dL 173 (H) 147 (H) Fasting Time hrs 12 14 VLDL Cholesterol <30 mg/dL 10 14 TC:HDL Ratio <5.10 4.60 4.00 LDL Cholesterol <100 mg/dL 163 (H) 133 (H) LDL:HDL Ratio <2.54 3.40 (H) 2.71 (H) Hemoglobin A1C 4.3 - 5.6 % 5.7 (H) 5.6 Estimated Average Glucose mg/dL 117 114 Magnesium 1.7 - 2.3 mg/dL 1.9 2.1 ASSESSMENT/PLAN: 1. Encounter for immunization - ICD9: V03.89, ICD10: Z23 (primary diagnosis) - [facility] COVID-19 VACCINE (2022- SEASON) AGE 12+ YR 2. Gastroesophageal reflux disease, unspecified whether esophagitis present - ICD9: 530.81, ICD10: K21.9 - Endorse endorse lifestyle measures Continue with PPI BID States she takes an Jew remedy with apple cider vinegar at times - PANTOPRAZOLE 40 MG TABLET,DELAYED RELEASE 3. Essential hypertension - ICD9: 401.9, ICD10: I10 controlled - Encouraged sodium restriction, DASH or Mediterranean diet - Recommend regular aerobic exercise 4. PSVT (paroxysmal supraventricular tachycardia) (HCC) - ICD9: 427.0, ICD10: I47.10 Most recent device check showed atrial fibrillation. Currently taking aspirin 81 mg. Notes that anticoagulation was discussed but not yet started. She is interested in Watchman procedure 5. Nonintractable epilepsy without status epilepticus, unspecified epilepsy type (HCC) - ICD9: 345.90, ICD10: G40.909 No recent seizure 6. Hoarseness - ICD9: 784.42, ICD10: R49.0 Continues unchanged, unclear if this is related to GERD or asthma. Consider increasing pravastatin from 2 times a week to 3 times per week Continue to limit caffeinated beverages and avoid excess animal products in your diet as you have been. Your cholesterol looks better but not yet at target. Consider taking Eliquis / discuss the Watchman procedure with your reimbursement coordinator 6 mo follow up Sagrario Fong MD with labs Vince Vilchis APRN.BILINGUAL LEGAL ASSISTANT Medical Decision Making: Problems: Moderate: 1+ chronic illnesses with change and 2+ stable chronic illnesses Data: Unique test(s) ordered: 3+ Risk: Moderate: Moderate risk from testing/treatment Medical Decision Making Level: 4 - Moderate documented in this encounter [facility] 09-06-2023 History of Present illness Narrative Images from the original note were not included. . [facility] Note Patient name: Betzy Cruz PCP: Sagrario Fong MD CC: follow-up asthma HPI: Betzy Cruz 83 year old female never smoker with PMH significant for obesity, sick sinus syndrome s/p pacemaker, questionable seizure disorder, HTN, HLD, spinal stenosis and asthma presenting for follow-up. Current therapy consists of as needed albuterol and ICS/LABA. She has been noncompliant with inhaled therapy in the past. She did not tolerate Singulair for her allergies due to nightmares. At her last office visit with QUIRINO, changed inhaled therapy to Dulera 50/5 mcg 2 puffs twice daily from Breo Ellipta. She was having more tachycardia episodes which then causes her to be SOB. Albuterol seems to precipitate her AF more than the other inhalers but inhaled therapy helps her SOB related to her asthma. She gets SOB when walking to mailbox, stops and rests a few minutes before proceeding. Some wheezing and chest tightness. No cough. No recent URI. No hospitalizations. She has frequent episodes of AF and anticoagulation is being recommended. AF not always associated with use of her inhaler. She feels the Dulera is more problematic than the Breo Ellipta. ASTHMA CONTROL TEST Date: 09/06/2023 In the last 4 weeks, how much of the time did your asthma keep you from getting as much done at work or home that you wanted to do? Some of the time (3) In the last 4 weeks, how often have you had shortness of breath? More than once per day (1) In the last 4 weeks, how often did your asthma symptoms (wheezing, coughing, shortness of breath, chest tightness or pain) wake you up at night or earlier than usual? Once a week (3) In the last 4 weeks, how often have you used your rescue inhaler or nebulizer medication (such as Albuterol, Proventil, Ventolin, Maxair, Xoponex, or Primatene Mist)? 1 or 2 times per day (2) In the last 4 weeks, how would you rate your asthma control? Not controlled at all (1) Total: less than 15 DATA: Reviewed EMR cardiology data SERVICE DATE: 02/28/2023 SERVICE TIME: 10:18 AM Oral Exhaled Nitric Oxide measurement: 21.0 (ppb) Labs: Component Ref Range & Units 6 mo ago (02/26/23) 1 yr ago (08/18/22) WBC 3.70 - 11.00 k/uL 5.73 5.40 RBC 3.90 - 5.20 m/uL 4.56 4.33 Hemoglobin 11.5 - 15.5 g/dL 13.3 12.7 Hematocrit 36.0 - 46.0 % 41.6 39.4 MCV 80.0 - 100.0 fL 91.2 91.0 MCH 26.0 - 34.0 pg 29.2 29.3 MCHC 30.5 - 36.0 g/dL 32.0 32.2 RDW-CV 11.5 - 15.0 % 12.8 12.4 Platelet Count 150 - 400 k/uL 242 249 MPV 9.0 - 12.7 fL 9.6 10.0 Absolute nRBC <0.01 k/uL <0.01 PAST MEDICAL HISTORY Diagnosis Date Asthma Atrial fibrillation (HCC) Cardiac pacemaker in situ 03/05/2008 PM-Device Mfg Medtronic Model SEDR01 Sensia Serial Number [id number] Implant Date 07/18/2007 BLANK _ Lead1 Mfg Medtronic Model 5076 Serial Number [id number] Location right Implant Date 07/18/2007 BLANK _ Lead2 Mfg Medtronic Model 5076 Serial Number [id number] Location right Implant Date 07/18/2007 Epilepsy (HCC) Essential hypertension, benign well controlled Generalized osteoarthrosis, unspecified site Impaired glucose tolerance test Runs usually 100 Obesity Other and unspecified disc disorder of lumbar region Other and unspecified hyperlipidemia Spinal stenosis, lumbar region, without neurogenic claudication s/p L5-S1 sx '00 ALLERGIES Allergen Reactions Latex Rash itches Crestor [Rosuvastat* Myalgia severe muscles aches Lipitor [Atorvastat* Myalgia severe muscle aches Adhesive Rash redness Amlodipine Swelling leg swelling Atenolol Intolerance gained a lot of weight Seasonal Allergies Cough ofloxacin (OCUFLOX) 0.3 % ophthalmic solution^Use in both eyes two times a day.^Disp: ^Rfl: XIIDRA 5 % ophthalmic drops^Use 1 Drop in both eyes two times a day.^Disp: ^Rfl: carvedilol (COREG) 3.125 mg tablet^Take 1 tablet by mouth two times a day.^Disp: 180 tablet^Rfl: 3 fluticasone (FLONASE ALLERGY RELIEF) 50 mcg/actuation nasal spray^Use 1 Wallace in each nostril once daily.^Disp: 3 Each^Rfl: 3 lamoTRIgine (LAMICTAL) 100 mg tablet^Take 1 tablet by mouth two times a day.^Disp: 180 tablet^Rfl: 3 fluticasone-vilanterol (BREO ELLIPTA) 100-25 mcg/dose inhaler^Inhale 1 Inhalation as instructed once daily.^Disp: 1 Each^Rfl: 11 hydroCHLOROthiazide (HYDRODIURIL, ESIDRIX) 12.5 mg capsule^Take 1 capsule by mouth once daily as needed.^Disp: 90 capsule^Rfl: 1 pravastatin (PRAVACHOL) 10 mg tablet^Take 1 tablet by mouth daily at bedtime.^Disp: 90 tablet^Rfl: 3 (Patient taking differently: Take 10 mg by mouth daily at bedtime. Patient is taking this medication 3 times per week.) FLAXSEED OIL (OMEGA 3 ORAL)^Take by mouth once daily.^Disp: ^Rfl: aspirin, enteric coated (ASPIRIN, ENTERIC COATED) 81 mg EC tablet^Take by mouth as directed. Take two tablets once daily in the evening.^Disp: ^Rfl: 0 Cholecalciferol, Vitamin D3, 1,000 unit ORAL Cap^Take one(1) tablet two(2) times daily.^Disp: ^Rfl: calcium carbonate(CALCIUM 500 500 MG (1,250 MG) TAB)^Takes 7080-0880 mg once daily. ^Disp: ^Rfl: 0 erythromycin (ROMYCIN) 5 mg/gram (0.5 %) ophthalmic ointment^Use in both eyes. 1 x daily^Disp: ^Rfl: fluticasone-vilanterol (BREO ELLIPTA) 100-25 mcg/dose inhaler^Inhale 1 Inhalation as instructed once daily.^Disp: 3 Each^Rfl: [address] (PROTONIX) 40 mg tablet^Take 1 tablet by mouth twice daily.^Disp: 180 tablet^Rfl: 1 (Patient not taking: Reported on 03/23/2023) albuterol HFA (VENTOLIN HFA) 90 mcg/actuation inhaler^Inhale 2 Puffs as instructed every 4 hours as needed for wheezing/shortness of breath.^Disp: 24 g^Rfl: 3 (Patient not taking: Reported on 04/09/2023) Social History Tobacco Use Smoking status: Never Smokeless tobacco: Never Tobacco comments: No household ETS exposure in entire lifetime. Substance Use Topics Alcohol use: No Drug use: No PMH, Social history, family history and surgical history reviewed and updated in EMR REVIEW OF SYSTEMS: CONSTITUTIONAL: No fevers, chills, nightsweats, unintended weight loss HEENT: Denies nasal congestion/sinus symptoms, current allergy problems. CARDIOVASCULAR: No angina, orthopnea, syncope. Some edema PULM: See HPI GI: No dysphagia/odynophagia, problematic reflux NEURO: No vertigo INTEGUMENTARY: No new skin changes or rashes PHYSICAL EXAMINATION: BP 110/87 Pulse 78 Temp (Src) 98 (Temporal) SpO2 98% General Appearance: Obese elderly female, NAD. Skin: Skin color, texture, turgor normal, no suspicious rashes or lesions. Head: Normocephalic, no masses, lesions, tenderness or abnormalities. Eyes: Sclera, conjunctiva normal. Oropharynx: No oral lesions or thrush. Neck: No JVD or masses or adenopathy. Lungs: Not labored, normal to percussion, no wheezes or crackles. Heart: Regular rate and rhythm, systolic murmur left upper sternal border. Extremities: Mild pitting edema, no clubbing. Assessment/Plan: 1. Persistent asthma, uncomplicated, mild -Recommend changing back to Breo Ellipta -Limit albuterol usage -Unclear whether her inhaled therapy is truly exacerbating her atrial fibrillation or she is having denovo issues with her atrial fibrillation 2. Paroxysmal atrial fibrillation -Considering anticoagulation versus Watchman procedure -Management of atrial fibrillation per cardiology Wendy Lemus MD [facility] documented in this encounter [facility] 04-09-2023 History of Present illness Narrative Images from the original note were not included. EP STAFF NOTE: Please note: This note has been produced using speech recognition software and may contain errors related to that system including grammar, punctuation, spelling, gender and words and phrases that may be inappropriate Consultation requested by Sagrario Fong for an opinion regarding management of previously placed PPM and my final recommendations will be communicated back to the requesting physician by way of shared medical record OR letter via fax/US mail. I have reviewed the above information and examined the patient and confirm the above with the following additions/modifications. PE: Vitals: BP 156/90 Pulse 69 Ht 170.2 cm (5' 7) Wt 92.2 kg (203 lb 4.2 oz) SpO2 97% BMI 31.84 kg/m General: Appears well nourished. In no acute distress. Skin: No clubbing. No cyanosis. Eyes: EOMI Oropharynx: No oral lesions. Neck: no JVD. Lungs: Unlabored Heart: RRR Abdomen: nontender Extremities: No peripheral edema bilaterally. Neuro: Oriented x3, alert, cooperative, gait coordinated. DEVICE CHECK: remote : PRESENTING EGM: /VS BATTERY STATUS: Estimated time remaining to NELSON is 10.3 years COUNTERS SINCE: 11/10/22 ATRIAL ARRHYTHMIAS: There have been 49 triggered episodes of atrial high rates with EGMs showing a mix of AF and AFL. Longest lasting 6 hours. Total time 1.4%. Anticoagulants listed: aspirin. VENTRICULAR ARRHYTHMIAS: There have been 5 ventricular detections with EGMs showing AF with RVR (AF waves appear to be under sensed). LEAD MEASUREMENTS: Sensing is appropriate. Review of the lead impedance trends are normal. RV autocapture continues to report high results. OTHER DIAGNOSTICS: RA pacing 0.9%. RV pacing <0.1 %. FOLLOW UP: Updated Dr. Bautista of above issues as she appears to be following with him in [place]. Also inquired about transferring remote monitoring to their office. Tiffanie Guadalupe RN Today: PRESENTS FOR: Device check & appt with Dr. Huertas PRESENTING EGM: /VS UNDERLYING RHYTHM: Sinus rhythm BATTERY STATUS: Estimated time remaining to NELSON is 10.1 years. COUNTERS SINCE 09/04/2022 ATRIAL ARRHYTHMIAS: There have been 49 atrial detections, available EGMs show AFL, longest episode lasting ~4 hours. AF burden 0.6%. No AC, ASA 81mg only. VENTRICULAR ARRHYTHMIAS: There were 9 ventricular detections, EGMs show short bursts of 1:1 tachycardia. Episode 29 from Dec 2022, shows V>A's, however after closer examination it appears there is under sensed AF and event is truly AF with RVR. LEAD MEASUREMENTS: RA capture and sensing are appropriate. RV sensing is stable, measuring 5.5mV today. RV auto capture started to report high readings in July 2021. Today, RV capture is stable measuring 1.25V @ 1.0ms. Pt was having frequent short R-R intervals previously, however since programming changes made in August, RV sensitivity was programmed to 2.0mV, the amount of short R-R intervals has significantly subsided with a total of 269 detections since August. The pacing outputs maintain safety margin. Review of the lead impedance trends are normal. IMPLANT SITE/ SYMPTOMS: The incision and pocket are pain-free (0/10), well healed and without signs of erosion or infection. No arm swelling, syncope, pre-syncope or device related pocket stimulation. OTHER DIAGNOSTICS: RA pacing 0.8%. Total V pacing <0.1% PROGRAMMING CHANGES MADE TODAY: RA sensitivity programmed back to 0.30mV d/t under sensed AF noted in EGMs. RV auto capture programmed off as it measures at 0.4ms, pulse width is programmed at 1.0ms. Home monitor alerts programmed appropriately. Time adjusted d/t Daylight Saving Time. FOLLOW UP: Pt to continue with every 3 month remote transmissions and annual in-clinic visits. Nicole Sands RN Updated Dr. Bautista of above issues as she appears to be following with him in [place]. Also inquired about transferring remote monitoring to their office. PROBLEM LIST: Former [facility] / [facility] patient sick sinus syndrome s/p PPM 2007, generator change [address] Cabrales paroxysmal atrial fibrillation asthma RV capture was elevated at 2.375 V at 0.4 ms this is seems to be elevated and stable. hyperlipidemia hypertension Low burden of AFL - last with controlled V rate. CHADS VASc - HTN, AGe 2, female. IMPRESSION / PLAN: 82 y/o with a previously placed PPM. Presents to establish longitudinal care. Paces very little. RV capture elevated but stable. Not dependent AFL / AT events -2022. Asymptomatic. CHADS VASc 4. Reviewed ACC recs to start AC. She wants to defer. R/B reviewed. Agree to start if events recurrent. Enabled unscheduled notification for any future events > 30 min. Give Eliquis blister pack 5 mg BID that she can start if we are notified for future AF / AFL events. Scheduled Remotes q 3 months Annual EP follow up with device check. This note was created with electronic dictation and errors in syntax and meaning may have occurred. Van Huertas MD Pager: [phone] Office: [phone] I personally examined the patient and repeated the christina components of the exam and cardiac history, past medical and surgical history, social and family history. The assessment and plan were formulated and discussed with the patient and family. I spent over 25 minutes (face time) and greater than 50% of this time was spent counseling and/or coordinating the care of the patient with regard the diagnosis and medical regimen Referring Physician: Sagrario Fong [address] [place] [address] Seven Bautista MD documented in this encounter [facility] 03-23-2023 Instructions Sagrario Fong MD - 03/23/2023 5:21 PM EDT Okay to stay off Protonix. If reflux occurs 2 or more times weekly, consider Pecid 20 mg daily. If that controls reflux, okay to stay on it. If does not control reflux, consider lowest dose PPI (Proton Pump Inhibitor) of Protonix or other PPI at lowest dose needed to control reflux. documented in this encounter [facility] 03-23-2023 History of Present illness Narrative This note was created using Event[employer]. Subjective Betzy Cruz is a 82 year old female. Patient presents with: F/U 6 months: Labs prior SUBJECTIVE: Betzy Cruz is a 82 year old year old lady here today for 6 month follow up appointment for review of medical conditions. Noted vasomotor rhinitis triggered by cold air today. No signs of infection. Did get aches and pains with Pravastatin even if just 3 times weekly. Did not tolerate other statins. Stopped Protonix and no problem PAST MEDICAL HISTORY Diagnosis Date Asthma Atrial fibrillation (HCC) Cardiac pacemaker in situ 03/05/2008 PM-Device Mfg Medtronic Model SEDR01 Sensia Serial Number [id number] Implant Date 07/18/2007 BLANK _ Lead1 Mfg Medtronic Model 5076 Serial Number [id number] Location right Implant Date 07/18/2007 BLANK _ Lead2 Mfg Medtronic Model 5076 Serial Number [id number] Location right Implant Date 07/18/2007 Epilepsy (HCC) Essential hypertension, benign well controlled Generalized osteoarthrosis, unspecified site Impaired glucose tolerance test Runs usually 100 Obesity Other and unspecified disc disorder of lumbar region Other and unspecified hyperlipidemia Spinal stenosis, lumbar region, without neurogenic claudication s/p L5-S1 sx '00 Current Outpatient Medications Medication Sig fluticasone-vilanterol (BREO ELLIPTA) 100-25 mcg/dose inhaler Inhale 1 Inhalation as instructed once daily. albuterol HFA (VENTOLIN HFA) 90 mcg/actuation inhaler Inhale 2 Puffs as instructed every 4 hours as needed for wheezing/shortness of breath. hydroCHLOROthiazide (HYDRODIURIL, ESIDRIX) 12.5 mg capsule Take 1 capsule by mouth once daily as needed. pravastatin (PRAVACHOL) 10 mg tablet Take 1 tablet by mouth daily at bedtime. FLAXSEED OIL (OMEGA 3 ORAL) Take by mouth once daily. aspirin, enteric coated (ASPIRIN, ENTERIC COATED) 81 mg EC tablet Take by mouth as directed. Take two tablets once daily in the evening. Cholecalciferol, Vitamin D3, 1,000 unit ORAL Cap Take one(1) tablet two(2) times daily. calcium carbonate(CALCIUM 500 500 MG (1,250 MG) TAB) Takes 5788-1011 mg once daily. carvedilol (COREG) 3.125 mg tablet Take 1 tablet by mouth two times a day. fluticasone (FLONASE ALLERGY RELIEF) 50 mcg/actuation nasal spray Use 1 Wallace in each nostril once daily. lamoTRIgine (LAMICTAL) 100 mg tablet Take 1 tablet by mouth two times a day. pantoprazole DR (PROTONIX) 40 mg tablet Take 1 tablet by mouth twice daily. (Patient not taking: Reported on 03/23/2023) Current Facility-Administered Medications Medication Dose Route Frequency perflutren lipid microspheres 1.3 mL in NaCl (PF) 0.9% 10 mL injection (DEFINITY) INTRAVENOUS DIRECTED PRN sodium chloride 0.9 % (flush) 10 mL (BD POSIFLUSH) 10 mL INTRAVENOUS DIRECTED PRN Review of Systems Objective BP 178/102 Pulse 80 Temp 36.7 C (98 F) Resp 18 Wt 89.8 kg (198 lb) SpO2 98% BMI 31.01 kg/m Last 5 Encounter Wt Readings: Date: Wt: 03/23/2023 89.8 kg (198 lb) 02/28/2023 92.5 kg (204 lb) 12/11/2022 91.8 kg (202 lb 5.8 oz) 10/26/2022 90.3 kg (199 lb) 09/14/2022 91.2 kg (201 lb) No waist measurement recorded Estimated body mass index is 31.01 kg/m as calculated from the following: Height as of 12/11/22: 170.2 cm (5' 7). Weight as of this encounter: 89.8 kg (198 lb). Last 5 Encounter BP Readings: Date: BP: 03/23/2023 178/102[Patient having coughing episode[ 02/28/2023 148/86 12/11/2022 115/72 10/26/2022 122/78 09/14/2022 122/82 Physical Exam Constitutional: Appearance: Normal appearance. HENT: Head: Normocephalic. Eyes: Conjunctiva/sclera: Conjunctivae normal. Cardiovascular: Rate and Rhythm: Normal rate and regular rhythm. Heart sounds: Normal heart sounds. Pulmonary: Effort: Pulmonary effort is normal. Breath sounds: Normal breath sounds. Skin: General: Skin is warm and dry. Neurological: General: No focal deficit present. Mental Status: She is alert and oriented to person, place, and time. Psychiatric: Attention and Perception: Attention and perception normal. Mood and Affect: Mood and affect normal. Speech: Speech normal. Behavior: Behavior normal. Thought Content: Thought content normal. Cognition and Memory: Cognition normal. Judgment: Judgment normal. Component Latest Ref Rng & Units 08/15/2021 02/09/2022 08/18/2022 02/26/2023 WBC 3.70 - 11.00 k/uL 5.01 4.02 5.40 5.73 RBC 3.90 - 5.20 m/uL 4.60 4.40 4.33 4.56 Hemoglobin 11.5 - 15.5 g/dL 13.2 12.9 12.7 13.3 Hematocrit 36.0 - 46.0 % 41.2 40.1 39.4 41.6 MCV 80.0 - 100.0 fL 89.6 91.1 91.0 91.2 MCH 26.0 - 34.0 pg 28.7 29.3 29.3 29.2 MCHC 30.5 - 36.0 g/dL 32.0 32.2 32.2 32.0 RDW-CV 11.5 - 15.0 % 12.5 12.7 12.4 12.8 Platelet Count 150 - 400 k/uL 236 211 249 242 MPV 9.0 - 12.7 fL 10.2 9.8 10.0 9.6 Neut% % 58.0 Abs Neut (ANC) 1.45 - 7.50 k/uL 3.13 Lymph% % 28.3 Abs Lymph 1.00 - 4.00 k/uL 1.53 Garland% % 8.7 Abs Garland <0.87 k/uL 0.47 Eosin% % 3.1 Abs Eosin <0.46 k/uL 0.17 Baso% % 1.5 Abs Baso <0.11 k/uL 0.08 Immature Gran % % 0.4 IMMATURE GRANS (ABS) <0.10 k/uL <0.03 NRBC /100 WBC 0.0 Absolute nRBC <0.01 k/uL <0.01 <0.01 <0.01 <0.01 DTYPE Auto Protein, Total 6.3 - 8.0 g/dL 6.6 6.3 6.8 6.4 Albumin 3.9 - 4.9 g/dL 4.1 4.1 4.2 4.0 Calcium 8.5 - 10.2 mg/dL 9.4 9.5 9.9 9.4 Bilirubin, Total 0.2 - 1.3 mg/dL 0.4 0.5 0.3 0.3 Alkaline Phosphatase 34 - 123 U/L 70 60 69 63 AST 13 - 35 U/L 21 20 21 21 ALT 7 - 38 U/L 13 15 15 14 Glucose 74 - 99 mg/dL 99 102 (H) 101 (H) 105 (H) BUN 7 - 21 mg/dL 14 23 (H) 19 17 Creatinine 0.58 - 0.96 mg/dL 0.79 0.93 0.89 0.85 Sodium 136 - 144 mmol/L 140 141 142 141 Potassium 3.7 - 5.1 mmol/L 4.2 4.7 4.7 4.8 Chloride 97 - 105 mmol/L 103 104 105 107 (H) CO2 22 - 30 mmol/L 27 27 27 25 Anion Gap 9 - 18 mmol/L 10 10 10 9 eGFR >=60 mL/min/1.73m 76 63 66 69 Cholesterol, Total <200 mg/dL 178 190 168 221 (H) Triglyceride <150 mg/dL 87 61 70 51 HDL Cholesterol >39 mg/dL 45 45 48 48 Non HDL Cholesterol <130 mg/dL 133 (H) 145 (H) 120 173 (H) Fasting Time hrs 16 12 12 12 VLDL Cholesterol <30 mg/dL 17 12 14 10 TC:HDL Ratio <5.10 3.96 4.22 3.50 4.60 LDL Cholesterol <100 mg/dL 116 (H) 133 (H) 106 (H) 163 (H) LDL:HDL Ratio <2.54 2.58 (H) 2.96 (H) 2.21 3.40 (H) Hemoglobin A1C 4.3 - 5.6 % 6.2 (H) 5.8 (H) 5.6 5.7 (H) Estimated Average Glucose mg/dL 131 120 114 117 Magnesium 1.7 - 2.3 mg/dL 1.9 Assessment and Plan Encounter Diagnosis ICD-10-CM 1. Essential hypertension I10 carvedilol (COREG) 3.125 mg tablet 2. PSVT (paroxysmal supraventricular tachycardia) I47.10 carvedilol (COREG) 3.125 mg tablet 3. Allergic rhinitis, unspecified seasonality, unspecified trigger J30.9 carvedilol (COREG) 3.125 mg tablet 4. Cough R05.9 carvedilol (COREG) 3.125 mg tablet 5. Post-nasal drip R09.82 fluticasone (FLONASE ALLERGY RELIEF) 50 mcg/actuation nasal spray 6. Nonintractable epilepsy without status epilepticus, unspecified epilepsy type (HCC) G40.909 lamoTRIgine (LAMICTAL) 100 mg tablet 7. Acute rhinitis J00 fluticasone (FLONASE ALLERGY RELIEF) 50 mcg/actuation nasal spray 8. Breast cancer screening by mammogram Z12.31 DONA SCREENING W MUKUL 9. Encounter for immunization Z23 [facility] COVID-19 VACCINE (2022- SEASON) AGE 12+ YR INFLUENZA VACCINE, PRSV FREE, AGE 65+ YR, HIGH DOSE, QUADRIVALENT (FLUZONE HIGH-DOSE) Above issues addressed with patient. Patient involved in shared decision making for management of medical issues. History and medications reviewed. Epic updated as needed Refills and/or prescriptions taken care of and meds adjusted as indicated after reviewed history, exam and labs. Health Maintenance reviewed. Updated record and/or ordered tests as recorded. Encouraged on efforts at healthy diet and regular exercise and adequate sleep. Continue present management.Further evaluation and treatment as indicated. Sagrario Fong MD documented in this encounter [facility] 02-28-2023 History of Present illness Narrative Images from the original note were not included. Patient: Betzy Cruz PCP: Sagrario Fong MD CC: follow up HPI: Betzy Cruz 82 year old female never smoker with PMH significant for sick sinus syndrome and A Fib s/p pacemaker, ? Seizure disorder, HTN, HLD, spinal stenosis, Covid infection 04/2022, and asthma. Current therapy consists of Breo and as needed Albuterol. She stopped the Breo approximately 2 weeks ago secondary to episodes noted on pacemaker. She states previously she never noted this number of events and the only change was Breo. Since stopping Breo she is noticing increased mucus and need to clear her throat. Occasional wheezing, not very often. Exertional dyspnea with minimal effort. Difficulty climbing stairs. She states with husbands declining health she is not as active. No lower extremity edema. Using Albuterol 2-3 times weekly. Was out using leaf blower last week and since then she is having sinus congestion and post nasal drip. Is unable to take antihistamine secondary to not being wide awake at night. PAST MEDICAL HISTORY Diagnosis Date Asthma Atrial fibrillation (HCC) Cardiac pacemaker in situ 03/05/2008 PM-Device Mfg Medtronic Model SEDR01 Sensia Serial Number [id number] Implant Date 07/18/2007 BLANK _ Lead1 Mfg Medtronic Model 5076 Serial Number [id number] Location right Implant Date 07/18/2007 BLANK _ Lead2 Mfg Medtronic Model 5076 Serial Number [id number] Location right Implant Date 07/18/2007 Epilepsy (HCC) Essential hypertension, benign well controlled Generalized osteoarthrosis, unspecified site Impaired glucose tolerance test Runs usually 100 Obesity Other and unspecified disc disorder of lumbar region Other and unspecified hyperlipidemia Spinal stenosis, lumbar region, without neurogenic claudication s/p L5-S1 sx '00 Allergies: Latex Rash Comment:itches Crestor [Rosuvastat* Myalgia Comment:severe muscles aches Lipitor [Atorvastat* Myalgia Comment:severe muscle aches Adhesive Rash Comment:redness Amlodipine Swelling Comment:leg swelling Atenolol Other: See Comments Comment:gained a lot of weight Seasonal Allergies Cough fluticasone-vilanterol (BREO ELLIPTA) 100-25 mcg/dose inhaler^Inhale 1 Inhalation as instructed once daily.^Disp: 1 Each^Rfl: 11 fluticasone (FLONASE ALLERGY RELIEF) 50 mcg/actuation nasal spray^Use 1 Wallace in each nostril once daily.^Disp: 1 Each^Rfl: [address] (PROTONIX) 40 mg tablet^Take 1 tablet by mouth twice daily.^Disp: 180 tablet^Rfl: 1 albuterol HFA (VENTOLIN HFA) 90 mcg/actuation inhaler^Inhale 2 Puffs as instructed every 4 hours as needed for wheezing/shortness of breath.^Disp: 24 g^Rfl: 3 carvedilol (COREG) 3.125 mg tablet^Take 1 tablet by mouth twice daily.^Disp: 180 tablet^Rfl: 3 hydroCHLOROthiazide (HYDRODIURIL, ESIDRIX) 12.5 mg capsule^Take 1 capsule by mouth once daily as needed.^Disp: 90 capsule^Rfl: 1 lamoTRIgine (LAMICTAL) 100 mg tablet^Take 1 tablet by mouth twice daily.^Disp: 180 tablet^Rfl: 3 pravastatin (PRAVACHOL) 10 mg tablet^Take 1 tablet by mouth daily at bedtime.^Disp: 90 tablet^Rfl: 3 FLAXSEED OIL (OMEGA 3 ORAL)^Take by mouth once daily.^Disp: ^Rfl: aspirin, enteric coated (ASPIRIN, ENTERIC COATED) 81 mg EC tablet^Take by mouth as directed. Take two tablets once daily in the evening.^Disp: ^Rfl: 0 Cholecalciferol, Vitamin D3, 1,000 unit ORAL Cap^Take one(1) tablet two(2) times daily.^Disp: ^Rfl: calcium carbonate(CALCIUM 500 500 MG (1,250 MG) TAB)^Takes 7105-8082 mg once daily. ^Disp: ^Rfl: 0 Social History Tobacco Use Smoking status: Never Smokeless tobacco: Never Tobacco comments: No household ETS exposure in entire lifetime. Substance Use Topics Alcohol use: No Drug use: No Family History Problem Relation Age of Onset Hypertension Mother age 91 other (high cholesterol) Father other (black lung) Father Asthma Father Severe Asthma Sister Lung Cancer Brother Smoker. Diabetes Maternal Grandmother Diabetes Other cousins Hypertension Other brothers/ sisters other (high cholesterol) Other brothers PAST SURGICAL HISTORY Procedure Laterality Date ARTHRP ACETBLR/PROX FEM PROSTC AGRFT/ALGRFT 2008 Hip replacement, total left NEUROPLASTY &/TRANSPOS MEDIAN NRV CARPAL TUNNE Right 02/21/2019 Right [facility] PACEMAKER 2009 PAST SURGICAL HISTORY OF lumbar surgery x 3 PAST SURGICAL HISTORY OF 11/2017 Battery replacement - pacemaker I reviewed the past medical history, family history, social history and surgical history with changes noted above and updated in EMR. IMMUNIZATIONS Prevnar 02/2020 Pneumovax 12/2018 Influenza - xx COVID-19 - most recent 10/2021 ROS: CONSTITUTIONAL: No fevers, chills, nightsweats, unintended weight loss, fatigue HEENT: See HPI. EYES: No diplopia or blurry vision. CARDIOVASCULAR: No chest pain, palpitations, orthopnea, PND, edema. PULM: See HPI GI: No dysphagia/odynophagia, problematic reflux INTEGUMENTARY: No new skin changes or rashes PHYSICAL EXAMINATION: BP 148/86 Pulse 73 Resp 16 Wt 92.5 kg (204 lb) SpO2 98% BMI 31.95 kg/m Gen: No acute distress. Cooperative with examination. HEENT: Normocephalic. Sclera, conjunctiva clear. Oral hygeine and dentition good. No thrush. Resp: No stridor, accessory respiratory muscle use, supra-sternal or intercostal retractions. No wheezes, crackles. CV: Regular rythm. Systolic murmur. Radial pulses normal. MSK: No kyphoscoliosis. Ext: Warm and well perfused. No clubbing, cyanosis, edema. Skin: No rash, ecchymoses. Neuro: Mental status normal. Affect normal. No tremor. DATA: PFT, 06/29/2022 Spirometry is normal. There was not a significant bronchodilator response. Small airways flow improved with bronchodilator. Exhaled nitric oxide (Shubham), 02/28/2023: 21 (normal < 20). Test Date Oral Exhaled Nitric Oxide (ppb) 06/29/2022 20.0 12/02/2020 15.0 11/01/2020 26.0 CXR, 07/10/2022 IMPRESSION: No acute radiographic abnormality. COMPARISON: 11/01/2020 RESULT: Lines, tubes, and devices: 2-lead pacer Lungs and pleura: No consolidation. No lung mass. No pleural effusion. No pneumothorax. Cardiomediastinal silhouette: Normal cardiomediastinal silhouette. Labs Component Latest Ref Rng & Units 09/14/2022 Alva Tree IgE <0.35 kU/l <0.35 Alva Tree Class Class 0 Class 0 [id number] Yariel Grass <0.35 kU/l <0.35 Yariel Grass Class Class 0 Class 0 October Grass IgE <0.35 kU/l <0.35 October Grass Class Class 0 Class 0 Short Ragweed IgE <0.35 kU/l <0.35 Short Ragweed Class Class 0 Class 0 Ferris's Quarters IgE <0.35 kU/l <0.35 Ferris's Quarters Class Class 0 Class 0 Cat Dander IgE <0.35 kU/l <0.35 Cat Dander Class Class 0 Class 0 Dog Dander IgE <0.35 kU/l <0.35 Dog Dander Class Class 0 Class 0 Cladosporium herbarum IgE <0.35 kU/l <0.35 Cladosporium herbarum Class Class 0 Class 0 Alternaria tenuis IgE <0.35 kU/l <0.35 Alternaria tenuis Class Class 0 Class 0 D. farinae IgE <0.35 kU/l <0.35 D. farinae Class Class 0 Class 0 IgE <114.0 kU/l 84.5 Abs Eosin <0.46 k/uL 0.13 Echocardiogram, 07/10/2022 CONCLUSIONS: - Technically difficult exam due to body habitus. - Exam indication: Shortness of Breath - The left ventricle is normal in size. Left ventricular systolic function is normal. EF = 59 5% (2D biplane) Grade I left ventricular diastolic dysfunction. - The right ventricle is normal in size. Right ventricular systolic function is normal. - Exam was compared with the prior echocardiographic exam performed on 01/16/2014, no significant change. SSMENT/PLAN: 1. Mild persistent asthma without complication - ICD9: 493.90, ICD10: J45.30 (primary diagnosis) Recommend resuming Breo daily. -Cardiac events most likely not triggered from her Breo. I would be more concerned with her using Albuterol more frequently if she is not taking the Breo. Planning on receiving influenza vaccine at upcoming PCP visit. 2. Gastroesophageal reflux disease, unspecified whether esophagitis present - ICD9: 530.81, ICD10: K21.9 Continue PPI. 3. Allergic rhinitis, unspecified seasonality, unspecified trigger - ICD9: 477.9, ICD10: J30.9 Previously did not tolerate antihistamines. 4. Post-nasal drip - ICD9: 784.91, ICD10: R09.82 Patient has Flonase at home that she is going to resume. 5. Sick sinus syndrome (HCC) - ICD9: 427.81, ICD10: I49.5 On beta pradip. Pacemaker Portions of this documentation were copied and pasted from previous office visit notes in order to provide a cohesive continuity of the history. The note has been reviewed and edited and updated as necessary. Ivanna Isabel PA-C documented in this encounter [facility] 02-28-2023 Procedure note Associated Ord er(s): NITRIC OXIDE, EXHALED RESPIRATORY THERAPY ORAL EXHALED NITRIC OXIDE SERVICE DATE: 02/28/2023 SERVICE TIME: 10:18 AM Oral Exhaled Nitric Oxide measurement: 21.0 (ppb) Normal: Adult 5-20 ppb, pediatric (<12 years) 5-15 ppb High Normal / Increased: Adult 20-35 ppb, pediatric (<12 years) 15-25 ppb Moderately raised exhaled Nitric Oxide may indicate underlying inflammation, but note that: Cold and influenza can raise exhaled Nitric Oxide and some patients have higher baseline exhaled Nitric Oxide levels than others. High: Adult >35 ppb, pediatric (<12 years) >25 ppb Indicative of ongoing eosinophilic inflammation. Symptomatic patient likely to respond to steroids. Possible causes (if already on steroids): Poor compliance, recent allergen exposure, steroid dose inadequate, and steroid resistance. Note that not all patients with high exhaled nitric oxide levels display symptoms. Oral Exhaled Nitric Oxide measurement (Previous Encounters) Test Date Oral Exhaled Nitric Oxide (ppb) 02/28/2023 21.0 06/29/2022 20.0 12/02/2020 15.0 11/01/2020 26.0 NAME: CRYSTAL Foster PATIENT NAME: Betzy Cruz DATE: February 28, 2023 TIME: 10:18 AM documented in this encounter [facility] 02-28-2023 History of Present illness Narrative PULM FUNCTION SMARTBLOCK: Provider: Ivanna Isabel PA-C Assisting Tech: Piper Sanchez RPFT Exhaled Nitric Oxide: 1 documented in this encounter [facility] 12-11-2022 History of Present illness Narrative Images from the original note were not included. Seven Bautista MD Interventional Cardiology [place] [address] [place], [place] [address] [phone] Chief Complaint Patient presents with: New Patient HISTORY OF PRESENT ILLNESS: Ms. Cruz is a 82 year old female prior history of sick sinus syndrome and paroxysmal atrial fibrillation required pacemaker insertion comes in to establish follow-up patient is doing well from the cardiac point of view asymptomatic denies any angina Patient is always short of breath because of asthma and allergies she is on bronchodilators This is her second pacemaker which recently interrogated pacemaker interrogation estimated NELSON is 10.5 years atrial sensed ventricular sensed there is no triggered atrial event with no ventricular triggered event the ventricular lead in the RV lead sensing was appropriate but the RV capture was elevated at 2.375 V at 0.4 ms this is seems to be elevated and stable. Trend the lead impedance trend was normal Patient denies syncope or presyncope cardiac examination unremarkable Cardiac Risk Factors age (male over 45, female over 55), hyperlipidemia, hypertension, family history of CAD PAST MEDICAL HISTORY Diagnosis Date Asthma Atrial fibrillation (HCC) Cardiac pacemaker in situ 03/05/2008 PM-Device Mfg Medtronic Model SEDR01 Sensia Serial Number [id number] Implant Date 07/18/2007 BLANK _ Lead1 Mfg Medtronic Model 5076 Serial Number [id number] Location right Implant Date 07/18/2007 BLANK _ Lead2 Mfg Medtronic Model 5076 Serial Number [id number] Location right Implant Date 07/18/2007 Epilepsy (HCC) Essential hypertension, benign well controlled Generalized osteoarthrosis, unspecified site Impaired glucose tolerance test Runs usually 100 Obesity Other and unspecified disc disorder of lumbar region Other and unspecified hyperlipidemia Spinal stenosis, lumbar region, without neurogenic claudication s/p L5-S1 sx '00 PAST SURGICAL HISTORY Procedure Laterality Date ARTHRP ACETBLR/PROX FEM PROSTC AGRFT/ALGRFT 2007 Hip replacement, total left NEUROPLASTY &/TRANSPOS MEDIAN NRV CARPAL TUNNE Right 02/21/2019 Right [facility] PACEMAKER 2009 PAST SURGICAL HISTORY OF lumbar surgery x 3 PAST SURGICAL HISTORY OF 11/2017 Battery replacement - pacemaker FAMILY HISTORY Problem Relation Age of Onset Hypertension Mother age 91 other (high cholesterol) Father other (black lung) Father Asthma Father Severe Asthma Sister Lung Cancer Brother Smoker. Diabetes Maternal Grandmother Diabetes Other cousins Hypertension Other brothers/ sisters other (high cholesterol) Other brothers Social History Tobacco Use Smoking status: Never Smokeless tobacco: Never Tobacco comments: No household ETS exposure in entire lifetime. Substance Use Topics Alcohol use: No Drug use: No ALLERGIES Allergen Reactions Latex Rash itches Crestor [Rosuvastat* Myalgia severe muscles aches Lipitor [Atorvastat* Myalgia severe muscle aches Adhesive Rash redness Amlodipine Swelling leg swelling Atenolol Other: See Comments gained a lot of weight Seasonal Allergies Cough Medications: Current Outpatient Medications Medication Sig Dispense Refill fluticasone-vilanterol (BREO ELLIPTA) 100-25 mcg/dose inhaler Inhale 1 Inhalation as instructed once daily. 1 Each 11 fluticasone (FLONASE ALLERGY RELIEF) 50 mcg/actuation nasal spray Use 1 Wallace in each nostril once daily. [address] (PROTONIX) 40 mg tablet Take 1 tablet by mouth twice daily. 180 tablet 1 albuterol HFA (VENTOLIN HFA) 90 mcg/actuation inhaler Inhale 2 Puffs as instructed every 4 hours as needed for wheezing/shortness of breath. 24 g 3 carvedilol (COREG) 3.125 mg tablet Take 1 tablet by mouth twice daily. 180 tablet 3 hydroCHLOROthiazide (HYDRODIURIL, ESIDRIX) 12.5 mg capsule Take 1 capsule by mouth once daily as needed. 90 capsule 1 lamoTRIgine (LAMICTAL) 100 mg tablet Take 1 tablet by mouth twice daily. 180 tablet 3 pravastatin (PRAVACHOL) 10 mg tablet Take 1 tablet by mouth daily at bedtime. 90 tablet 3 FLAXSEED OIL (OMEGA 3 ORAL) Take by mouth once daily. aspirin, enteric coated (ASPIRIN, ENTERIC COATED) 81 mg EC tablet Take by mouth as directed. Take two tablets once daily in the evening. 0 Cholecalciferol, Vitamin D3, 1,000 unit ORAL Cap Take one(1) tablet two(2) times daily. calcium carbonate(CALCIUM 500 500 MG (1,250 MG) TAB) Takes 1145-8684 mg once daily. 0 Current Facility-Administered Medications Medication Dose Route Frequency Provider Last Rate Last Admin perflutren lipid microspheres 1.3 mL in NaCl (PF) 0.9% 10 mL injection (DEFINITY) INTRAVENOUS DIRECTED PRN Wendy Lemus MD sodium chloride 0.9 % (flush) 10 mL (BD POSIFLUSH) 10 mL INTRAVENOUS DIRECTED PRN Wendy Lemus MD Review of Systems Constitutional: Negative for chills, diaphoresis, fever, malaise/fatigue and weight loss. HENT: Negative for congestion, ear discharge, ear pain, hearing loss, nosebleeds, sinus pain, sore throat and tinnitus. Eyes: Negative for blurred vision, double vision, photophobia, pain, discharge and redness. Respiratory: Negative for cough, hemoptysis, sputum production, shortness of breath, wheezing and stridor. Cardiovascular: Negative for chest pain, palpitations, orthopnea, claudication, leg swelling and PND. Gastrointestinal: Negative for abdominal pain, blood in stool, constipation, diarrhea, heartburn, melena, nausea and vomiting. Genitourinary: Negative for dysuria, flank pain, frequency, hematuria and urgency. Musculoskeletal: Negative for back pain, falls, joint pain, myalgias and neck pain. Skin: Negative for itching and rash. Neurological: Negative for dizziness, tingling, tremors, sensory change, speech change, focal weakness, seizures, loss of consciousness, weakness and headaches. Endo/Heme/Allergies: Negative for environmental allergies and polydipsia. Does not bruise/bleed easily. Psychiatric/Behavioral: Negative for depression, hallucinations, memory loss, substance abuse and suicidal ideas. The patient is not nervous/anxious and does not have insomnia. Physical Examination: Vitals:BP 115/72 Pulse 72 Ht 5' 7 (1.70m) Wt 202 lb 5.8 oz (91.8kg) SpO2 98% BMI 31.69 kg/(m^2). BP w/Orthostatic Vitals Date and Time Orthostatic BP Orthostatic Pulse BP Pulse BP Position BP Site BP Cuff Size 12/11/22 0902 -- -- 115/72 72 -- -- -- Last 2 Encounter Wt Readings: Date: Wt: 12/11/2022 91.8 kg (202 lb 5.8 oz) 10/26/2022 90.3 kg (199 lb) Physical Exam Constitutional: General: She is not in acute distress. Appearance: She is not diaphoretic. HENT: Head: Normocephalic and atraumatic. Right Ear: External ear normal. Left Ear: External ear normal. Nose: Nose normal. Mouth/Throat: Pharynx: Oropharynx is clear. Eyes: General: Right eye: No discharge. Left eye: No discharge. Conjunctiva/sclera: Conjunctivae normal. Pupils: Pupils are equal, round, and reactive to light. Cardiovascular: Rate and Rhythm: Normal rate and regular rhythm. Heart sounds: S1 normal and S2 normal. Murmur heard. No friction rub. No gallop. No S3 or S4 sounds. Pulmonary: Effort: Pulmonary effort is normal. No respiratory distress. Breath sounds: Normal breath sounds. No wheezing or rales. Chest: Chest wall: No tenderness. Musculoskeletal: General: Normal range of motion. Cervical back: Normal range of motion and neck supple. Skin: General: Skin is warm and dry. Neurological: Mental Status: She is alert and oriented to person, place, and time. Pertinent Labs: CBC: Hemoglobin (g/dL) Date Value 08/18/2022 12.7 02/10/2021 13.1 Hematocrit (%) Date Value 08/18/2022 39.4 02/10/2021 41.3 WBC (k/uL) Date Value 08/18/2022 5.40 02/10/2021 4.91 Platelet Count (k/uL) Date Value 08/18/2022 249 02/10/2021 234 BMP: Glucose (mg/dL) Date Value 08/18/2022 101 02/10/2021 95 Potassium (mmol/L) Date Value 08/18/2022 4.7 02/10/2021 4.6 Sodium (mmol/L) Date Value 08/18/2022 142 02/10/2021 141 Chloride (mmol/L) Date Value 08/18/2022 105 02/10/2021 105 CO2 (mmol/L) Date Value 08/18/2022 27 02/10/2021 27 Creatinine (mg/dL) Date Value 08/18/2022 0.89 02/10/2021 0.87 BUN (mg/dL) Date Value 08/18/2022 19 02/10/2021 14 Anion Gap (mmol/L) Date Value 08/18/2022 10 02/10/2021 9 Calcium (mg/dL) Date Value 02/10/2021 9.8 Calcium, Total (mg/dL) Date Value 08/18/2022 9.9 INR: Lipid Profile: Cholesterol, Total Date Value Ref Range Status 08/18/2022 168 <200 mg/dL Final Comment: <200 mg/dL, Desirable 200-239 mg/dL, Borderline high >239 mg/dL, High HDL Cholesterol Date Value Ref Range Status 08/18/2022 48 >39 mg/dL Final Comment: 40-59 mg/dL, Acceptable >59 mg/dL, High: Negative risk factor for coronary heart disease <40 mg/dL, Low: Positive risk factor for coronary heart disease LDL Cholesterol Date Value Ref Range Status 08/18/2022 106 (H) <100 mg/dL Final Comment: <100 mg/dL, Optimal 100-129 mg/dL, Near optimal/above optimal 130-159 mg/dL, Borderline high 160-189 mg/dL, High >189 mg/dL, Very high Secondary prevention optimal LDL Cholesterol levels are recommended to be < 70 mg/dL Triglyceride Date Value Ref Range Status 08/18/2022 70 <150 mg/dL Final Comment: <150 mg/dL, Normal 150-199 mg/dL, Borderline high 200-499 mg/dL, High >499 mg/dL, Very high Hemoglobin A1C: No results found for: HGBA1C TSH: No results found for: TSHREFL Prior Cardiac Testing none Assessment and Plan: 82 years old female patient with sick sinus syndrome pacemaker insertion is prior history of paroxysmal atrial fibrillation and asthma ASSESSMENT/PLAN: 1. Sick sinus syndrome (HCC) - ICD9: 427.81, ICD10: I49.5 (primary diagnosis) Patient currently in sinus rhythm with no bradycardia or tachycardia noticed by pacemaker interrogation patient tolerated beta-pradpi well 2. Cardiac pacemaker in situ - ICD9: V45.01, ICD10: Z95.0 Pacemaker interrogation recently shows that the RV captures elevated at 2.375 V with normal impedance This is need to be monitored closely it seems that the RV capture lead is stable. Trend we will wait for the next interrogation Otherwise if this is given become elevated tomorrow we will send her to the EP physician for evaluation and management 3. PSVT (paroxysmal supraventricular tachycardia) (HCC) - ICD9: 427.0, ICD10: I47.1 No episode per pacemaker interrogation 4. Essential hypertension - ICD9: 401.9, ICD10: I10 - Controlled - Continue current medications - Recommend home blood pressure monitoring, to bring results to next visit - Encouraged sodium restriction, DASH or Mediterranean diet - Recommend regular aerobic exercise Seven Bautista MD Follow up planning: One year Electronically signed by Seven Bautista MD on December 11, 2022, 9:24 AM The above note was partially created using a dictation recognition software. A reasonable attempt has been made to correct any errors. documented in this encounter [facility] 10-26-2022 History of Present illness Narrative Images from the original note were not included. Patient: Betzy Cruz PCP: Sagrario Fong MD CC: Asthma HPI: Betzy Cruz 82 year old female never smoker with PMH significant for sick sinus syndrome s/p pacemaker, ? Seizure disorder, HTN, HLD, spinal stenosis and asthma. Recent Covid infection 04/2022. Since the last Pulmonary Clinic visit 09/14/2022, the patient has not required ED care for exacerbation. There has been no hospital admission for exacerbation. Claims to be consistently compliant with prescribed maintenance Rx Breo. However, she states that since starting the Breo after a few weeks she noticed joint pain and swelling in her hands. She would like to not take the Breo daily. Previously did not tolerate Singulair. Is taking Flonase nightly which has improved her PND. Using rescue bronchodilator with increased exertion, such as a brisk walk. Cough has improved with the Breo and Flonase. No wheezing. No dyspnea at rest. Exertional dyspnea with climbing stairs, walking briskly. Is swimming 3 days per week. Denies heartburn with PPI. PAST MEDICAL HISTORY Diagnosis Date Asthma Atrial fibrillation (HCC) Cardiac pacemaker in situ 03/05/2008 PM-Device Mfg Medtronic Model SEDR01 [employer]ensia Serial Number [id number] Implant Date 07/18/2007 BLANK _ Lead1 Mfg Medtronic Model 5076 Serial Number [id number] Location right Implant Date 07/18/2007 BLANK _ Lead2 Mfg Medtronic Model 5076 Serial Number [id number] Location right Implant Date 07/18/2007 Epilepsy (HCC) Essential hypertension, benign well controlled Generalized osteoarthrosis, unspecified site Impaired glucose tolerance test Runs usually 100 Obesity Other and unspecified disc disorder of lumbar region Other and unspecified hyperlipidemia Spinal stenosis, lumbar region, without neurogenic claudication s/p L5-S1 sx '00 Allergies: Latex Rash Comment:itches Crestor [Rosuvastat* Myalgia Comment:severe muscles aches Lipitor [Atorvastat* Myalgia Comment:severe muscle aches Adhesive Rash Comment:redness Amlodipine Swelling Comment:leg swelling Atenolol Other: See Comments Comment:gained a lot of weight Seasonal Allergies Cough fluticasone-vilanterol (BREO ELLIPTA) 100-25 mcg/dose inhaler^Inhale 1 Inhalation as instructed once daily.^Disp: 1 Each^Rfl: 11 fluticasone (FLONASE ALLERGY RELIEF) 50 mcg/actuation nasal spray^Use 1 Wallace in each nostril once daily.^Disp: 1 Each^Rfl: [address] (PROTONIX) 40 mg tablet^Take 1 tablet by mouth twice daily.^Disp: 180 tablet^Rfl: 1 albuterol HFA (VENTOLIN HFA) 90 mcg/actuation inhaler^Inhale 2 Puffs as instructed every 4 hours as needed for wheezing/shortness of breath.^Disp: 24 g^Rfl: 3 carvedilol (COREG) 3.125 mg tablet^Take 1 tablet by mouth twice daily.^Disp: 180 tablet^Rfl: 3 blood sugar diagnostic (BLOOD GLUCOSE TEST) test strip^Test blood sugar(s) 1 to 2 time daily. Dx: R73.03 Insulin: No Insulin: No^Disp: 100 Strip^Rfl: 3 hydroCHLOROthiazide (HYDRODIURIL, ESIDRIX) 12.5 mg capsule^Take 1 capsule by mouth once daily as needed.^Disp: 90 capsule^Rfl: 1 lamoTRIgine (LAMICTAL) 100 mg tablet^Take 1 tablet by mouth twice daily.^Disp: 180 tablet^Rfl: 3 pravastatin (PRAVACHOL) 10 mg tablet^Take 1 tablet by mouth daily at bedtime.^Disp: 90 tablet^Rfl: 3 Blood-Glucose Meter monitoring kit^Glucose Meter of Choice - Kit - Dx: Test blood sugar(s) 1 to 2 time daily. Dx: R73.03 Insulin: No^Disp: 1 Each^Rfl: 0 Lancets lancets^Test blood sugar(s) 1 to 2 time daily. Dx: R73.03 Insulin: No^Disp: 100 Each^Rfl: 5 FLAXSEED OIL (OMEGA 3 ORAL)^Take by mouth once daily.^Disp: ^Rfl: aspirin, enteric coated (ASPIRIN, ENTERIC COATED) 81 mg EC tablet^Take by mouth as directed. Take two tablets once daily in the evening.^Disp: ^Rfl: 0 Cholecalciferol, Vitamin D3, 1,000 unit ORAL Cap^Take one(1) tablet two(2) times daily.^Disp: ^Rfl: calcium carbonate(CALCIUM 500 500 MG (1,250 MG) TAB)^Takes 8835-6780 mg once daily. ^Disp: ^Rfl: 0 Social History Tobacco Use Smoking status: Never Smokeless tobacco: Never Tobacco comments: No household ETS exposure in entire lifetime. Substance Use Topics Alcohol use: No Drug use: No Family History Problem Relation Age of Onset Hypertension Mother age 91 other (high cholesterol) Father other (black lung) Father Asthma Father Severe Asthma Sister Lung Cancer Brother Smoker. Diabetes Maternal Grandmother Diabetes Other cousins Hypertension Other brothers/ sisters other (high cholesterol) Other brothers PAST SURGICAL HISTORY Procedure Laterality Date ARTHRP ACETBLR/PROX FEM PROSTC AGRFT/ALGRFT 2008 Hip replacement, total left NEUROPLASTY &/TRANSPOS MEDIAN NRV CARPAL TUNNE Right 02/21/2019 Right [facility] PACEMAKER 2009 PAST SURGICAL HISTORY OF lumbar surgery x 3 PAST SURGICAL HISTORY OF 11/2017 Battery replacement - pacemaker I reviewed the past medical history, family history, social history and surgical history with changes noted above and updated in EMR. IMMUNIZATIONS Prevnar 13 - 02/23/2020, 08/22/2016 Pneumovax 23 - 12/20/2018 Influenza - 03/07/2022 COVID-19 - 10/20/2021, 03/30/2021, 07/30/2020, 07/02/2020 ROS: General: No fevers, chills or night sweats. No unintended weight loss. Appetite good. Eyes, Ears, nose, throat: No post nasal drip, rhinorrhea, purulent nasal discharge, epistaxis. No hoarseness. Vision stable. Has dry eyes. Cardiac: No angina, edema, orthopnea. Resp: See HPI. GI: No heartburn, dysphagia. Musculoskeletal: Joint pain. Neuro: No headache, focal weakness, tremor. Skin: No rash. Otherwise negative. PHYSICAL EXAMINATION: BP 122/78 (BP Site: Right Arm, BP Position: Sitting, BP Cuff Size: Regular Adult) Pulse 67 Resp 16 Wt 90.3 kg (199 lb) SpO2 100% BMI 31.23 kg/m Gen: No acute distress. Cooperative with examination. HEENT: Normocephalic. Sclera, conjunctiva clear. Oral hygeine and dentition good. No thrush. Resp: No stridor, accessory respiratory muscle use, supra-sternal or intercostal retractions. No wheezes, crackles. CV: Regular rythm. Mild systolic murmur. Radial pulses normal. Abd: Non distended. MSK: No kyphoscoliosis. Ext: Warm and well perfused. No clubbing, cyanosis, edema. Skin: No rash, ecchymoses. Neuro: Mental status normal. Affect normal. No tremor. DATA: PFT, 06/29/2022 Spirometry is normal. There was not a significant bronchodilator response. Small airways flow improved with bronchodilator. Exhaled nitric oxide (Shubham), 06/29/2022: 20 (normal < 20). Test Date Oral Exhaled Nitric Oxide (ppb) 06/29/2022 20.0 12/02/2020 15.0 11/01/2020 26.0 CXR, 07/10/2022 IMPRESSION: No acute radiographic abnormality. COMPARISON: 11/01/2020 RESULT: Lines, tubes, and devices: 2-lead pacer Lungs and pleura: No consolidation. No lung mass. No pleural effusion. No pneumothorax. Cardiomediastinal silhouette: Normal cardiomediastinal silhouette. Labs Component Latest Ref Rng & Units 09/14/2022 Alva Tree IgE <0.35 kU/l <0.35 Alva Tree Class Class 0 Class 0 [id number] Yariel Grass <0.35 kU/l <0.35 Yariel Grass Class Class 0 Class 0 October Grass IgE <0.35 kU/l <0.35 Loren Grass Class Class 0 Class 0 Short Ragweed IgE <0.35 kU/l <0.35 Short Ragweed Class Class 0 Class 0 Ferris's Quarters IgE <0.35 kU/l <0.35 Ferris's Quarters Class Class 0 Class 0 Cat Dander IgE <0.35 kU/l <0.35 Cat Dander Class Class 0 Class 0 Dog Dander IgE <0.35 kU/l <0.35 Dog Dander Class Class 0 Class 0 Cladosporium herbarum IgE <0.35 kU/l <0.35 Cladosporium herbarum Class Class 0 Class 0 Alternaria tenuis IgE <0.35 kU/l <0.35 Alternaria tenuis Class Class 0 Class 0 D. farinae IgE <0.35 kU/l <0.35 D. farinae Class Class 0 Class 0 IgE <114.0 kU/l 84.5 Abs Eosin <0.46 k/uL 0.13 Echocardiogram, 07/10/2022 CONCLUSIONS: - Technically difficult exam due to body habitus. - Exam indication: Shortness of Breath - The left ventricle is normal in size. Left ventricular systolic function is normal. EF = 59 5% (2D biplane) Grade I left ventricular diastolic dysfunction. - The right ventricle is normal in size. Right ventricular systolic function is normal. - Exam was compared with the prior echocardiographic exam performed on 01/16/2014, no significant change. SSMENT/PLAN: 1. Mild persistent asthma without complication - ICD9: 493.90, ICD10: J45.30 (primary diagnosis) Symptomatically improved with Breo, however, patient is concerned the Breo is contributing to arthralgias in her hands. She would like to trial off the Breo and start it back up in the fall. She states her asthma tends to be triggered in the cooler months. Encouraged her to use her Albuterol inhaler prior to activities that cause her to be short of breath. Continue Flonase. - NITRIC OXIDE, EXHALED 2. Sick sinus syndrome (HCC) - ICD9: 427.81, ICD10: I49.5 On beta pradip. Pacemaker checks have been okay. 3. Gastroesophageal reflux disease, unspecified whether esophagitis present - ICD9: 530.81, ICD10: K21.9 Continue PPI. Portions of this documentation were copied and pasted from previous office visit notes in order to provide a cohesive continuity of the history. The note has been reviewed and edited and updated as necessary. Ivanna Isabel PA-C documented in this encounter [facility] 09-14-2022 History of Present illness Narrative Patient: Betzy Cruz PCP: Sagrario Fong MD CC: asthma HPI: Betzy Cruz 82 year old female never smoker with PMH significant for sick sinus syndrome s/p pacemaker, ? Seizure disorder, HTN, HLD, spinal stenosis and asthma. Recent Covid infection 04/2022. Most recent office visit was with myself on 07/27/2022 at which time patient admitted to using her maintenance therapy as needed. She was changed to Dulera secondary to insurance coverage and advised to use it daily. Previously did not tolerate Singulair. Today, patient states that insurance would not cover Breo, although from previous notes it appears that this is what Sanchez prefers. Biggest complaint is morning phlegm that she has trouble clearing. Using albuterol morning and night. Thinks it makes a difference in the morning with trying to cough up mucous. Reports post nasal drip. No cough or wheezing. No chest pain. No dyspnea at rest. Exertional dyspnea with climbing stairs. Post nasal drip. Denies GERD symptoms. On PPI. Previously on immunotherapy with [facility]. States insurance stopped covering it and so she discontinued. PAST MEDICAL HISTORY Diagnosis Date Asthma Atrial fibrillation (HCC) Cardiac pacemaker in situ 03/05/2008 PM-Device Mfg Medtronic Model SEDR01 Sensia Serial Number [id number] Implant Date 07/18/2007 BLANK _ Lead1 Mfg Medtronic Model 5076 Serial Number [id number] Location right Implant Date 07/18/2007 BLANK _ Lead2 Mfg Medtronic Model 5076 Serial Number [id number] Location right Implant Date 07/18/2007 Epilepsy (HCC) Essential hypertension, benign well controlled Generalized osteoarthrosis, unspecified site Impaired glucose tolerance test Runs usually 100 Obesity Other and unspecified disc disorder of lumbar region Other and unspecified hyperlipidemia Spinal stenosis, lumbar region, without neurogenic claudication s/p L5-S1 sx '00 Allergies: Latex Rash Comment:itches Crestor [Rosuvastat* Myalgia Comment:severe muscles aches Lipitor [Atorvastat* Myalgia Comment:severe muscle aches Adhesive Rash Comment:redness Amlodipine Swelling Comment:leg swelling Atenolol Other: See Comments Comment:gained a lot of weight Seasonal Allergies Cough mometasone (NASONEX) 50 mcg/actuation nasal spray^Use 2 Sprays in the nose once daily. Rinse mouth after use. For nasal draiange^Disp: 17 g^Rfl: [address] (PROTONIX) 40 mg tablet^Take 1 tablet by mouth twice daily.^Disp: 180 tablet^Rfl: 1 fluticasone-vilanterol (BREO ELLIPTA) 100-25 mcg/dose inhaler^Inhale 1 Inhalation as instructed once daily.^Disp: 1 Each^Rfl: 11 (Patient not taking: Reported on 09/05/2022) albuterol HFA (VENTOLIN HFA) 90 mcg/actuation inhaler^Inhale 2 Puffs as instructed every 4 hours as needed for wheezing/shortness of breath.^Disp: 24 g^Rfl: 3 carvedilol (COREG) 3.125 mg tablet^Take 1 tablet by mouth twice daily.^Disp: 180 tablet^Rfl: 3 blood sugar diagnostic (BLOOD GLUCOSE TEST) test strip^Test blood sugar(s) 1 to 2 time daily. Dx: R73.03 Insulin: No Insulin: No^Disp: 100 Strip^Rfl: 3 hydroCHLOROthiazide (HYDRODIURIL, ESIDRIX) 12.5 mg capsule^Take 1 capsule by mouth once daily as needed.^Disp: 90 capsule^Rfl: 1 lamoTRIgine (LAMICTAL) 100 mg tablet^Take 1 tablet by mouth twice daily.^Disp: 180 tablet^Rfl: 3 pravastatin (PRAVACHOL) 10 mg tablet^Take 1 tablet by mouth daily at bedtime.^Disp: 90 tablet^Rfl: 3 Blood-Glucose Meter monitoring kit^Glucose Meter of Choice - Kit - Dx: Test blood sugar(s) 1 to 2 time daily. Dx: R73.03 Insulin: No^Disp: 1 Each^Rfl: 0 Lancets lancets^Test blood sugar(s) 1 to 2 time daily. Dx: R73.03 Insulin: No^Disp: 100 Each^Rfl: 5 FLAXSEED OIL (OMEGA 3 ORAL)^Take by mouth once daily.^Disp: ^Rfl: aspirin, enteric coated (ASPIRIN, ENTERIC COATED) 81 mg EC tablet^Take by mouth as directed. Take two tablets once daily in the evening.^Disp: ^Rfl: 0 Cholecalciferol, Vitamin D3, 1,000 unit ORAL Cap^Take one(1) tablet two(2) times daily.^Disp: ^Rfl: calcium carbonate(CALCIUM 500 500 MG (1,250 MG) TAB)^Takes 1439-0123 mg once daily. ^Disp: ^Rfl: 0 Social History Tobacco Use Smoking status: Never Smokeless tobacco: Never Tobacco comments: No household ETS exposure in entire lifetime. Substance Use Topics Alcohol use: No Drug use: No Family History Problem Relation Age of Onset Hypertension Mother age 91 other (high cholesterol) Father other (black lung) Father Asthma Father Severe Asthma Sister Lung Cancer Brother Smoker. Diabetes Maternal Grandmother Diabetes Other cousins Hypertension Other brothers/ sisters other (high cholesterol) Other brothers PAST SURGICAL HISTORY Procedure Laterality Date ARTHRP ACETBLR/PROX FEM PROSTC AGRFT/ALGRFT 2008 Hip replacement, total left NEUROPLASTY &/TRANSPOS MEDIAN NRV CARPAL TUNNE Right 02/21/2019 Right [facility] PACEMAKER 2009 PAST SURGICAL HISTORY OF lumbar surgery x 3 PAST SURGICAL HISTORY OF 11/2017 Battery replacement - pacemaker I reviewed the past medical history, family history, social history and surgical history with changes noted above and updated in EMR. IMMUNIZATIONS Prevnar 13 - 02/23/2020, 08/22/2016 Pneumovax - 12/20/2018 Influenza - 03/07/2022 COVID-19 - 10/20/2021, 03/30/2021, 07/30/2020, 07/02/2020 ROS: General: No fevers, chills, or night sweats. No unintentional weight loss. Appetite good. Eyes, Ears, nose, throat: Persistent post nasal drip, rhinorrhea. No purulent nasal discharge, epistaxis. Hoarseness. Vision stable. Cardiac: No angina, edema, orthopnea. Resp: See HPI. GI: No heartburn, dysphagia. Musculoskeletal: No pain. Neuro: No headache, focal weakness, tremor. Skin: No rash. Otherwise negative. PHYSICAL EXAMINATION: BP 122/82 Pulse (!) 59 Resp 16 Wt 91.2 kg (201 lb) SpO2 100% BMI 31.55 kg/m Gen: No acute distress. Cooperative with examination. HEENT: Normocephalic. Sclera, conjunctiva clear. Oral hygeine and dentition good. No thrush. Resp: No stridor, accessory respiratory muscle use, supra-sternal or intercostal retractions. No wheezes, crackles. CV: Regular rythm. Heart tones normal. Radial pulses normal. Abd: Non distended. MSK: No kyphoscoliosis. Ext: Warm and well perfused. No clubbing, cyanosis, edema. Skin: No rash, ecchymoses. Neuro: Mental status normal. Affect normal. No tremor. DATA: PFT, 06/29/2022 IMPRESSION: Spirometry is normal. There was not a significant bronchodilator response. Small airways flow improved with bronchodilator. Electronically Signed On 06-29-2022 16:04:19 EST by Wendy Lemus M.D. Exhaled nitric oxide (Shubham), 06/29/2022: 20 (normal < 20). CXR, 07/10/2022 IMPRESSION: No acute radiographic abnormality. COMPARISON: 11/01/2020 RESULT: Lines, tubes, and devices: 2-lead pacer Lungs and pleura: No consolidation. No lung mass. No pleural effusion. No pneumothorax. Cardiomediastinal silhouette: Normal cardiomediastinal silhouette. Echocardiogram, 07/10/2022 CONCLUSIONS: - Technically difficult exam due to body habitus. - Exam indication: Shortness of Breath - The left ventricle is normal in size. Left ventricular systolic function is normal. EF = 59 5% (2D biplane) Grade I left ventricular diastolic dysfunction. - The right ventricle is normal in size. Right ventricular systolic function is normal. - Exam was compared with the prior echocardiographic exam performed on 01/16/2014, no significant change. SSMENT/PLAN: 1. Mild persistent asthma without complication - ICD9: 493.90, ICD10: J45.30 (primary diagnosis) Patient has not been able to get her Breo secondary to insurance issues. Re-sent it with KEVIN kebede. Instructed patient if she has issues at the pharmacy to notify me prior to her next office visit. Albuterol HFA inhaler, 2 inhalations 10-15 minutes prior to activities associated with shortness of breath, and as needed for rescue relief of shortness of breath or wheezing, up to 4 times daily. Will check allergy labs. Start Flonase for PND. May need to add in Mucinex, however, will see how she responds to flonase. - FLUTICASONE FUROATE 100 MCG-VILANTEROL 25 MCG/DOSE INHALATION POWDER - [facility] B[facility] - [facility] - EOSINOPHIL ABS COUNT 2. Post-nasal drip - ICD9: 784.91, ICD10: R09.82 See #1. - FLUTICASONE PROPIONATE 50 MCG/ACTUATION NASAL SPRAY,SUSPENSION - [facility] BLD - [facility] - EOSINOPHIL ABS COUNT 3. Allergic rhinitis, unspecified seasonality, unspecified trigger - ICD9: 477.9, ICD10: J30.9 See #1. - [facility] - [facility] - EOSINOPHIL ABS COUNT Portions of this documentation were copied and pasted from previous office visit notes in order to provide a cohesive continuity of the history. The note has been reviewed and edited and updated as necessary. Ivanna Isabel PA-C documented in this encounter [facility] 08-29-2022 Miscellaneous Notes Patient has been identified by name and date of : Pharmacy phones for refill(s): Requested Prescriptions Pending Prescriptions Disp Refills pantoprazole DR (PROTONIX) 40 mg tablet 180 tablet 1 Sig: Take 1 tablet by mouth twice daily. Date of last office visit in primary care: 03/07/2022, has appt 09/05/2022 Last 2 Encounter Wt Readings: Date: Wt: 07/27/2022 91.2 kg (201 lb) 06/29/2022 89.8 kg (198 lb) Previous labs/tests for medication: Not applicable Please advise. Thank you. Lorena Jacques LPN documented in this encounter [facility] 08-23-2022 Miscellaneous Notes Spoke to patient per MD request. Per Dr Huertas: BB looks like this is a [facility] patient. Nothing urgent. No pacer dependent she should establish with a new EP and have her PPM checked in-person thanks bb Will send appt scheduling request as well, provided patient with appt line number. Arden Wilson RN documented in this encounter [facility] 08-17-2022 Miscellaneous Notes Patient notified. Gabriela Lewis RN [place] Pt has a yearly appt scheduled 08/19/22 & is asking for labs to be placed. Alexandra Weiss LPN documented in this encounter [facility] 08-02-2022 Miscellaneous Notes Spoke with pharmacy. Felisha Chase LPN Received a call from Edith from [facility] needing clarification for the order for Dulera inhaler. Prescription reads inhale 2 puffs as instructed twice daily as needed. She states this medication is not usually ordered as needed. She just wants confirmation of instructions before dispensing to patient. Pharmacy can be reached at [phone] and use reference # [id number]. documented in this encounter [facility] 07-27-2022 Instructions Ivanna Isabel PA-C - 07/27/2022 8:56 AM EST Start Dulera 50 mcg 2 inhalations twice daily. Rinse mouth after each use to help prevent oral thrush. Albuterol HFA inhaler, 2 inhalations 10-15 minutes prior to activities associated with shortness of breath, and as needed for rescue relief of shortness of breath or wheezing, up to 4 times daily. documented in this encounter [facility] 07-27-2022 History of Present illness Narrative Patient: Betzy Cruz PCP: Sagrario Fong MD CC: asthma HPI: Betyz Cruz 82 year old female never smoker with PMH significant for sick sinus syndrome s/p pacemaker, ? Seizure disorder, HTN, HLD, spinal stenosis and asthma. Recent Covid infection 04/2022. Since the last Pulmonary Clinic visit 06/29/[address] Lemus, the patient has not required ED care for exacerbation. There has been no hospital admission for exacerbation. Using Symbicort as needed. Previously did not tolerate Singulair secondary to nightmares and difficulty sleeping. Does not use rescue bronchodilator. I have not used for quite some time. Morning cough. States it takes awhile in the morning to clear out all of the phlegm. No hemoptysis. Occasional wheezing. Chest tightness. No nocturnal awakenings. No dyspnea at rest. Exertional dyspnea with climbing stairs or walking at an increased pace. Participating in water aerobics three times weekly. Has moved to the more shallow end of the pool secondary to feeling chest tightness when submerged in water and working out. Mild lower extremity edema. PAST MEDICAL HISTORY Diagnosis Date Asthma Atrial fibrillation (HCC) Cardiac pacemaker in situ 03/05/2008 PM-Device [facility] Med[place] Model SEDR01 Sensia Serial Number [id number] Implant Date 07/18/2007 BLANK _ Lead1 Mfg Medtronic Model 5076 Serial Number [id number] Location right Implant Date 07/18/2007 BLANK _ Lead2 Mfg Medtronic Model 5076 Serial Number [id number] Location right Implant Date 07/18/2007 Epilepsy (HCC) Essential hypertension, benign well controlled Generalized osteoarthrosis, unspecified site Impaired glucose tolerance test Runs usually 100 Obesity Other and unspecified disc disorder of lumbar region Other and unspecified hyperlipidemia Spinal stenosis, lumbar region, without neurogenic claudication s/p L5-S1 sx '00 Allergies: Latex Rash Comment:itches Crestor [Rosuvastat* Myalgia Comment:severe muscles aches Lipitor [Atorvastat* Myalgia Comment:severe muscle aches Adhesive Rash Comment:redness Amlodipine Swelling Comment:leg swelling Atenolol Other: See Comments Comment:gained a lot of weight Seasonal Allergies Cough carvedilol (COREG) 3.125 mg tablet^Take 1 tablet by mouth twice daily.^Disp: 180 tablet^Rfl: 3 blood sugar diagnostic (BLOOD GLUCOSE TEST) test strip^Test blood sugar(s) 1 to 2 time daily. Dx: R73.03 Insulin: No Insulin: No^Disp: 100 Strip^Rfl: 3 hydroCHLOROthiazide (HYDRODIURIL, ESIDRIX) 12.5 mg capsule^Take 1 capsule by mouth once daily as needed.^Disp: 90 capsule^Rfl: 1 lamoTRIgine (LAMICTAL) 100 mg tablet^Take 1 tablet by mouth twice daily.^Disp: 180 tablet^Rfl: [address] (PROTONIX) 40 mg tablet^Take 1 tablet by mouth twice daily.^Disp: 180 tablet^Rfl: 1 pravastatin (PRAVACHOL) 10 mg tablet^Take 1 tablet by mouth daily at bedtime.^Disp: 90 tablet^Rfl: 3 albuterol HFA (VENTOLIN HFA) 90 mcg/actuation inhaler^Inhale 2 Puffs as instructed every 4 hours as needed for wheezing/shortness of breath.^Disp: 24 g^Rfl: 3 mometasone-formoterol (DULERA) 50-5 mcg/actuation HFA aerosol inhaler^Inhale 2 Puffs as instructed twice daily as needed.^Disp: 1 Each^Rfl: 3 Blood-Glucose Meter monitoring kit^Glucose Meter of Choice - Kit - Dx: Test blood sugar(s) 1 to 2 time daily. Dx: R73.03 Insulin: No^Disp: 1 Each^Rfl: 0 Lancets lancets^Test blood sugar(s) 1 to 2 time daily. Dx: R73.03 Insulin: No^Disp: 100 Each^Rfl: 5 FLAXSEED OIL (OMEGA 3 ORAL)^Take by mouth once daily.^Disp: ^Rfl: aspirin, enteric coated (ASPIRIN, ENTERIC COATED) 81 mg EC tablet^Take by mouth as directed. Take two tablets once daily in the evening.^Disp: ^Rfl: 0 Cholecalciferol, Vitamin D3, 1,000 unit ORAL Cap^Take one(1) tablet two(2) times daily.^Disp: ^Rfl: calcium carbonate(CALCIUM 500 500 MG (1,250 MG) TAB)^Takes 0455-0220 mg once daily. ^Disp: ^Rfl: 0 Social History Tobacco Use Smoking status: Never Smokeless tobacco: Never Tobacco comments: No household ETS exposure in entire lifetime. Substance Use Topics Alcohol use: No Drug use: No Family History Problem Relation Age of Onset Hypertension Mother age 91 other (high cholesterol) Father other (black lung) Father Asthma Father Severe Asthma Sister Lung Cancer Brother Smoker. Diabetes Maternal Grandmother Diabetes Other cousins Hypertension Other brothers/ sisters other (high cholesterol) Other brothers PAST SURGICAL HISTORY Procedure Laterality Date ARTHRP ACETBLR/PROX FEM PROSTC AGRFT/ALGRFT 2007 Hip replacement, total left NEUROPLASTY &/TRANSPOS MEDIAN NRV CARPAL TUNNE Right 02/21/2019 Right CTR PACEMAKER 2009 PAST SURGICAL HISTORY OF lumbar surgery x 3 PAST SURGICAL HISTORY OF 11/2017 Battery replacement - pacemaker I reviewed the past medical history, family history, social history and surgical history with changes noted above and updated in EMR. IMMUNIZATIONS Prevnar 13 - 02/23/2020, 08/22/2016 Pneumovax - 12/20/2018 Influenza - 03/07/2022 COVID-19 - 10/20/2021, 03/30/2021, 07/30/2020, 07/02/2020 ROS: General: Generally feels well. Appetite good. Eyes, Ears, nose, throat: Post nasal drip. No rhinorrhea, purulent nasal discharge, epistaxis. No hoarseness. Vision stable. Cardiac: No angina, edema, orthopnea. Resp: See HPI. GI: No heartburn, dysphagia. Musculoskeletal: No pain. Neuro: No headache, focal weakness, tremor. Skin: No rash. Otherwise negative. PHYSICAL EXAMINATION: BP 144/60 (BP Site: Right Arm, BP Position: Sitting, BP Cuff Size: Large Adult) Pulse 76 Resp 16 Wt 91.2 kg (201 lb) SpO2 99% BMI 32.69 kg/m Gen: No acute distress. Cooperative with examination. HEENT: Normocephalic. Sclera, conjunctiva clear. Oral hygeine and dentition good. No thrush. Resp: No stridor, accessory respiratory muscle use, supra-sternal or intercostal retractions. No wheezes, crackles. CV: Regular rythm. Mild systolic murmur. Radial pulses normal. Abd: Non distended. MSK: No kyphoscoliosis. Ext: Warm and well perfused. No clubbing, cyanosis, edema. Skin: No rash, ecchymoses. Neuro: Mental status normal. Affect normal. No tremor. DATA: PFT, 06/29/2022 IMPRESSION: Spirometry is normal. There was not a significant bronchodilator response. Small airways flow improved with bronchodilator. Electronically Signed On 06-29-2022 16:04:19 EST by Wendy Lemus M.D. Exhaled nitric oxide (Shubham), 06/29/2022: 20 (normal < 20). CXR, 07/10/2022 IMPRESSION: No acute radiographic abnormality. COMPARISON: 11/01/2020 RESULT: Lines, tubes, and devices: 2-lead pacer Lungs and pleura: No consolidation. No lung mass. No pleural effusion. No pneumothorax. Cardiomediastinal silhouette: Normal cardiomediastinal silhouette. Echocardiogram, 07/10/2022 CONCLUSIONS: - Technically difficult exam due to body habitus. - Exam indication: Shortness of Breath - The left ventricle is normal in size. Left ventricular systolic function is normal. EF = 59 5% (2D biplane) Grade I left ventricular diastolic dysfunction. - The right ventricle is normal in size. Right ventricular systolic function is normal. - Exam was compared with the prior echocardiographic exam performed on 01/16/2014, no significant change. SSMENT/PLAN: 1. Mild persistent asthma without complication - ICD9: 493.90, ICD10: J45.30 (primary diagnosis) Start Dulera 50 mcg 2 inhalations twice daily. Rinse mouth after each use to help prevent oral thrush. Albuterol HFA inhaler, 2 inhalations 10-15 minutes prior to activities associated with shortness of breath, and as needed for rescue relief of shortness of breath or wheezing, up to 4 times daily. - DULERA 50 MCG-5 MCG/ACTUATION HFA AEROSOL INHALER - ALBUTEROL SULFATE HFA 90 MCG/ACTUATION AEROSOL INHALER 2. SOB (shortness of breath) - ICD9: 786.05, ICD10: R06.02 Updated PFTs show no significant obstruction. Normal Shubham. Echo unremarkable. No sign of pulmonary hypertension. CXR without acute abnormalities. Encouraged patient to use Dulera daily and Albuterol prior to activities that cause her to be short of breath. Post Covid dyspnea may be contributing. 3. Post-nasal drip - ICD9: 784.91, ICD10: R09.82 Patient is hesitant to add in too many medications. Will consider Flonase in the future. 4. Sick sinus syndrome (HCC) - ICD9: 427.81, ICD10: I49.5 On beta pradip. Pacemaker checks have been ok Ivanna Isabel PA-C documented in this encounter [facility] 07-10-2022 History of Present illness Narrative Radiology Service Progress Note PATIENT NAME: Betzy Cruz DATE OF SERVICE: July 10, 2022 TIME: 3:21 PM PATIENT IDENTITY VERIFICATION COMPLETED USING TWO (2) IDENTIFIERS: Name and Date of confirmed by patient verbally. FALL SCREENING: Has the patient had 2 falls in the last year or 1 fall with injury or currently using an Ambulatory Assistive Device (Walker, Cane, Wheelchair, Crutches, etc.)? No PATIENT GENDER DATA: Female. status: : No status: NO. PATIENT RELEVANT IMPLANT DATA REVIEWED: Yes RADIOLOGY DEPARTMENT: General X-ray: Exam(s) Completed: Chest X-Ray PERIPHERAL IV DATA: Not applicable SIGNED BY: RT Nuria(R) July 10, 2022 3:21 PM documented in this encounter [facility] 06-29-2022 History of Present illness Narrative Images from the original note were not included. . [facility] Note Patient name: Betzy Cruz PCP: Sagrario Fong MD CC: asthma HPI: Betzy Cruz 82 year old obese female never smoker with PMH significant for sick sinus syndrome s/p pacemaker, ? seizure disorder, HTN, HLD, spinal stenosis, and asthma, recent COVID 04/2022, former patient of Dr. Perdomo, new to me. Last seen in clinic over a year ago, previously non-compliant with prescribed therapy. States she is currently using her Dulera 2 times a day as prescribed but has not been using her albuterol. Did not tolerate Singulair due to side effects with nightmares and difficulty sleeping. Denies any current issues with her allergies, specifically nasal congestion, drainage, postnasal drip. She has been short of breath with activity over the last 2 months. Most notable when she emerges herself in water for her aerobics class, feels a pressure on her lungs and inability to take a deep breath. She has stopped water aerobics due to shortness of breath. Denies any wheezing. She has not tried using her albuterol inhaler. Shortness of breath has been more problematic with regular activities, feels a burning sensation in her lungs. Also having issues with cough. She coughs up phlegm in the mornings. Denies postnasal drip or acid reflux symptoms. Updated pulmonary function tests show normal exhaled nitric oxide level and no evidence of obstruction on her spirometry although she improves her small airways with bronchodilator challenge. DATA: SERVICE DATE: 06/29/2022 SERVICE TIME: 8:20 AM Oral Exhaled Nitric Oxide measurement: 20.0 (ppb) PFT today: Review of pulmonary function test show no obstruction. Improvement in small airways with bronchodilator. PFT 2020: SERVICE DATE: 12/02/2020 SERVICE TIME: 8:05 AM Oral Exhaled Nitric Oxide measurement: 15.0 (ppb) Labs: Last CBC normal Imaging / Diagnostic Studies: No recent chest imaging Due for her echocardiogram in 2 weeks PAST MEDICAL HISTORY Diagnosis Date Asthma Atrial fibrillation (HCC) Cardiac pacemaker in situ 03/05/2008 PM-Device Mfg Medtronic Model SEDR01 [employer]ensia Serial Number [id number] Implant Date 07/18/2007 BLANK _ Lead1 Mfg Medtronic Model 5076 Serial Number [id number] Location right Implant Date 07/18/2007 BLANK _ Lead2 Mfg Medtronic Model 5076 Serial Number [id number] Location right Implant Date 07/18/2007 Epilepsy (HCC) Essential hypertension, benign well controlled Generalized osteoarthrosis, unspecified site Impaired glucose tolerance test Runs usually 100 Obesity Other and unspecified disc disorder of lumbar region Other and unspecified hyperlipidemia Spinal stenosis, lumbar region, without neurogenic claudication s/p L5-S1 sx '00 ALLERGIES Allergen Reactions Latex Rash itches Crestor [Rosuvastat* Myalgia severe muscles aches Lipitor [Atorvastat* Myalgia severe muscle aches Adhesive Rash redness Amlodipine Swelling leg swelling Atenolol Other: See Comments gained a lot of weight Seasonal Allergies Cough carvedilol (COREG) 3.125 mg tablet^Take 1 tablet by mouth twice daily.^Disp: 180 tablet^Rfl: 3 hydroCHLOROthiazide (HYDRODIURIL, ESIDRIX) 12.5 mg capsule^Take 1 capsule by mouth once daily as needed.^Disp: 90 capsule^Rfl: 1 lamoTRIgine (LAMICTAL) 100 mg tablet^Take 1 tablet by mouth twice daily.^Disp: 180 tablet^Rfl: [address] (PROTONIX) 40 mg tablet^Take 1 tablet by mouth twice daily.^Disp: 180 tablet^Rfl: 1 pravastatin (PRAVACHOL) 10 mg tablet^Take 1 tablet by mouth daily at bedtime.^Disp: 90 tablet^Rfl: 3 albuterol HFA (VENTOLIN HFA) 90 mcg/actuation inhaler^Inhale 2 Puffs as instructed every 4 hours as needed for wheezing/shortness of breath.^Disp: 24 g^Rfl: 3 mometasone-formoterol (DULERA) 50-5 mcg/actuation HFA aerosol inhaler^Inhale 2 Puffs as instructed twice daily as needed.^Disp: 1 Each^Rfl: 3 FLAXSEED OIL (OMEGA 3 ORAL)^Take by mouth once daily.^Disp: ^Rfl: aspirin, enteric coated (ASPIRIN, ENTERIC COATED) 81 mg EC tablet^Take by mouth as directed. Take two tablets once daily in the evening.^Disp: ^Rfl: 0 Cholecalciferol, Vitamin D3, 1,000 unit ORAL Cap^Take one(1) tablet two(2) times daily.^Disp: ^Rfl: calcium carbonate(CALCIUM 500 500 MG (1,250 MG) TAB)^Takes 5412-8939 mg once daily. ^Disp: ^Rfl: 0 blood sugar diagnostic (BLOOD GLUCOSE TEST) test strip^Test blood sugar(s) 1 to 2 time daily. Dx: R73.03 Insulin: No Insulin: No^Disp: 100 Strip^Rfl: 3 Blood-Glucose Meter monitoring kit^Glucose Meter of Choice - Kit - Dx: Test blood sugar(s) 1 to 2 time daily. Dx: R73.03 Insulin: No^Disp: 1 Each^Rfl: 0 Lancets lancets^Test blood sugar(s) 1 to 2 time daily. Dx: R73.03 Insulin: No^Disp: 100 Each^Rfl: 5 Social History Tobacco Use Smoking status: Never Smokeless tobacco: Never Tobacco comments: No household ETS exposure in entire lifetime. Substance Use Topics Alcohol use: No Drug use: No Pets: none FAMILY HISTORY Problem Relation Age of Onset Hypertension Mother age 91 other (high cholesterol) Father other (black lung) Father Asthma Father Severe Asthma Sister Lung Cancer Brother Smoker. Diabetes Maternal Grandmother Diabetes Other cousins Hypertension Other brothers/ sisters other (high cholesterol) Other brothers PAST SURGICAL HISTORY Procedure Laterality Date ARTHRP ACETBLR/PROX FEM PROSTC AGRFT/ALGRFT 2008 Hip replacement, total left NEUROPLASTY &/TRANSPOS MEDIAN NRV CARPAL TUNNE Right 02/21/2019 Right [facility] PACEMAKER 2009 PAST SURGICAL HISTORY OF lumbar surgery x 3 PAST SURGICAL HISTORY OF 11/2017 Battery replacement - pacemaker PMH, Social history, family history and surgical history reviewed and updated in EMR REVIEW OF SYSTEMS: CONSTITUTIONAL: No fevers, chills, nightsweats, unintended weight loss, fatigue HEENT: Denies nasal congestion/sinus symptoms, current allergy problems. EYES: No diplopia or blurry vision. CARDIOVASCULAR: No chest pain, palpitations, orthopnea, PND, edema. PULM: See HPI GI: No dysphagia/odynophagia, problematic reflux PSY: No concerns regarding depression, anxiety INTEGUMENTARY: No new skin changes or rashes PHYSICAL EXAMINATION: BP 167/81 Pulse 71 Resp 12 Wt 198 lb (89.8kg) SpO2 100% General Appearance: Obese elderly female, NAD Skin: Skin color, texture, turgor normal, no suspicious rashes or lesions. Head: Normocephalic, no masses, lesions, tenderness or abnormalities. Eyes: Sclera, conjunctiva normal Oropharynx: Adequate dentition, no oral lesions, no thrush Neck: No JVD, no masses, no thyromegaly Lungs: Not labored, normal to percussion, good air movement, no wheezes or crackles Heart: Regular rate and rhythm, systolic murmur Extremities: Ankle edema, no clubbing Lymph Nodes: No cervical lymphadenopathy and No supraclavicular lymphadenopathy. Assessment/Plan: 1. Shortness of breath -Etiology of SOB not clear. Updated PFTs do not show significant obstruction and normal Shubham speaks against active airways inflammation. Could be post COVID chronic dyspnea -Has history of arrhythmias and pacemaker placement and has not followed up with cardiology since 2017 -Echo -CXR 2. Mild persistent asthma, uncomplicated -Continue Dulera as prescribed -Instructed to use rescue inhaler prior to activity 3. Sick sinus syndrome s/p pacemaker -On beta pradip -States pacemaker checks have been okay Wendy Lemus MD [facility] documented in this encounter [facility] 06-13-2022 Miscellaneous Notes Patient has been identified by name and date of : Yes, Provider Dr. Fong Date 06/13/22 Time 7:51 am Patient phones for refill(s): Requested Prescriptions Pending Prescriptions Disp Refills carvedilol (COREG) 3.125 mg tablet 180 tablet 3 Sig: Take 1 tablet by mouth twice daily. Date of last office visit in primary care: 03/07/22 next apt 09/05/22 Last 2 Encounter Wt Readings: Date: Wt: 05/16/2022 89.8 kg (198 lb) 03/07/2022 89.8 kg (198 lb) Previous labs/tests for medication: Blood Pressure: BUN (mg/dL) Date Value 02/09/2022 23 02/10/2021 14 Sodium (mmol/L) Date Value 02/09/2022 141 02/10/2021 141 Last 1 Encounter BP Readings: Date: BP: 05/16/2022 148/86 Thank you. Maria Ines Valdivia LPN documented in this encounter [facility] 05-16-2022 History of Present illness Narrative This note was created using [employer]. Subjective Betzy Cruz is a 81 year old female. HPI Patient presents with cough, runny nose sore throat over the past 2 days. Her is sick with similar symptoms. No chest pain or shortness of breath. No OTC meds used. She has not had a fever. No vomiting or diarrhea. No home COVID test done. Review of Systems Constitutional: Positive for chills. Negative for fever. HENT: Positive for congestion, rhinorrhea, sneezing and sore throat. Negative for ear pain. Respiratory: Positive for cough. Negative for shortness of breath and wheezing. Cardiovascular: Negative. Gastrointestinal: Negative. Genitourinary: Negative. Musculoskeletal: Negative. All other systems reviewed and are negative. PAST MEDICAL HISTORY Diagnosis Date Asthma Atrial fibrillation (HCC) Cardiac pacemaker in situ 03/05/2008 PM-Device Mfg Medtronic Model SEDR01 [employer]ensia Serial Number [id number] Implant Date 07/18/2007 BLANK _ Lead1 Mfg Medtronic Model 5076 Serial Number [id number] Location right Implant Date 07/18/2007 BLANK _ Lead2 Mfg Medtronic Model 5076 Serial Number [id number] Location right Implant Date 07/18/2007 Epilepsy (HCC) Essential hypertension, benign well controlled Generalized osteoarthrosis, unspecified site Impaired glucose tolerance test Runs usually 100 Mild persistent asthma without complication 11/01/2020 Obesity Other and unspecified disc disorder of lumbar region Other and unspecified hyperlipidemia Spinal stenosis, lumbar region, without neurogenic claudication s/p L5-S1 sx '00 Current Outpatient Medications Medication Sig Dispense Refill blood sugar diagnostic (BLOOD GLUCOSE TEST) test strip Test blood sugar(s) 1 to 2 time daily. Dx: R73.03 Insulin: No Insulin: No 100 Strip 3 hydroCHLOROthiazide (HYDRODIURIL, ESIDRIX) 12.5 mg capsule Take 1 capsule by mouth once daily as needed. 90 capsule 1 lamoTRIgine (LAMICTAL) 100 mg tablet Take 1 tablet by mouth twice daily. 180 tablet 3 montelukast (SINGULAIR) 10 mg tablet Take 1 tablet by mouth daily at bedtime. [address] (PROTONIX) 40 mg tablet Take 1 tablet by mouth twice daily. 180 tablet 1 pravastatin (PRAVACHOL) 10 mg tablet Take 1 tablet by mouth daily at bedtime. 90 tablet 3 carvedilol (COREG) 3.125 mg tablet Take 1 tablet by mouth twice daily. 180 tablet 3 albuterol HFA (VENTOLIN HFA) 90 mcg/actuation inhaler Inhale 2 Puffs as instructed every 4 hours as needed for wheezing/shortness of breath. 24 g 3 mometasone-formoterol (DULERA) 50-5 mcg/actuation HFA aerosol inhaler Inhale 2 Puffs as instructed twice daily as needed. 1 Each 3 Blood-Glucose Meter monitoring kit Glucose Meter of Choice - Kit - Dx: Test blood sugar(s) 1 to 2 time daily. Dx: R73.03 Insulin: No 1 Each 0 Lancets lancets Test blood sugar(s) 1 to 2 time daily. Dx: R73.03 Insulin: No 100 Each 5 FLAXSEED OIL (OMEGA 3 ORAL) Take by mouth once daily. aspirin, enteric coated (ASPIRIN, ENTERIC COATED) 81 mg EC tablet Take by mouth as directed. Take two tablets once daily in the evening. 0 Cholecalciferol, Vitamin D3, 1,000 unit ORAL Cap Take one(1) tablet two(2) times daily. calcium carbonate(CALCIUM 500 500 MG (1,250 MG) TAB) Takes 7240-8600 mg once daily. 0 oseltamivir (TAMIFLU) 75 mg capsule Take 1 capsule by mouth twice daily for 5 days. 10 capsule 0 No current facility-administered medications for this visit. PAST SURGICAL HISTORY Procedure Laterality Date ARTHRP ACETBLR/PROX FEM PROSTC AGRFT/ALGRFT 2007 Hip replacement, total left NEUROPLASTY &/TRANSPOS MEDIAN NRV CARPAL TUNNE Right 02/21/2019 Right CTR PACEMAKER 2009 PAST SURGICAL HISTORY OF lumbar surgery x 3 PAST SURGICAL HISTORY OF 11/2017 Battery replacement - pacemaker FAMILY HISTORY Problem Relation Age of Onset Hypertension Mother age 91 other (high cholesterol) Father other (black lung) Father Asthma Father Severe Asthma Sister Lung Cancer Brother Smoker. Diabetes Maternal Grandmother Diabetes Other cousins Hypertension Other brothers/ sisters other (high cholesterol) Other brothers Social History Tobacco Use Smoking status: Never Smokeless tobacco: Never Tobacco comments: No household ETS exposure in entire lifetime. Substance Use Topics Alcohol use: No Drug use: No Objective BP 148/86 Pulse 76 Temp 36.7 C (98.1 F) (Tympanic) Resp 18 Wt 89.8 kg (198 lb) SpO2 96% BMI 31.96 kg/m Physical Exam Vitals reviewed. Constitutional: Appearance: Normal appearance. HENT: Head: Normocephalic and atraumatic. Right Ear: Tympanic membrane, ear canal and external ear normal. Left Ear: Tympanic membrane, ear canal and external ear normal. Nose: Congestion present. Mouth/Throat: Mouth: Mucous membranes are moist. Pharynx: Oropharynx is clear. Cardiovascular: Rate and Rhythm: Normal rate and regular rhythm. Heart sounds: Normal heart sounds. Pulmonary: Effort: Pulmonary effort is normal. Breath sounds: Normal breath sounds. Musculoskeletal: Cervical back: Neck supple. Skin: General: Skin is warm and dry. Neurological: Mental Status: She is alert. Assessment and Plan ASSESSMENT/PLAN: 1. Viral URI with cough - ICD9: 465.9, ICD10: J06.9 - Discussed viral etiology and rationale for treatment. - Symptomatic treatment with prn analgesia - Supportive care with fluids and rest - may dc tamiflu if flu negative. If covid positive, recommend virtual appt with pcp to discuss antivirals. - COVID WITH FLUA+B, ROUTINE Levsia Martinez PA-C documented in this encounter [facility] 03-07-2022 History of Present illness Narrative This note was created using [employer]. Subjective Betzy Cruz is a 81 year old female. Patient presents with: F/U 6 months SUBJECTIVE: Betzy Cruz is a 81 year old year old lady here today for 6 month follow up appointment for review of medical conditions. Not able to get test strips from [facility]. Will try [facility]. Reviewed that has been to [facility] (Dr. Perdomo) then GI. Started on PPI. Plans to see ENT if cough persists Still has post nasal drip. Does not feel reflux symptoms very often. Hoarseness noted. Clears throat a lot. Stable on Lamictal for seizures. PAST MEDICAL HISTORY Diagnosis Date Asthma Atrial fibrillation (HCC) Cardiac pacemaker in situ 03/05/2008 PM-Device Mfg Medtronic Model SEDR01 [employer]ens[employer] Serial Number [id number] Implant Date 07/18/2007 BLANK _ Lead1 Mfg Medtronic Model 5076 Serial Number [id number] Location right Implant Date 07/18/2007 BLANK _ Lead2 Mfg Medtronic Model 5076 Serial Number [id number] Location right Implant Date 07/18/2007 Epilepsy (HCC) Essential hypertension, benign well controlled Generalized osteoarthrosis, unspecified site Impaired glucose tolerance test Runs usually 100 Mild persistent asthma without complication 11/01/2020 Obesity Other and unspecified disc disorder of lumbar region Other and unspecified hyperlipidemia Spinal stenosis, lumbar region, without neurogenic claudication s/p L5-S1 sx '00 Current Outpatient Medications Medication Sig pantoprazole DR (PROTONIX) 40 mg tablet Take 1 tablet by mouth once daily. carvedilol (COREG) 3.125 mg tablet Take 1 tablet by mouth twice daily. albuterol HFA (VENTOLIN HFA) 90 mcg/actuation inhaler Inhale 2 Puffs as instructed every 4 hours as needed for wheezing/shortness of breath. hydroCHLOROthiazide 12.5 mg capsule Take 1 capsule by mouth once daily as needed. lamoTRIgine (LAMICTAL) 100 mg tablet Take 1 tablet by mouth twice daily. montelukast (SINGULAIR) 10 mg tablet Take 1 tablet by mouth daily at bedtime. mometasone-formoterol (DULERA) 50-5 mcg/actuation HFA aerosol inhaler Inhale 2 Puffs as instructed twice daily as needed. pravastatin (PRAVACHOL) 10 mg tablet Take 2 tablets by mouth daily at bedtime. FLAXSEED OIL (OMEGA 3 ORAL) Take by mouth once daily. aspirin, enteric coated (ASPIRIN, ENTERIC COATED) 81 mg EC tablet Take by mouth as directed. Take two tablets once daily in the evening. Cholecalciferol, Vitamin D3, 1,000 unit ORAL Cap Take one(1) tablet two(2) times daily. calcium carbonate(CALCIUM 500 500 MG (1,250 MG) TAB) Takes 8542-9755 mg once daily. blood sugar diagnostic (BLOOD GLUCOSE TEST) test strip Test blood sugar(s) 1 to 2 time daily. Dx: R73.03 Insulin: No Insulin: No Blood-Glucose Meter monitoring kit Glucose Meter of Choice - Kit - Dx: Test blood sugar(s) 1 to 2 time daily. Dx: R73.03 Insulin: No Lancets lancets Test blood sugar(s) 1 to 2 time daily. Dx: R73.03 Insulin: No No current facility-administered medications for this visit. Review of Systems Objective BP 118/72 Pulse 69 Wt 89.8 kg (198 lb) SpO2 98% BMI 31.96 kg/m Physical Exam Constitutional: Appearance: Normal appearance. HENT: Head: Normocephalic. Eyes: Conjunctiva/sclera: Conjunctivae normal. Cardiovascular: Rate and Rhythm: Normal rate and regular rhythm. Heart sounds: Normal heart sounds. Pulmonary: Effort: Pulmonary effort is normal. Breath sounds: Normal breath sounds. Musculoskeletal: Right lower leg: Edema present. Left lower leg: Edema present. Skin: General: Skin is warm and dry. Neurological: General: No focal deficit present. Mental Status: She is alert and oriented to person, place, and time. Psychiatric: Mood and Affect: Mood normal. Behavior: Behavior normal. Thought Content: Thought content normal. Judgment: Judgment normal. Component Latest Ref Rng & Units 08/15/2021 02/09/2022 Protein, Total 6.3 - 8.0 g/dL 6.6 6.3 Albumin 3.9 - 4.9 g/dL 4.1 4.1 Calcium 8.5 - 10.2 mg/dL 9.4 9.5 Bilirubin, Total 0.2 - 1.3 mg/dL 0.4 0.5 Alkaline Phosphatase 34 - 123 U/L 70 60 AST 13 - 35 U/L 21 20 ALT 7 - 38 U/L 13 15 Glucose 74 - 99 mg/dL 99 102 (H) BUN 7 - 21 mg/dL 14 23 (H) Creatinine 0.58 - 0.96 mg/dL 0.79 0.93 Sodium 136 - 144 mmol/L 140 141 Potassium 3.7 - 5.1 mmol/L 4.2 4.7 Chloride 97 - 105 mmol/L 103 104 CO2 22 - 30 mmol/L 27 27 Anion Gap 9 - 18 mmol/L 10 10 eGFR >=60 mL/min/1.73m 76 63 WBC 3.70 - 11.00 k/uL 5.01 4.02 RBC 3.90 - 5.20 m/uL 4.60 4.40 Hemoglobin 11.5 - 15.5 g/dL 13.2 12.9 Hematocrit 36.0 - 46.0 % 41.2 40.1 MCV 80.0 - 100.0 fL 89.6 91.1 MCH 26.0 - 34.0 pg 28.7 29.3 MCHC 30.5 - 36.0 g/dL 32.0 32.2 RDW-CV 11.5 - 15.0 % 12.5 12.7 Platelet Count 150 - 400 k/uL 236 211 MPV 9.0 - 12.7 fL 10.2 9.8 Absolute nRBC <0.01 k/uL <0.01 <0.01 Cholesterol, Total <200 mg/dL 178 190 Triglyceride <150 mg/dL 87 61 HDL Cholesterol >39 mg/dL 45 45 Non HDL Cholesterol <130 mg/dL 133 (H) 145 (H) Fasting Time hrs 16 12 VLDL Cholesterol <30 mg/dL 17 12 TC:HDL Ratio <5.10 3.96 4.22 LDL Cholesterol <100 mg/dL 116 (H) 133 (H) LDL:HDL Ratio <2.54 2.58 (H) 2.96 (H) Hemoglobin A1C 4.3 - 5.6 % 6.2 (H) 5.8 (H) Estimated Average Glucose mg/dL 131 120 Assessment and Plan Encounter Diagnosis ICD-10-CM 1. Essential hypertension I10 hydroCHLOROthiazide (HYDRODIURIL, ESIDRIX) 12.5 mg capsule 2. Prediabetes R73.03 blood sugar diagnostic (BLOOD GLUCOSE TEST) test strip checks sugars 1 to 2 times daily depending on what she eats and how she feels 3. Pure hypercholesterolemia E78.00 pravastatin (PRAVACHOL) 10 mg tablet 4. Mild persistent asthma without complication J45.30 montelukast (SINGULAIR) 10 mg tablet 5. Gastroesophageal reflux disease, unspecified whether esophagitis present K21.[address] (PROTONIX) 40 mg tablet 6. Hoarseness R49.0 7. Post-nasal drainage R09.82 montelukast (SINGULAIR) 10 mg tablet 8. Encounter for screening mammogram for breast cancer Z12.31 DONA SCREENING W MUKUL 9. Encounter for immunization Z23 INFLUENZA SEASONAL QUADRIVALENT HIGH DOSE AGE 65+ 10. Nonintractable epilepsy without status epilepticus, unspecified epilepsy type (HCC) G40.909 lamoTRIgine (LAMICTAL) 100 mg tablet Above issues addressed with patient. Patient involved in shared decision making for management of medical issues. Discussed management of causes for hoarseness, including postnasal drainage, asthma and GERD. Follow up with ENT as needed. Blood pressure controlled without adverse effects from medications. Needs to keep working on diet and exercise with lifestyle changes for effective weight loss as well as prevention of DM, and control of BP and lipids. Stable on rest of meds. Continue present management. History and medications reviewed. Epic updated as needed Refills and/or prescriptions taken care of and meds adjusted as indicated after reviewed history, exam and labs. Health Maintenance reviewed. Updated record and/or ordered tests as recorded. Encouraged on efforts at healthy diet and regular exercise and adequate sleep. Sagrario Fong MD documented in this encounter [facility] 08-30-2021 History of Present illness Narrative This note was created using [employer]. Subjective Betzy Cruz is a 81 year old female. Patient presents with: F/U 6 months SUBJECTIVE: Betzy Cruz is a 81 year old year old lady here today for 6 month follow up appointment for review of medical conditions. [facility] Plans to go next [facility] too. Taking pravastatin 1 twice daily Noted that cinnamon helps her sugar get down as sister told her. Vision is affected and gets a little headache if sugars get over 200. Getting protein with carbs to keep sugars from going up. Loves baked sweet potatoes. Reflux is some better with treating GERD. Dulera just when has flare up of asthma. Wears mask when works outside. PAST MEDICAL HISTORY Diagnosis Date Asthma Atrial fibrillation (HCC) Cardiac pacemaker in situ 03/05/2008 PM-Device [facility] Med[place] SEDR01 Sensia Serial Number [id number] Implant Date 07/18/2007 BLANK _ Lead1 [facility] [place] Model 5076 Serial Number [id number] Location right Implant Date 07/18/2007 BLANK _ Lead2 Mfg Medtronic Model 5076 Serial Number [id number] Location right Implant Date 07/18/2007 Epilepsy (HCC) Essential hypertension, benign well controlled Generalized osteoarthrosis, unspecified site Impaired glucose tolerance test Runs usually 100 Mild persistent asthma without complication 11/01/2020 Obesity Other and unspecified disc disorder of lumbar region Other and unspecified hyperlipidemia Spinal stenosis, lumbar region, without neurogenic claudication s/p L5-S1 sx '00 Current Outpatient Medications Medication Sig pantoprazole DR (PROTONIX) 40 mg tablet Take 40 mg by mouth once daily. carvedilol (COREG) 3.125 mg tablet Take 1 tablet by mouth twice daily. albuterol HFA (VENTOLIN HFA) 90 mcg/actuation inhaler Inhale 2 Puffs as instructed every 4 hours as needed for wheezing/shortness of breath. blood sugar diagnostic (BLOOD GLUCOSE TEST) test strip Test blood sugar(s) 1 to 2 time daily. Dx: R73.03 Insulin: No Insulin: No hydroCHLOROthiazide 12.5 mg capsule Take 1 capsule by mouth once daily as needed. lamoTRIgine (LAMICTAL) 100 mg tablet Take 1 tablet by mouth twice daily. montelukast (SINGULAIR) 10 mg tablet Take 1 tablet by mouth daily at bedtime. mometasone-formoterol (DULERA) 50-5 mcg/actuation HFA aerosol inhaler Inhale 2 Puffs as instructed twice daily as needed. pravastatin (PRAVACHOL) 10 mg tablet Take 2 tablets by mouth daily at bedtime. Blood-Glucose Meter monitoring kit Glucose Meter of Choice - Kit - Dx: Test blood sugar(s) 1 to 2 time daily. Dx: R73.03 Insulin: No Lancets lancets Test blood sugar(s) 1 to 2 time daily. Dx: R73.03 Insulin: No FLAXSEED OIL (OMEGA 3 ORAL) Take by mouth once daily. aspirin, enteric coated (ECOTRIN LOW STRENGTH) 81 mg ORAL EC tablet Take by mouth as directed. Take two tablets once daily in the evening. Cholecalciferol, Vitamin D3, 1,000 unit ORAL Cap Take one(1) tablet two(2) times daily. calcium carbonate(CALCIUM 500 500 MG (1,250 MG) TAB) Takes 8382-7259 mg once daily. No current facility-administered medications for this visit. Review of Systems Objective BP 138/78 Pulse 80 Wt 89.4 kg (197 lb) BMI 31.80 kg/m Last 5 Encounter Wt Readings: Date: Wt: 08/30/2021 89.4 kg (197 lb) 04/04/2021 87.5 kg (193 lb) 02/22/2021 87.5 kg (193 lb) 12/02/2020 90.7 kg (200 lb) 12/02/2020 91.1 kg (200 lb 12.8 oz) No waist measurement recorded Estimated body mass index is 31.8 kg/m as calculated from the following: Height as of 04/04/21: 167.6 cm (5' 6). Weight as of this encounter: 89.4 kg (197 lb). Last 5 Encounter BP Readings: Date: BP: 08/30/2021 138/78 04/04/2021 146/118 02/22/2021 128/74 12/02/2020 118/78 11/01/2020 118/70 Physical Exam Component Latest Ref Rng & Units 12/30/2019 07/20/2020 02/10/2021 08/15/2021 Protein, Total 6.3 - 8.0 g/dL 6.3 6.6 6.8 6.6 Albumin 3.9 - 4.9 g/dL 4.2 4.2 4.3 4.1 Calcium 8.5 - 10.2 mg/dL 9.5 9.2 9.8 9.4 Bilirubin, Total 0.2 - 1.3 mg/dL 0.4 0.4 0.4 0.4 Alkaline Phosphatase 34 - 123 U/L 49 63 68 70 AST 13 - 35 U/L 27 19 17 21 Glucose 74 - 99 mg/dL 97 97 95 99 BUN 7 - 21 mg/dL 18 20 14 14 Creatinine 0.58 - 0.96 mg/dL 0.94 0.87 0.87 0.79 Sodium 136 - 144 mmol/L 140 140 141 140 Potassium 3.7 - 5.1 mmol/L 5.0 4.6 4.6 4.2 Chloride 97 - 105 mmol/L 105 105 105 103 CO2 22 - 30 mmol/L 27 26 27 27 Anion Gap 9 - 18 mmol/L 8 (L) 9 9 10 ALT 7 - 38 U/L 16 10 10 13 eGFR- >60 >60 >60 eGFR-All Other Races . 58 >60 >60 eGFR >=60 mL/min/1.73m 76 WBC 3.70 - 11.00 k/uL 5.03 5.16 4.91 5.01 RBC 3.90 - 5.20 m/uL 4.37 4.51 4.55 4.60 Hemoglobin 11.5 - 15.5 g/dL 12.8 12.8 13.1 13.2 Hematocrit 36.0 - 46.0 % 40.4 39.8 41.3 41.2 MCV 80.0 - 100.0 fL 92.4 88.2 90.8 89.6 MCH 26.0 - 34.0 pg 29.3 28.4 28.8 28.7 MCHC 30.5 - 36.0 g/dL 31.7 32.2 31.7 32.0 RDW-CV 11.5 - 15.0 % 12.9 13.3 12.8 12.5 Platelet Count 150 - 400 k/uL 221 207 234 236 MPV 9.0 - 12.7 fL 10.4 10.0 10.2 10.2 Absolute nRBC <0.01 k/uL <0.01 <0.01 <0.01 <0.01 Cholesterol, Total <200 mg/dL 192 181 167 178 Triglyceride <150 mg/dL 70 66 62 87 HDL Cholesterol >39 mg/dL 52 48 51 45 LDL Cholesterol <100 mg/dL 126 (H) 120 (H) 104 (H) 116 (H) Non HDL Cholesterol <130 mg/dL 140 (H) 133 (H) 116 133 (H) Fasting Time hrs 14 12 12 16 VLDL Cholesterol <30 mg/dL 14 13 12 17 TC:HDL Ratio <5.10 3.69 3.77 3.27 3.96 LDL:HDL Ratio <2.54 2.42 2.50 2.04 2.58 (H) Hemoglobin A1C 4.3 - 5.6 % 5.8 (H) 6.0 (H) 5.8 (H) 6.2 (H) Estimated Average Glucose mg/dL 120 126 120 131 Hep C Antibody IA Negative Negative Assessment and Plan ASSESSMENT/PLAN: 1. Essential hypertension - ICD9: 401.9, ICD10: I10 (primary diagnosis) - fair control - Continue current medication(s) - Recommended regular aerobic exercise. - Recommend home blood pressure monitoring, to bring results in on next visit - Goal of BP <130/80 2. Prediabetes - ICD9: 790.29, ICD10: R73.03 Needs to keep working on diet and exercise with lifestyle changes for effective weight loss as well as prevention of DM, and control of BP and lipids. - BLOOD GLUCOSE TEST STRIPS 3. Pure hypercholesterolemia - ICD9: 272.0, ICD10: E78.00 Continue present management. 4. IFG (impaired fasting glucose) - ICD9: 790.21, ICD10: R73.01 Encouraged on efforts at healthy diet and regular exercise. 5. Mild persistent asthma without complication - ICD9: 493.90, ICD10: J45.30 Stable - Continue current meds - Avoidance of triggers recommended 6. PSVT (paroxysmal supraventricular tachycardia) (HCC) - ICD9: 427.0, ICD10: I47.1 Stable on meds Sagrario Fong MD documented in this encounter [facility] 08-18-2021 Miscellaneous Notes Prior authorization approved Authorized from July 19, 2021 to August 18, 2022 rec'd covermymeds PA for pravastatin 10 mg This was approved last year. Electronic PA requested. Completed. documented in this encounter [facility] 02-18-2009 History of Past i llness Narrative Problem Noted Date Resolved Date Seizure 02/18/2009 02/26/2017 Overview: neurologist said not a seizure documented as of this encounter (statuses as of 08/18/2021) [facility] History of Past illness Narrative* Problem Noted Date Resolved Date Seizure 02/18/2009 02/26/2017 Overview: neurologist said not a seizure documented as of this encounter (statuses as of 11/13/2021) [facility] History of Past illness Narrative* Problem Noted Date Resolved Date Seizure 02/18/2009 02/26/2017 Overview: neurologist said not a seizure documented as of this encounter (statuses as of 02/12/2022) [facility] History of Past illness Narrative* Problem Noted Date Resolved Date Seizure 02/18/2009 02/26/2017 Overview: neurologist said not a seizure documented as of this encounter (statuses as of 04/07/2022) [facility] History of Past illness Narrative* Problem Noted Date Resolved Date Seizure 02/18/2009 02/26/2017 Overview: neurologist said not a seizure documented as of this encounter (statuses as of 05/22/2022) [facility] History of Past illness Narrative* Problem Noted Date Resolved Date Seizure 02/18/2009 02/26/2017 Overview: neurologist said not a seizure documented as of this encounter (statuses as of 05/24/2022) [facility] History of Past illness Narrative* Problem Noted Date Resolved Date Seizure 02/18/2009 02/26/2017 Overview: neurologist said not a seizure documented as of this encounter (statuses as of 06/13/2022) [facility] History of Past illness Narrative* Problem Noted Date Resolved Date Seizure 02/18/2009 02/26/2017 Overview: neurologist said not a seizure documented as of this encounter (statuses as of 06/23/2022) [facility] History of Past illness Narrative* Problem Noted Date Resolved Date Seizure 02/18/2009 02/26/2017 Overview: neurologist said not a seizure documented as of this encounter (statuses as of 06/29/2022) [facility] History of Past illness Narrative* Problem Noted Date Resolved Date Seizure 02/18/2009 02/26/2017 Overview: neurologist said not a seizure documented as of this encounter (statuses as of 06/29/2022) [facility] History of Past illness Narrative* Problem Noted Date Resolved Date Seizure 02/18/2009 02/26/2017 Overview: neurologist said not a seizure documented as of this encounter (statuses as of 07/27/2022) [facility] History of Past illness Narrative* Problem Noted Date Resolved Date Seizure 02/18/2009 02/26/2017 Overview: neurologist said not a seizure documented as of this encounter (statuses as of 08/02/2022) [facility] History of Past illness Narrative* Problem Noted Date Resolved Date Seizure 02/18/2009 02/26/2017 Overview: neurologist said not a seizure documented as of this encounter (statuses as of 08/15/2022) [facility] History of Past illness Narrative* Problem Noted Date Resolved Date Seizure 02/18/2009 02/26/2017 Overview: neurologist said not a seizure documented as of this encounter (statuses as of 08/17/2022) [facility] History of Past illness Narrative* Problem Noted Date Resolved Date Seizure 02/18/2009 02/26/2017 Overview: neurologist said not a seizure documented as of this encounter (statuses as of 08/23/2022) [facility] History of Past illness Narrative* Problem Noted Date Resolved Date Seizure 02/18/2009 02/26/2017 Overview: neurologist said not a seizure documented as of this encounter (statuses as of 08/24/2022) [facility] History of Past illness Narrative* Problem Noted Date Resolved Date Seizure 02/18/2009 02/26/2017 Overview: neurologist said not a seizure documented as of this encounter (statuses as of 08/29/2022) [facility] History of Past illness Narrative* Problem Noted Date Resolved Date Seizure 02/18/2009 02/26/2017 Overview: neurologist said not a seizure documented as of this encounter (statuses as of 09/14/2022) [facility] History of Past illness Narrative* Problem Noted Date Resolved Date Seizure 02/18/2009 02/26/2017 Overview: neurologist said not a seizure documented as of this encounter (statuses as of 10/26/2022) [facility] History of Past illness Narrative* Problem Noted Date Resolved Date Seizure 02/18/2009 02/26/2017 Overview: neurologist said not a seizure documented as of this encounter (statuses as of 11/16/2022) [facility] History of Past illness Narrative* Problem Noted Date Diagnosed Date Resolved Date Seizure 02/18/2009 02/26/2017 Overview: neurologist said not a seizure documented as of this encounter (statuses as of 12/11/2022) [facility] History of Past illness Narrative* Problem Noted Date Diagnosed Date Resolved Date Seizure 02/18/2009 02/26/2017 Overview: neurologist said not a seizure documented as of this encounter (statuses as of 02/28/2023) [facility] History of Past illness Narrative* Problem Noted Date Diagnosed Date Resolved Date Seizure 02/18/2009 02/26/2017 Overview: neurologist said not a seizure documented as of this encounter (statuses as of 02/28/2023) [facility] History of Past illness Narrative* Problem Noted Date Diagnosed Date Resolved Date Seizure 02/18/2009 02/26/2017 Overview: neurologist said not a seizure documented as of this encounter (statuses as of 03/24/2023) [address]01-2009 History of Past illness Narrative* Problem Noted Date Diagnosed Date Resolved Date Seizure 02/18/2009 02/26/2017 Overview: neurologist said not a seizure documented as of this encounter (statuses as of 04/10/2023) [facility] History of Past illness Narrative* Problem Noted Date Diagnosed Date Resolved Date Seizure 02/18/2009 02/26/2017 Overview: neurologist said not a seizure documented as of this encounter (statuses as of 04/10/2023) [facility] History of Past illness Narrative* Problem Noted Date Diagnosed Date Resolved Date Seizure 02/18/2009 02/26/2017 Overview: neurologist said not a seizure documented as of this encounter (statuses as of 04/24/2023) [facility] History of Past illness Narrative* Problem Noted Date Diagnosed Date Resolved Date Seizure 02/18/2009 02/26/2017 Overview: neurologist said not a seizure documented as of this encounter (statuses as of 06/22/2023) [facility] History of Past illness Narrative* Problem Noted Date Diagnosed Date Resolved Date Seizure 02/18/2009 02/26/2017 Overview: neurologist said not a seizure documented as of this encounter (statuses as of 08/21/2023) [facility] History of Past illness Narrative* Problem Noted Date Diagnosed Date Resolved Date Seizure 02/18/2009 02/26/2017 Overview: neurologist said not a seizure documented as of this encounter (statuses as of 09/07/2023) [facility] Essential hypertension- Primary Unspecified essential hypertension Prediabetes Other abnormal glucose Pure hypercholesterolemia IFG (impaired fasting glucose) Impaired fasting glucose Mild persistent asthma without complication Unspecified asthma PSVT (paroxysmal supraventricular tachycardia) (HCC) Paroxysmal supraventricular tachycardia [facility] Diagnosis Essential hypertension- Primary Unspecified essential hypertension Prediabetes Other abnormal glucose Pure hypercholesterolemia Mild persistent asthma without complication Unspecified asthma Gastroesophageal reflux disease, unspecified whether esophagitis present Hoarseness Dysphonia Post-nasal drainage Unspecified sinusitis (chronic) Encounter for screening mammogram for breast cancer Encounter for immunization Need for other specified prophylactic vaccination against single bacterial disease Nonintractable epilepsy without status epilepticus, unspecified epilepsy type (HCC) documented in this encounter [facility] note* Diagnosis Viral URI with cough- Primary Acute upper respiratory infections of unspecified site documented in this encounter [facility] note* Diagnosis Essential hypertension Unspecified essential hypertension PSVT (paroxysmal supraventricular tachycardia) (HCC) Paroxysmal supraventricular tachycardia Allergic rhinitis, unspecified seasonality, unspecified trigger Cough documented in this encounter [facility] note* Diagnosis Asthma, unspecified asthma severity, unspecified whether complicated, unspecified whether persistent- Primary documented in this encounter [facility] note* Diagnosis Asthma, unspecified asthma severity, unspecified whether complicated, unspecified whether persistent documented in this encounter [facility] note* Diagnosis SOB (shortness of breath)- Primary Shortness of breath Mild persistent asthma without complication Unspecified asthma Sick sinus syndrome (HCC) Sinoatrial node dysfunction documented in this encounter [facility] note* Diagnosis Mild persistent asthma without complication- Primary Unspecified asthma SOB (shortness of breath) Shortness of breath Post-nasal drip Postnasal drip Sick sinus syndrome (HCC) Sinoatrial node dysfunction documented in this encounter [facility] note* Diagnosis Essential hypertension- Primary Unspecified essential hypertension Gastroesophageal reflux disease, unspecified whether esophagitis present Screening for diabetes mellitus Elevated glucose Other abnormal glucose documented in this encounter [facility] note* Diagnosis Pacemaker- Primary Cardiac pacemaker in situ Sick sinus syndrome (HCC) Sinoatrial node dysfunction documented in this encounter [facility] note* Diagnosis Gastroesophageal reflux disease, unspecified whether esophagitis present documented in this encounter [facility] note* Diagnosis Mild persistent asthma without complication- Primary Unspecified asthma Post-nasal drip Postnasal drip Allergic rhinitis, unspecified seasonality, unspecified trigger documented in this encounter [facility] note* Diagnosis Mild persistent asthma without complication- Primary Unspecified asthma Sick sinus syndrome (HCC) Sinoatrial node dysfunction Gastroesophageal reflux disease, unspecified whether esophagitis present documented in this encounter [facility] note* Diagnosis Sick sinus syndrome (HCC)- Primary Sinoatrial node dysfunction Cardiac pacemaker in situ PSVT (paroxysmal supraventricular tachycardia) (HCC) Paroxysmal supraventricular tachycardia Essential hypertension Unspecified essential hypertension documented in this encounter [facility] note* Diagnosis Mild persistent asthma without complication Unspecified asthma documented in this encounter [facility] note* Diagnosis Mild persistent asthma without complication- Primary Unspecified asthma Gastroesophageal reflux disease, unspecified whether esophagitis present Allergic rhinitis, unspecified seasonality, unspecified trigger Post-nasal drip Postnasal drip Sick sinus syndrome (HCC) Sinoatrial node dysfunction documented in this encounter [facility] note* Diagnosis SOB (shortness of breath) Shortness of breath documented in this encounter [facility] note* Diagnosis Atypical atrial flutter (HCC)- Primary Atrial flutter documented in this encounter [facility] noteNo assessment information availableWCleveland Clinic [facility] Work Phone: Evaluation note* Diagnosis Essential hypertension- Primary Unspecified essential hypertension PSVT (paroxysmal supraventricular tachycardia) Paroxysmal supraventricular tachycardia Allergic rhinitis, unspecified seasonality, unspecified trigger Cough Post-nasal drip Postnasal drip Nonintractable epilepsy without status epilepticus, unspecified epilepsy type (HCC) Acute rhinitis Acute nasopharyngitis (common cold) Breast cancer screening by mammogram Encounter for immunization Need for other specified prophylactic vaccination against single bacterial disease documented in this encounter [facility] note* Diagnosis Mild persistent asthma without complication- Primary Unspecified asthma Paroxysmal atrial fibrillation (HCC) Atrial fibrillation documented in this encounter [facility] note* Diagnosis Encounter for immunization- Primary Need for other specified prophylactic vaccination against single bacterial disease Gastroesophageal reflux disease, unspecified whether esophagitis present Essential hypertension Unspecified essential hypertension PSVT (paroxysmal supraventricular tachycardia) (HCC) Paroxysmal supraventricular tachycardia Nonintractable epilepsy without status epilepticus, unspecified epilepsy type (HCC) Hoarseness Dysphonia Pure hypercholesterolemia IFG (impaired fasting glucose) Impaired fasting glucose Cardiac pacemaker in situ documented in this encounter [facility] note* Diagnosis Essential hypertension Unspecified essential hypertension PSVT (paroxysmal supraventricular tachycardia) (HCC) Paroxysmal supraventricular tachycardia Allergic rhinitis, unspecified seasonality, unspecified trigger Cough Pacemaker reprogramming/check Fitting and adjustment of cardiac pacemaker documented in this encounter [facility] note* Diagnosis Mild persistent asthma without complication- Primary Unspecified asthma Paroxysmal atrial fibrillation (HCC) Atrial fibrillation Pacemaker reprogramming/check Fitting and adjustment of cardiac pacemaker [facility] Diagnosis Essential hypertension- Primary Unspecified essential hypertension Pure hypercholesterolemia IFG (impaired fasting glucose) Impaired fasting glucose PSVT (paroxysmal supraventricular tachycardia) (HCC) Paroxysmal supraventricular tachycardia Nonintractable epilepsy without status epilepticus, unspecified epilepsy type (HCC) Mild persistent asthma without complication Unspecified asthma Chronic cough Cough Encounter for immunization Need for other specified prophylactic vaccination against single bacterial disease Pacemaker reprogramming/check Fitting and adjustment of cardiac pacemaker [facility] Diagnosis Paroxysmal atrial fibrillation (HCC)- Primary Atrial fibrillation [facility] Diagnosis Pacemaker reprogramming/check Fitting and adjustment of cardiac pacemaker [facility] Diagnosis Essential hypertension- Primary Unspecified essential hypertension Pure hypercholesterolemia Mild persistent asthma without complication (HCC) Unspecified asthma Chronic cough Cough Screening for depression Encounter for screening examination for other mental health and behavioral disorders Sick sinus syndrome (HCC) Sinoatrial node dysfunction Nonintractable epilepsy without status epilepticus, unspecified epilepsy type (HCC) Gastroesophageal reflux disease, unspecified whether esophagitis present Cardiac pacemaker in situ Encounter for screening mammogram for malignant neoplasm of breast Other screening mammogram Abnormal finding of blood chemistry, unspecified Vitamin D deficiency, unspecified [facility] Diagnosis SOB (shortness of breath)- Primary Shortness of breath Mild intermittent asthma without complication (HCC) Unspecified asthma Chronic atrial fibrillation (HCC) Atrial fibrillation documented in this encounter [facility] note* Diagnosis Atrial fibrillation, persistent (HCC)- Primary Atrial fibrillation documented in this encounter [facility] note* Diagnosis Atrial fibrillation, persistent (HCC) Atrial fibrillation [facility] Diagnosis AF (paroxysmal atrial fibrillation) (HCC)- Primary Atrial fibrillation [facility] Diagnosis AF (paroxysmal atrial fibrillation) (HCC)- Primary Atrial fibrillation documented in this encounter [facility] for referral (narrative)* Diagnostic Procedure Only (Routine) - Pending Review Specialty Diagnoses / Procedures Referred By Vivien amador Referred To Contact [facility] Diagnoses Encounter for screening mammogram for breast cancer Procedures DONA SCREENING W MUKUL SCREENING DIGITAL BREAST TOMOSYNTHESIS BI SCREENING MAMMOGRAPHY BI 2-VIEW BREAST INC Sagrario Sun MD [address] [place] [address] Imaging [address] [place] [address] Referral ID Status Reason Start Date Expiration Date Visits Requested Visits Authorized [id number] Pending Review Auto-Generat ed Referral 04/06/2023 1 1 [facility] for referral (narrative)* Outpatient Procedure (Routine) - Pending Review Specialty Diagnoses / Procedures Referred By Contac t Referred To Contact [facility] Diagnoses Asthma, unspecified asthma severity, unspecified whether complicated, unspecified whether persistent Procedures NITRIC OXIDE, EXHALED NITRIC OXIDE GAS DETERMINATION Wendy Lemus MD [address] [place] [address] [facility] [id number] [place] [address] Referral ID Status Reason Start Date Expiration Date Visits Requested Visits Authorized [id number] Pending Review Auto-Generat ed Referral 06/23/2022 07/22/2023 1 1 * Outpatient Procedure (Routine) - Pending Review Specialty Diagnoses / Procedures Referred By Contac t Referred To Contact [facility] [place] Diagnoses Asthma, unspecified asthma severity, unspecified whether complicated, unspecified whether persistent Procedures SPIROMETRY - BASELINE AND POST DILATOR BRNCDILAT RSPSE SPMTRY PRE&POST-BRNCDILAT ADMN Wendy Lemus MD [address] [facility] [place] [address] [facility] [address] [place] [address] Referral ID Status Reason Start Date Expiration Date Visits Requested Visits Authorized [id number] Pending Review Auto-Generat ed Referral 06/23/2022 07/22/2023 1 1 [facility] for referral (narrative)* Outpatient Procedure (Routine) - Authorized Specialty Diagnoses / Procedures Referred By Contac t Referred To Contact [facility] Diagnoses SOB (shortness of breath) Procedures ECHO ECHO TTHRC R-T 2D W/WOM-MODE COMPL SPEC&COLR Wendy Redd MD [address] [place] [address] [address] Referral ID Status Reason Start Date Expiration Date Visits Requested Visits Authorized [id number] Authorized Auto-Generat ed Referral 06/29/2022 06/29/2023 1 1 [facility] for referral (narrative)* Outpatient Procedure (Routine) - Authorized Specialty Diagnoses / Procedures [facility] Diagnoses Pacemaker Sick sinus syndrome (HCC) Procedures ECG COMPLETE ECG ROUTINE ECG W/LEAST 12 LDS W/I&R Van Huertas MD 0[address] [place] [address] [address] Referral ID Status Reason Start Date Expiration Date Visits Requested Visits Authorized [id number] Authorized Auto-Generat ed Referral 08/24/2022 08/24/2023 1 1 [facility] for referral (narrative)* Outpatient Procedure (Routine) - Authorized Specialty Diagnoses / Procedures Referred By Contac t Referred To Contact [facility] Diagnoses Mild persistent asthma without complication Procedures NITRIC OXIDE, EXHALED NITRIC OXIDE GAS DETERMINATION Ivanna Isabel PA-C [address] [place] [address] [facility] [address] [place] [address] Referral ID Status Reason Start Date Expiration Date Visits Requested Visits Authorized [id number] Authorized Auto-Generat ed Referral 10/26/2022 11/25/2023 1 1 [facility] for referral (narrative)* Diagnostic Procedure Only (Routine) - Pending Review Specialty Diagnoses / Procedures Referred By Vivien amador Referred To Contact [facility] Diagnoses Breast cancer screening by mammogram Procedures DONA SCREENING W MUKUL SCREENING DIGITAL BREAST TOMOSYNTHESIS BI SCREENING MAMMOGRAPHY BI 2-VIEW BREAST INC CAD Sagrario Fong MD [address] [place] [address] [facility] [address] [place] [address] Referral ID Status Reason Start Date Expiration Date Visits Requested Visits Authorized [id number] Pending Review Auto-Generat ed Referral 03/23/2023 04/21/2024 1 1 [facility] for referral (narrative)* Outpatient Procedure (Routine) - Closed Specialty Diagnoses / Procedures Referred By Vivien amador Referred To Contact [facility] [place] Diagnoses Pacemaker reprogramming/check Procedures CARDIAC IMPLANTABLE DEVICE CHECK Card [facility] [address] [address] [id number] [place] [address] Referral ID Status Reason Start Date Expiration Date V isits Requested Visits Authorized [id number] Closed Auto-Generate d Referral 10/08/2023 10/07/2024 1 1 [facility] for visit Narrative* Outpatient Procedure (Routine) - Closed Specialty Diagnoses / Procedures Referred By Vivien amador Referred To Contact [facility] Diagnoses Pacemaker reprogramming/check Procedures CARDIAC IMPLANTABLE DEVICE CHECK Card [facility] [address] [address] [id number] [place] [address] Referral ID Status Reason Start Date Expiration Date V isits Requested Visits Authorized [id number] Closed Auto-Generate d Referral 10/08/2023 10/07/2024 1 1 [facility] Summary Purpose Family History Relationship Condition Age at Onset Recorded Date/T yohan Unknown Family History?Diabetes Unknown November 26, 2013 10:28am Family History?Diabetes Unknown November 26, 2013 10:28am Family History?No pertinent history Unkno wn November 26, 2013 10:28am Advance Directives Documents on File Type Date Recorded Patient 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 Expl 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 Advance Directive(s) 02/21/2019 12:03 PM Advance Directive(s) 02/18/2019 2:37 PM Advance Directive(s) 11/29/2017 6:02 AM Advance Directive Response Recorded Date/ Time Advance Directives Yes November 25 4 8:33pm Living Will Yes November 25, 2013 8 :33pm Power of Fork Lift Technician Yes November 25, 2013 8:33pm Health Concerns Infection Onset Date Last Indicated Resolved Time COVID-19 Rule-Out 05/16/2022 05/16/2022 05/16/2022 11:08 PM EST COVID-19 Confirmed 05/16/2022 05/16/2022 Reason for Referral Specialty Diagnoses / Procedures Referred By Contac t Referred To Contact Diagnoses Atypical atrial flutter (HCC) Procedures CARDIOVASCULAR MEDICINE OP FOLLOW UP APPT ORDER Van Huertas MD [address] [place] [address] Referral ID Status Reason Start Date Expiration Date Visits Requested Visits Authorized [id number] Ref Not Required PCP Requested Referral 3 04/08/2024 1 1 Specialty Diagnoses / Procedures Referred By Contac t Referred To [facility] Diagnoses Paroxysmal atrial fibrillation (HCC) Procedures CARDIOVASCULAR MEDICINE OP FOLLOW UP APPT ORDER Van Huertas MD [address] [place] [address] [facility] [address] [place] [address] Referral ID Status Reason Start Date Expiration Date Visits Requested Visits Authorized [id number] Ref Not Required PCP Requested Referral 4 04/14/2025 1 1 Chief Complaint and Reason for Visit Chief Complaint SCREEN Additional Source Comments INFORMATION SOURCE (unrecogn ized section and content) DATE CREATED AUTHOR 11/09/2017 [facility] DATE CREATED AUTHOR AUTHOR'S ORGANIZ ATION 11/09/2017 [facility] DATE CREATED AUTHOR AUTHOR'S ORGANIZ ATION 02/21/2019 [facility] DATE CREATED AUTHOR AUTHOR'S ORGANIZ ATION 09/26/2024 [facility] DATE CREATED AUTHOR AUTHOR'S ORGANIZ ATION 01/28/2025 [facility] Source Comments (unrecognize d section and content) In the event this informatio n is protected by the Federal Confidentiality of Alcohol and Drug Abuse Patient Records regulations: The Federal rules restrict any use of the information to criminally investigate or prosecute any alcohol or drug abuse patient.[facility] HealthIn the event this information is protected by the Federal Confidentiality of Alcohol and Drug Abuse Patient Records regulations: The Federal rules restrict any use of the information to criminally investigate or prosecute any alcohol or drug abuse patient.[facility] HealthIn the event this information is protected by the Federal Confidentiality of Alcohol and Drug Abuse Patient Records regulations: The Federal rules restrict any use of the information to criminally investigate or prosecute any alcohol or drug abuse patient.[facility] HealthIn the event this information is protected by the Federal Confidentiality of Alcohol and Drug Abuse Patient Records regulations: The Federal rules restrict any use of the information to criminally investigate or prosecute any alcohol or drug abuse patient.[facility] HealthIn the event this information is protected by the Federal Confidentiality of Alcohol and Drug Abuse Patient Records regulations: The Federal rules restrict any use of the information to criminally investigate or prosecute any alcohol or drug abuse patient.[facility] HealthIn the event this information is protected by the Federal Confidentiality of Alcohol and Drug Abuse Patient Records regulations: The Federal rules restrict any use of the information to criminally investigate or prosecute any alcohol or drug abuse patient.[facility] HealthIn the event this information is protected by the Federal Confidentiality of Alcohol and Drug Abuse Patient Records regulations: The Federal rules restrict any use of the information to criminally investigate or prosecute any alcohol or drug abuse patient.[facility] HealthIn the event this information is protected by the Federal Confidentiality of Alcohol and Drug Abuse Patient Records regulations: The Federal rules restrict any use of the information to criminally investigate or prosecute any alcohol or drug abuse patient.[facility] HealthIn the event this information is protected by the Federal Confidentiality of Alcohol and Drug Abuse Patient Records regulations: The Federal rules restrict any use of the information to criminally investigate or prosecute any alcohol or drug abuse patient.[facility] HealthIn the event this information is protected by the Federal Confidentiality of Alcohol and Drug Abuse Patient Records regulations: The Federal rules restrict any use of the information to criminally investigate or prosecute any alcohol or drug abuse patient.[facility] HealthIn the event this information is protected by the Federal Confidentiality of Alcohol and Drug Abuse Patient Records regulations: The Federal rules restrict any use of the information to criminally investigate or prosecute any alcohol or drug abuse patient.[facility] HealthIn the event this information is protected by the Federal Confidentiality of Alcohol and Drug Abuse Patient Records regulations: The Federal rules restrict any use of the information to criminally investigate or prosecute any alcohol or drug abuse patient.[facility] HealthIn the event this information is protected by the Federal Confidentiality of Alcohol and Drug Abuse Patient Records regulations: The Federal rules restrict any use of the information to criminally investigate or prosecute any alcohol or drug abuse patient.[facility] HealthIn the event this information is protected by the Federal Confidentiality of Alcohol and Drug Abuse Patient Records regulations: The Federal rules restrict any use of the information to criminally investigate or prosecute any alcohol or drug abuse patient.[facility] HealthIn the event this information is protected by the Federal Confidentiality of Alcohol and Drug Abuse Patient Records regulations: The Federal rules restrict any use of the information to criminally investigate or prosecute any alcohol or drug abuse patient.[facility] HealthIn the event this information is protected by the Federal Confidentiality of Alcohol and Drug Abuse Patient Records regulations: The Federal rules restrict any use of the information to criminally investigate or prosecute any alcohol or drug abuse patient.[facility] HealthIn the event this information is protected by the Federal Confidentiality of Alcohol and Drug Abuse Patient Records regulations: The Federal rules restrict any use of the information to criminally investigate or prosecute any alcohol or drug abuse patient.[facility] HealthIn the event this information is protected by the Federal Confidentiality of Alcohol and Drug Abuse Patient Records regulations: The Federal rules restrict any use of the information to criminally investigate or prosecute any alcohol or drug abuse patient.[facility] HealthIn the event this information is protected by the Federal Confidentiality of Alcohol and Drug Abuse Patient Records regulations: The Federal rules restrict any use of the information to criminally investigate or prosecute any alcohol or drug abuse patient.[facility] HealthIn the event this information is protected by the Federal Confidentiality of Alcohol and Drug Abuse Patient Records regulations: The Federal rules restrict any use of the information to criminally investigate or prosecute any alcohol or drug abuse patient.[facility] HealthIn the event this information is protected by the Federal Confidentiality of Alcohol and Drug Abuse Patient Records regulations: The Federal rules restrict any use of the information to criminally investigate or prosecute any alcohol or drug abuse patient.[facility] HealthIn the event this information is protected by the Federal Confidentiality of Alcohol and Drug Abuse Patient Records regulations: The Federal rules restrict any use of the information to criminally investigate or prosecute any alcohol or drug abuse patient.[facility] HealthIn the event this information is protected by the Federal Confidentiality of Alcohol and Drug Abuse Patient Records regulations: The Federal rules restrict any use of the information to criminally investigate or prosecute any alcohol or drug abuse patient.[facility] HealthIn the event this information is protected by the Federal Confidentiality of Alcohol and Drug Abuse Patient Records regulations: The Federal rules restrict any use of the information to criminally investigate or prosecute any alcohol or drug abuse patient.[facility] HealthIn the event this information is protected by the Federal Confidentiality of Alcohol and Drug Abuse Patient Records regulations: The Federal rules restrict any use of the information to criminally investigate or prosecute any alcohol or drug abuse patient.[facility] HealthIn the event this information is protected by the Federal Confidentiality of Alcohol and Drug Abuse Patient Records regulations: The Federal rules restrict any use of the information to criminally investigate or prosecute any alcohol or drug abuse patient.[facility] HealthIn the event this information is protected by the Federal Confidentiality of Alcohol and Drug Abuse Patient Records regulations: The Federal rules restrict any use of the information to criminally investigate or prosecute any alcohol or drug abuse patient.[facility] HealthIn the event this information is protected by the Federal Confidentiality of Alcohol and Drug Abuse Patient Records regulations: The Federal rules restrict any use of the information to criminally investigate or prosecute any alcohol or drug abuse patient.[facility] HealthIn the event this information is protected by the Federal Confidentiality of Alcohol and Drug Abuse Patient Records regulations: The Federal rules restrict any use of the information to criminally investigate or prosecute any alcohol or drug abuse patient.[facility] HealthIn the event this information is protected by the Federal Confidentiality of Alcohol and Drug Abuse Patient Records regulations: The Federal rules restrict any use of the information to criminally investigate or prosecute any alcohol or drug abuse patient.[facility] HealthIn the event this information is protected by the Federal Confidentiality of Alcohol and Drug Abuse Patient Records regulations: The Federal rules restrict any use of the information to criminally investigate or prosecute any alcohol or drug abuse patient.[facility] HealthIn the event this information is protected by the Federal Confidentiality of Alcohol and Drug Abuse Patient Records regulations: The Federal rules restrict any use of the information to criminally investigate or prosecute any alcohol or drug abuse patient.[facility] HealthIn the event this information is protected by the Federal Confidentiality of Alcohol and Drug Abuse Patient Records regulations: The Federal rules restrict any use of the information to criminally investigate or prosecute any alcohol or drug abuse patient.[facility] HealthIn the event this information is protected by the Federal Confidentiality of Alcohol and Drug Abuse Patient Records regulations: The Federal rules restrict any use of the information to criminally investigate or prosecute any alcohol or drug abuse patient.[facility] HealthIn the event this information is protected by the Federal Confidentiality of Alcohol and Drug Abuse Patient Records regulations: The Federal rules restrict any use of the information to criminally investigate or prosecute any alcohol or drug abuse patient.[facility] HealthIn the event this information is protected by the Federal Confidentiality of Alcohol and Drug Abuse Patient Records regulations: The Federal rules restrict any use of the information to criminally investigate or prosecute any alcohol or drug abuse patient.[facility] HealthIn the event this information is protected by the Federal Confidentiality of Alcohol and Drug Abuse Patient Records regulations: The Federal rules restrict any use of the information to criminally investigate or prosecute any alcohol or drug abuse patient.[facility] HealthIn the event this information is protected by the Federal Confidentiality of Alcohol and Drug Abuse Patient Records regulations: The Federal rules restrict any use of the information to criminally investigate or prosecute any alcohol or drug abuse patient.[facility] HealthIn the event this information is protected by the Federal Confidentiality of Alcohol and Drug Abuse Patient Records regulations: The Federal rules restrict any use of the information to criminally investigate or prosecute any alcohol or drug abuse patient.[facility] HealthIn the event this information is protected by the Federal Confidentiality of Alcohol and Drug Abuse Patient Records regulations: The Federal rules restrict any use of the information to criminally investigate or prosecute any alcohol or drug abuse patient.[facility] HealthIn the event this information is protected by the Federal Confidentiality of Alcohol and Drug Abuse Patient Records regulations: The Federal rules restrict any use of the information to criminally investigate or prosecute any alcohol or drug abuse patient.[facility] HealthIn the event this information is protected by the Federal Confidentiality of Alcohol and Drug Abuse Patient Records regulations: The Federal rules restrict any use of the information to criminally investigate or prosecute any alcohol or drug abuse patient.[facility] HealthIn the event this information is protected by the Federal Confidentiality of Alcohol and Drug Abuse Patient Records regulations: The Federal rules restrict any use of the information to criminally investigate or prosecute any alcohol or drug abuse patient.[facility] HealthIn the event this information is protected by the Federal Confidentiality of Alcohol and Drug Abuse Patient Records regulations: The Federal rules restrict any use of the information to criminally investigate or prosecute any alcohol or drug abuse patient.[facility] HealthIn the event this information is protected by the Federal Confidentiality of Alcohol and Drug Abuse Patient Records regulations: The Federal rules restrict any use of the information to criminally investigate or prosecute any alcohol or drug abuse patient.[facility] HealthIn the event this information is protected by the Federal Confidentiality of Alcohol and Drug Abuse Patient Records regulations: The Federal rules restrict any use of the information to criminally investigate or prosecute any alcohol or drug abuse patient.[facility] HealthIn the event this information is protected by the Federal Confidentiality of Alcohol and Drug Abuse Patient Records regulations: The Federal rules restrict any use of the information to criminally investigate or prosecute any alcohol or drug abuse patient.[facility] HealthIn the event this information is protected by the Federal Confidentiality of Alcohol and Drug Abuse Patient Records regulations: The Federal rules restrict any use of the information to criminally investigate or prosecute any alcohol or drug abuse patient.[facility] HealthIn the event this information is protected by the Federal Confidentiality of Alcohol and Drug Abuse Patient Records regulations: The Federal rules restrict any use of the information to criminally investigate or prosecute any alcohol or drug abuse patient.[facility] HealthIn the event this information is protected by the Federal Confidentiality of Alcohol and Drug Abuse Patient Records regulations: The Federal rules restrict any use of the information to criminally investigate or prosecute any alcohol or drug abuse patient.[facility] HealthIn the event this information is protected by the Federal Confidentiality of Alcohol and Drug Abuse Patient Records regulations: The Federal rules restrict any use of the information to criminally investigate or prosecute any alcohol or drug abuse patient.[facility] Reason for Visit (unrecogniz ed section and content) Reason Comments Insurance Authorization Reason Comments F/U 6 months Reason Onset Date Comments F/U 6 months Radiology Mammogram 03/07/2022 at [facility] Reason Comments Cough Cough, chest congest ion, St and runny nose x 2-3 days Reason Onset Date Comments Refill Request 06/12/2022 Reason Comments Spirometry Specialty Diagnoses / Procedures Referred By Contac t Referred To Contact [facility] Diagnoses Asthma, unspecified asthma severity, unspecified whether complicated, unspecified whether persistent Procedures NITRIC OXIDE, EXHALED NITRIC OXIDE GAS DETERMINATION Wendy Lemus MD [address] [facility] [place] [address] [facility] [address] [place] [address] Referral ID Status Reason Start Date Expiration Date V isits Requested Visits Authorized [id number] Closed Auto-Generate d Referral 06/23/2022 07/22/2023 1 1 Reason Comments Asthma Reason Comments Asthma Recheck Reason Comments Medication Problem Reason Comments Orders Lab Reason Comments Patient Update Reason Onset Date Comments Refill Request 08/29/2022 Reason Comments Established Patient 6 month follow up as thma Reason Comments Follow Up Asthma Reason Comments New Patient Specialty Diagnoses / Procedures Referred By Contac t Referred To Contact [facility] Diagnoses Mild persistent asthma without complication Procedures NITRIC OXIDE, EXHALED NITRIC OXIDE GAS DETERMINATION MaameIvanna jiménez PA-C [address] [place] [address] [facility] [address] [place] [address] Referral ID Status Reason Start Date Expiration Date V isits Requested Visits Authorized [id number] Closed Auto-Generate d Referral 10/26/2022 11/25/2023 1 1 Reason Comments Established Patient asthma Reason Comments New Patient Reason Onset Date Comments F/U 6 months Labs prior Radiology Mammogram 03/23/2023 at [facility] Reason Comments Follow Up 6 mo follow up Asthm a Asthma Reason Comments F/U 6 Month Reason Comments Recheck Has pacemaker, heart rate 180 at times? Reason Comments Established Patient Reason Comments Follow Up Room 15AnnualAsking about Arnuity Ellipta safety related to side effects listed, ie. Tachycardia Reason Onset Date Comments Population Health Navigation Outreach 09/16/2024 Sharon/[employer]/[facility] Reason Comments F/U 6 months Reason Onset Date Comments Refill Request 12/10/2024 [facility] Reason Comments EKG Specialty Diagnoses / Procedures Referred By Contac t Referred To Contact [facility] Diagnoses Atrial fibrillation, persistent (HCC) Procedures ECG COMPLETE ECG ROUTINE ECG W/LEAST 12 LDS W/I&R Van Huertas MD [address] [place] [address] Phone: tel: fax: [facility] [address] [address] Referral ID Status Reason Start Date Expiration Date V isits Requested Visits Authorized [id number] Closed Auto-Generate d Referral 01/14/2025 01/14/2026 1 1 Reason Onset Date Comments Refill Request 01/22/2025 Reason Comments Schedule Surgery EPS-D[facility] Care Teams (unrecognized sec tion and content) Sound Effects Technician Relationship Specialty Start Date End Date Sagrario Fong MD [address] [place] [address] PCP - General Internal Medicine 11/29/15 Fer Cabrales MD [address] [place], [place] [id number] Primary Staff Physician Cardiology 08/06/18 Sound Effects Technician Relationship Specialty Start Date End Date Sagrario Fong MD [address] [facility] [address] PCP - General Internal Medicine 11/29/15 Fer Cabrales MD [address] [place] [address] Primary Staff Physician Cardiology 08/06/18 Sound Effects Technician Relationship Specialty Start Date End Date Sagrario Fong MD [address] [place] [address], [place] [address] PCP - General Internal Medicine 11/29/15 Fer su MD [address] [place] [address] Primary Staff Physician Cardiology 08/06/18 Sound Effects Technician Relationship Specialty Start Date End Date Sagrario Fong MD [address] [place] [address], [place] [address] PCP - General Internal Medicine 11/29/15 Fer Cabrales MD [address] [place] [address] Primary Staff Physician Cardiology 08/06/18 Sound Effects Technician Relationship Specialty Start Date End Date Sagrario Fong MD [address] [facility] [address] PCP - General Internal Medicine 11/29/15 Fer Cabrales MD [address] [place] [address] Primary Staff Physician Cardiology 08/06/18 Sound Effects Technician Relationship Specialty Start Date End Date Sagrario Fong MD [address] [place] [address], [place] [address] PCP - General Internal Medicine 11/29/15 Fer Cabrales MD [address] [place], [place] [id number] Primary Staff Physician Cardiology 08/06/18 Sound Effects Technician Relationship Specialty Start Date End Date Sagrario Fong MD [address] [facility] [address] PCP - General Internal Medicine 11/29/15 Fer Cabrales MD [address] [place] [address] Primary Staff Physician Cardiology 08/06/18 Sound Effects Technician Relationship Specialty Start Date End Date Sagrario Fong MD [address] [place] [address] PCP - General Internal Medicine 11/29/15 Fer Cabrales MD [address] [place] [address] Primary Staff Physician Cardiology 08/06/18 Sound Effects Technician Relationship Specialty Start Date End Date Sagrario Fong MD [address] [facility] [address] PCP - General Internal Medicine 11/29/15 Fer Cabrales MD [address] [place] [address] Primary Staff Physician Cardiology 08/06/18 Sound Effects Technician Relationship Specialty Start Date End Date Sagrario Fong MD [address] [place] [address] PCP - General Internal Medicine 11/29/15 Fer Cabrales MD [address] [place] [address] Primary Staff Physician Cardiology 08/06/18 Sound Effects Technician Relationship Specialty Start Date End Date Sagrario Fong MD [address] [facility] [place] [address] PCP - General Internal Medicine 11/29/15 Fer Cabrales MD [address] [place] [address] Primary Staff Physician Cardiology 08/06/18 Sound Effects Technician Relationship Specialty Start Date End Date Sagrario Fong MD [address] [place] [address], [place] [address] PCP - General Internal Medicine 11/29/15 Fer Cabrales MD [address] [place] [address] Primary Staff Physician Cardiology 08/06/18 Sound Effects Technician Relationship Specialty Start Date End Date Sagrario Fong MD [address] [place] [address] PCP - General Internal Medicine 11/29/15 Fer Cabrales MD [address] [place] [address] Primary Staff Physician Cardiology 08/06/18 Sound Effects Technician Relationship Specialty Start Date End Date Sagrario Fong MD [address] [place] [address], [place] [address] PCP - General Internal Medicine 11/29/15 Fer Cabrales MD [address] [place] [address] Primary Staff Physician Cardiology 08/06/18 Sound Effects Technician Relationship Specialty Start Date End Date Sagrario Fong MD [address] [place] [address], [place] [address] PCP - General Internal Medicine 11/29/15 Fer Cabrales MD [address] [place] [address] Primary Staff Physician Cardiology 08/06/18 Sound Effects Technician Relationship Specialty Start Date End Date Sagrario Fong MD [address] [place] [address] PCP - General Internal Medicine 11/29/15 Fer Cabrales MD [address] [place] [address] Primary Staff Physician Cardiology 08/06/18 Sound Effects Technician Relationship Specialty Start Date End Date Sagrario Fong MD [address] [place] [address] PCP - General Internal Medicine 11/29/15 Fer Cabrales MD [address] [place] [address] Primary Staff Physician Cardiology 08/06/18 Sound Effects Technician Relationship Specialty Start Date End Date Sagrario Fong MD [address] [place] [address] PCP - General Internal Medicine 11/29/15 Fer Cabrales MD [address] [place] [address] Primary Staff Physician Cardiology 08/06/18 Sound Effects Technician Relationship Specialty Start Date End Date Sagrario Fong MD [address] [place] [address] PCP - General Internal Medicine 11/29/15 Fer Cabrales MD [address] [place] [address] Primary Staff Physician Cardiology 08/06/18 Sound Effects Technician Relationship Specialty Start Date End Date Sagrario Fong MD [address] [place], [place] 451231 PCP - General Internal Medicine 11/29/15 Fer Cabrales MD [address] [facility] [place] [place] [id number] Primary Staff Physician Cardiology 08/06/18 Sound Effects Technician Relationship Specialty Start Date End Date Sagrario Fong MD [address] [place], [place] 660921 PCP - General Internal Medicine 11/29/15 Fer Cabrales MD [address] [place], [place] [id number] Primary Staff Physician Cardiology 08/06/18 Sound Effects Technician Relationship Specialty Start Date End Date Sagrario Fong MD [address] [place], [place] 087631 PCP - General Internal Medicine 11/29/15 Fer Cabrales MD [address] [place], [place] [id number] Primary Staff Physician Cardiology 08/06/18 Sound Effects Technician Relationship Specialty Start Date End Date Sagrario Fong MD [address] [place], [place] 885201 PCP - General Internal Medicine 11/29/15 Fer Cabrales MD [address] [place], [place] [id number] Primary Staff Physician Cardiology 08/06/18 Team Status: Active Member Role Status Dates Dr. Sagrario Fong MD Family Provider Active Dr. Sagrario Fong MD Primary Care Provider Active Team Status: Inactive Member Role Status Dates Dr. Sagrario Fong MD Primary Care Pr ovider, Attending Provider, Referring Provider Active Sound Effects Technician Relationship Specialty Start Date End Date Sagrario Fong MD [address] [place], [place] 892211 PCP - General Internal Medicine 11/29/15 Fer Cabrales MD [address] [place], [place] [id number] Primary Staff Physician Cardiology 08/06/18 Sound Effects Technician Relationship Specialty Start Date End Date Sagrario Fong MD [address] [place], [place] [id number] PCP - General Internal Medicine 11/29/15 Fer Cabrales MD [address] [place], [place] [id number] Primary Staff Physician Cardiology 08/06/18 Sound Effects Technician Relationship Specialty Start Date End Date Sagrario Fong MD [address] [place], [place] [id number] PCP - General Internal Medicine 11/29/15 Fer Cabrales MD [address] [place] [address] Primary Staff Physician Cardiology 08/06/18 Sound Effects Technician Relationship Specialty Start Date End Date Sagrario Fong MD [address] [place] [address] PCP - General Internal Medicine 11/29/15 Fer Cabrales MD [address] [place] [address] Primary Staff Physician Cardiology 08/06/18 Sound Effects Technician Relationship Specialty Start Date End Date Sagrario Fong MD [address] [place], [place] 826591 PCP - General Internal Medicine 11/29/15 Fer Cabrales MD [address] [place] [address] Primary Staff Physician Cardiology 08/06/18 Sound Effects Technician Relationship Specialty Start Date End Date Sagrario Fong MD [address] [place], [place] [id number] PCP - General Internal Medicine 11/29/15 Fer Cabrales MD [address] [place] [address] Primary Staff Physician Cardiology 08/06/18 Sound Effects Technician Relationship Specialty Start Date End Date Sagrario Fong MD [address] [place], [place] [id number] PCP - General Internal Medicine 11/29/15 Fer Cabrales MD [address] [place] [address] Primary Staff Physician Cardiology 08/06/18 Sound Effects Technician Relationship Specialty Start Date End Date Sagrario Fong MD [address] [place] [address] PCP - General Internal Medicine 11/29/15 Fer Cabrales MD [address] [place] [address] Primary Staff Physician Cardiology 08/06/18 Sound Effects Technician Relationship Specialty Start Date End Date Sagrario Fong MD [address] [place], [place] 525951 PCP - General Internal Medicine 11/29/15 Fer Cabrales MD [address] [place] [address] Primary Staff Physician Cardiology 08/06/18 Sound Effects Technician Relationship Specialty Start Date End Date Sagrario Fong MD [address] [place], [place] 352701 PCP - General Internal Medicine 11/29/15 Fre Cabrales MD [address] [place] [address] Primary Staff Physician Cardiology 08/06/18 Vince Vilchis, OFFICE RECEPTIONIST.BILINGUAL LEGAL ASSISTANT [address] [place] [address] Lump Inspector Internal Medicine 04/28/24 Leslie Lopez, OFFICE RECEPTIONIST.INGREDIENT HANDLER [address] [place] [address] Lump Inspector Internal Medicine 08/12/24 Sound Effects Technician Relationship Specialty Start Date End Date Sagrario Fong MD [address] [place] [address] PCP - General Internal Medicine 11/29/15 Fer Cabrales MD [address] [place] [address] Primary Staff Physician Cardiology 08/06/18 Vince Vilchis, OFFICE RECEPTIONIST.BILINGUAL LEGAL ASSISTANT [address] [place] [address] [facility] Internal Medicine 04/28/24 Leslie Lopez OFFICE RECEPTIONIST.INGREDIENT HANDLER [address] [place] [address] [facility] Internal Medicine 08/12/24 Sound Effects Technician Relationship Specialty Start Date End Date Sagrario Fong MD [address] [place] [address] PCP - General Internal Medicine 11/29/15 Fer Cabrales MD [address] [facility] [place] [place] [address] Primary Staff Physician Cardiology 08/06/18 Vince Vilchis, OFFICE RECEPTIONIST.BILINGUAL LEGAL ASSISTANT [address] [place] [address] [facility] Internal Medicine 04/28/24 Leslie Lopez, OFFICE RECEPTIONIST.INGREDIENT HANDLER [address] [place] [address] [facility] Internal Medicine 08/12/24 Sound Effects Technician Relationship Specialty Start Date End Date Sagrario Fong MD [address] [place] [address] PCP - General Internal Medicine 11/29/15 Fer Cabrales MD [address] [facility] [place] [place] [address] Primary Staff Physician Cardiology 08/06/18 Vince Vilchis, OFFICE RECEPTIONIST.BILINGUAL LEGAL ASSISTANT [address] [facility] [place] [address] [facility] Internal Medicine 04/28/24 Leslie Lopez APRN.INGREDIENT HANDLER [address] [place] [address] [facility] Internal Medicine 08/12/24 Sound Effects Technician Relationship Specialty Start Date End Date Sagrario Fong MD [address] [place] [address] PCP - General Internal Medicine 11/29/15 Fer Cabrales MD [address] [place], [place] [address] Primary Staff Physician Cardiology 08/06/18 Leslie Lopez APRN.INGREDIENT HANDLER [address] [place] [address] [facility] Internal Medicine 08/12/24 Vince Vilchis, OFFICE RECEPTIONIST.BILINGUAL LEGAL ASSISTANT [address] [place] [address] [facility] Internal Medicine 10/08/24 Sound Effects Technician Relationship Specialty Start Date End Date Sagrario Fong MD [address] [place] [address] PCP - General Internal Medicine 11/29/15 Fer Cabrales MD [address] [place], [place] [id number] Primary Staff Physician Cardiology 08/06/18 Leslie Lopez APRN.INGREDIENT HANDLER [address] [facility] [place] [address] Lump Inspector Internal Medicine 08/12/24 Vince Vilchis APRN.BILINGUAL LEGAL ASSISTANT [address] [facility] [place] [address] Lump Inspector Internal Medicine 10/08/24 Sound Effects Technician Relationship Specialty Start Date End Date Sagrario Fong MD [address] [place] [address] PCP - General Internal Medicine 11/29/15 Fer Cabrales MD [address] [place], [place] [id number] Primary Staff Physician Cardiology 08/06/18 Leslie Lopez APRN.INGREDIENT HANDLER [address] [place] [address] Lump Inspector Internal Medicine 08/12/24 Vince Vilchis APRN.BILINGUAL LEGAL ASSISTANT [address] [place] [address] [facility] Internal Medicine 10/08/24 Sound Effects Technician Relationship Specialty Start Date End Date Sagrario Fong MD [address] [place] [address] PCP - General Internal Medicine 11/29/15 Fer Cabrales MD [address] [place], [place] [id number] Primary Staff Physician Cardiology 08/06/18 Leslie Lopez APRN.INGREDIENT HANDLER [address] [place] [address] Lump Inspector Internal Medicine 08/12/24 Vince Vilchis APRN.BILINGUAL LEGAL ASSISTANT [address] [place] [address] [facility] Internal Medicine 10/08/24 Sound Effects Technician Relationship Specialty Start Date End Date Sagrario Fong MD [address] [place] [address] PCP - General Internal Medicine 11/29/15 Fer Cabrales MD [address] [place] [address] Primary Staff Physician Cardiology 08/06/18 Leslie Lopez APRN.INGREDIENT HANDLER [address] [place] [address] [facility] Internal Medicine 08/12/24 Vince Vilchis, OFFICE RECEPTIONIST.BILINGUAL LEGAL ASSISTANT [address] [place] [address] [facility] Internal Medicine 10/08/24 Sound Effects Technician Relationship Specialty Start Date End Date Sagrario Fong MD [address] [place] [address] PCP - General Internal Medicine 11/29/15 Fer Cabrales MD [address] [place] [address] Primary Staff Physician Cardiology 08/06/18 Leslie Lopez APRN.INGREDIENT HANDLER [address] [place] [address] Lump Inspector Internal Medicine 08/12/24 Vince Vilchis, OFFICE RECEPTIONIST.BILINGUAL LEGAL ASSISTANT [address] [place] [address] [facility] Internal Medicine 10/08/24 Sound Effects Technician Relationship Specialty Start Date End Date Sagrario Fong MD [address] [place] [address] PCP - General Internal Medicine 11/29/15 Fer Cabrales MD [address] [place] [address] Primary Staff Physician Cardiology 08/06/18 Leslie Lopez OFFICE RECEPTIONIST.INGREDIENT HANDLER [address] [place] [address] Lump Inspector Internal Medicine 08/12/24 Vince Vilchis, OFFICE RECEPTIONIST.BILINGUAL LEGAL ASSISTANT [address] [place] [address] [facility] Internal Medicine 10/08/24 Sound Effects Technician Relationship Specialty Start Date End Date Sagrario Fong MD [address] [place] [address] PCP - General Internal Medicine 11/29/15 Fer Cabrales MD [address] [place], [place] [address] Primary Staff Physician Cardiology 08/06/18 Leslie Lopez APRN.INGREDIENT HANDLER [address] [place] [address] Lump Inspector Internal Medicine 08/12/24 Vince Vilchis OFFICE RECEPTIONIST.BILINGUAL LEGAL ASSISTANT [address] [place] [address] Lump Inspector Internal Medicine 10/08/24 Goals (unrecognized section and content) Goals may be documented in a n alternate section FOR RECORDS PERTAINING TO PATIENTS WHO ARE OR HAVE BEEN ENROLLED IN A CHEMICAL DEPENDENCY/SUBSTANCEABUSE PROGRAM, SOME INFORMATION MAY BE OMITTED. This clinical summary was aggregated from multiple sources. Caution should be exercised in using it in the provision of clinical care. This summary normalizes information from multiple sources, and as a consequence, information in this document may materially change the coding, format and clinical context of patient data. In addition, data may be omitted in some cases. CLINICAL DECISIONS SHOULD BE BASED ON THE PRIMARY CLINICAL RECORDS. [employer] provides no warranty or guarantee of the accuracy or completeness of information in this document.
--- NOTE | 2025-02-05 19:50 | ECHOD_ITS ---
Reason For Study Reason For Study: CHF Procedure This was a 2D Doppler, Color Flow transthoracic echocardiogram. Exam performed portable in patient room. Left Ventricle Normal LV size. The left ventricular ejection fraction is 60 %. No regional wall motion abnormalities noted. Right Ventricle Normal RV size. Normal systolic function. Atria The left atrium is moderately enlarged. Normal right atrium. Mitral Valve Bileaflet diffuse mitral valve thickening. Moderate (2+) eccentric mitral valve insufficiency. Tricuspid Valve Normal tricuspid valve. Moderate (2+) tricuspid valve insufficiency. Pulmonary artery systolic pressure is 54 mmHg. Moderate pulmonary hypertension. Aortic Valve Trisinus/trileaflet aortic valve. Mild focal aortic valve calcification. Pulmonic Valve Normal pulmonic valve. Great Vessels Mildly calcified aortic root. The pulmonary artery is normal size. Inferior vena cava collapse with respiration. Pericardium/Pleural No pericardial effusion. MMode/2D Measurements & Calculations LVIDd: 4.4 cm IVSd: 1.0 cm Ao root diam: 3.0 cm LVIDs: 3.2 cm LVPWd: 1.0 cm FS: 28.0 % LAV(MOD-bp): 81.4 ml LVAd ap4: 24.6 cm2 LVAd ap2: 27.7 cm2 LAV(MOD-bp) Indexed: 40.3 ml/m2 LVLd ap4: 6.9 cm LVLd ap2: 7.7 cm LAV(MOD-sp2): 86.2 ml EDV(MOD-sp4): 71.1 ml EDV(MOD-sp2): 86.3 ml LAV(MOD-sp4): 71.4 ml EDV(sp4-el): 74.0 ml EDV(sp2-el): 84.9 ml LVAs ap4: 13.6 cm2 LVAs ap2: 15.1 cm2 LVLs ap4: 5.6 cm LVLs ap2: 6.4 cm ESV(MOD-sp4): 28.4 ml ESV(MOD-sp2): 34.5 ml ESV(sp4-el): 27.7 ml ESV(sp2-el): 30.6 ml EF(MOD-sp4): 60.1 % EF(MOD-sp2): 60.0 % EF(sp4-el): 62.6 % SV(MOD-sp4): 42.7 ml SV(MOD-sp2): 51.8 ml SV(sp4-el): 46.3 ml SI(MOD-sp4): 21.1 ml/m2 SI(MOD-sp2): 25.6 ml/m2 LA A4 area: 22.3 cm2 LA dimension(2D): 4.3 cm RA A4 area: 13.9 cm2 TAPSE: 1.4 cm Doppler Measurements & Calculations MV E max magdi: 140.0 cm/sec Lat Peak E' Magdi: 14.6 cm/sec Med Peak E' Magdi: 11.1 cm/sec E/E' lat: 9.6 E/E' med: 12.6 Ao V2 max: 237.4 cm/sec LV V1 max: 82.3 cm/sec MR max magdi: 518.2 cm/sec Ao max P.6 mmHg LV V1 max P.7 mmHg MR max P.2 mmHg Ao V2 mean: 159.5 cm/sec LV V1 mean P.4 mmHg MR mean magdi: 398.2 cm/sec Ao mean P.6 mmHg LV V1 mean: 56.5 cm/sec MR mean P.7 mmHg Ao V2 VTI: 38.4 cm LV V1 VTI: 13.2 cm MR VTI: 130.3 cm AV (velocity ratio): 0.34 PA V2 max: 160.2 cm/sec TR max magdi: 341.3 cm/sec TR max P.7 mmHg ECHO/Echo Complete Interpretation Summary Normal LV size. The left ventricular ejection fraction is 60 %. The left atrium is moderately enlarged. Moderate (2+) eccentric mitral valve insufficiency. Pulmonary artery systolic pressure is 54 mmHg. Moderate pulmonary hypertension. Ordering Physician: Chelsey Rich Referring Physician: Ciera Cross Performed By: Maggi Orourke RDCS, RVT
[2025-02-05 20:53] LABS: Troponin T High Sens 4 HR 16 ng/L (<=14)
[2025-02-05] MEDS: APIXABAN 5 MG TABLET PO (21:37)
[2025-02-05] MEDS: 0.9% Saline Lock 10 ML Syringe IV (21:37)
[2025-02-06 03:00] VITALS: PULSE 84
[2025-02-06 03:15] VITALS: BMI 31.1
[2025-02-06 03:21] VITALS: BP 108/74; PULSE 79; RESP 15; TEMP 36.7; O2SAT 96
[2025-02-06 05:56] LABS: Hematocrit 32.8 % (37-47); Hemoglobin 10.7 g/dL (12.0-15.0); Immature Granulocytes Count 0.020 X10^3/uL (0.0-0.0); Mean Corp Hgb Conc 32.6 g/dL (32-36); Mean Corpuscular Volume 87.7 fL (81-99); Mean Platelet Vol. 9.8 fl (6.2-12.0); NRBC Flagged by Analyzer 0 % (0-5); Platelet Count 224 K/mm3 (150-450); RBC Distribution Width CV 13.6 % (11.6-14.6); RBC Distribution Width SD 43.7 fl (35.1-43.9); Red Blood Count 3.74 M/mm3 (4.2-5.4); White Blood Count 5.7 K/mm3 (4.4-11.0)
[2025-02-06 06:37] LABS: Anion Gap 13 (5-15); BUN 24 mg/dL (4-19); BUN/Creat Ratio 27.5 RATIO (10-20); Calcium,Total 8.9 mg/dL (7.6-11.0); Carbon Dioxide 19.8 mmol/L (21.0-32.0); Chloride 106 mmol/L (98-108); Estimated Creatinine Clearance 58.19 ml/min (50-250); Glucose 101 mg/dL (70-99); Magnesium 2.1 mg/dL (1.5-2.2); Potassium 3.6 mmol/L (3.3-5.1)
[2025-02-06 07:02] VITALS: PULSE 100; RESP 16
[2025-02-06] MEDS: Budesonide Respules 0.5 MG/2 ML AMPUL.NEB. INHALATION (07:02)
--- NOTE | 2025-02-06 07:31 | PCM.PN.HOSP ---
Reason for Visit Chief Complaint: SOB and leg swelling Subjective Subjective Patient is an 84-year-old lady who presented with progressive shortness of breath and assessment of acute congestive heart failure made admitted to monitored bed for further management Objective Data Objective Data Vital Signs: Vital Signs Temp Pulse Resp BP Pulse Ox O2 Del Method 98.1 F 79 15 108/74 96 Room Air 02/06/25 03:21 02/06/25 03:21 02/06/25 03:21 02/06/25 03:21 02/06/25 03:21 02/06/25 03:21 Oxygen Delivery Method Room Air Weight: 90.3 kg Body Mass Index (BMI) 31.1 Lab / Micro Data 02/06/25 05:26 02/06/25 05:26 Labs: Laboratory Results - last 24 hr 02/05/25 15:35: WBC 8.5, RBC 4.29, Hgb 12.2, Hct 38.1, MCV 88.8, MCH 28.4, MCHC 32.0, RDW Std Deviation 44.3 H, RDW Coeff of William 13.6, Plt Count 276, MPV 9.7, Immature Gran % (Auto) 0.500, Neut % (Auto) 71.3 H, Lymph % (Auto) 19.4, Bradley % (Auto) 6.3, Eos % (Auto) 1.8, Baso % (Auto) 0.7, Absolute Neuts (auto) 6.0, Absolute Lymphs (auto) 1.64, Nucleated RBC % 0, Sodium 138, Potassium 4.4, Chloride 105, Carbon Dioxide 18.4 L, Anion Gap 15, BUN 28 H, Creatinine 1.02, Estim Creat Clear Calc 49.37 L, Est GFR (MDRD) Non-Af 55 L, BUN/Creatinine Ratio 27.4 H, Glucose 145 H, Lactic Acid 1.6, Calcium 9.4, Total Bilirubin 0.82, AST 43 H, ALT 31, Alkaline Phosphatase 70, Troponin T High Sens 11, NT pro BNP II 1402, Total Protein 6.8, Albumin 4.1, Globulin 2.6, Albumin/Globulin Ratio 1.6 02/05/25 17:27: Troponin T Hi Sens 2 Hr 10 02/05/25 20:05: Troponin T Hi Sens 4Hr 16 H 02/06/25 05:26: WBC 5.7, RBC 3.74 L, Hgb 10.7 L, Hct 32.8 L, MCV 87.7, MCH 28.6, MCHC 32.6, RDW Std Deviation 43.7, RDW Coeff of William 13.6, Plt Count 224, MPV 9.8, Immature Gran % (Auto) 0.300, Neut % (Auto) 64.5, Lymph % (Auto) 22.7, Bradley % (Auto) 8.9, Eos % (Auto) 2.6, Baso % (Auto) 1.0, Absolute Neuts (auto) 3.7, Absolute Lymphs (auto) 1.30, Nucleated RBC % 0, Sodium 139, Potassium 3.6, Chloride 106, Carbon Dioxide 19.8 L, Anion Gap 13, BUN 24 H, Creatinine 0.86, Estim Creat Clear Calc 58.19, Est GFR (MDRD) Non-Af 67, BUN/Creatinine Ratio 27.5 H, Glucose 101 H, Calcium 8.9, Magnesium 2.1, TSH 3.470 Radiography Diagnostic Testing: Radiology Impression Chest X-Ray 02/05/25 15:50 IMPRESSION: Small right pleural effusion. Bilateral pulmonary vascular congestion Reading Location: [facility] Physical Exam Narrative GENERAL: cooperative HEENT: Atraumatic; normocephalic EYES; Anicteric, Normal Conjunctiva NECK; supple, normal thyroid, RESPIRATORY: Diminished to auscultation CARDIOVASCULAR: Regular S1 S2, GI: soft, normoactive bowel sounds, : No Renal angle tenderness; EXTREMITIES: +1 edema, no clubbing, MUSCULOSKELETAL: no muscle wasting NEURO: Awake; no lateralizing signs. SKIN: No Rash PSYCH; Flat affect Assessment & Plan Assessment/Plan (1) New onset of congestive heart failure: PLAN: Plan Patient is an 84-year-old lady presented with progressive shortness of breath was found to have elevated proBNP as well as vascular congestion and checks x-ray 1. Acute congestive heart failure (unspecified at this point) ?Patient has been admitted to monitored bed manage with strict input and output, daily weight, fluid restriction, low-sodium diet as well as diuretic therapy with furosemide 2D echo ordered for EF assessment 2. Paroxysmal atrial fibrillation ? Patient is on carvedilol for rate control as well as systemic anticoagulation with apixaban. Patient had recently been started on diltiazem to help control her rate held given her relatively low blood pressure. She was also placed on amiodarone she did not tolerate amiodarone. Plan for patient to follow-up with primary insole presser at [facility] 3. Conduction system disorder ? Status post pacemaker placement 4. Anemia ? Secondary to chronic disorder monitoring H&H and transfuse if patient becomes symptomatic or hemoglobin falls below 7 5. Essential hypertension ? Patient blood pressure was low on admission. Patient is on diltiazem held Coreg was continued with holding parameters 6. Mild intermittent asthma ? Aerosol treatment as needed 7. DVT prophylaxis ? Patient is on systemic anticoagulation with apixaban Time spent in the patient's overall evaluation,decision-making process, review of diagnostic data, adjustment of management, discussion with other providers, nursing nursing and ancillary staff involved in patient's care documentation, 50 Minutes Charges/Coding Visit Charges Inpatient E&M: 06267 [facility] [place] L3
[2025-02-06 09:45] VITALS: BP 109/69; PULSE 94; RESP 12; TEMP 36.5; O2SAT 98
[2025-02-06] MEDS: APIXABAN 5 MG TABLET PO (09:47)
[2025-02-06] MEDS: Furosemide 20 MG/2 ML VIAL IV (09:47)
--- NOTE | 2025-02-06 11:30 | CASEMGMT ---
RN?CM?ASSESSMENT ? RN?CM?to room to meet with patient for initial transition planning/care coordination?assessment.?RN?CM?introduced self and role at [facility].? Pt voices understanding and consents to?assessment?at this time.? Pt sitting up in chair in no distress at this time.? Pt is A/O at this time and answers all questions appropriately.?? Care providers, pharmacy, and demographics verified/updated at this time. ? Strata: 2 PCP: Dr Cross Specialists: Dr Bautista, imaging technologist/[facility]. Dr Arenas-EPS specialist/[facility], Dr Wendy Ansari-[facility] caregiver services home Preferred Pharmacy: [facility] @ [place]. Otherwise, goes to [facility]. Insurance: [employer], [employer], [employer] Benefit:?Yes LNOK: , Rigo. Daughter, Becky. Son, Ghassan Living Arrangements: Lives w/ in one-story home w/basement w/2 steps to enter. Independent w/ADL's, IADL's, and manages her own medications. Pt states she helps to take care of her , who has someone stay w/him 11/12. Family is staying w/him while pt is in the hospital. Pt offered/accepted a list of [facility] care agencies to have as a resource if needed in the future. Transportation:?Pt states drives self and states no transportation concerns at this time. Daughter will take her home @ [place]. ? DME: States has the following DME:?Pt has a nebulizer and pulse ox. No home O2. Shower chair is available, if needed. Pt states no need for further DME at this time.? HHC/SNF: No hx of either. No needs identified. ? Pt wishes to return home and states has no concerns with going home at time of discharge. She denies need for OP therapy. She states her goes to the [facility] for therapy and she goes with him and works out 2 x's/week while he is getting therapy. CM?to follow for any further discharge planning/needs.? Pt voices no further concerns/needs at this time.? Advised pt to ask for?CM?if any further questions/concerns/needs arise.? Voices understanding. ? PLAN:??Home. ? Michael MITTALN?RN?CM
--- NOTE | 2025-02-06 14:19 | PCM.DC.SUM ---
Providers Date of Admission: 02/05/25 Date of Discharge: 02/06/25 Primary Care Physician: Dr. Ciera Cross MD Reason For Visit: CONCERN FOR NEW ONSET HEART FAILURE Diagnosis Discharge Diagnosis (1) New onset of congestive heart failure: Status: Acute Code(s): I50.9 - Heart failure, unspecified Plan Patient is an 84-year-old lady presented with progressive shortness of breath was found to have elevated proBNP as well as vascular congestion and checks x-ray 1. Acute congestive heart failure with preserved ejection fraction ?Patient has been admitted to monitored bed manage with strict input and output, daily weight, fluid restriction, low-sodium diet as well as diuretic therapy with furosemide 2D echo ordered for EF assessment ? I was present of state for at least 2 midnight however she insisted on being discharged home. With patient having experienced rather rapid recovery decision was made to discharge. 2D echo obtained during her hospital stay did show The left ventricular ejection fraction is 60 %. The left atrium is moderately enlarged.Moderate (2+) eccentric mitral valve insufficiency. Pulmonary artery systolic pressure is 54 mmHg. Moderate pulmonary hypertension. 2. Paroxysmal atrial fibrillation ? Patient is on carvedilol for rate control as well as systemic anticoagulation with apixaban. Patient had recently been started on diltiazem to help control her rate held given her relatively low blood pressure. She was also placed on amiodarone she did not tolerate amiodarone. Plan for patient to follow-up with primary hair tinter at [facility] 3. Conduction system disorder ? Status post pacemaker placement 4. Anemia ? Secondary to chronic disorder monitoring H&H and transfuse if patient becomes symptomatic or hemoglobin falls below 7 5. Essential hypertension ? Patient blood pressure was low on admission. Patient is on diltiazem held Coreg was continued with holding parameters 6. Mild intermittent asthma ? Aerosol treatment as needed 7. DVT prophylaxis ? Patient is on systemic anticoagulation with apixaban Time spent in the patient's overall evaluation,decision-making process, review of diagnostic data, adjustment of management, discussion with other providers, nursing nursing and ancillary staff involved in patient's care documentation, 50 Minutes Medications at Discharge Home Medications levetiracetam 250 mg tablet 250 mg PO BID siezure #60 tabs 11/26/13 apixaban 5 mg tablet (Eliquis) 5 mg PO BID afib 02/05/25 carvedilol 3.125 mg tablet 3.125 mg PO BID blood pressure 02/05/25 diltiazem HCl 240 mg capsule,extended release 24 hr 240 mg PO DAILY heart rate 02/05/25 Held on 02/06/25. Instructions: Resume on 02/18/25. Still evaluated by a hair tinter fluticasone furoate 100 mcg/actuation blister powder for inhalation (Arnuity Ellipta) 1 inh inhalation DAILY asthma 02/05/25 furosemide 40 mg tablet (Lasix) 40 mg PO DAILY #30 tabs 02/06/25 Physical Exam Narrative GENERAL: cooperative HEENT: Atraumatic; normocephalic EYES; Anicteric, Normal Conjunctiva NECK; supple, normal thyroid, RESPIRATORY: Diminished to auscultation CARDIOVASCULAR: Regular S1 S2, GI: soft, normoactive bowel sounds, : No Renal angle tenderness; EXTREMITIES: +1 edema, no clubbing, MUSCULOSKELETAL: no muscle wasting NEURO: Awake; no lateralizing signs. SKIN: No Rash PSYCH; Flat affect Weight / BMI Weight Weight: 90.3 kg Body Mass Index (BMI) 31.1 ABG / Lab / Microbiology Data 02/06/25 05:26 02/06/25 05:26 Laboratory: Laboratory Results - last 24 hr 02/05/25 15:35: WBC 8.5, RBC 4.29, Hgb 12.2, Hct 38.1, MCV 88.8, MCH 28.4, MCHC 32.0, RDW Std Deviation 44.3 H, RDW Coeff of William 13.6, Plt Count 276, MPV 9.7, Immature Gran % (Auto) 0.500, Neut % (Auto) 71.3 H, Lymph % (Auto) 19.4, [place] % (Auto) 6.3, Eos % (Auto) 1.8, Baso % (Auto) 0.7, Absolute Neuts (auto) 6.0, Absolute Lymphs (auto) 1.64, Nucleated RBC % 0, Sodium 138, Potassium 4.4, Chloride 105, Carbon Dioxide 18.4 L, Anion Gap 15, BUN 28 H, Creatinine 1.02, Estim Creat Clear Calc 49.37 L, Est GFR (MDRD) Non-Af 55 L, BUN/Creatinine Ratio 27.4 H, Glucose 145 H, Lactic Acid 1.6, Calcium 9.4, Total Bilirubin 0.82, AST 43 H, ALT 31, Alkaline Phosphatase 70, Troponin T High Sens 11, NT pro BNP II 1402, Total Protein 6.8, Albumin 4.1, Globulin 2.6, Albumin/Globulin Ratio 1.6 02/05/25 17:27: Troponin T Hi Sens 2 Hr 10 02/05/25 20:05: Troponin T Hi Sens 4Hr 16 H 02/06/25 05:26: WBC 5.7, RBC 3.74 L, Hgb 10.7 L, Hct 32.8 L, MCV 87.7, MCH 28.6, MCHC 32.6, RDW Std Deviation 43.7, RDW Coeff of William 13.6, Plt Count 224, MPV 9.8, Immature Gran % (Auto) 0.300, Neut % (Auto) 64.5, Lymph % (Auto) 22.7, [place] % (Auto) 8.9, Eos % (Auto) 2.6, Baso % (Auto) 1.0, Absolute Neuts (auto) 3.7, Absolute Lymphs (auto) 1.30, Nucleated RBC % 0, Sodium 139, Potassium 3.6, Chloride 106, Carbon Dioxide 19.8 L, Anion Gap 13, BUN 24 H, Creatinine 0.86, Estim Creat Clear Calc 58.19, Est GFR (MDRD) Non-Af 67, BUN/Creatinine Ratio 27.5 H, Glucose 101 H, Calcium 8.9, Magnesium 2.1, TSH 3.470 Radiography Diagnostic Testing: Radiology Impression Chest X-Ray 02/05/25 15:50 IMPRESSION: Small right pleural effusion. Bilateral pulmonary vascular congestion Reading Location: [id number] Echocardiogram 02/05/25 19:50 Interpretation Summary Normal LV size. The left ventricular ejection fraction is 60 %. The left atrium is moderately enlarged. Moderate (2+) eccentric mitral valve insufficiency. Pulmonary artery systolic pressure is 54 mmHg. Moderate pulmonary hypertension. Ordering Physician: Chelsey Rich Referring Physician: Ciera Cross Performed By: Maggi Orourke RDCS, RVT D/C Instructions Discharge Activity: Return to Normal Activity Call your doctor if you observe: Fever of 101 or Higher, Shortness of breath, Fainting spells and Chest pain DC O2, CPAP, BIPAP Needs Home O2 Discharge instructions: No DC home with Oxygen: No Meaningful Use Info Meaningful Use Meaningful Use Diagnoses (Choose all that apply): CHF CHF ISIAH/ARB ordered at discharge?: No Reason ISIAH/ARB not ordered?: Not indicated Documented LVEF (%): 60 Discharge Plan Admission Admit Date/Time: 02/05/25 18:24 Attending Provider: Ollie Alford Primary Care Provider: Ciera Cross Consulting Providers: Chelsey Rich Discharge Orders/Prescriptions Prescriptions: New furosemide [Lasix] 40 mg tablet 40 mg PO DAILY Qty: 30 0RF Continued levetiracetam 250 MG tablet 250 mg PO BID Qty: 60 0RF Patient Comments: SEIZURES Eliquis 5 mg tablet 5 mg PO BID fluticasone furoate [Arnuity Ellipta] 100 mcg/actuation blister with device 1 inh inhalation DAILY carvedilol 3.125 mg tablet 3.125 mg PO BID Held diltiazem HCl 240 mg capsule,extended release 24hr 240 mg PO DAILY Hold Instructions: Resume on 02/18/25. Still evaluated by a hair tinter Discontinued amlodipine 2.5 MG tablet 5 mg PO DAILY Patient Comments: blood pressure; no longer taking Referrals / Follow Up: Ciera Cross MD [Primary Care Provider, Internal Medicine] - In 1 Week Disposition Disposition (needs filled in before D/C Order can be placed): Home, Self Care
--- NOTE | 2025-02-06 14:42 | CHAPLAIN ---
Type of Pastoral Visit _x__ Initial Visit ___ Follow-up Visit ___ On-call Visit ___ General Patient Visit ___ Spiritual Assessment ___ Family Conference ___ Bereavement ___ Rapid Response ___ Code Blue ___ Other (describe below) Pastoral Care Referral From _x__ Patient ___ Family ___ Nurse ___ Physician ___ Farm Implement Engine Mechanic ___ [employer] Truck Driver ___ Other (describe below) Sacrament/Intervention _x__ Active listening ___ Anointing ___ Christianity ___ Bereavement ___ Communion _x__ Bridgett exploration ___ ___ Life review _x__ Prayer ___ Reconciliation ___ Sacrament of Sick ___ Supportive presence ___ Wedding ___ Other (describe below) Pastoral Comments patient is pleasant and welcoming; pt states that she is surprised that she has stayed this long in the hospital when I am feeling pretty good right now; pt however is content with staying until I am well enough to go home; pt is connected to a bridgett community and says that a prayer would be helpful; pt denies worries
[2025-02-06 15:30] VITALS: BP 110/72; PULSE 84; RESP 14; TEMP 36.6; O2SAT 98
--- NOTE | 2025-02-06 15:47 | PHA.DC_ITS ---
Pharmacy [facility] Counseling Pharmacy Service has performed discharge medication reconciliation and counseling for this patient. The patient's discharge medication list was reviewed for discrepancies and discrepancies were resolved. The patient was counseled on the following discharge medications and changes in medications for homegoing were reviewed. The Reason for Use, instructions for use, and potential side effects were reviewed for all new medications. The patient's questions regarding all of their medications were answered. 1. Furosemide 40 mg PO daily The patient was able to verbally demonstrate an understanding of their discharge medications. Medications at Discharge Home Medications levetiracetam 250 mg tablet 250 mg PO BID siezure #60 tabs 11/26/13 apixaban 5 mg tablet (Eliquis) 5 mg PO BID afib 02/05/25 carvedilol 3.125 mg tablet 3.125 mg PO BID blood pressure 02/05/25 diltiazem HCl 240 mg capsule,extended release 24 hr 240 mg PO DAILY heart rate 02/05/25 Held on 02/06/25. Instructions: Resume on 02/18/25. Still evaluated by a senior technical analyst fluticasone furoate 100 mcg/actuation blister powder for inhalation (Arnuity Ellipta) 1 inh inhalation DAILY asthma 02/05/25 furosemide 40 mg tablet (Lasix) 40 mg PO DAILY #30 tabs 02/06/25
== END 2025-02-06 16:03 | disposition home or self-care (01) | DRG 291 ==
LOC: ED 17:33 → PCU 18:29
PROVIDERS: Admitting Provider Internal Medicine; Emergency Provider Emergency Medicine; PCP Internal Medicine; Visit Provider Internal Medicine
DX: I11.0 Hypertensive heart disease with heart failure (principal); I50.31 Acute diastolic (congestive) heart failure; J90 Pleural effusion, not elsewhere classified; I27.20 Pulmonary hypertension, unspecified; J45.20 Mild intermittent asthma, uncomplicated; I34.0 Nonrheumatic mitral (valve) insufficiency; D64.9 Anemia, unspecified; I48.0 Paroxysmal atrial fibrillation; I95.9 Hypotension, unspecified; E78.00 Pure hypercholesterolemia, unspecified; Z79.01 Long term (current) use of anticoagulants; Z95.0 Presence of cardiac pacemaker; Z79.51 Long term (current) use of inhaled steroids
CPT/HCPCS: 36415; 71046; 80048; 80053; 83605; 83735; 83880; 84443; 84484; 85025; 93005; 93306; 94640; 94668; 99285; A4216; J1938